=== PATIENT | male | born 1960 | race African-American/Black ===

== ENCOUNTER 2022-06-09 11:16 | Emergency (ER) | payer OTHER, SELFPAY ==
[2022-06-09 11:21] VITALS: BP 144/83; PULSE 95; RESP 17; TEMP 36.6; O2SAT 97; BMI 29.6
--- NOTE | 2022-06-09 11:30 | ED.GENADULT ---
HPI - General Adult General Chief complaint: General Medical Stated complaint: allergic reaction Time Seen by Provider: 06/09/22 11:26 Source: patient Mode of arrival: ambulatory Limitations: no limitations History of Present Illness HPI narrative: 61-year-old male with history of hypertension on lisinopril presents to the ER for evaluation of lip swelling that started last night at 9:30pm. He states the swelling started on his top lip last night. He states this morning he woke up with the bottom lip swollen as well. He denies any swelling of his tongue, throat. No wheezing or SOB. He last took his lisinopril 40 mg this morning before he came to the hospital. No history of allergic reaction or angioedema in the past. MD complaint: lip swelling Onset (ago): hour(s) (15) Location: mouth Radiation: non-radiation Severity: moderate Pain Consistency: constant Relieving factors: none Exacerbating factors: none Associated symptoms: denies other symptoms Treatments prior to arrival: none Related Data Previous Rx's Medication Instructions Recorded amlodipine 10 mg tablet (Norvasc) 10 mg PO DAILY #30 tabs 06/09/22 Allergies Allergy/AdvReac Type Severity Reaction Status Date / Time pseudoephedrine Allergy Rash Verified 06/09/22 13:19 [From Bere] lisinopril Allergy Severe Angioedema Uncoded 06/09/22 13:19 Review of Systems Review of Systems: Constitutional: No Fever, No Chills ENT/Mouth: No sore throat, No Rhinorrhea, No Swallowing Difficulty , +Lip swelling Eyes: No Eye Pain, No Swelling, No Redness Cardiovascular: No Chest Pain, No SOB, No Orthopnea, No Edema Respiratory: No Cough, No Sputum, No Wheezing, No dyspnea Gastrointestinal: No Nausea, No Vomiting Musculoskeletal: No joint pain, No Myalgias Skin: No Skin Lesions, No rash Neuro: No Weakness, No Numbness, No Dizziness, No Headache Psych: + Anxiety/Panic Heme/Lymph: No Bruising, No Lymphadenopathy PMFSH Past Medical History Medical History (Updated 06/09/22 @ 12:45 by Anu Tejeda) Diabetes HTN (hypertension) Social History Social History Smoked in Last 30 Days: Yes Use of substances other than those prescribed or required for medical reasons: No Advance Directives: No Advance Directives Information Provided: Yes Physical Exam ED Vital Signs: Vital Signs - 24 hr 06/09/22 11:21 06/09/22 12:44 Temperature 98 F 99.9 F Pulse Rate 95 79 Respiratory Rate 17 16 Blood Pressure 144/83 H 135/77 Pulse Oximetry 97 97 Oxygen Delivery Method Room Air Room Air BMI result Body Mass Index 29.6 Appearance: Alert. Oriented X3. No acute distress. HEENT: normocephalic, atraumatic. normal inspection of the eyes, PERRLA. normal nose. both top and bottom lip with diffuse symmetrical swelling. oropharynx is normal, no tongue swelling. normal voice, handling secretions normally. Neck: normal inspection, trachea midline. No LAD CVS: Normal heart rate and rhythm. Pulses normal. Respiratory: No respiratory distress. Lung CTAB Skin: Skin warm and dry. Normal skin color. Normal skin turgor. No rashes. Extremities: normal inspection x4. Neuro: Oriented X 3. No motor deficit. No sensory deficit. Course Course Course Narrative: 61-year-old male with history of hypertension on lisinopril presents to the ER for evaluation of acute onset of lip swelling, that started last night at 21:30. Exam and clinical presentation are consistent with angioedema due to MARYSE inhibitor. IV established and ordered for IV Decadron, Benadryl and Pepcid. No airway involvement at this time. Will monitor closely and reassess in the ER. Reevaluation(s) Reevaluation #1: Pt feels swelling of upper lip is starting to improve. Continues to have no oral/tongue/airway involvement. Reevaluation #2: Pt reassess w/ Dr. Ram. Pt feels better. He would like to go home. He was counseled on immediate return if new or worsening symptoms. Will start on Norvasc and he will d/c his lisinopril at home. Comfortable with d/c Medications Administered Discontinued Medications Generic Name Dose Route Start Last Admin Trade Name Freq PRN Reason Stop Dose Admin Dexamethasone Sodium Phosphate 8 mg 06/09/22 11:26 06/09/22 12:38 Dexamethasone Sod Phosphate 4 Mg/Ml Vial IVPUSH 06/09/22 11:27 8 mg ONCE ONE Administration Diphenhydramine HCl 50 mg 06/09/22 11:26 06/09/22 12:39 Diphenhydramine Hcl 50 Mg/Ml Vial IVPUSH 06/09/22 11:27 50 mg ONCE ONE Administration Famotidine 20 mg 06/09/22 11:26 06/09/22 12:38 Famotidine/Pf 20 Mg/2 Ml Vial IVPUSH 06/09/22 11:27 20 mg ONCE ONE Administration Critical Care Time Critical Care Time Critical Care Time: Yes Total Critical Care Time: 35 Attestation: I have personally provided critical care time exclusive of time spent on separately billable procedures. Time includes frequent bedside reassessments, discussion with consultants, and monitoring for potential decompensation. Intervention performed as documented. Discharge Plan Discharge Clinical Impression: Angioedema Patient Disposition: Home, Self-Care Instructions: Angioedema (ED) Additional Instructions: STOP TAKING LISINOPRIL Start taking Norvasc 10 mg per day for your BP instead - sent to [facility] at [address] [place] [address]. You can continue to take Benadryl 50 mg every 8 hour until your lips are back to normal. If you develop new or worsening symptoms call 911 or come back to the ER for further evaluation. Prescriptions: New amlodipine [Norvasc] 10 mg tablet 10 mg PO DAILY Qty: 30 0RF
--- OUTSIDE RECORDS SUMMARY | 2022-06-09 11:57 | XMS_ITS | Encounter Summary ---
:1960 Author Organization [facility] rs Address [address] [place] [address] Support Name Relationship Address Phone ARABELLAMAIDA Mo Unavailable [id number] [place] [phone] ELIMAIDA GRACIA Unavailable [address] [place] [address] Insurance Providers: All historical and current Section Date Range: From patient's date of to the date document was created.This section includes the names of all active insurance providers for the patient. Insurance Type of Plan Start of End of Group Member Insurance Policy P [facility] Provider Coverage Name Policy Policy Number ID Provider's Figueroa's Relationship Coverage Coverage Telephone Name to Policy Number Figueroa [facility] Jul 17, [facility] [id number] [address]AN, REPLACED BY [facility] 2018 DIRECT 15 [id number] S[employer]INO PLAN [facility] Jul 17, [facility] [id number] [facility] 2010 [phone] SANTINO PLAN Selected Encounter This section includes the information on record at [place] for the Encounter. Date/Time Encounter Type Encounter Reason Provider Source Description Sep 14, 2021 POSTOP GENERAL SURGERY ICD-10-CM Z86.39 MICAELA TOMLINSON 03:30 PM FOLLOW-UP VISIT Personal history of endo, nutritional and metabolic disease with Provider Comments: History of diabetes mellitus type 2 ([facility] [id number]) IHE Encounter Template Text not used by [place] Assessments - Encounter Diagnoses This section includes the primary and secondary diagnoses documented for the Encounter. Date/Time Primary/Secondary Diagnosis Name Provider Source Diagnosis Apr 27, 2022 PRIMARY Personal history MONICA SIMPSON ND 03:39 PM of endo, [facility] nutritional and SYS metabolic disease Plan of Treatment: Future Appointments (+ 6 months) and Future Tests (+/- 45 days) The Plan of Treatment section includes future care activities for the patient from all [place] treatmentfacilities. This section includes future appointments and future orders which are active, pending orscheduled.Future Appointments This section includes appointments that were scheduled to occur 6 months from the date of the Encounter, up to a maximum of 20 appointments. The data comes from all [place] treatment facilities. Appointment Date/Time Appointment Type Appointment Facili ty Name Oct 08, 2021 08:30 AM AMBULATORY - MEDICINE [facility] Oct 12, 2021 02:00 PM AMBULATORY - SURGERY [facility] Nov 01, 2021 08:00 AM AMBULATORY MEDICINE [facility] November 19, 2021 08:30 AM AMBULATORY - MEDICINE [facility] Feb 09, 2022 08:00 AM AMBULATORY MEDICINE [facility] Lab Results: +/- 30 days of the encounter This section includes the Chemistry and Hematology Lab Results on record with [place] for the patient. Radiology Reports and Pathology Reports are provided separately, in subsequent sections.Lab Results This section contains the Chemistry/Hematology Results that were resulted 30 days before or 30 daysafter the date of the Encounter. Date/Time Source Result Type Result - Unit Interpretation Reference Range Comment Sep 07, 2021 09:42 [facility] COVID-19 SCREEN PANEL Spe cimen Type: NASAL MUCUS [facility] (VERITOR) No comment enter ed. Ordering Provid er: ESTRELLA MORENO Report Released Date/Time: Sep 07, 2021 09:42 AM Reporting Lab: [facility] [address] [facility] [phone] Performing Lab: [facility] [address] [facility] [phone] COVID-19 ANTIGEN (VERITOR) NEGATIVE INTERNAL CONTROL PASS Sep 07, 2021 08:31 [facility] POC GLUCOSE (finger Speci men Type: PLASMA [facility] stick) No comment enter ed. Ordering Provid er: BRIDGETTE SHIPMAN Report Released Date/Time: Sep 08, 2021 05:59 AM Reporting Lab: [facility] [address] [facility] Performing Lab: [facility] [address] [facility] POC GLUCOSE (finger stick) 74 70- 105 Aug 17, 2021 [facility] GLYCOSOLATED HGB PANEL Speci men Type: BLOOD 08:04 [facility] - BALT/PP No comment enter ed. Ordering Provid er: AMBER ALAS Report Released Date/Time: Apr 28, 2021 08:52 AM Reporting Lab: [facility] [address] [facility] Performing Lab[facility] [address] [facility] HEMOGLOBIN A1C 5.7 4.3-5.7 Aug 17, 2021 08:04 AM [facility] LIPID PANEL S pecimen Type: SERUM SYS No comment enter ed. Ordering Provid er: AMBER ALAS Report Released Date/Time: Apr 28, 2021 08:52 AM Reporting Lab: [facility] [address] [facility] Performing Lab: [facility] [address] [facility] CHOLESTEROL 171 0-240 TRIGLYCERIDES 119 0-150 HDL CHOLESTEROL 50.1 40-60 CALC LDL-CHOLESTEROL 97 0-100 ICTERUS INDEX 1 HEMOLYSIS INDEX 3 LIPEMIA INDEX 8 Vital Signs: All taken on the encounter date This section contains inpatient and outpatient Vital Signs collected on the date of the Encounter. Date/Time Temperature Pulse Blood Respiratory SP02 Pain Height Weight John dy Source Pressure Rate Mass Index Sep 14, 97.3 F 84 137/75 18 /min 95 % 0 [place] 2021 03:01 /min mm[Hg] MARYLAN PM D [facility] Social History: Smoking Status (Most current) and Tobacco Use (All prior to encounter date) This section includes the most current, and the historical, smoking and tobacco-related health factors from the [place] facility where the Encounter took place.Current Smoking Status This section includes the most current smoking, or tobacco-related health factor, from the [place] facility where the Encounter took place. Date/Time Current Smoking Status Comment Facility Nov 03, 2020 09:00 AM VA-TOBACCO FORMER USER [facility] Tobacco Use History This section includes a history of the smoking, or tobacco- related health factors, that were collected on or before the date of the Encounter. The data comes from the [place] facility where the Encounter took place. Date/Time Smoking Status/Tobacco Use Comment Facil ity Nov 03, 2020 09:00 AM VA-TOBACCO QUIT 1 TO < [address] [facility] Jan 07, 2019 12:51 PM VA-TOBACCO FORMER USER [facility] Jan 07, 2019 12:51 PM VA-TOBACCO QUIT < 1 YEAR V [facility] Jul 02, 2018 08:32 AM CURRENT TOBACCO USER [facility] Apr 21, 2017 08:06 AM CURRENT TOBACCO USER [facility] Oct 20, 2016 10:36 AM CURRENT TOBACCO USER [facility] Apr 20, 2016 09:46 AM CURRENT TOBACCO USER [facility] Oct 19, 2015 11:24 AM CURRENT TOBACCO USER [facility] Mar 27, 2015 07:56 AM CURRENT TOBACCO USER [facility] Sep 23, 2014 07:54 AM CURRENT TOBACCO USER [facility] Mar 21, 2014 07:48 AM CURRENT TOBACCO USER [facility] Jun 25, 2013 08:37 AM CURRENT TOBACCO USER [facility] November 19, 2012 11:40 AM CURRENT TOBACCO USER [facility] Apr 02, 2012 08:47 AM CURRENT TOBACCO USER [facility] Sep 20, 2011 02:42 PM CURRENT TOBACCO USER [facility] Oct 08, 2010 10:34 AM CURRENT TOBACCO USER [facility] Dec 24, 2009 11:02 AM CURRENT TOBACCO USER [facility] Dec 24, 2009 11:02 AM TOBACCO OFFERRED STOP [facility] Jul 28, 2009 03:51 PM CURRENT TOBACCO USER [facility] Jul 31, 2008 03:40 PM CURRENT TOBACCO USER [facility] Jul 31, 2008 03:06 PM CURRENT TOBACCO USER [facility] Jul 31, 2008 03:06 PM TOBACCO OFFERRED STOP [facility] Jan 29, 2008 01:30 PM CURRENT TOBACCO USER [facility] Jan 29, 2008 01:30 PM TOBACCO OFFERRED PT MEDS V [facility] (PROVID[facility] CARE [facility] Jan 29, 2008 01:30 PM TOBACCO OFFERRED STOP [facility] Jan 29, 2008 01:13 PM CURRENT TOBACCO USER [facility] Jan 29, 2008 01:13 PM TOBACCO OFFERRED STOP [facility] Jul 31, 2007 09:48 AM CURRENT TOBACCO USER [facility] Jul 31, 2007 09:48 AM TOBACCO OFFERRED PT MEDS [facility] (PROVID[facility]) [facility] Jul 31, 2007 09:48 AM TOBACCO OFFERRED STOP [facility] Jul 31, 2007 09:14 AM CURRENT TOBACCO USER [facility] Jul 31, 2007 09:14 AM TOBACCO OFFERRED STOP [facility] November 28, 2006 04:03 PM CURRENT TOBACCO USER [facility] November 28, 2006 04:03 PM TOBACCO OFFERRED PT MEDS V [facility] ([facility] CARE [facility]YS November 28, 2006 04:03 PM TOBACCO OFFERRED STOP [facility] November 28, 2006 03:37 PM CURRENT TOBACCO USER [facility] smoke 1 pk/day CARE SYS May 31, 2006 03:53 PM TOBACCO [facility] HEALTH USE/COUNSELING-PROVIDER CARE SYS May 31, 2006 03:32 PM TOBACCO [facility] HEALTH USE/COUNSELING-ANCILLARY CARE SY S Feb 13, 2006 01:07 PM TOBACCO [facility] HEALTH USE/COUNSELING-ANCILLARY CARE SY S Apr 15, 2003 09:33 AM TOBACCO COUNSELING 3 [facility] Apr 15, 2003 08:38 AM TOBACCO COUNSELING 2 [facility] Oct 14, 2002 08:46 AM TOBACCO COUNSELING 1 [facility] Oct 14, 2002 08:46 AM TOBACCO COUNSELING 2 [facility] Oct 14, 2002 08:46 AM TOBACCO COUNSELING 3 [facility] Apr 17, 2002 09:52 AM TOBACCO COUNSELING 2 [facility] Apr 17, 2002 09:52 AM TOBACCO COUNSELING 3 [facility] Oct 19, 2001 09:25 AM TOBACCO COUNSELING 1 [facility] Oct 19, 2001 09:25 AM TOBACCO COUNSELING 2 [facility] Oct 19, 2001 09:25 AM TOBACCO COUNSELING 3 [facility] Apr 13, 2001 01:36 PM TOBACCO COUNSELING 2 [facility] Apr 13, 2001 01:36 PM TOBACCO COUNSELING 3 [facility] November 15, 2000 02:10 PM TOBACCO COUNSELING 1 [facility] Pathology Reports: +/- 30 days of the encounter Pathology Reports For cases when an order for pathology services may have been completed prior to the date of the Encounter, the report list includes the Pathology Reports that were completed up to 30 days before date of the Encounter. For cases when an order for pathology services may have been completed after the date of the Encounter, the report list also includes the Pathology Reports that were completed up to 30days after date of the Encounter. The data comes from all [facility] facilities. Date/Time Pathology Report Provider Source Sep 09, 2021 10:30 AM LR SURGICAL PATHOLOGY REPORT: STELLA JARRETT [facility] TITLE: LR SURGICAL PATHOLOGY REPORT [facility] TITLE: PATHOLOGY REPORT DATE OF NOTE: SEP 09, 2021@10:30:07 ENTRY DATE: SEP 09, 2021@10:30:07 AUTHOR: ALBER JARRETT EXP COSIGNER: URGENCY: STATUS: COMPLETED $APHDR - - - - - - - - - - - - - - - - - - - - - - - - - - - - - - - - - - - - - - - - MEDICAL RECORD BA-SURGICAL PATHLOGY - - - - - - - - - - - - - - - - - - - - - - - - - - - - - - - - - - - - - - - - PATHOLOGY REPORT Accession No. [id number] BSP [id number] - - - - - - - - - - - - - - - - - - - - - - - - - - - - - - - - - - - - - - - - $TEXT Submitted by: Date obtained: Sep 07, 2021 17:13 - - - - - - - - - - - - - - - - - - - - - - - - - - - - - - - - - - - - - - - - Specimen (Received Sep 07, 2021 17:13): 1. LEFT CHEST TUMOR - - - - - - - - - - - - - - - - - - - - - - - - - - - - - - - - - - - - - - - - BRIEF CLINICAL HISTORY: LEFT CHEST CYST REMOVAL - - - - - - - - - - - - - - - - - - - - - - - - - - - - - - - - - - - - - - - - PREOPERATIVE DIAGNOSIS: LEFT CHEST CYST REMOVAL - - - - - - - - - - - - - - - - - - - - - - - - - - - - - - - - - - - - - - - - OPERATIVE FINDINGS: - - - - - - - - - - - - - - - - - - - - - - - - - - - - - - - - - - - - - - - - POSTOPERATIVE DIAGNOSIS: LEFT CHEST CYST REMOVAL Surgeon/physician: BRIDGETTE SHIPMAN Current Provider: Luz Maria Obando MD Attending Provider: Bridgette Shipman =-=-=-=-=-=-=-=-=-=-=-=-=-=- =-=-=-=-=-=-=-=-=-=-=-=-=-=-=-=-=-=-=-=-=-=-=-=-=-= - - - - - - - - - - - - - - - - - - - - - - - - - - - - - - - - - - - - - - - - PATHOLOGY REPORT Accession No. [id number] BSP [id number] - - - - - - - - - - - - - - - - - - - - - - - - - - - - - - - - - - - - - - - - Pathology Resident: ANDREW MILLER Gross description: PATIENT IDENTIFICATION MATCHES REQUISITION AND CONTAINER. 1. SPECIMEN #1 IS RECEIVED IN FORMALIN, LABELED WITH THE PATIENT'S NAME, IDENTIFICATION AND LEFT CHEST TUMOR . IT CONSI STS OF ONE PINK BROWN CAUTERIZED SOFT TISSUE FRAGMENT MEASURING 2.2 X 1.4 X 0.8 CM. THE OUTER SURFACE IS INKED BLACK. THE SPECIMEN IS SECTION ED AND SUBMITTED ENTIRELY. SUMMARY OF SECTION: 1-1, LEFT CHEST TUMOR, 5 PIECES Microscopic exam/diagnosis: 1. LEFT CHEST (CYST), REMOVAL: -FIBROADIPOSE TISSUE WITH BENIGN CARTILAGINOUS LESION (SEE COMMENT). COMMENT: The lesion consists entirely of benign appearing chondroid material with surrounding chronic inflammation. The appearance is suggestive of chondroid metaplasia which may aragon ve resulted following the rupture/inflammation of a prior cyst; clinical correlation recommended. Case reviewed in departmental conference. /maira/ ALBER JARRETT PATHOLOGIST Signed Sep 09, 2021@10:30 Performing Laboratory: Surgical Pathology Report Performed By: [facility] [CLIA# [id number]] [address] [place] [phone] $FTR - - - - - - - - - - - - - - - - - - - - - - - - - - - - - - - - - - - - - - - - (End of report) ALBER JARRETT MD hgy Date Sep 08, 2021 - - - - - - - - - - - - - - - - - - - - - - - - - - - - - - - - - - - - - - - - SANTINO MEEHAN STANDARD FORM 515 ID:[id number] SEX:M :1960 AGE: 61 LOC: [facility]EE PCP: Raul Tripp MD /maira/ ALBER JARRETT PATHOLOGIST Signed: 09/09/2021 10:30 Encounter Notes: All associated encounter notes This section contains the clinical notes associated to the Encounter. Date/Time Encounter Note(s) Provider Source Sep 14, 2021 02:59 PM SURGERY NOTE: ARMANDO DAO [facility] LOCAL TITLE: GENERAL SURGERY NOTE [facility] TITLE: SURGERY NOTE DATE OF NOTE: SEP 14, 2021@14:59 ENTRY DATE: SEP 14, 2021@14:59:39 AUTHOR: ARMANDO DAO EXP COSIGNER: URGENCY: STATUS: COMPLETED GENERAL SURGERY CLINIC NOTE HPI: 61M sp excision chest wall mass w Nina Shipman 09/07/21. Presents for post- operative visit. S: Pt states he is doing well. Denies any pain i n the surgical site. Denies redness, drainage, swelling. Notes some itching. EXAM: Gen - Well appearing, sitting comfortably on exa m table CV: Heart regular rate. Chest: L chest wall with steri strips, c/d/i. No erythema, no drainage, no edema. Non-tender. Resp - NLB on RA Neuro - A&O x4 Pathology: Microscopic exam/diagnosis: 1. LEFT CHEST (CYST), REMOVAL: -FIBROADIPOSE TISSUE WITH BENIGN CARTILAGINOUS LESION (SEE COMMENT). COMMENT: The lesion consists entirely of benign appearing chondroid material with surrounding chronic inflammation. The appearance is suggestive of chondroid metaplasia which may aragon ve resulted following the rupture/inflammation of a prior cyst; clinical correlation recommended. Case reviewed in departmental conference. A&P: 61M hx superficial chest wall mass removed 09/07. - Pt healing appropriately, wound well approximated and without ss of infection - Pathology reviewed with patient - RTC up PRN /es/ ARMANDO DAO MD GENERAL SURGERY RESIDENT Signed: 09/14/2021 15:07
--- OUTSIDE RECORDS SUMMARY | 2022-06-09 11:57 | XMS_ITS | Continuity of Care Document ---
:1960 Author Organization [facility] Care Team Providers Name Role Phone DOD-CA Unavailable Unavailable Problems Combined list of problems from Department of Defense and Veterans Affairs facilities. It does not include entries that were removed or entered in error. Problem Status Onset Problem Type Date of Comments Source Date Resolution Colonic polyp Active 01/15/20 Condition [facility] 17 [facility] SY Need For Vaccination Inactive Condition DoD Against Influenza Benign prostatic Active Condition VA hyperplasia [facility] History of diabetes Active Condition VA mellitus type 2 [facility] Hyperlipidemia Active Condition VA (SNOMED CT 50426019) [facility] Hypertension (SNOMED Active Condition [place] 00336498) [facility] Obesity (SCT Active Condition CA 428034025) [facility] Osteoarthritis Active Condition Apr 13 VA 2000 Entered ANDREW Wood By: 5by [facility] YS ICK B Comment: knees bilaterally Vitamin D deficiency Active Condition [facility] Diabetes Mellitus Inactive Condition 02/09/2022 V A Type 2 (SCT [facility] 20037736) HEALTH CARE S Health maintenance Inactive Condition 01/07/[address] [facility] Obesity * (ICD-9-CM Inactive Condition 01/07/2019 VA 278.00) [facility] Diagnosis: ICD-10-CM Active Diagnosis VA Z23 Encounter for KIRAN PICHARDO immunizationwith [facility] Provider Comments: C ARE SYS Immunization Encounter Diagnosis: ICD-10-CM Active Diagnosis VA E66.9 Obesity, MARYL AND unspecifiedwith HEAL TH Provider Comments: C ARE SYS Obesity (SCT 643694723) Diagnosis: ICD-10-CM Active Diagnosis VA E11.9 Type 2 ANDREW Wood diabetes mellitus HE ALTH without CARE SYS complicationswith Provider Comments: Diabetes Mellitus Type 2 (SCT 88819754) Diagnosis: ICD-10-CM Active Diagnosis LOCH MARRY Q84.5 Enlarged and V [facility] hypertrophic nailswith Provider Comments: Enlarged and Hypertrophic Nails Diagnosis: ICD-10-CM Active Diagnosis VA Z86.39 Personal MAC GARCIA history of endo, A [facility] nutritional and CARE SYS metabolic diseasewith Provider Comments: History of diabetes mellitus type 2 ([facility] [id number]) Diagnosis: ICD-10-CM Active Diagnosis VA L72.0 Epidermal MAC GARCIA cystwith Provider HE ALTH Comments: Epidermal CARE SYS cyst Diagnosis: ICD-10-CM Active Diagnosis VA D23.9 Other benign [place] neoplasm of skin, HE ALTH unspecifiedwith CARE SYS Provider Comments: Benign Neop of Skin,Unspec Diagnosis: ICD-10-CM Active Diagnosis VA D22.30 Melanocytic [place] nevi of unspecified HEALTH part of facewith CAR E SYS Provider Comments: Melanocytic Nevi of Face,Unspec Diagnosis: ICD-10-CM Active Diagnosis VA Z23 Encounter for MA KYLEE immunizationwith [facility] Provider Comments: C ARE SYS Encounter for Immunization Diagnosis: ICD-10-CM Active Diagnosis HELDER TUTTLE R53.1 Weaknesswith V [facility] Provider Comments: Weakness Medications Combined list of outpatient medications from Department of Defense and Veterans Affairs facilities. Medications provided include 1) outpatient medications from the last 15 months, and 2) patient-reported medications. Medication Details Route Status Patient Prescription Prescription Last Ordering Order Source Instructions Expires Number Dispense Provider Date Date ACETAMINOPH TAKE TWO 10/07/2021 [id number] BHA TTI, 09/14/ Baltimo EN (U/D) TABLETS 2 ESTRELLA 2021 vickie PRECIADO 325 MG ORAL EVERY [facility] TAB SIX HOURS WHEN NEEDED ACETAMINOPH TAKE TWO ORAL 10/07/2021 [id number] TIFFANIE,AR 09/08/ [place] EN 325MG TABLETS 2 SALAN 2021 MARYLAN [facility] CARE WHEN SYS NEEDED atorvastati TAKE ONE 04/29/2022 [id number] MATTHIAS SEN, 03/19/ Baltimo n (U/D) 80 TABLET 2 2021 re MD MG ORAL TAB EVERY [facility] DAY FOR CHOLESTE ROL. atorvastati TAKE Discont 04/02/2022 [id number] EVETTE , 04/29/ Baltimo n (U/D) 80 ONE-HALF inued 2020 re M D MG ORAL TAB TABLET [facility] EVERY DAY FOR CHOLESTE ROL. ATORVASTATI TAKE ORAL DISCONT 04/02/2022 [id number] QUYEN Mo, CA Sudhakar CA 80MG ONE-HALF INUED 1 ANN2020 MARYL AN TAB TABLET (EDIT) D EVERY HEALTH DAY FOR CARE CHOLESTE SYS ROL. ATORVASTATI TAKE ONE ORAL 04/29/2022 [id number] EVETTE CA N CA 80MG TABLET 2 ANN2020 MARYLAN TAB EVERY D DAY FOR HEALTH CHOLESTE CARE ROL. SYS CHOLECALCIF TAKE ONE 04/29/2022 [id number] MATTHIAS ALONSO, 05/01/ Baltimo (VIT D3) TABLET 1 2020 vickie PRECIADO 1,000 UNIT EVERY [facility] ORAL TAB DAY (VITAMIN D SUPPLEME NT) CHOLECALCIF TAKE TWO Discont 06/23/2021 [id number] MATTHIAS ALONSO, 04/29/ Baltimo (VIT D3) TABLETS inued 1 2020 vickie PRECIADO 1,000 UNIT EVERY [facility] ORAL TAB DAY (VITAMIN D SUPPLEME NT) CHOLECALCIF TAKE TWO ORAL DISCONT 06/23/2021 [id number] EVETTE 09/11/ CA JORDY 25MCG TABLETS INUED 1 ANN2020 MARYL AN (1,000UNIT) EVERY (EDIT) D TAB DAY HEALTH (VITAMIN CARE D SYS SUPPLEME NT) CHOLECALCIF TAKE ONE ORAL 04/29/2022 [id number] ALAS, 04/29/ [place] JORDY 25MCG TABLET 1 ANN2020 DANIELLE N (1,000UNIT) EVERY D TAB DAY HEALTH (VITAMIN CARE D SYS SUPPLEME NT) EMPAGLIFLOZ TAKE ONE Discont 07/29/2022 [id number] MATTHIAS ALONSO, 11/02/ Baltimo IN 25 MG TABLET inued 2 2021 vickie PRECIADO ORAL TAB EVERY [facility] DAY FOR DIABETES TREATMEN T. EMPAGLIFLOZ TAKE ONE 08/06/2021 [id number] MATTHIAS ALONSO, 07/29/ Baltimo IN 25 MG TABLET 2 2021 vickie PRECIADO ORAL TAB EVERY [facility] DAY FOR DIABETES TREATMEN T. EMPAGLIFLOZ TAKE ONE ORAL DISCONT 07/29/2022 [id number] ALAS IN 25MG TAB TABLET INUED 2 ANNON C 2021 MARYL AN EVERY D DAY FOR HEALTH DIABETES CARE TREATMEN SYS T. EMPAGLIFLOZ TAKE ONE ORAL DISCONT 08/06/2021 [id number] [place], [place] IN 25MG TAB TABLET INUE 2 ANNON C 2020 MARYL AN EVERY D DAY FOR HEALTH DIABETES CARE TREATMEN SYS T. FLOMAX TAKE ONE 11/04/2021 [id number] MELVIN, 11/10/ Baltimo (BRAND) 0.4 CAPSULE 1 MYRA 2021 re MD MG ORAL CAP AT [facility] BEDTIME 30 MINUTES AFTER DINNER EACH DAY *FOR PROSTATE / NIGHTTIM E URINATIO N (BPH)* IBUPROFEN TAKE ONE 10/07/2021 [id number] CHELY I, 09/14/ Baltimo (U/D) 600 TABLET 2 ESTRELLA 2021 re MD MG ORAL TAB EVERY [facility] SIX HOURS WHEN NEEDED FOR PAIN OR INFLAMMA TION - TAKE WITH FOOD OR MILK. IBUPROFEN TAKE ONE ORAL 10/07/2021 [id number] CHELY I,AR 600MG TAB TABLET 2 SALAN 2021 MARYLAN EVERY KHALID D SIX HEALTH HOURS CARE WHEN SYS NEEDED FOR PAIN OR INFLAMMA TION - TAKE WITH FOOD OR MILK. LIRAGLUTIDE INJECT SUBCUT DISCONT 04/02/2022 [id number] H ANSBEBE VA (SAXENDA) 3MG ANEOUS INUED 2 ANNON C 2020 MARYLA N 6MG/ML DIRECTED D INJ,SOLN,PE UNDER HEALTH N,3ML THE SKIN CARE EVERY SYS DAY DISCARD PEN 30 DAYS AFTER FIRST USE. REFRIGER ATE-DO NOT FREEZE. PROTECT FROM LIGHT. RECOMMEN DED FOR USE WITH NOVOFINE OR NOVOTWIS T DISPOSAB LE NEEDLES. Lisinopril TAKE Discont 11/24/2021 [id number] EVETTE 08/06/ Baltimo (Prinivil) ONE-HALF inued 1 2021 re Tre D Tablet 40 TABLET [facility] mg Oral EVERY DAY REPLACES FOSINOPR IL - DO NOT TAKE BOTH lisinopril TAKE Active 08/05/2022 [id number] ALAS, 04/27/ Baltimo (U/D) 20 MG ONE-HALF 2 AMBER 2021 vickie PRECIADO ORAL TAB TABLET [facility] EVERY DAY LISINOPRIL TAKE ORAL SUSPEND 08/05/2022 [id number] [place] 20MG TAB ONE-HALF ED 2 2021 MARYLA N TABLET D EVERY HEALTH DAY CARE SYS LISINOPRIL TAKE ORAL DISCONT 11/24/2021 [id number] [place] 40MG TAB ONE-HALF INUED 1 2020 MARYLA N TABLET (EDIT) D EVERY HEALTH DAY CARE REPLACES SYS FOSINOPR IL - DO NOT TAKE BOTH SEMAGLUTIDE INJECT SUBCUT DISCONT 09/05/2021 [id number] LEONARD NSEN,SH 1MG/0.75ML 1MG ANEOUS INUED 2 2021 MARYL AN INJ,SOLN,PE DIRECTED D N,3ML UNDER HEALTH THE SKIN CARE ONCE SYS WEEKLY FOR WEIGHT MANAGEME NT (###) SEMAGLUTIDE INJECT SUBCUT DISCONT 09/29/2021 [id number] H ANSBEBE, (WT LOSS) 1.7MG/0. ANEOUS INUED 2 2021 MAC ALEXI 1.7MG/0.75M 75ML D L DIRECTED HEALTH INJ,SOLN,PE UNDER CARE N,0.75ML THE SKIN SYS ONCE WEEKLY FOR WEIGHT MANAGEME NT (###) START AFTER COMPLETI NG THE FOUR WEEKS OF 1MG DOSE WITH SEMAGLUT IMANI (OZEMPIC ). FOR WEIGHT MANAGEME NT (###) START AFTER COMPLETI NG THE FOUR WEEKS OF 1MG DOSE WITH SEMAGLUT IMANI (OZEMPIC ). SEMAGLUTIDE INJECT SUBCUT DISCONT 09/05/2021 [id number] LEONARD NSEN,SH 01/24/ VA (WT LOSS) 1.7MG/0. ANEOUS INUE 2 ANN2021 MAC ALEXI 1.7MG/0.75M 75ML D L DIRECTED HEALTH INJ,SOLN,PE UNDER CARE N,0.75ML THE SKIN SYS ONCE WEEKLY FOR WEIGHT MANAGEME NT (###) START AFTER COMPLETI NG THE FOUR WEEKS OF 1MG DOSE WITH SEMAGLUT IMANI (OZEMPIC ). FOR WEIGHT MANAGEME NT (###) START AFTER COMPLETI NG THE FOUR WEEKS OF 1MG DOSE WITH SEMAGLUT IMANI (OZEMPIC ). SEMAGLUTIDE INJECT SUBCUT ACTIVE 05/26/2023 [id number] RIZZO SEN, VA (WT LOSS) 2.4MG/0. ANEOUS 2 2021 MAC ALEXI 2.4MG/0.75M 75ML D L DIRECTED HEALTH INJ,SOLN,PE UNDER CARE N,0.75ML THE SKIN SYS ONCE WEEKLY FOR WEIGHT MANAGEME NT SEMAGLUTIDE INJECT SUBCUT DISCONT 11/02/2022 [id number] H ANSEN, 11/18/ VA (WT LOSS) 2.4MG/0. ANEOUS INUED 2 ANN2021 MAC ALEXI 2.4MG/0.75M 75ML (EDIT) D L DIRECTED HEALTH INJ,SOLN,PE UNDER CARE N,0.75ML THE SKIN SYS ONCE WEEKLY FOR WEIGHT MANAGEME NT (###) START AFTER COMPLETI NG THE FOUR WEEKLY 1.7MG DOSES WITH SEMAGLUT IMANI (WEGOVY) . FOR WEIGHT MANAGEME NT (###) START AFTER COMPLETI NG THE FOUR WEEKLY 1.7MG DOSES WITH SEMAGLUT IMANI (WEGOVY) . SEMAGLUTIDE INJECT SUBCUT DISCONT 09/11/2022 [id number] LEONARD NSEN, 09/13/ VA (WT LOSS) 2.4MG/0. ANEOUS INUED 2 ANNON C 2021 MAC ALEXI 2.4MG/0.75M 75ML D L DIRECTED HEALTH INJ,SOLN,PE UNDER CARE N,0.75ML THE SKIN SYS ONCE WEEKLY FOR WEIGHT MANAGEME NT (###) START AFTER COMPLETI NG THE FOUR WEEKLY 1.7MG DOSES WITH SEMAGLUT IMANI (WEGOVY) . FOR WEIGHT MANAGEME NT (###) START AFTER COMPLETI NG THE FOUR WEEKLY 1.7MG DOSES WITH SEMAGLUT IMANI (WEGOVY) . TAMSULOSIN TAKE ONE ORAL 11/04/2021 [id number] K HOSLA,AM 11/03/ VA HCL 0.4MG CAPSULE 1 IT 2020 MARYLAN CAP AT D BEDTIME HEALTH 30 CARE MINUTES SYS AFTER DINNER EACH DAY *FOR PROSTATE / NIGHTTIM E URINATIO N (BPH)* ZOSTER INJECT 1 INTRAM 08/16/2021 [id number] MELVIN, AM VA VACCINE,REC DOSE USCULA 1 IT 2020 MARYALEXI OMBINANT,AD (0.5ML) R D JUVANTED HEALTH INJ,KIT DIRECTED CARE INTRAMUS SYS CULARLY ONCE 2 DOSE SERIES WITH SECOND DOSE ADMINSTE RED 2 TO 6 MONTHS AFTER FIRST DOSE. Allergies, Adverse Reactions, Alerts Combined list of allergies from Department of Defense and Veterans Affairs facilities. It does not include entries that were removed or entered in error. Substance Category Reaction Severity Reaction Status Date Comments S ource type Reported No Known Drug Drug active WRNMM C Allergies allergy allergy 9 SUDAFED Propensity Eruption Propensity active VA to adverse to adverse 2 KIRAN PICHARDO reactions reactions HEAL TH to drug to drug CARE SYS (finding) (finding) Immunizations Combined list of available immunizations from the Department of Defense and Veterans Affairs facilities. Immunization Series Date Administered Site Reaction Lot CVX Drug St atus Comments Source Given By Number Code Manager Database COVID-19 1 complet PFR; VA (PFIZER), 2021 ed [id number]; KIRAN DA SILVA MRNA, LNP-S, 02 D BIVALENT 3 HEALT H BOOSTER, PF, C ARE 30 MCG/0.3 ML SYS DOSE INFLUENZA, complet VA INJECTABLE, 2021 ed KIRAN DA SILVA QUADRIVALENT, D PRESERVATIVE H EALTH FREE CARE SYS COVID-19 3 complet PFR; VA (PFIZER), 2020 ed [id number]; KIRAN STALLINGSLAN MRNA, LNP-S, 02 D PF, 30 2 HEALTH MCG/0.3 ML CAR E DOSE SYS INFLUENZA, complet VA INJECTABLE, 2020 ed KIRAN DA SILVA QUADRIVALENT, D PRESERVATIVE H EALTH FREE CARE SYS ZOSTER 1 complet VA RECOMBINANT 2020 ed KIRAN DA SILVA D HEALTH CARE SYS INFLUENZA, complet VA INJECTABLE, 2020 ed KIRAN DA SILVA QUADRIVALENT, D PRESERVATIVE H EALTH FREE CARE SYS COVID-19 2 complet PFR; VA (PFIZER), 2020 ed [id number]; KIRAN DA SILVA MRNA, LNP-S, 02 D PF, 30 1 HEALTH MCG/0.3 ML CAR E DOSE SYS COVID-19 1 complet PFR; VA (PFIZER), 2020 ed [id number]; KIRAN REKHA MRNA, LNP-S, 02 D PF, 30 1 HEALTH MCG/0.3 ML CAR E DOSE SYS INFLUENZA, complet Partne r:C VA INJECTABLE, 2019 ed [email or web address] sudhakar MORALES QUADRIVALENTtatiana D PRESERVATIVE by:[facility] 125.([phone]).N DC:[phone].Add ress:[id number] [facility] [address]JEIMY DORAN. [id number] Dosage: ML 0.5 INFLUENZA, complet VA INJECTABLE, 2018 ed KIRAN DA SILVA QUADRIVALENT, D PRESERVATIVE H EALTH FREE CARE SYS INFLUENZA complet V A (HISTORICAL) 2018 ed Tre Wood HE[facility] CARE SYS INFLUENZA, complet VA INJECTABLE, 2016 ed KIRAN DA SILVA QUADRIVALENT, D PRESERVATIVE H EALTH FREE CARE SYS TDAP complet VA 2017 ed ANDREW Wood HEALTH CARE SYS INFLUENZA, complet VA UNSPECIFIED 2012 ed KIRAN STALLINGSLAN FORMULATION D HEALTH CARE SYS INFLUENZA, complet VA UNSPECIFIED 2011 ed KIRAN STALLINGSLAN FORMULATION D HEALTH CARE SYS PNEUMOCOCCAL, complet VA UNSPECIFIED 2011 ed KIRAN STALLINGSLAN FORMULATION D HEALTH CARE SYS PNEUMOVAX 09/19/ complet V A REFUSED 2011 ed DANIELLE Mo (HISTORICAL) D HEALTH CARE SYS INFLUENZA complet V A (HISTORICAL) 2010 ed Tre Wood [facility] CARE SYS INFLUENZA, complet VA UNSPECIFIED 2009 ed KIRAN DA SILVA FORMULATION D HEALTH CARE SYS PNEUMOVAX 12/24/ complet refused VA REFUSED 2009 ed DANIELLE N (HISTORICAL) D HEALTH CARE SYS PNEUMOVAX complet Refused VA REFUSED 2009 ed DANIELLE N (HISTORICAL) D HEALTH CARE SYS NOVEL complet VA INFLUENZA-H1N 2009 ed ANDREW 1-09, ALL D FORMULATIONS H EALTH CARE SYS INFLUENZA complet V A (HISTORICAL) 2008 ed Tre Wood [facility]ARE SYS influenza 1 04/08/ Unknown, [id number] [place] complet influenza DoD virus 2009 Provider 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 virus purified (incl. surface purified antigen)-reti surfac e red CODE antigen)- retired CODE INFLUENZA complet V A (HISTORICAL) 2006 ed Tre Wood [facility] CARE SYS TD(ADULT) complet V A UNSPECIFIED 2006 ed KIRAN DA SILVA FORMULATION D HEALTH CARE SYS INFLUENZA complet F ORT (HISTORICAL) 2001 ed Tre [place] INFLUENZA, 06/26/ FILEMON HO 16 comple t VA WHOLE 1999 D ed ANDREW Wood HE[facility] CARE SYS INFLUENZA 05/12/ RADHA MCGUIRE 88 complet VA (HISTORICAL) 1997 ed Tre Wood [facility] CARE SYS TD(ADULT) complet militar y VA UNSPECIFIED 1996 ed KIRAN DA SILVA FORMULATION D HEALTH CARE SYS Results Combined list of recent chemistry, hematology and other laboratory results from Department of Defense and Veterans Affairs, ranging from 15 months to all on record, depending upon the facility. Order Results Value Reference Date Interpretation Specimen Commen ts Source Name Range GLYCOSOL HEMOGLOBIN 5.4 4.3 - 5.7 05/11 Specimen T ype: BLOOD CA ATED HGB A1C/HEMOGL /2021 No comment e ntered. [facility] PANEL - OBIN.TOTAL Ordering Pro vider: AMBER [facility]/PP IN BLOOD Report Release d Date/Time: Feb 09, 2022 08:29 AM CARE SYS BY HPLC Reporting Lab: [facility] [address] [facility] Performing Lab: [facility] [address] [facility] VIT D, 25-HYDROXY 37 30 - 100 05/11 Specimen Typ e: SERUM VA 25-OH, VITAMIN D3 /2021 Comment: Hem olysis Present. Affected Tests are canceled [facility] [MASS/VOLU Ordering Pro vider: AMBER ALAS [email or web address] [place]] IN Report Released Date/Time: Feb 09, 2022 08:29 AM CARE SYS SERUM OR Reporting Lab: [facility] PLASMA [facility] Performing Lab: [facility] [address] [facility] LIPID CHOLESTERO 141 0 - 240 05/11 Specimen Type : SERUM VA PANEL L /2021 Comment: Hemoly sis Present. Affected Tests are canceled [facility] [MASS/VOLU Ordering Pro vider: AMBER ALAS [email or web address] [place]] IN Report Released Date/Time: Feb 09, 2022 08:29 AM CARE SYS SERUM OR Reporting Lab: [facility] PLASMA [facility] Performing Lab: [facility] [address] [facility] LIPID TRIGLYCERI 93 0 - 150 05/11 Specimen Type : SERUM VA PANEL DE Comment: Hemoly sis Present. Affected Tests are canceled [facility] [MASS/VOLU Ordering Pro vider: AMBER ALAS [email or web address] [place]] IN Report Released Date/Time: Feb 09, 2022 08:29 AM CARE SYS SERUM OR Reporting Lab: [facility] PLASMA [address] [facility] Performing Lab: [facility] [address] [facility] LIPID CHOLESTERO 49.0 40 - 60 05/11 Specimen Type : SERUM VA PANEL L IN [facility] Comment: Hemol ysis Present. Affected Tests are canceled [facility] [MASS/VOLU Ordering Pro vider: AMBER ALAS [email or web address] [place]] IN Report Released Date/Time: Feb 09, 2022 08:29 AM CARE SYS SERUM OR Reporting Lab: [facility] PLASMA [facility] Performing Lab: [facility] [address] [facility] LIPID CHOLESTERO 73 0 - 100 05/11 Specimen Type : SERUM VA PANEL L IN LDL /2021 Comment: Hemol ysis Present. Affected Tests are canceled [facility] [MASS/VOLU Ordering Pro vider: AMBER [facility]AS [facility] [place]] IN Report Released Date/Time: Feb 09, 2022 08:29 AM CARE SYS SERUM OR Reporting Lab: [facility] PLASMA BY 10 [facility] CALCULATIO Performing L ab: [facility] N [facility] LIPID SAMPLE 1 05/11 Specimen Type: S CHENTE CA PANEL ICTERIC /2021 Comment: Hemoly sis Present. Affected Tests are canceled [facility] [PRESENCE] Ordering Pro vider: AMBER ALAS [facility] SERUM Report Release d Date/Time: Feb 09, 2022 08:29 AM CARE SYS OR PLASMA Reporting Lab : [facility] QUALITATIV 10 [facility] E Performing Lab: [facility] [address] [facility] LIPID HEMOLYSIS 90 05/11 Specimen Type: SERUM CA PANEL INTERFEREN /2021 Comment: Hem olysis Present. Affected Tests are canceled [facility] CE INDEX Ordering Provi jeremy: AMBER ALAS [facility] SERUM Report Release d Date/Time: Feb 09, 2022 08:29 AM CARE SYS OR PLASMA Reporting Lab : [facility] [address] [facility] Performing Lab: [facility] [address] [facility] LIPID SAMPLE 5 05/11 Specimen Type: S [facility] PANEL LIPEMIC /2021 Comment: Hemoly sis Present. Affected Tests are canceled [facility] [PRESENCE] Ordering Pro vider: [facility] SERUM Report Release d Date/Time: Feb 09, 2022 08:29 AM CARE SYS OR PLASMA Reporting Lab : [facility] QUALITATIV 10 [facility] E Performing Lab: [facility] [address] [facility] MICROALB CREATININE 130.42 20 - 320 05/11 Specimen Ty pe: URINE, SPOT VA UMIN [MASS/VOLU /2021 No comment en tered. FLOWERS PANEL ME] IN Ordering Provid er: AMBER ALAS URINE Report Released Date/Time: Feb 09, 2022 08:29 AM CARE SYS Reporting Lab: [facility] [address] [facility] Performing Lab: [facility] [address] [facility] MICROALB MICROALBUM <9.2 0 - 30 05/11 Specimen Typ e: URINE, SPOT VA UMIN IN/ No comment en tered. FLOWERS PANEL INE [MASS Ordering Prov ider: AMBER ALAS [email or web address] RATIO] IN Report Releas ed Date/Time: Feb 09, 2022 08:29 AM CARE SYS URINE Reporting Lab: [facility] [address] [facility] Performing Lab: [facility] [address] [facility] MICROALB MICROALBUM <1.2 0 - 1.9 05/11 Specimen Typ e: URINE, SPOT VA UMIN No comment enter ed. [place] PANEL [MASS/VOLU Ordering Pro vider: AMBER ALAS [email or web address] [place]] IN Report Released Date/Time: Feb 09, 2022 08:29 AM CARE SYS URINE Reporting Lab: [facility] [address] [facility] Performing Lab: [facility] BASIC CREATININE 1.00 .9 - 1.3 05/11 Specimen Typ e: SERUM VA METABOLI [MASS/VOLU /2021 Comment: He molysis Present. Affected Tests are canceled KRISTIE Dean PANEL ME] IN Ordering Provid er: AMBER ALAS [email or web address] SERUM OR Report Release d Date/Time: Feb 09, 2022 08:29 AM CARE SYS PLASMA Reporting Lab: [facility] [address] [facility] Performing Lab: [facility] BASIC UREA 15 6 - 20 05/11 Specimen Type: S CHENTE VA METABOLI Comment: Hemo lysis Present. Affected Tests are canceled [place] C PANEL [MASS/VOLU Ordering Pro vider: AMBER ALAS [email or web address] [place]] IN Report Released Date/Time: Feb 09, 2022 08:29 AM CARE SYS SERUM OR Reporting Lab: [facility] PLASMA [address] [facility] Performing Lab: [facility] [address] [facility] BASIC GLUCOSE 90 70 - 105 05/11 Specimen Type: SERUM VA METABOLI [MASS/VOLU /2021 Comment: He molysis Present. Affected Tests are canceled [place] C PANEL ME] IN Ordering Provid er: AMBER ALAS [facility] SERUM OR Report Release d Date/Time: Feb 09, 2022 08:29 AM CARE SYS PLASMA Reporting Lab: [facility] [address] [facility] Performing Lab: [facility] BASIC SODIUM 141 133 - 145 05/11 Specimen Type: SERUM VA METABOLI [MOLES/VOL Comment: He molysis Present. Affected Tests are canceled [place] C PANEL UME] IN Ordering Provid er: AMBER ALAS [facility] SERUM OR Report Release d Date/Time: Feb 09, 2022 08:29 AM CARE SYS PLASMA Reporting Lab: [facility] [address] [facility] Performing Lab: [facility] BASIC POTASSIUM Comment 3.3 - 5.1 05/11 Specimen Typ e: SERUM VA METABOLI [MOLES/VOL Comment: He molysis Present. Affected Tests are canceled [place] C PANEL UME] IN Ordering Provid er: AMBER ALAS [facility] SERUM OR Report Release d Date/Time: Feb 09, 2022 08:29 AM CARE SYS PLASMA Reporting Lab: [facility] [address] [facility] Performing Lab: [facility] [address] [facility] BASIC CHLORIDE 106 98 - 107 05/11 Specimen Type: SERUM VA METABOLI [MOLES/VOL /2021 Comment: He molysis Present. Affected Tests are canceled [place] C PANEL UME] IN Ordering Provid er: AMBER ALAS [email or web address] SERUM OR Report Release d Date/Time: Feb 09, 2022 08:29 AM CARE SYS PLASMA Reporting Lab: [facility] [address] [facility] Performing Lab: [facility] 10 [address] BASIC CARBON 23 22 - 32 05/11 Specimen Type: S CHENTE VA METABOLI DIOXIDE, Comment: Hemo lysis Present. Affected Tests are canceled [place] C PANEL TOTAL Ordering Provid er: AMBER ALAS [email or web address] [MOLES/VOL Report Relea sed Date/Time: Feb 09, 2022 08:29 AM CARE SYS UME] IN Reporting Lab: [facility] SERUM OR [address] [facility] PLASMA Performing Lab: [facility] [address] [facility] BASIC CALCIUM 9.5 8.4 - 10.2 05/11 Specimen Type : SERUM VA METABOLI [MASS/VOLU Comment: He molysis Present. Affected Tests are canceled [place] PANEL ME] IN Ordering Provid er: AMBER ALAS [email or web address] SERUM OR Report Release d Date/Time: Feb 09, 2022 08:29 AM CARE SYS PLASMA Reporting Lab: [facility] CARE SYS [address] [facility] Performing Lab: [facility] CARE SYS [address] [facility] BASIC ANION GAP 12 6 - 15 05/11 Specimen Type: SERUM VA METABOLI IN SERUM /2021 Comment: Hemo lysis Present. Affected Tests are canceled [place] PANEL OR PLASMA Ordering Prov ider: AMBER ALAS [email or web address] Report Released Date/Time: Feb 09, 2022 08:29 AM CARE SYS Reporting Lab: [facility] CARE SYS [address] [facility] Performing Lab: [facility] SYS [address] [facility] [id number] BASIC GLOMERULAR 85 60 05/11 Specimen Type : SERUM VA METABOLI FILTRATION /2021 Comment: He molysis Present. Affected Tests are canceled [place] C PANEL RATE/1.73 Ordering Prov ider: [facility] Report Released Date/Time: Feb 09, 2022 08:29 AM CARE SYS M.PREDICTE Reporting La b: [facility] CARE SYS D [VOLUME 10 [facility] [id number] RATE/AREA] Performing L ab: [facility] SYS IN SERUM, 10 [facility] PLASMA OR BLOOD BY CREATININE -BASED FORMULA (CKD-EPI 2020) BASIC SAMPLE 1 05/11 Specimen Type: S CHENTE CA METABOLI ICTERIC /2021 Comment: Hemol ysis Present. Affected Tests are canceled [place] C PANEL [PRESENCE] Ordering Pro vider: AMBER ALAS [facility] Report Release d Date/Time: Feb 09, 2022 08:29 AM CARE SYS OR PLASMA Reporting Lab : [facility] SYS QUALITATIV 10 [facility] E Performing Lab: [facility] BASIC HEMOLYSIS 90 05/11 Specimen Type: SERUM CA METABOLI INTERFEREN /2021 Comment: He molysis Present. Affected Tests are canceled [place] C PANEL CE INDEX Ordering Provi jeremy: [facility] Report Release d Date/Time: Feb 09, 2022 08:29 AM CARE SYS OR PLASMA Reporting Lab : [facility] CARE SYS [facility] Performing Lab: [facility] CARE SYS 10 [facility] BASIC SAMPLE 5 05/11 Specimen Type: S CHENTE CA METABOLI LIPEMIC /2021 Comment: Hemol ysis Present. Affected Tests are canceled [place] C PANEL [PRESENCE] Ordering Pro vider: [facility] Report Release d Date/Time: Feb 09, 2022 08:29 AM CARE SYS OR PLASMA Reporting Lab : [facility] SYS QUALITATIV 10 [facility] E Performing Lab: [facility] 10 [facility] COVID-19 COVID-19 NEGATIVE 09/07 Specimen Type : NASAL MUCUS CA SCREEN ANTIGEN No comment enter ed. [place] PANEL AG (VERITOR) Ordering Pro vider: [email or web address] [employer] (VERITOR Report Release d Date/Time: Sep 07, 2021 09:42 AM CARE SYS ) Reporting Lab: [facility] Performing Lab: [facility] COVID-19 INTERNAL PASS 09/07 Specimen Type: NASAL MUCUS CA SCREEN CONTROL /2021 No comment enter ed. [place] PANEL AG Ordering Provi jeremy: [email or web address] [employer] (VERITOR Report Release d Date/Time: Sep 07, 2021 09:42 AM CARE SYS ) Reporting Lab: [facility] Performing Lab: [facility] 10 [facility] POC GLUCOSE 74 70 - 105 09/07 Specimen Type: PLASMA CA GLUCOSE [MASS/VOLU /2021 [facility] [place] (finger ME] IN Ordering Provid er: [facility] stick) BLOOD BY Report Release d Date/Time: Sep 08, 2021 05:59 AM CARE SYS AUTOMATED Reporting Lab : [facility] TEST STRIP 10 [facility] Performing Lab: [facility] GLYCOSOL HEMOGLOBIN 5.7 4.3 - 5.7 08/17 Specimen T ype: BLOOD CA ATED HGB A1C/HEMOGL /2021 No comment e ntered. [place]INE PANEL - OBIN.TOTAL Ordering Pro vider: [facility] BALT/PP IN BLOOD Report Release d Date/Time: Apr 28, 2021 08:52 AM CARE SYS BY Reporting Lab: [facility]ATIO [facility] Performing Lab: [facility] LIPID CHOLESTERO 171 0 - 240 08/17 Specimen Type : SERUM VA PANEL L /2021 No comment enter ed. MAINE [MASS/VOLU Ordering Pro vider: AMBER ALAS [email or web address]] IN Report Released Date/Time: Apr 28, 2021 08:52 AM CARE SYS SERUM OR Reporting Lab: [facility] PLASMA 10 [facility] Performing Lab: [facility] 10 [facility] LIPID TRIGLYCERI 119 0 - 150 08/17 Specimen Type : SERUM VA PANEL DE No comment enter ed. MAINE [MASS/VOLU Ordering Pro vider: AMBER ALAS [email or web address]] IN Report Released Date/Time: Apr 28, 2021 08:52 AM CARE SYS SERUM OR Reporting Lab: [facility] PLASMA 10 [facility] Performing Lab: [facility] 10 [facility] LIPID CHOLESTERO 50.1 40 - 60 08/17 Specimen Type : SERUM VA PANEL L IN HDL /2021 No comment ente red. MAINE [MASS/VOLU Ordering Pro vider: AMBER ALAS [email or web address]] IN Report Released Date/Time: Apr 28, 2021 08:52 AM CARE SYS SERUM OR Reporting Lab: [facility] PLASMA 10 [facility] Performing Lab: [facility] 10 [facility] LIPID CHOLESTERO 97 0 - 100 08/17 Specimen Type : SERUM VA PANEL L IN LDL No comment ente red. MAINE [MASS/VOLU Ordering Pro vider: AMBER ALAS [email or web address]] IN Report Released Date/Time: Apr 28, 2021 08:52 AM CARE SYS SERUM OR Reporting Lab: [facility] S[facility] PLASMA BY 10 [facility] CALCULATIO Performing L ab: [facility] N 10 [facility] LIPID SAMPLE 1 08/17 Specimen Type: S CHENTE VA PANEL ICTERIC /2021 No comment enter ed. MAINE [PRESENCE] Ordering Pro vider: [facility] Report Release d Date/Time: Apr 28, 2021 08:52 AM CARE SYS OR PLASMA Reporting Lab : [facility]IV [facility] Performing Lab[facility] [address] LIPID HEMOLYSIS 3 08/17 Specimen Type: SERUM CA PANEL INTERFEREN /[address] [place] CE INDEX Ordering Provi jeremy: [facility] Report Release d Date/Time: Apr 28, 2021 08:52 AM CARE SYS OR PLASMA Reporting Lab : [facility] CARE SYS [address] Performing Lab: [facility] 10 [facility] LIPID SAMPLE 8 08/17 Specimen Type: S CHENTE CA PANEL LIPEMIC /2021 No comment enter ed. MAINE [PRESENCE] Ordering Pro vider: AMBER ALAS [facility] [place] Report Release d Date/Time: Apr 28, 2021 08:52 AM CARE SYS OR PLASMA Reporting Lab : [facility] S[facility] QUALITATIV 10 [facility] E Performing Lab: [facility] CARE SYS [facility] MICROALB CREATININE 37.40 04/22 Specimen Typ e: URINE, SPOT VA UMIN [MASS/VOLU No comment en terkristina. KRISTIE PANEL ME] IN Ordering Provid er: AMBER ALAS URINE Report Released Date/Time: Apr 01, 2021 01:21 PM CARE SYS Reporting Lab: [facility] CARE SYS [address] Performing Lab: [facility] MICROALB MICROALBUM <32.4 0 - 30 04/22 Specimen Typ e: URINE, SPOT VA UMIN IN/CREATIN No comment en tered. [place] PANEL INE [MASS Ordering Prov ider: [facility] RATIO] IN Report Releas ed Date/Time: Apr 01, 2021 01:21 PM CARE SYS URINE Reporting Lab: [facility] CARE SYS [address] Performing Lab: [facility] S[facility] 10 [address] [place] [facility] [id number] MICROALB MICROALBUM <1.2 0 - 1.9 04/22 Specimen Typ e: URINE, SPOT CA UMIN No comment enter . [place]INE PANEL [MASS/VOLU Ordering Pro vider: AMBER ALAS [facility]] IN Report Released Date/Time: Apr 01, 2021 01:21 PM CARE SYS URINE Reporting Lab: [facility] S[facility] 10 [address] [place] [facility] Performing Lab: [facility] S[facility] [address] [facility] Vital Signs Combined list of inpatient and outpatient Vital Signs from Department of Defense and Veterans Affairs, ranging from 12 months to all on record, depending upon the facility. Vital Sign Value Date Comments Source WEIGHT 219 03/25/2022 [facility] 14:00:52 CARE SYS BMI 30kg/m2 03/25/2022 [facility] 14:00:52 CARE SYS WEIGHT 221 02/09/2022 [facility] 08:12:43 CARE SYS BMI 30kg/m2 02/09/2022 [facility] 08:12:43 CARE SYS WEIGHT 226.2 11/22/2021 [facility] 14:21:45 CARE SYS BMI 31kg/m2 11/22/2021 [facility] 14:21:45 CARE SYS WEIGHT 222 11/01/2021 [facility] 08:27:49 CARE SYS BMI 30kg/m2 11/01/2021 [facility] 08:27:49 CARE SYS SYSTOLIC BLOOD PRESSURE 137 09/14/2021 [facility] 15:01:19 CARE SYS DIASTOLIC BLOOD PRESSURE 75 09/14/2021 [facility] 15:01:19 CARE SYS PULSE OXIMETRY 95% 09[facility]14[facility] PAIN 0 09/14/2021 [facility] 15:01:19 CARE SYS TEMPERATURE 97.3 09/14/2021 [facility] 15:01:19 CARE SYS PULSE 84 09/14/2021 [facility] 15:01:19 CARE SYS RESPIRATION 18 09/14/2021 [facility] 15:01:19 CARE SYS Encounters Combined list of: 1) Encounters from Department of Veterans Affairs facilities going back up to the last 18 months. 2) Encounters from the Department of Defense facilities going back up to 280 months. Location Location Encounter Encounter Reason Attending ADM DC Stat us Disposition Source Details Type Number For Provider Date Date Visit OUTPATIENT [id number] flu NIKO, 04/08 Released w/o [facility]( vaccine LACIE [place] /[address] [facility]) OFFICE O/P 93181-4.51 Diagnos DEDE CHRISTIAN 12/15 [facility] EST LOW [id number] is: JOSSY F [facility] WU 20-29 MIN ICD-10- D CM HEALTH E11.9 CARE Type 2 SYS diabete s mellitu s without complic ations< br/>wit h Provide r Comment s: Diabete s Mellitu s Type 2 (SCT [id number] 6) Outpatient 94895-5.51 KANCHAN ALAS 12/15 [facility] Encounter [id number] NNON [facility] 15260-2.51 Diagnos DAS,ROSANNE 12/29 [facility] THER[facility]UTI [id number] is: H REJI /2021 MARRY C 87 ICD-10- [facility] PROCEDURES CM R53.1 Weaknes s
w ith Provide r Comment s: Weaknes s GROUP 57402-7.51 Diagnos DAS,ROSANNE 01/05 [facility] THERAPEUTI [id number] is: H REJI /2021 MARRY C 07 ICD-10- [facility] PROCEDURES CM R53.1 Weaknes s
w ith Provide r Comment s: Weaknes s Outpatient 70692-3.51 SESAR CHARLES 01/22 [facility] Encounter [id number] T [facility] 52199-8.51 Diagnos KENNETH STEVEN 01/25 [facility] THERAPEUTI [id number] is: DALL S EVERETTE SPENCE C 76 ICD-10- [facility] PROCEDURES CM R53.1 Weaknes s
w ith Provide r Comment s: Weaknes s Outpatient 38656-4.51 [facility] 01/28 [facility] Encounter [id number] NNON C [facility] 76269-6.51 Diagnos KENNETH STEVEN 02/05 [facility] THERAPEUTI [id number] is: JERI EVERETTE EN C 12 ICD-10- [facility] PROCEDURES CM R53.1 Deena s
w ith Provide r Comment s: Deena s Outpatient 11797-2.51 03/24 [facility] Encounter [id number] /2021 [facility] Outpatient 41322-8.51 [facility] 04/01 [facility] Encounter [id number] NNON [facility] OFFICE O/P 77191-1.51 [facility]os [facility] 04/01 [facility] EST MOD [id number] is: NNON MARYLA N 30-39 MIN ICD-10- D CM HEALTH E66.9 CARE Obesity SYS , unspeci fied
with Provide r Comment s: Obesity (SCT [id number] 01) OFFICE O/P 74531-9.51 Diagnos DEDE CHRISTIAN 04/12 [facility] EST MOD [id number] is: LLYAZMIN AVIS AN 30-39 MIN ICD-10- D CM HEALTH E11.9 CARE Type 2 SYS diabete s mellitu s without complic ations< br/>wit h Provide r Comment s: Diabete s Mellitu s Type 2 (SCT [id number] 6) Outpatient 47770-4.51 DEDE CHRISTIAN 04/12 [facility] Encounter [id number] LLIAN DAVON DAIANA Nina [facility] SYS OFFICE O/P 78550-1.51 [facility]os [facility] 04/28 [facility] EST MOD [id number] is: NNON MARYLA N 30-39 MIN ICD-10- D CM HEALTH E66.9 CARE Obesity SYS , unspeci fied
with Provide r Comment s: Obesity (SCT [id number] 01) Outpatient 23204-0.51 KIARRA MARSHALL 05/03 [facility] Encounter [id number] EN S [facility] WU D [facility] Outpatient 61305-3.51 10/28 [facility] Encounter [id number] MARYAllan AN D [facility] CARE SYS OFFICE O/P 87209-8.51 Diagnos SESAR CHARLES 05/18 [facility] EST LOW [id number] is: T ANDREW 20-29 MIN ICD-10- D CM HEALTH E11.9 CARE Type 2 SYS diabete s mellitu s without complic ations< br/>wit h Provide r Comment s: Diabete s Mellitu s Type 2 (SCT [id number] 6) Outpatient 19468-7.51 MYRON,JODYR 05/26 [facility] Encounter [id number] MARYAllan AN D [facility] CARE SYS ADM 87626-0.51 Diagnos KEKE 05/27 [facility] SARSCOV2 [id number] is: KIRAN SANTOS MAC TRUONG 30MCG/0.3M ICD-10- KRISTOFER T D L BST CM Z23 HEALTH Encount CARE er for SYS immuniz ation<b r/>with Provide r Comment s: Encount er for Immuniz ation OFFICE 63202-3. Diagnos KENME 06/24 V A CONSULTATI [id number] is: MINI KIRAN DA SILVA ON ICD-10- D CM HEALTH D22.30 CARE Melanoc SYS ytic nevi of unspeci fied part of face
with Provide r Comment s: Melanoc ytic Nevi of Face,Un spec OFFICE O/P 99314-4.51 Diagnos DEDE CHRISTIAN 06/25 [facility] EST HI [id number] is: JOSSY F DANIELLE N 40-54 MIN ICD-10- D CM HEALTH E11.9 CARE Type 2 SYS diabete s mellitu s without complic ations< br/>wit h Provide r Comment s: Diabete s Mellitu s Type 2 (SCT [id number] 6) Outpatient 72194-4.51 KIARRA MRASHALL 07/28 [facility] Encounter [id number] EN MARYAllan AN D [facility] SYS Outpatient 62064-2.51 KANCHAN ALAS 08/04 [facility] Encounter [id number] NNON C MAC TRUONG D [facility]ALTH CARE SYS OFFICE O/P 21883-6.51 Diagnos KANCHAN ALAS 08/04 [facility] EST MOD [id number] is: NNON C DANIELLE N 30-39 MIN ICD-10- D CM HEALTH E66.9 CARE Obesity SYS , unspeci fied
with Provide r Comment s: Obesity (SCT [id number] ) [place] [address]-4.51 Diagnos AWAISKRISTOFER 08/06 [facility] PHARM REPLENISHER [id number] is: HRYN A MARYL AN 15 MIN ICD-10- D CM HEALTH E66.9 CARE Obesity SYS , unspeci fied
with Provide r Comment s: Obesity (SCT [id number] ) Outpatient 05463-1.51 KANCHAN ALAS 08/06 [facility] Encounter [id number] NNON C MAC ALEXI D [facility] Outpatient 92123-5.51 08/17 [facility] Encounter [id number] [facility] Outpatient 57594-4.51 [facility] Encounter [id number] NNON C MAC ALEXI D [facility] Outpatient 33510-5.51 09/01 [facility] Encounter [id number] [facility]ARYL AN D [facility] OFFICE 34862-7.51 [place] 09/07 V A CONSULTATI [id number] is: MINI P KIRAN DA SILVA ON ICD-10- D CM HEALTH D23.9 CARE Other SYS benign neoplas m of skin, unspeci fied
with Provide r Comment s: Benign Neop of Skin,Un spec Outpatient 15007-1.51 09/07 [facility] Encounter [id number] [facility] Outpatient 23645-8.51 Diagnos KEN,MI 09/07 [facility] Encounter [id number] is: MINI P DAVON DAIANA ICD-10- D CM HEALTH L72.0 CARE Epiderm SYS al cyst
with Provide r Comment s: Epiderm al cyst LEFT CHEST 50735-4.51 SHOCKCOR,N 09/07 [facility] CYST [id number] ICOLE /2021 ANDREW Wood (Non-OR) [facility] CARE SYS Outpatient 76063-1.51 09/07 [facility] Encounter [id number] [facility] Outpatient 46130-8.51 AISHA JARRETT 09/09 [facility] Encounter [id number] RRIS MAC [facility] Outpatient 74293-0.51 KANCHAN ALAS 09/10 [facility] Encounter [id number] NNON MAC [facility] POSTOP 72319-1.51 Diagnos RYAN TOMLINSON 09/14 V A FOLLOW-UP [id number] is: AVIS AN VISIT ICD-10- D CM HEALTH Z86.39 CARE Persona SYS l history of endo, nutriti onal and metabol ic disease
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.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<b r/>with Provide r Comment s: Enlarge d and Hypertr ophic Nails Outpatient 52758-9.51 10/13 [facility] Encounter [id number] /2022 [facility] Outpatient 47332-3.51 KANCHAN ALAS 10/14 [facility] Encounter [id number] NNON C MAC TRUONG D HEALTH CARE SYS OFFICE O/P 58769-7.51 Diagnos KANCHAN ALAS 11/01 [facility] EST MOD [id number] is: NNON MARYLA N 30-39 MIN ICD-10- D CM HEALTH E11.9 CARE Type 2 SYS diabete s mellitu s without complic ations< br/>wit h Provide r Comment s: Diabete s Mellitu s Type 2 (SCT [id number] 6) Outpatient 47148-6.51 KIARRA MARSHALL 11/15 [facility] Encounter [id number] EN MARYL AN D HEALTH CARE SYS OFFICE O/P 34759-8.51 Diagnos ANAHI 11/19 [place] EST HI [id number] is: LLIAN MACLA N 40-54 MIN ICD-10- D CM HEALTH E11.9 CARE Type 2 SYS diabete s mellitu s without complic ations< br/>wit h Provide r Comment s: Diabete s Mellitu s Type 2 (SCT [id number] 6) Outpatient 42979-7. [facility] 02/09 [facility] Encounter [id number] [facility] MAC ALEXI D HEALTH CARE SYS OFFICE O/P 36748-4.51 Diagnos [facility] 02/09 [facility] EST MOD [id number] is: NNON MARYLA N 30-39 MIN ICD-10- D CM HEALTH E66.9 CARE Obesity SYS , unspeci fied
with Provide r Comment s: Obesity (SCT [id number] 01) OFFICE O/P 54694-7.51 Diagnos DEDE CHRISTIAN 03/25 [facility] EST HI [id number] is: LLIAN MACLA N 40-54 MIN ICD-10- D CM HEALTH E66.9 CARE Obesity SYS , unspeci fied
with Provide r Comment s: Obesity (SCT [id number] 01) Outpatient 54062-7.51 [facility] 05/25 [facility] Encounter [id number] NN MAC ALEXI D [facility]ARE SYS IIV3 VACC 59778-4.51 Diagnos ADRIAN 05/31 [facility] NO PRSV [id number] is: LIAN, MA REKHA 0.5 ML IM ICD-10- NI D CM Z23 HEALTH Encount CARE er for SYS immuniz ation<b r/>with Provide r Comment s: Immuniz ation Encount er IMMUNIZATI 44347-3.51 Diagnos DEDE SHERMAN 06/04 [place] ON ADMIN [id number] is: DANIELLE Mo ICD-10- D CM Z23 HEALTH Encount CARE er for SYS immuniz ation<b r/>with Provide r Comment s: Immuniz ation Encount er Procedures Combined list of: 1) Procedures from Department of Veterans Affairs facilities going back up to the last 18 months, not all [place] non-surgical procedures are included; 2) All procedures from the Department of Defense facilities. Procedure Procedure Type Code Date Perfomer Comments Sour e INFLUENZA VIRUS 04/08/2009 [facility] VACCINE, TRIVALENT (IIV3), SPLIT VIRUS, 0.5 ML DOSAGE, FOR INTRAMUSCULAR USE Social History Combined list of available smoking, tobacco, and other social history [facility]. Social History Response Date Comment Source Type Tobacco smoking [facility]-TOBACCO FOR[facility] 11/03/2020 [facility] History of tobacco CA-TOBACCO QUIT 1 TO 11/03/2020 V A [facility] use < 5 YRS CARE SYS History of tobacco CA-TOBACCO QUIT < 1 01/07/2019 [facility] use YEAR CARE SYS History of tobacco CURRENT TOBACCO USER 07/02/2018 V A [facility] use CARE SYS History of tobacco CURRENT TOBACCO USER 04/21/2017 V A [facility] use CARE SYS History of tobacco CURRENT TOBACCO USER 10/20/2016 V A [facility] use CARE SYS History of tobacco CURRENT TOBACCO USER 04/20/2016 V A [facility] use CARE SYS History of tobacco CURRENT TOBACCO USER 10/19/2015 V A [facility] use CARE SYS History of tobacco CURRENT TOBACCO USER 03/27/2015 V A [facility] use CARE SYS History of tobacco CURRENT TOBACCO USER 09/23/2014 V A [facility] use CARE SYS History of tobacco CURRENT TOBACCO USER 03/21/2014 V A [facility] use CARE SYS History of tobacco CURRENT TOBACCO USER 06/25/2013 V A [facility] use CARE SYS History of tobacco CURRENT TOBACCO USER 11/19/2012 V A [facility] use [facility] SYS History of tobacco CURRENT TOBACCO USER 04/02/2012 V A [facility] use CARE SYS History of tobacco CURRENT TOBACCO USER 09/20/2011 V A [facility] use CARE SYS History of tobacco CURRENT TOBACCO USER 10/08/2010 V A [facility] SYS History of tobacco CURRENT TOBACCO USER 12/24/2009 V A [facility] use [facility] SYS History of tobacco CURRENT TOBACCO USER 07/28/2009 V A [facility] SYS History of tobacco CURRENT TOBACCO USER 07/31/2008 V A [facility] SYS History of tobacco CURRENT TOBACCO USER 07/31/2008 V A [facility] SYS History of tobacco CURRENT TOBACCO USER 01/29/2008 V A [facility] SYS History of tobacco CURRENT TOBACCO USER 01/29/2008 V A [facility] SYS History of tobacco CURRENT TOBACCO USER 07/31/2007 V A [facility] SYS History of tobacco CURRENT TOBACCO USER 07/31/2007 V A [facility] SYS History of tobacco CURRENT TOBACCO USER 11/28/2006 V A [facility] SYS History of tobacco CURRENT TOBACCO USER 11/28/2006 smokes 1 pk/da y [facility] SYS History of tobacco TOBACCO 05/31/2006 [facility] use USE/COUNSELING-PROVI [facility] SY S [place]EM[place] History of tobacco TOBACCO 05/31/2006 [facility] use USE/COUNSELING-ANCIL CARE SY S GREY History of tobacco TOBACCO 02/13/2006 [facility] use USE/COUNSELING-ANCIL [facility] SY S GREY History of tobacco TOBACCO COUNSELING 3 04/15/2003 V A [facility] SYS History of tobacco TOBACCO COUNSELING 2 04/15/2003 V A [facility] SYS History of tobacco TOBACCO COUNSELING 1 10/14/2002 V A [facility] SYS History of tobacco TOBACCO COUNSELING 2 04/17/2002 V A [facility] SYS History of tobacco TOBACCO COUNSELING 1 10/19/2001 V A [facility] SYS History of tobacco TOBACCO COUNSELING 2 04/13/2001 V A [facility] SYS History of tobacco TOBACCO COUNSELING 1 11/15/2000 V A [facility] SYS This section is an DoD empty social history section. Plan of Care List of future care activities from Department of [facility] Affairs facilities. Additional future care activities may be listed in the Assessment and Plan section. Date/Time Care Activity Care Activity Detail Facility 05/09/2022 Laboratory - Chemistry GLYCOSOLATED HGB PANEL - [facility] BALT/PP BLOOD LAV B SP CARE SYS
--- OUTSIDE RECORDS SUMMARY | 2022-06-09 11:57 | XMS_ITS | Encounter Summary ---
:1960 Author Organization [facility] Address [address] [place] [address] Support Name Relationship Address Phone ARABELLAMAIDA Mo Unavailable [address] [place] [address] ELIMAIDA GRACIA Unavailable [address] [place] [phone] Insurance Providers: All historical and current Section Date Range: From patient's date of to the date document was created.This section includes the names of all active insurance providers for the patient. Insurance Type of Plan Start of End of Group Member [facility] Provider Coverage Name Policy Policy Number ID Provider's Figueroa's Relationship Coverage Coverage Telephone Name to Policy Number Figueroa [facility] Jul 17, [facility] [id number], [facility] 2018 DIRECT 15 [phone] SANTINO PLAN [facility] Jul 17, [facility] [id number] MEEHAN [facility] [phone] SANTINO PLAN Selected Encounter This section includes the information on record at [place] for the Encounter. Date/Time Encounter Type Encounter Reason Provider Source Description Sep 07, 2021 Outpatient GENERAL SURGERY ICD-10-CM L72.0 ZACARIAS SHIPMAN 10:30 AM Encounter Epidermal cyst L P with Provider Comments: Epidermal cyst IHE Encounter Template Text not used by DC Assessments - Encounter Diagnoses This section includes the primary and secondary diagnoses documented for the Encounter. Date/Time Primary/Secondary Diagnosis Name Provider Source Diagnosis Sep 14, 2021 PRIMARY Epidermal cyst SCAR BEATTY 06:[address] [facility] Plan of Treatment: Future Appointments (+ 6 months) and Future Tests (+/- 45 days) The Plan of Treatment section includes future care activities for the patient from all [facility]. This section includes future appointments and future orders which are active, pending orscheduled.Future Appointments This section includes appointments that were scheduled to occur 6 months from the date of the Encounter, up to a maximum of 20 appointments. The data comes from all [place] treatment facilities. Appointment Date/Time Appointment Type Appointment Facili ty Name Sep 14, 2021 03:30 PM AMBULATORY - SURGERY [facility] Oct 08, 2021 08:30 AM AMBULATORY - MEDICINE [facility] S[facility] Oct 12, 2021 02:00 PM AMBULATORY - SURGERY [facility] Nov 01, 2021 08:00 AM AMBULATORY - MEDICINE [facility] November 19, 2021 08:30 AM AMBULATORY - MEDICINE [facility] Feb 09, 2022 08:00 AM [facility] Lab Results: +/- 30 days of the encounter This section includes the Chemistry and Hematology Lab Results on record with DC for the patient. Radiology Reports and Pathology Reports are provided separately, in subsequent sections.Lab Results This section contains the Chemistry/Hematology Results that were resulted 30 days before or 30 daysafter the date of the Encounter. Date/Time Source Result Type Result - Unit Interpretation Reference Range Comment Sep 07, 2021 09:42 [facility] COVID-19 SCREEN PANEL Spe cimen Type: NASAL MUCUS AM CARE SYS AG (VERITOR) No comment enter ed. Ordering Provid er: ESTRELLA MORENO Report Released Date/Time: Sep 07, 2021 09:42 AM Reporting Lab: [facility] [address] [facility] [id number] Performing Lab: [facility] [address] [facility] [phone] COVID-19 ANTIGEN (VERITOR) NEGATIVE INTERNAL CONTROL PASS Sep 07, 2021 08:31 [facility] POC GLUCOSE (finger Speci men Type: PLASMA AM CARE SYS stick) No comment enter ed. Ordering Provid er: BRIDGETTE SHIPMAN Report Released Date/Time: Sep 08, 2021 05:59 AM Reporting Lab: [facility] [address] [facility] Performing Lab: [facility] [address] [facility] POC GLUCOSE (finger stick) 74 70- 105 Aug 17, 2021 [facility] GLYCOSOLATED HGB PANEL Speci men Type: BLOOD 08:04 AM CARE SYS - BALT/PP No comment enter ed. Ordering Provid er: AMBER ALAS Report Released Date/Time: Apr 28, 2021 08:52 AM Reporting Lab: [facility] [address] [facility] Performing Lab: [facility] [address] [facility] HEMOGLOBIN A1C 5.7 4.3-5.7 Aug 17, 2021 08:04 AM [facility] LIPID PANEL S pecimen Type: SERUM SYS No comment enter ed. Ordering Provid er: AMBER ALAS Report Released Date/Time: Apr 28, 2021 08:52 AM Reporting Lab: [facility] [address] [facility] Performing Lab: [facility] [address] [place] [...] dy Source Pressure Rate Mass Index Sep 07, 97.9 F 67 122/81 18 /min 97 % 0 DC 2021 12:10 /min mm[Hg] [facility] Sep 07, 97.1 F 85 129/84 18 /min 100 % 0 DC 2021 08:40 /min mm[Hg] [facility] Social History: Smoking Status (Most current) and Tobacco Use (All prior to encounter date) This section includes the most current, and the historical, smoking and tobacco-related health factors from the [place] facility where the Encounter took place.Current Smoking Status This section includes the most current smoking, or tobacco-related health factor, from the [place] facility where the Encounter took place. Date/Time Current Smoking Status Comment Facility Nov 03, 2020 09:00 AM VA-TOBACCO FORMER USER [facility] Tobacco Use History This section includes a history of the smoking, or tobacco- related health factors, that were collected on or before the date of the Encounter. The data comes from the [place] facility where the Encounter took place. Date/Time Smoking Status/Tobacco Use Comment Facil ity Nov 03, 2020 09:00 AM VA-TOBACCO QUIT 1 TO < 5 V [facility] Jan 07, 2019 12:51 PM VA-TOBACCO FORMER USER [facility] Jan 07, 2019 12:51 PM VA-TOBACCO QUIT < 1 YEAR V [facility] Jul 02, 2018 08:32 AM CURRENT [facility] Apr 21, 2017 08:06 AM CURRENT TOBACCO USER [facility] Oct 20, 2016 10:36 AM CURRENT TOBACCO USER [facility] Apr 20, 2016 09:46 AM CURRENT TOBACCO USER [facility] Oct 19, 2015 11:24 AM CURRENT TOBACCO USER [facility] Mar 27, 2015 07:56 AM CURRENT TOBACCO USER [facility] Sep 23, 2014 07:54 AM CURRENT TOBACCO USER [facility] Mar 21, 2014 07:48 AM CURRENT TOBACCO USER [facility] Jun 25, 2013 08:37 AM CURRENT TOBACCO USER [facility] November 19, 2012 11:40 AM CURRENT TOBACCO USER [facility] Apr 02, 2012 08:47 AM CURRENT TOBACCO USER [facility] Sep 20, 2011 02:42 PM CURRENT TOBACCO USER [facility] Oct 08, 2010 10:34 AM CURRENT TOBACCO USER [facility] Dec 24, 2009 11:02 AM CURRENT TOBACCO USER [facility] Dec 24, 2009 11:02 AM TOBACCO OFFERRED STOP [facility] SMOKING CLINIC CARE SYS Jul 28, 2009 03:51 PM CURRENT TOBACCO USER [facility] Jul 31, 2008 03:40 PM CURRENT TOBACCO USER [facility] Jul 31, 2008 03:06 PM CURRENT TOBACCO USER [facility] Jul 31, 2008 03:06 PM TOBACCO OFFERRED STOP [facility]ARE S[facility] Jan 29, 2008 01:30 PM CURRENT TOBACCO USER [facility] Jan 29, 2008 01:30 PM TOBACCO OFFERRED PT MEDS V A [facility] (PROVIDER) CARE SYS Jan 29, 2008 01:30 PM TOBACCO OFFERRED STOP [facility] CARE S[facility] Jan 29, 2008 01:13 PM CURRENT TOBACCO USER [facility] Jan 29, 2008 01:13 PM TOBACCO OFFERRED STOP [facility] Jul 31, 2007 09:48 AM CURRENT TOBACCO USER [facility] Jul 31, 2007 09:48 AM TOBACCO OFFERRED PT MEDS V A [facility] (PROVIDER) CARE SYS Jul 31, 2007 09:48 AM TOBACCO OFFERRED STOP [facility]ARE [facility] Jul 31, 2007 09:14 AM CURRENT TOBACCO USER [facility] Jul 31, 2007 09:14 AM TOBACCO OFFERRED STOP [facility] CARE SYS November 28, 2006 04:03 PM CURRENT TOBACCO USER [facility] November 28, 2006 04:03 PM TOBACCO OFFERRED PT MEDS V A [facility] (PROVIDER) CARE SYS November 28, 2006 04:03 PM TOBACCO OFFERRED STOP [facility] CARE SYS November 28, 2006 03:37 PM CURRENT TOBACCO USER [facility] 1 pk/day CARE SYS May 31, 2006 03:53 PM TOBACCO [facility] HEALTH USE/COUNSELING-PROVIDER CARE SYS May 31, 2006 03:32 PM TOBACCO [facility] HEALTH USE/COUNSELING-ANCILLARY CARE SY S Feb 13, 2006 01:07 PM TOBACCO [facility] HEALTH USE/COUNSELING-ANCILLARY CARE SY S Apr 15, 2003 09:33 AM TOBACCO COUNSELING 3 [facility] Apr 15, 2003 08:38 AM TOBACCO COUNSELING 2 [facility] Oct 14, 2002 08:46 AM TOBACCO COUNSELING 1 [facility] Oct 14, 2002 08:46 AM TOBACCO COUNSELING 2 [facility] Oct 14, 2002 08:46 AM TOBACCO COUNSELING 3 [facility] Apr 17, 2002 09:52 AM TOBACCO COUNSELING 2 [facility] Apr 17, 2002 09:52 AM TOBACCO COUNSELING 3 [facility] Oct 19, 2001 09:25 AM TOBACCO [facility]SEL[facility] Oct 19, 2001 09:25 AM TOBACCO COUNSELING 2 [facility] Oct 19, 2001 09:25 AM TOBACCO COUNSELING 3 [facility] Apr 13, 2001 01:36 PM TOBACCO COUNSELING 2 [facility] Apr 13, 2001 01:36 PM TOBACCO COUNSELING 3 [facility] November 15, 2000 02:10 PM TOBACCO COUNSELING 1 [facility] Pathology Reports: +/- 30 days of the [...] the Encounter. The data comes from all [facility] facilities. Date/Time Pathology Report Provider Source Sep 09, 2021 10:30 AM LR SURGICAL PATHOLOGY REPORT: STELLA JARRETT [facility] TITLE: LR SURGICAL PATHOLOGY REPORT [facility] STANDARD TITLE: PATHOLOGY REPORT DATE OF NOTE: [...] Performing Laboratory: Surgical Pathology Report Performed By: [facility] [CLIA# [id number]] [address] [place] [address] $FTR - - - - - - [...] - - SANTINO MEEHAN STANDARD FORM 515 ID:[id number] SEX:M :1960 AGE: 61 LOC: PROFEE PCP: Raul Tripp MD /maira/ ALBER JARRETT PATHOLOGIST Signed: 09/09/2021 10:30
--- OUTSIDE RECORDS SUMMARY | 2022-06-09 11:58 | XMS_ITS | Encounter Summary ---
:1960 Author Organization [facility] Address [address] [place] [address] Support Name Relationship Address Phone ELIMAIDA GRACIA Unavailable [address] [place] [address] ELIMAIDA GRACIA Unavailable [address] [place] [phone] Insurance Providers: All historical and current Section Date Range: From patient's date of to the date document was created.This section includes the names of all active insurance providers for the patient. Insurance Type of Plan Start of End of Group Member Insurance Policy P [facility] Provider Coverage Name Policy Policy Number ID Provider's Figueroa's Relationship Coverage Coverage Telephone Name to Policy Number Figueroa [facility] Jul 17, [facility] [id number] Balbir MEEHAN, [facility] 2018 DIRECT 15 [phone] SANTINO PLAN [facility] Jul 17, [facility] [id number] MEEHAN [facility] [phone] SANTINO PLAN Selected Encounter This section includes the information on record at [place] for the Encounter. Date/Time Encounter Type Encounter Description Reason Provider Source Sep 01, 2021 05:54 Outpatient Encounter GENERAL SURGERY PM IHE Encounter Template Text not used by [place] Plan of Treatment: Future Appointments (+ 6 months) and Future Tests (+/- 45 days) The Plan of Treatment section includes future care activities for the patient from all [place] treatmentfacilities. This section includes future appointments and future orders which are active, pending orscheduled.Future Appointments This section includes appointments that were scheduled to occur 6 months from the date of the Encounter, up to a maximum of 20 appointments. The data comes from all [place] treatment facilities. Appointment Date/Time Appointment Type Appointment Facili ty Name Sep 07, 2021 08:00 AM AMBULATORY - SURGERY [facility] Sep 14, 2021 03:30 PM AMBULATORY - SURGERY [facility] Oct 08, 2021 08:30 AM AMBULATORY - MEDICINE [facility] Oct 12, 2021 02:00 PM AMBULATORY - SURGERY [facility] Nov 01, 2021 08:00 AM AMBULATORY - MEDICINE [facility] November 19, 2021 08:30 AM AMBULATORY - MEDICINE [facility] Feb 09, 2022 08:00 AM AMBULATORY - MEDICINE [facility] Lab Results: +/- 30 days of the encounter This section includes the Chemistry and Hematology Lab Results on record with [place] for the patient. Radiology Reports and Pathology Reports are provided separately, in subsequent sections.Lab Results This section contains the Chemistry/Hematology Results that were resulted 30 days before or 30 daysafter the date of the Encounter. Date/Time Source Result Type Result - Unit Interpretation Reference Range Comment Sep 07, 2021 09:42 [facility] COVID-19 SCREEN PANEL Spe cimen Type: NASAL MUCUS AM CARE SYS AG (VERITOR) No comment enter ed. Ordering Provid er: ESTRELLA MORENO Report Released Date/Time: Sep 07, 2021 09:42 AM Reporting Lab: [facility] [address] [facility] Performing Lab: [facility] [address] [facility] COVID-19 ANTIGEN (VERITOR) NEGATIVE INTERNAL CONTROL PASS Sep 07, 2021 08:31 [facility] POC GLUCOSE (finger Speci men Type: PLASMA AM CARE SYS stick) No comment enter ed. Ordering Provid er: BRIDGETTE SHIPMAN Report Released Date/Time: Sep 08, 2021 05:59 AM Reporting Lab: [facility] [address] [facility] Performing Lab: [facility] [address] [facility] POC GLUCOSE (finger stick) 74 70- 105 Aug 17, 2021 [facility] GLYCOSOLATED HGB PANEL Speci men Type: BLOOD 08:04 AM CARE SYS - BALT/PP No comment enter ed. Ordering Provid er: AMBER ALAS Report Released Date/Time: Apr 28, 2021 08:52 AM Reporting Lab: [facility] [address] [facility] [address] Performing Lab: [facility] [address] [facility] [address] HEMOGLOBIN A1C 5.7 4.3-5.7 Aug 17, 2021 08:04 AM [facility] LIPID PANEL S pecimen Type: SERUM SYS No comment enter ed. Ordering Provid er: AMBER ALAS Report Released Date/Time: Apr 28, 2021 08:52 AM Reporting Lab: [facility] [address] [facility] [address] Performing Lab: [facility] [address] [facility] [address] CHOLESTEROL 171 0-240 TRIGLYCERIDES 119 0-150 HDL CHOLESTEROL 50.1 40-60 CALC LDL-CHOLESTEROL 97 0-100 ICTERUS INDEX 1 HEMOLYSIS INDEX 3 LIPEMIA INDEX 8 Social History: Smoking Status (Most current) and Tobacco Use (All prior to encounter date) This section includes the most current, and the historical, smoking and tobacco-related health factors from the [place] facility where the Encounter took place.Current Smoking Status This section includes the most current smoking, or tobacco-related health factor, from the [place] facility where the Encounter took place. Date/Time Current Smoking Status Comment Facility Nov 03, 2020 09:00 AM VA-TOBACCO FORMER USER [facility] Tobacco Use History This section includes a history of the smoking, or tobacco- related health factors, that were collected on or before the date of the Encounter. The data comes from the [place] facility where the Encounter took place. Date/Time Smoking Status/Tobacco Use Comment [facility] Nov 03, 2020 09:00 AM AK-TOBACCO QUIT 1 TO < 5 V [facility] Jan 07, 2019 12:51 PM VA-TOBACCO FORMER USER [facility] Jan 07, 2019 12:51 PM AK-TOBACCO QUIT < 1 YEAR V [facility] Jul 02, 2018 08:32 AM CURRENT TOBACCO USER [facility] Apr 21, 2017 08:06 AM CURRENT TOBACCO USER [facility] Oct 20, 2016 10:36 AM CURRENT TOBACCO USER [facility] Apr 20, 2016 09:46 AM CURRENT TOBACCO USER [facility] Oct 19, 2015 11:24 AM CURRENT TOBACCO USER [facility] Mar 27, 2015 07:56 AM CURRENT TOBACCO USER [facility] Sep 23, 2014 07:54 AM CURRENT TOBACCO USER [facility] Mar 21, 2014 07:48 AM CURRENT TOBACCO USER [facility] Jun 25, 2013 08:37 AM CURRENT TOBACCO USER [facility] November 19, 2012 11:40 AM CURRENT TOBACCO USER [facility] Apr 02, 2012 08:47 AM CURRENT TOBACCO USER [facility] Sep 20, 2011 02:42 PM CURRENT TOBACCO USER [facility] Oct 08, 2010 10:34 AM CURRENT TOBACCO USER [facility] Dec 24, 2009 11:02 AM CURRENT TOBACCO USER [facility] Dec 24, 2009 11:02 AM TOBACCO OFFERRED STOP [facility] Jul 28, 2009 03:51 PM CURRENT TOBACCO USER [facility] Jul 31, 2008 03:40 PM CURRENT TOBACCO USER [facility] Jul 31, 2008 03:06 PM CURRENT TOBACCO USER [facility] Jul 31, 2008 03:06 PM TOBACCO OFFERRED STOP [facility] Jan 29, 2008 01:30 PM CURRENT TOBACCO USER [facility] Jan 29, 2008 01:30 PM TOBACCO OFFERRED PT MEDS V A [facility] (PROVIDER) [facility] S[facility] Jan 29, 2008 01:30 PM TOBACCO OFFERRED STOP [facility] Jan 29, 2008 01:13 PM CURRENT TOBACCO USER [facility] Jan 29, 2008 01:13 PM TOBACCO OFFERRED STOP [facility] Jul 31, 2007 09:48 AM CURRENT TOBACCO USER [facility] Jul 31, 2007 09:48 AM TOBACCO OFFERRED PT MEDS V A [facility] (PROVIDER) [facility] Jul 31, 2007 09:48 AM TOBACCO OFFERRED STOP [facility] Jul 31, 2007 09:14 AM CURRENT TOBACCO USER [facility] Jul 31, 2007 09:14 AM TOBACCO OFFERRED STOP [facility] November 28, 2006 04:03 PM CURRENT TOBACCO USER [facility] November 28, 2006 04:03 PM TOBACCO OFFERRED PT MEDS V A [facility] (PROVIDER) CARE SYS November 28, 2006 04:03 PM TOBACCO OFFERRED STOP [facility] November 28, 2006 03:37 PM CURRENT TOBACCO USER [facility] smoke 1 pk/day CARE SYS May 31, 2006 03:53 PM [facility]OUN[facility]PROVIDER CARE S[facility] May 31, 2006 03:32 PM [facility]CO [facility] USE/COUNSELING-ANCILLARY CARE SY S Feb 13, 2006 01:07 PM TOBACCO [facility] HEALTH USE/COUNSELING-ANCILLARY CARE SY S Apr 15, 2003 09:33 AM TOBACCO COUNSELING 3 [facility] Apr 15, 2003 08:38 AM TOBACCO COUNSELING 2 [facility] Oct 14, 2002 08:46 AM TOBACCO COUNSELING 1 [facility] Oct 14, 2002 08:46 AM TOBACCO COUNSELING 2 [facility] Oct 14, 2002 08:46 AM TOBACCO COUNSELING 3 [facility] Apr 17, 2002 09:52 AM TOBACCO COUNSELING 2 [facility] Apr 17, 2002 09:52 AM TOBACCO COUNSELING 3 [facility] Oct 19, 2001 09:25 AM TOBACCO COUNSELING 1 [facility] Oct 19, 2001 09:25 AM TOBACCO COUNSELING 2 [facility] Oct 19, 2001 09:25 AM TOBACCO COUNSELING 3 [facility] Apr 13, 2001 01:36 PM TOBACCO COUNSELING 2 [facility] Apr 13, 2001 01:36 PM TOBACCO COUNSELING 3 [facility] November 15, 2000 02:10 PM TOBACCO COUNSELING 1 [facility] Pathology Reports: +/- 30 days of the [...] the Encounter. The data comes from all [place] treatment facilities. Date/Time Pathology Report Provider Source Sep 09, 2021 10:30 AM LR SURGICAL PATHOLOGY REPORT: STELLA JARRETT [facility] TITLE: LR SURGICAL PATHOLOGY REPORT CARE SY STANDARD TITLE: PATHOLOGY REPORT DATE OF NOTE: [...] Performing Laboratory: Surgical Pathology Report Performed By: [facility] [CLIA# [id number]] [address] [place] [id number] $FTR - - - - - - [...] - - SANTINO MEEHAN STANDARD FORM 515 ID:[id number] SEX:M :1960 AGE: 61 LOC: PROFEE PCP: Raul Tripp MD /maira/ ALBER JARRETT PATHOLOGIST Signed: 09/09/2021 10:30 Encounter Notes: All associated encounter notes This section contains the clinical notes associated to the Encounter. Date/Time Encounter Note(s) Provider Source Sep 01, 2021 05:54 PM SHIP'S MASTER NOTE: SUMMER MCGEE [facility] TITLE: TOW MOTOR MECHANIC NOTE CARE [facility] STANDARD TITLE: SHIP'S MASTER NOTE DATE OF NOTE: SEP 01, 2021@17:54 ENTRY DATE: SEP 01, 2021@17:54:34 AUTHOR: SUMMER MCGEE EXP COSIGNER: URGENCY: STATUS: COMPLETED [place] agreeable with Minor procedure on y 09/07/21. Copied from Mod[employer]: A request has been made for SANTINO MEEHAN on 09/07/21. Sending a Notification of Appointment Modificati on for case #[id number] /maira/ Summer Mcgee RN Outpatient Surgical Collet Gluer Signed: 09/01/2021 18:21
--- OUTSIDE RECORDS SUMMARY | 2022-06-09 11:58 | XMS_ITS | Encounter Summary ---
:1960 Author Organization [facility] Address [address] [place] [address] Support Name Relationship Address Phone ARABELLAMAIDA Mo Unavailable [id number] [place] [id number] ELIMAIDA GRACIA Unavailable [address] [place] [phone] Insurance Providers: All historical and current Section Date Range: From patient's date of to the date document was created.This section includes the names of all active insurance providers for the patient. Insurance Type of Plan Start of End of Group Member [facility] Coverage Name Policy Policy Number ID Provider's Figueroa's Relationship Coverage Coverage Telephone Name to Policy Number Figueroa [facility] Jul 17, [facility] [place] [id number] ZORAN, PATIENT [facility] 2018 DIRECT 15 [phone] [place] [facility] Jul 17, [facility] [id number] ELIJAYLAChelyHenok [facility] [phone] [place] Selected Encounter This section includes the information on record at [place] for the Encounter. Date/Time Encounter Type Encounter Reason Provider Source Description Sep 07, 2021 OFFICE SURGICAL ICD-10-CM D23.9 ZACARIAS SHIPMAN 08:00 AM CONSULTATION PROCEDURE UNIT Other benign EL P neoplasm of skin, unspecified with Provider Comments: Benign Neop of Skin,Unspec IHE Encounter Template Text not used by [place] Assessments - Encounter Diagnoses This section includes the primary and secondary diagnoses documented for the Encounter. Date/Time Primary/Secondary Diagnosis Name Provider Source Diagnosis Sep 07, 2021 PRIMARY Other benign MARILIN SHIPMAN [facility] 09:59 AM neoplasm of skin, [facility] unspecified SYS Plan of Treatment: Future Appointments (+ 6 months) and Future Tests (+/- 45 days) The Plan of Treatment section includes future care activities for the patient from all [place] treatmentfacilities. This section includes future appointments and future orders which are active, pending orscheduled.Future Appointments This section includes appointments that were scheduled to occur 6 months from the date of the Encounter, up to a maximum of 20 appointments. The data comes from all [place] treatment facilities. Appointment Date/Time Appointment Type Appointment Facili ty Name Sep 14, 2021 03:30 PM AMBULATORY - SURGERY [facility] Oct 08, 2021 08:30 AM AMBULATORY - MEDICINE [facility] Oct 12, 2021 02:00 PM AMBULATORY - SURGERY [facility] Nov 01, 2021 08:00 AM AMBULATORY - MEDICINE [facility] November 19, 2021 08:30 AM AMBULATORY - MEDICINE [facility] Feb 09, 2022 08:00 AM AMBULATORY - MEDICINE [facility] Lab Results: +/- 30 days of the encounter This section includes the Chemistry and Hematology Lab Results on record with [place] for the patient. Radiology Reports and Pathology Reports are provided separately, in subsequent sections.Lab Results This section contains the Chemistry/Hematology Results that were resulted 30 days before or 30 daysafter the date of the Encounter. Date/Time Source Result Type Result - Unit Interpretation Reference Range Comment Sep 07, 2021 09:42 [facility] COVID-19 SCREEN PANEL Spe cimen Type: NASAL MUCUS [facility] AG (VERITOR) No comment enter ed. Ordering Provid er: ESTRELLA MORENO Report Released Date/Time: Sep 07, 2021 09:42 AM Reporting Lab: [facility] [address] [facility] [id number] Performing Lab: [facility] [address] [facility] COVID-19 ANTIGEN (VERITOR) NEGATIVE INTERNAL CONTROL PASS Sep 07, 2021 08:31 [facility] POC GLUCOSE (finger Speci men Type: PLASMA [facility] stick) No comment enter ed. Ordering Provid er: BRIDGETTE SHIPMAN Report Released Date/Time: Sep 08, 2021 05:59 AM Reporting Lab: [facility] [address] [place] MD Performing Lab: [facility] [address] [facility] POC GLUCOSE (finger stick) 74 70- 105 Aug 17, 2021 [facility] GLYCOSOLATED HGB PANEL Speci men Type: BLOOD 08:04 AM CARE SYS - BALT/PP No comment enter ed. Ordering Provid er: AMBER ALAS Report Released Date/Time: Apr 28, 2021 08:52 AM Reporting Lab: [facility] [address] [facility] Performing Lab: [facility] [address] [facility] HEMOGLOBIN A1C 5.7 4.3-5.7 Aug 17, 2021 08:04 AM [facility] LIPID PANEL S pecimen Type: SERUM SYS No comment enter ed. Ordering Provid er: AMBER ALAS Report Released Date/Time: Apr 28, 2021 08:52 AM Reporting Lab: [facility] [address] [facility] Performing Lab: [facility] [address] [facility] CHOLESTEROL 171 0-240 TRIGLYCERIDES 119 0-150 HDL [...] 67 122/81 18 /min 97 % 0 [place] 2021 12:10 /min mm[Hg] MARYLAN PM [facility] Sep 07, 97.1 F 85 129/84 18 /min 100 % 0 [place] 2021 08:40 /min mm[Hg] MARYLAN AM [facility] Social History: Smoking Status (Most current) and Tobacco Use (All prior to encounter date) This section includes the most current, and the historical, smoking and tobacco-related health factors from the [place] facility where the Encounter took place.Current Smoking Status This section includes the most current smoking, or tobacco-related health factor, from the [place] facility where the Encounter took place. Date/Time Current Smoking Status Comment Facility Nov 03, 2020 09:00 AM VA-TOBACCO FORMER USER [facility]LY [facility], [facility] Tobacco Use History This section includes a history of the smoking, or tobacco- related health factors, that were collected on or before the date of the Encounter. The data comes from the [place] facility where the Encounter took place. Date/Time Smoking Status/Tobacco Use Comment [facility] Nov 03, 2020 09:00 AM VA-TOBACCO QUIT 1 TO < 5 V A [facility] Jan 07, 2019 12:51 PM VA-TOBACCO FORMER USER [facility], [facility] Jan 07, 2019 12:51 PM VA-TOBACCO QUIT < 1 YEAR [facility] Jul 02, 2018 08:32 AM CURRENT TOBACCO USER [facility] Apr 21, 2017 08:06 AM CURRENT TOBACCO USER [facility] Oct 20, 2016 10:36 AM CURRENT TOBACCO USER [facility] Apr 20, 2016 09:46 AM CURRENT TOBACCO USER [facility] Oct 19, 2015 11:24 AM CURRENT TOBACCO USER [facility] Mar 27, 2015 07:56 AM CURRENT TOBACCO USER [facility] Sep 23, 2014 07:54 AM CURRENT TOBACCO USER [facility] Mar 21, 2014 07:48 AM CURRENT TOBACCO USER [facility] Jun 25, 2013 08:37 AM CURRENT TOBACCO USER [facility] November 19, 2012 11:40 AM CURRENT TOBACCO USER [facility] Apr 02, 2012 08:47 AM CURRENT TOBACCO USER [facility] Sep 20, 2011 02:42 PM CURRENT TOBACCO USER [facility] Oct 08, 2010 10:34 AM CURRENT TOBACCO USER [facility] Dec 24, 2009 11:02 AM CURRENT TOBACCO USER [facility] Dec 24, 2009 11:02 AM TOBACCO OFFERRED STOP [facility] Jul 28, 2009 03:51 PM CURRENT TOBACCO USER [facility] Jul 31, 2008 03:40 PM CURRENT TOBACCO USER [facility] Jul 31, 2008 03:06 PM CURRENT TOBACCO USER [facility] Jul 31, 2008 03:06 PM TOBACCO OFFERRED STOP [facility] Jan 29, 2008 01:30 PM CURRENT TOBACCO USER [facility] Jan 29, 2008 01:30 PM TOBACCO OFFERRED PT MEDS V A [facility] (PROVIDER) CARE [facility] Jan 29, 2008 01:30 PM TOBACCO OFFERRED STOP [facility] Jan 29, 2008 01:13 PM CURRENT TOBACCO USER [facility] Jan 29, 2008 01:13 PM TOBACCO OFFERRED STOP [facility] Jul 31, 2007 09:48 AM CURRENT TOBACCO USER [facility] Jul 31, 2007 09:48 AM TOBACCO OFFERRED PT MEDS V A [facility] (PROVIDER) CARE [facility] Jul 31, 2007 09:48 AM TOBACCO OFFERRED STOP [facility] Jul 31, 2007 09:14 AM CURRENT TOBACCO USER [facility] Jul 31, 2007 09:14 AM TOBACCO OFFERRED STOP [facility] November 28, 2006 04:03 PM CURRENT TOBACCO USER [facility] November 28, 2006 04:03 PM TOBACCO OFFERRED PT MEDS V A [facility] (PROVID[facility]) CARE [facility] November 28, 2006 04:03 PM TOBACCO OFFERRED STOP [facility] November 28, 2006 03:37 PM CURRENT TOBACCO USER [facility] smoke 1 pk/day CARE SYS May 31, 2006 03:53 PM TOBACCO [facility] HEALTH USE/COUNSELING-PROVIDER CARE SYS May 31, 2006 03:32 PM TOBACCO [facility] HEALTH USE/COUNSELING-ANCILLARY CARE SY S Feb 13, 2006 01:07 PM TOBACCO [facility] HEALTH USE/COUNSELING-ANCILLARY CARE SY S Apr 15, 2003 09:33 AM TOBACCO COUNSELING 3 [facility] Apr 15, 2003 08:38 AM TOBACCO COUNSELING 2 [facility] Oct 14, 2002 08:46 AM TOBACCO COUNSELING 1 [facility] Oct 14, 2002 08:46 AM TOBACCO COUNSELING 2 [facility] Oct 14, 2002 08:46 AM TOBACCO COUNSELING 3 [facility] Apr 17, 2002 09:52 AM TOBACCO COUNSELING 2 [facility] Apr 17, 2002 09:52 AM TOBACCO COUNSELING 3 [facility] Oct 19, 2001 09:25 AM TOBACCO COUNSELING 1 [facility] Oct 19, 2001 09:25 AM TOBACCO COUNSELING 2 [facility] Oct 19, 2001 09:25 AM TOBACCO COUNSELING 3 [facility] Apr 13, 2001 01:36 PM TOBACCO COUNSELING 2 [facility] Apr 13, 2001 01:36 PM TOBACCO COUNSELING 3 [facility] November 15, 2000 02:10 PM TOBACCO COUNSELING 1 [facility] Pathology Reports: +/- 30 days of [...] the Encounter. The data comes from all [facility] facilities. Date/Time Pathology Report Provider Source Sep 09, 2021 10:30 AM LR SURGICAL PATHOLOGY REPORT: STELLA JARRETT [facility] TITLE: LR SURGICAL PATHOLOGY REPORT [facility] STANDARD TITLE: PATHOLOGY REPORT DATE OF NOTE: [...] Performing Laboratory: Surgical Pathology Report Performed By: [facility] [CLIA# [id number]] [address] [place] [id number] $FTR - - - - - - [...] - - SANTINO MEEHAN STANDARD FORM 515 ID:[id number] SEX:M :1960 AGE: 61 LOC: PROFEE PCP: Raul Tripp MD /kam JARRETT PATHOLOGIST Signed: 09/09/2021 10:30 Encounter Notes: All associated encounter notes This section contains the clinical notes associated to the Encounter. Date/Time Encounter Note(s) Provider Source Sep 10, 2021 11:35 AM SURGERY OUTPATIENT NOTE: RANDY TAYLOR [facility] TITLE: SAME DAY SURGERY C ARE [facility] STANDARD TITLE: SURGERY OUTPATIENT NOTE DATE OF NOTE: SEP 10, 2021@11:35 ENTRY DATE: SEP 10, 2021@11:35:28 AUTHOR: RANDY TAYLOR EXP COSIGNER: URGENCY: STATUS: COMPLETED 09/07/21 08:00 Patient agrees to post/op phone call:NO Date of Call:09/10/2021 @ 1136 Date of second attempt (if applicable): Person spoken to:N/A PAIN Is patient having pain: Is the pain incisional: Location of pain: Duration of pain: Alleviating/aggravating factors: Is your pain medication effective: Pain Scale: Appearance of Operative Site: Does patient have a fever: If yes, what is it: RESPIRATORY Patient c/o the following respiratory symptoms: Comments: CIRCULATION Patient states fingers and toes are: Comments: URINARY Patient states he/she is urinating: Comments: Patient is tolerating po fluids: Patient is tolerating food: Patient has experienced nausea: Patient has experienced vomiting: Did the Staff/Surgical Team show concern for you r needs: Did the Staff give you clear information and exp lanations: Was the Staff courteous: Did you have anesthesia awareness issues: Comments: Nursing comments:2nd Attempt. I left the a voice message stating,this was a 2nd F/U call to see how he was doing from his 09/07/21 General surgery procedure. I any difficulty or problems please g o to the ER. Any questions or concerns to call [facility] @ ext [phone]. /maira/ RANDY TAYLOR RN STAFF NURSE Signed: 09/10/2021 11:41 Sep 08, 2021 11:58 AM SURGERY OUTPATIENT NOTE: RANDY TAYLOR [facility] TITLE: SAME DAY SURGERY C [facility] STANDARD TITLE: SURGERY OUTPATIENT NOTE DATE OF NOTE: SEP 08, 2021@11:58 ENTRY DATE: SEP 08, 2021@11:58:28 AUTHOR: RANDY TAYLOR EXP COSIGNER: URGENCY: STATUS: COMPLETED 09/07/21 08:00 Patient agrees to post/op phone call:NO Date of Call:09/08/21 @1202 Date of second attempt (if applicable): Person spoken to:N/A Nursing comments:1st Attempt . I left the [place] a voice message stating, I was F/U on how he was doing post his General procedu re. If any difficulty or problems to go to the ER. Any questions or kayleigh rns to call [facility] @ ext [phone]. /es/ RANDY TAYLOR RN STAFF NURSE Signed: 09/08/2021 12:12 Sep 07, 2021 12:36 PM SURGERY OUTPATIENT NOTE: HARRIET HUGO [facility] TITLE: SAME DAY SURGERY [facility] STANDARD TITLE: SURGERY OUTPATIENT NOTE DATE OF NOTE: SEP 07, 2021@12:36 ENTRY DATE: SEP 07, 2021@12:36:27 AUTHOR: HARRIET HUGO EXP COSIGNER: URGENCY: STATUS: COMPLETED NON SURGICAL OUT PT POST PROCEDURE ASSESSMENT TIME:12.30PM MEDICATIONS: PAIN SCALE:0 GIVEN BY: VITAL SIGNS TIME: 12.10pm Temp: 97.9 Pulse:67 Resp: 18 BP: 122/81 SA02: 97 COMMENTS: Discharge Instructions given to & signed by Irais ent/SO:YES Copy given to Patient/SO:YES Discharged to:Home Discharge:Pain Management Pain Scale:0 Prescriptions:NO Discharge Mode:Ambulatory Transferred/Discharge Time:12.30PM Report given to Receiving Facility Report taken by: Comments: Received vet from OR S/P cyst removal of left ch est.Alert oriented.no c/o offered.lunch box and lamar zahraa given,ate 100%. .discharge instructions and follow up appointments given,ve rbalized understanding.discharge home without any distress.ID braislet removed. Date/Time:09/07/21 at 12.30pm PATIENT SAFETY CLINICAL ALARMS Patient safety clinical alarms are on and audibl e:YES Alarm parameters are adequately set per patient: YES /maira/ HARRIET HUGO RN RN Signed: 09/07/2021 12:40 Sep 07, 2021 11:50 AM EDUCATION DISCHARGE NOTE: ESTRELLA MORENO [facility] TITLE: PATIENT DISCHARGE INSTRUCTIONS [facility] STANDARD TITLE: EDUCATION DISCHARGE NOTE DATE OF NOTE: SEP 07, 2021@11:50 ENTRY DATE: SEP 07, 2021@11:51:04 AUTHOR: ESTRELLA MORENO EXP COSIGNER: URGENCY: STATUS: COMPLETED PART 1. IDENTIFIERS / DISPOSITION / DIAGNOSES / FOLLOW-UP Attending Physician During Discharge: Dr Earnestine leon DATE OF DISCHARGE: Aug TYPE OF DISCHARGE: Regular DISCHARGED TO: Home DISCHARGE DIAGNOSIS:left chest wall cyst FUTURE SCHEDULED APPOINTMENTS: 10/08/2021 08:30 [facility] END[facility] EDU NUTR 11/01/2021 08:00 BT [facility] ENDO YELLOW CONSULTS NONE PART 2. MEDICATION RECONCILIATION AT DISCHARGE Discharge WARNING: Active Dual Consumer (ADC) patients (veterans w ho receive care at both [facility] AND DoD facilities within the last 18 months) m ay have missing remote medication and allergy/adverse drug reaction in formation in [facility] (A) software applications. The Joint Longitudinal Viewer (JLV) should be u sed to check for remote medications and allergies/adverse drug reaction s from DoD facilities. Conversations with patients regarding medicatio n history, what medications a patient may be taking, allergies, and adverse d rug reactions should be emphasized. How to use JLV to capture remote medications an d allergies: Reviewing Complete Allergy & Medication Information in JL V Here is the list of your patient's VA's ACTIVE, PENDING, DISCONTINUED and Medications. This list also includes an y VA ACTIVE REMOTE medications, and any NON-VA medications. Curren t Allergies/Remote Active Allergies remain the same as held in CPRS. (This includes Active Outpatient Medica tions, Pending Outpatient Medications, and Active Non-VA Medications) If no medication s are showing, there are no Active or Pending Medications. Active Outpatient Medications (including Suppli es): Active Outpatient Medications Status 1) ALCOHOL PREP PAD USE ALCOHOL PAD DIRECTED (SUPPLY ACTIVE ITEM) FOR TOPICAL USE TO CLEAN SKIN. 2) ATORVASTATIN CALCIUM 80MG TAB TAKE ONE TABLE T ACTIVE EVERY DAY FOR CHOLESTEROL. 3) CHOLECALCIF 25MCG (D3-1,000UNIT) TAB TAKE ON E TABLET ACTIVE EVERY DAY (VITAMIN D SUPPLEMENT) 4) EMPAGLIFLOZIN 25MG TAB TAKE ONE TABLET EVERY DAY ACTIVE (S) FOR DIABETES TREATMENT. 5) FREESTYLE LITE (GLUCOSE) TEST STRIP USE [address] STRIP ACTIVE (S) DIRECTED TWICE A WEEK TO CHECK BLOOD SUGAR 6) LANCET (EACH) USE LANCET DIRECTED TWICE A WEEK TO ACTIVE TEST BLOOD SUGAR. 7) LISINOPRIL 20MG TAB TAKE ONE-HALF TABLET RICHELLE RY DAY ACTIVE 8) SEMAGLUTIDE WL 1.7MG/0.75ML PEN 0.75ML INJEC T ACTIVE 1.7MG/0.75ML DIRECTED UNDER THE SKIN ONCE WE EKLY FOR WEIGHT MANAGEMENT (###) START AFTER COMPLET ING THE FOUR WEEKS OF 1MG DOSE WITH SEMAGLUTIDE (OZEMPIC). 9) TAMSULOSIN HCL 0.4MG CAP TAKE ONE CAPSULE AT ACTIVE BEDTIME 30 MINUTES AFTER DINNER EACH DAY *FOR PROSTATE/ NIGHTTIME URINATION (BPH)* Active/Pending Clinic Medications & Infusions + +--------+--------+--------+--------+ No local medications found. + +--------+--------+--------+--------+ Active Inpatient Medications (including Supplie s): No Medications Found No Active Remote Medications for this patient /DISCONTINUED MEDICATIONS IN THE PAST 90 DAYS Recently Inpatient, Outpatient and Clin ic Medications (including Supplies): Issue Date Status Last Fill Inactive Outpatient Medications Refills Expirat ion 1) ATORVASTATIN CALCIUM 80MG TAB Qty: 45 DISCON TINUED Issu:04-01-21 for 90 days Sig: TAKE ONE-HALF TABLET (EDIT) La st:04-02-21 EVERY DAY FOR CHOLESTEROL. Refills: 3 Expr:03-17 2) BUPROPION 90MG/NALTREXONE HCL 8MG TAB,SA DIS CONTINUED Issu:07-06-20 Qty: 120 for 30 days Sig: TAKE 2 Refills: 2 Las t:09-24-20 TABLETS TWICE A DAY FOR WEIGHT Expr:07-07-21 MANAGEMENT 3) CHOLECALCIF 25MCG (D3-1,000UNIT) TAB DISCONT INUED Issu:06-22-20 Qty: 200 for 90 days Sig: TAKE TWO (EDIT) Last: 04-24-21 TABLETS EVERY DAY (VITAMIN D Refills: 1 Expr: SUPPLEMENT) 4) EMPAGLIFLOZIN 25MG TAB Qty: 90 for 90 DISCON TINUED Issu:08-05-20 days Sig: TAKE ONE TABLET EVERY Refills: 0 Last :07-19-21 DAY FOR DIABETES TREATMENT. Expr:08-06-21 5) LAC-HYDRIN 12% LACTATE LOTION (ml) Qty: EXPI RED Issu:07-11-20 240 for 30 days Sig: APPLY LOTION TO Refills: 1 0 Last:08-03-20 AFFECTED AREA TWICE A DAY FOR DRY Expr:07-12-21 SKIN. USE INSTRUCTED BY YOUR WATERSHED COORDINATOR 6) LANCET (EACH) Qty: 100 for 90 days DISCONTIN UED Issu:05-03-21 Sig: USE LANCET DIRECTED TWICE A Refills: 0 Last:05-04-21 WEEK TO TEST BLOOD SUGAR. Expr:08-01-21 7) LIRAGLUTIDE (SAXENDA) 6MG/ML INJ PEN 3ML DIS CONTINUED Issu:04-01-21 Qty: 5 for 30 days Sig: INJECT 3MG Refills: 2 Last:07-19-21 DIRECTED UNDER THE SKIN EVERY DAY Expr:04-02-22 DISCARD PEN 30 DAYS AFTER FIRST USE. REFRIGERATE-DO NOT FREEZE. PROTECT FROM LIGHT. RECOMMENDED FOR USE WITH NOVOFINE OR NOVOTWIST DISPOSABLE NEEDLES. 8) LIRAGLUTIDE (SAXENDA) 6MG/ML INJ PEN 3ML DIS CONTINUED Issu:10-29-20 Qty: 5 for 37 days Sig: INJECT 0.6MG Refills: 3 Last:10-29-20 DIRECTED UNDER THE SKIN EVERY DAY Expr:10-30 FOR 1 WEEK, THEN INJECT 1.2MG EVERY DAY FOR 1 WEEK, THEN INJECT 1.8MG EVERY DAY FOR 1 WEEK, THEN INJECT 2.4MG EVERY DAY FOR 1 WEEK, THEN INJECT 3MG EVERY DAY DISCARD PEN 30 DAYS AFTER FIRST USE. REFRIGERATE-DO NOT FREEZE. PROTECT FROM LIGHT. RECOMMENDED FOR USE WITH NOVOFINE OR NOVOTWIST DISPOSABLE NEEDLES. 9) LISINOPRIL 40MG TAB Qty: 45 for 90 days DISC ONTINUED Issu:11-23-20 Sig: TAKE ONE-HALF TABLET EVERY DAY (EDIT) Last :05-26-21 REPLACES FOSINOPRIL - DO NOT TAKE Refills: 2 Expr:11-24-21 BOTH 10) NEEDLE,PEN 31G,5MM Qty: 100 for 90 days DIS CONTINUED Issu:05-03-21 Sig: USE NEEDLE DIRECTED EVERY DAY Refills: 1 Last:05-16-21 Expr:05-04-22 11) SEMAGLUTIDE 1MG DOSE PEN *WT MNGMT* DISCONT INUED Issu:08-06-21 Qty: 1 for 28 days Sig: INJECT 1MG Refills: 0 Last:08-09-21 DIRECTED UNDER THE SKIN ONCE WEEKLY Expr: FOR WEIGHT MANAGEMENT (###) 12) SEMAGLUTIDE WL 1.7MG/0.75ML PEN 0.75ML DISC ONTINUED Issu:08-06-21 Qty: 4 for 28 days Sig: INJECT Refills: 0 Last: 08-09-21 1.7MG/0.75ML DIRECTED UNDER THE Expr: 2 SKIN ONCE WEEKLY FOR WEIGHT MANAGEMENT (###) START AFTER COMPLETING THE FOUR WEEKS OF 1MG DOSE WITH SEMAGLUTIDE (OZEMPIC). 13) ZOSTER VACCINE,RECOMBINANT,ADJUVANTED EXPIR ED Issu:05-18-21 Qty: 1 for 90 days Sig: INJECT 1 DOSE Refills: 0 Last:05-18-21 (0.5ML) DIRECTED INTRAMUSCULARLY Expr: ONCE 2 DOSE SERIES WITH SECOND DOSE ADMINSTERED 2 TO 6 MONTHS AFTER FIRST DOSE. Allergies/ADRs (Tool #5) FACILITY ALLERGY/ADR -------- No Remote Allergy/ADR Data available for this p [facility] SUDAFED Remote Allergy/ADR Data No Remote Allergy/ADR Data available for this p [facility] I compared the VA, non-VA, and OTC medications that the patient was taking prior to this hospitalization to those that he/ she will take following hospital discharge. At least some of the discharge outpatient medic ations are DIFFERENT from those taken prior to this admission. Discharge meds that are NEW: ibuprofen, tylenol A medication list that accurately reflects what the patient will be taking following discharge was reviewed and dis cussed with the patient/caregiver; the patient/caregiver acknow ledged understanding. The PATIENT/CAREGIVER was provided a copy of [facility] current medication list. PART 3. LAB ORDERS FOR FOLLOW-UP (IF REQUIRED) NONE PART 4. DIET INSTRUCTIONS Regular Diet You do not have any specific dietary restrictio ns at this time, but you should still try to consume a healthy diet. Try to increase your intake of fruits and vegetables and decrease your inta ke of sugar and salt. Avoid oversized portions and sweetened beverage s. PART 5. ACTIVITIES & RESTRICTIONS No heavy activity. PART 6. WOUND CARE Please leave dressing on for 2 days. Yo u may shower but do not submerge wound in water or do not scrub the region. If the chloe ssing falls off sooner do not be alarmed, you may cover with a bandaide. PART 7. CODE STATUS AND DOCUMENTATION Code Status: Has 'Code Status' been documented using [facility] taining Treatment Progress Note? Yes Has a 'Goals of Care conversation' been document ed using Life S[facility]aining Treatment Progress Note? Yes PART 8. DISEASE SPECIFIC INFORMATION (REQUIRED) Congestive Heart Failure (CHF): CHF STATUS NONE Stroke: NONE Home Oxygen Use: You do not have a prescription for home oxygen. PART 9. TOBACCO / ALCOHOL / SUBSTANCE / OPIOID U SE DISORDERS The following Use Disorders may have been identi fied from the Admission Checklist. Please review the Admission Checklist and choose at least one option below: NONE The patient declined referral for one-on-one cou nseling of the following use disorders. Please choose at least one option bel ow: N/A The following appointments are currently schedul ed: 10/08/2021 08:30 [facility] EDU NUTR 11/01/2021 08:00 [facility] YELLOW No additional referrals were made During your visit you were t ested for COVID-19. The COVID-19 test was negative. Recommendations: - Minimize contact with others until 24 hours after symptoms resolve. 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 - Monitor your symptoms. Please call or return to the Emergency Department if you experience worsenin g shortness of breath, fever, or are feeling worse in any w ay. - Get rest and stay hydrated. - Call ahead before visiting your doctor. - For medical emergencies, call 911 and notify the dispatch personnel that you have or may have COVID-19. - Wear a facemask if you are sick around others . Cover your cough and sneezes. - Clean your hands often. - Practice social distancing. Keep 6 feet apart as much as possible. - Avoid sharing household items. - Disinfect high touch surfaces daily, ideally with a product that kills cold and flu viruses. PART 11. IMMUNIZATIONS; COVID-19; INFLUENZA; PNE UMONIA COVID-19: Immunization Series Date Facility Reaction Info COVID-19 (PFIZER), MRNA, LNP-S, P* 1 08/06/2020 [facility]* <C> COVID-19 (PFIZER), MRNA, LNP-S, P* 2 [facility] <C> COVID-19 (PFIZER), MRNA, LNP-S, P* 3 05/27/2021 [facility]* <C> <C> See the Detailed Immunizations Health Summar y Component[DIM] for Comments INFLUENZA: Immunization Series Date Facility Reaction Info INFLUENZA, INJECTABLE, QUADRIVALE* 05/18/2021 [facility]* PNEUMONIA: No data available for: PNEUMOCOCCAL CONJUGATE PC V 13 PNEUMOCOCCAL POLYSACCHARIDE PPV23 PART 12. PATIENT INFORMATION RESOURCES: * The [facility] Telephone Care Line is available 06/02 at . * For medication refills, please call [phone] or extension [phone]. Alternatively, you may refill your medications online at http://[email or web address] * For appointments, please call or extension [phone]. * If you're thinking of hurting yourself, looki ng for ways to kill yourself, or becoming self-destructive, don't c ontinue to face it alone. Contact the [facility] Crisis Line immediately at [phone]. A responder will listen and help you through yo ur immediate crisis. Your conversation will be completely anonymous and confidential. * If you are experiencing an emergency, please call 911. A copy of Patient Discharge Instructions was giv en to Patient. /maira/ ESTRELLA MORENO MD SURGERY RESIDENT Signed: 09/07/2021 11:54 Sep 07, 2021 09:57 AM SURGERY ATTENDING PRE OPERATIVE E & M NOTE: BRIDGETTE SHIPMAN [facility] TITLE: SURGICAL PRE-OP ATTENDING NOTE-MIN OR CARE SYS STANDARD TITLE: SURGERY ATTENDING PRE OPERATIVE E & M NOTE DATE OF NOTE: SEP 07, 2021@09:57 ENTRY DATE: SEP 07, 2021@09:57:38 AUTHOR: BRIDGETTE SHIPMAN EXP COSIGNER: URGENCY: STATUS: COMPLETED The Patient has been examined. Findings, treatment and postoperative care were discussed with residents. [place] Protocols wi ll be adhered to. Planned Surgery: left chest wall cyst excision Pre-Op Diagnosis: chest cyst Findings: Diagnosis and proposed surgery including alterna tives and no treatment were discussed with patient. Risks and benefits were also discussed. The informed consent was reviewed and th e patient was given the opportunity to ask questions. A pre-op history and focused examination has bee n performed: Date Aug No interval changes Medication Reconciliation (The process of comparing VA, NON-VA and OTC med ications in the computer with what the patient reports taking at home) Active Outpatient Medications (including Supplie s): Active Outpatient Medications Status 1) ALCOHOL PREP PAD USE ALCOHOL PAD DIRECTED (SUPPLY ACTIVE ITEM) FOR TOPICAL USE TO CLEAN SKIN. 2) ATORVASTATIN CALCIUM 80MG TAB TAKE ONE TABLET ACTIVE EVERY DAY FOR CHOLESTEROL. 3) CHOLECALCIF 25MCG (D3-1,000UNIT) TAB TAKE ONE TABLET ACTIVE EVERY DAY (VITAMIN D SUPPLEMENT) 4) EMPAGLIFLOZIN 25MG TAB TAKE ONE TABLET EVERY DAY ACTIVE (S) FOR DIABETES TREATMENT. 5) FREESTYLE LITE (GLUCOSE) TEST STRIP USE 1 ELOISE T STRIP ACTIVE (S) DIRECTED TWICE A WEEK TO CHECK BLOOD SUGAR 6) LANCET (EACH) USE LANCET DIRECTED TWICE A WEEK TO ACTIVE TEST BLOOD SUGAR. 7) LISINOPRIL 20MG TAB TAKE ONE-HALF TABLET EVER Y DAY ACTIVE 8) SEMAGLUTIDE WL 1.7MG/0.75ML PEN 0.75ML INJECT ACTIVE 1.7MG/0.75ML DIRECTED UNDER THE SKIN ONCE WE EKLY FOR WEIGHT MANAGEMENT (###) START AFTER COMPLET ING THE FOUR WEEKS OF 1MG DOSE WITH SEMAGLUTIDE (OZEMPIC). 9) TAMSULOSIN HCL 0.4MG CAP TAKE ONE CAPSULE AT ACTIVE BEDTIME 30 MINUTES AFTER DINNER EACH DAY *FOR PROSTATE/ NIGHTTIME URINATION (BPH)* Will residents be involved in the case? [place] or . Additional Comments: /es/ BRIDGETTE SHIPMAN MD, FACS, FASCRS GENERAL SURGEON Signed: 09/07/2021 09:59 Sep 07, 2021 09:23 AM SURGERY OUTPATIENT NOTE: HARRIET HUGO [facility] TITLE: SAME DAY SURGERY [facility] STANDARD TITLE: SURGERY OUTPATIENT NOTE DATE OF NOTE: SEP 07, 2021@09:23 ENTRY DATE: SEP 07, 2021@09:23:57 AUTHOR: HARRIET HUGO EXP COSIGNER: URGENCY: STATUS: COMPLETED NON SURGICAL OUTPATIENT NURSING DOCUMENTATION Date:Aug Scheduled Procedure:cyst removal left chest Physician: Name of Responsible Adult/SO: MAIDA MEEHAN Patient Age: 61 Denominational: LATTER DAY Patient NPO:NO Advance Directive:NO Patient Requesting Information:NO Referred to Deck Engineer:NO Patient Can Read:YES Write:YES Level of Education:HIGH SCHOOL Ability to learn:YES If NO, please comment: Mood Conducive to Learning:YES Food/Drug Allergies: SUDAFED Comments: Patient takes blood thinners. [place] of mediation/Last dose :N/A Patient takes Aspirin. No Stopped/Last dose :N/A Implantable Devices:NO Site: Informed Consent:YES Gender: Male Current Medications: Active Outpatient Medications (including Supplie s): Active Outpatient Medications Status 1) ALCOHOL PREP PAD USE ALCOHOL PAD DIRECTED (SUPPLY ACTIVE ITEM) FOR TOPICAL USE TO CLEAN SKIN. 2) ATORVASTATIN CALCIUM 80MG TAB TAKE ONE TABLET ACTIVE EVERY DAY FOR CHOLESTEROL. 3) CHOLECALCIF 25MCG (D3-1,000UNIT) TAB TAKE ONE TABLET ACTIVE EVERY DAY (VITAMIN D SUPPLEMENT) 4) EMPAGLIFLOZIN 25MG TAB TAKE ONE TABLET EVERY DAY ACTIVE (S) FOR DIABETES TREATMENT. 5) FREESTYLE LITE (GLUCOSE) TEST STRIP USE 1 ELOISE T STRIP ACTIVE (S) DIRECTED TWICE A WEEK TO CHECK BLOOD SUGAR 6) LANCET (EACH) USE LANCET DIRECTED TWICE A WEEK TO ACTIVE TEST BLOOD SUGAR. 7) LISINOPRIL 20MG TAB TAKE ONE-HALF TABLET EVER Y DAY ACTIVE 8) SEMAGLUTIDE WL 1.7MG/0.75ML PEN 0.75ML INJECT ACTIVE 1.7MG/0.75ML DIRECTED UNDER THE SKIN ONCE WE EKLY FOR WEIGHT MANAGEMENT (###) START AFTER COMPLET ING THE FOUR WEEKS OF 1MG DOSE WITH SEMAGLUTIDE (OZEMPIC). 9) TAMSULOSIN HCL 0.4MG CAP TAKE ONE CAPSULE AT ACTIVE BEDTIME 30 MINUTES AFTER DINNER EACH DAY *FOR PROSTATE/ NIGHTTIME URINATION (BPH)* PRE PROCEDURE VITALS: Temperature: 97.1 F [36.2 C] (09/07/2021 08:40) Pulse 85 (09/07/2021 08:40) Respirations: 18 (09/07/2021 08:40) Blood Pressure:129/84 (09/07/2021 08:40) O2 Saturation: 100% (09/07/2021 08:40) Height: 72 in [182.9 cm] (05/18/2021 09:34) Weight: 228 lb [103.6 kg] (08/04/2021 11:29) Pain Score:0 Time:08.30AM Finger Stick:74 Time:09.00 AccuCheck Machine IV Started:NO Gauge: Site: Time: IV Solution: Started By: ITEM 8 - EDUCATION: Language Spoken: Amharic Highest Education Level Attended: College Learns best by: Reading, Hearing, Doing , Seein g Has patient/family expressed desire/motivation to learn: YES Does patient have any cultural or jainism pra ctices that may alter his/her care or education: NO If yes, check all that apply: Does patient have physical/mental/cognitive villa itations that may affect learning ability: NO If yes, describe: Family/significant other to be included in [facility] irma/learning process: NO Educational needs (check all that apply): Medic ation, [place]urelia-Operative (Pre/Post), Treatment/Procedures/Tests, Safety Issues AT 9AM Received to [facility], ambulatory. V/S taken and recorded, stable. Surgical team came and explained procedu re to , he verbalized understanding, consent signed. Hand off given to DUPLEX TRIMMER, consent verified AT 10.30AM- Vet taken to OR for procedure. ANXIETY The Initial Assessment done by Nursing indicates the following plan of care: Goals: Sleeps 4-5 hours without awakening Reports a decrease in the signs/symptoms of anx iety Interventions: Help patient identify symptoms of anxiety Monitor anxiety levels/occurrence Teach relaxation techniques Identify and encourage anxiety-reducing activit ies If yes, describe: Family/significant other to be included in [facility] irma/learning process: yes Educational needs (check all that apply): Treat ment/Procedures/Tests, PROBLEM # 2: Potential for Fall GOALS: Patient will Identify factors that increase his risk of fall s Describe appropriate safety measures. Remain Free of Falls Additional Goal: No falls during [facility] stay INTERVENTIONS: [place] to surroundings Use of non-skid slippers or gripper socks Place bed in low position when in bed Keep floor free of clutter Clean up spills immediately Modify environment for safe transfers Provide bedside toileting devices (e.g. urinal, bedside commode) Extra interventions: Use of walking aid (cane, walker, wheelchair) if necessary when patient goes to bathroom EVALUATION: [facility]ira/ HARRIET HUGO RN RN Signed: 09/07/2021 10:40 Sep 07, 2021 09:22 AM FALL RISK ASSESSMENT NOTE: MARISSA HUGO [facility] TITLE: OUTPATIENT FALLS RISK SCREENING [facility] STANDARD TITLE: FALL RISK ASSESSMENT NOTE DATE OF NOTE: SEP 07, 2021@09:22 ENTRY DATE: SEP 07, 2021@09:23 AUTHOR: HARRIET HUGO EXP COSIGNER: URGENCY: STATUS: COMPLETED OUTPATIENT FALLS RISK SCREENING Are you 65 years of age or above? No Have you had a recent fall within the last 3 mon ths? NO Do you use an assistive device? No Do you take 4 or more medications a day? Yes Has there been a recent change to your medicati ons? No If yes, what is the name of the medication? Was patient educated on how to prevent falls? Ye s Provider notified of screening result: n/a FUNCTIONAL Within the last 3 months, has patient had more trouble with their activities of daily living (dressing, bathing, eating and walking)? No Falls Risk Screening for 65 yrs old and older: 1.) Have you fallen in the past year? NO 2.) Do you feel unsteady when standing or walkin g? NO 3.) Do you worry about falling? ASHLEY /maira/ HARRIET HUGO RN RN Signed: 09/07/2021 09:23 Sep 03, 2021 01:59 PM TELEPHONE ENCOUNTER NOTE: ZELALEM MCKNIGHT [facility] TITLE: TELEPHONE CONTACT [facility] STANDARD TITLE: TELEPHONE ENCOUNTER NOTE DATE OF NOTE: SEP 03, 2021@13:59 ENTRY DATE: SEP 03, 2021@13:59:15 AUTHOR: ZELALEM MCKNIGHT EXP COSIGNER: URGENCY: STATUS: COMPLETED Preoperative Patient Telephone contact: I spoke with Mr. Meehan, confirmed his surgery for Excision of chest cyst under lo shahram anesthesia . Mr. Meehan was informed to report directly to 5th floor 5A- 200 @ 9am on 09/07/21. Reminded to may eat his breakfast and take his u sual morning meds, since his procedure is a Minor procedure under Local Anes thsia . Mr. Meehan stated understanding. /maira/ ZELALEM MCKNIGHT,CHIEF DRAFTER NURSE Signed: 09/03/2021 14:01
--- OUTSIDE RECORDS SUMMARY | 2022-06-09 11:58 | XMS_ITS | Encounter Summary ---
:1960 Author Organization [facility] rs Address [address] [place] [id number] Support Name Relationship Address Phone ELIMAIDA GRACIA Unavailable [address] [place] [address] ELIMAIDA GRACIA Unavailable [address] [place] [phone] Insurance Providers: All historical and current Section Date Range: From patient's date of to the date document was created.This section includes the names of all active insurance providers for the patient. Insurance Type of Plan Start of End of Group Member Insurance Policy P [facility]'s Provider Coverage Name Policy Policy Number ID Provider's Figueroa's Relationship Coverage Coverage Telephone Name to Policy Number Figueroa [facility] [[email or web address] Jul 17, [facility] [id number] Balbir MEEHAN, [facility] 2018 DIRECT 15 [phone] [facility] Jul 17, [facility] [[email or web address]] [id number] MEEHAN [facility] 2010 21 [phone] S[employer]INO PLAN Selected Encounter This section includes the information on record at NM for the Encounter. Date/Time Encounter Type Encounter Reason Provider Source Description Sep 09, 2021 10:30 Outpatient EVENT (HISTORICAL) Naun JARRETT G AM Encounter [facility] Encounter Template Text not used by NM Plan of Treatment: Future Appointments (+ 6 months) and Future Tests (+/- 45 days) The Plan of Treatment section includes future care activities for the patient from all NM treatmentfacilities. This section includes future appointments and future orders which are active, pending orscheduled.Future Appointments This section includes appointments that were scheduled to occur 6 months from the date of the Encounter, up to a maximum of 20 appointments. The data comes from all NM treatment facilities. Appointment Date/Time Appointment Type Appointment Facili ty Name Sep 14, 2021 03:30 PM AMBULATORY - SURGERY [facility] Oct 08, 2021 08:30 AM AMBULATORY - MEDICINE [facility] Oct 12, 2021 02:00 PM AMBULATORY - SURGERY [facility] Nov 01, 2021 08:00 AM AMBULATORY - MEDICINE [facility] November 19, 2021 08:30 AM AMBULATORY - MEDICINE [facility] Feb 09, 2022 08:00 AM AMBULATORY - MEDICINE [facility] Lab Results: +/- 30 days of the encounter This section includes the Chemistry and Hematology Lab Results on record with NM for the patient. Radiology Reports and Pathology Reports are provided separately, in subsequent sections.Lab Results This section contains the Chemistry/Hematology Results that were resulted 30 days before or 30 daysafter the date of the Encounter. Date/Time Source Result Type Result - Unit Interpretation Reference Range Comment Sep 07, 2021 09:42 [facility] COVID-19 SCREEN PANEL Spe cimen Type: NASAL MUCUS [facility] AG (VERITOR) No comment enter ed. Ordering Provid er: ESTRELLA MORENO Report Released Date/Time: Sep 07, 2021 09:42 AM Reporting Lab: [facility] [address] [facility] Performing Lab: [facility] [address] [facility] COVID-19 ANTIGEN (VERITOR) NEGATIVE INTERNAL CONTROL PASS Sep 07, 2021 08:31 [facility] POC GLUCOSE (finger Speci men Type: PLASMA [facility] stick) No comment enter ed. Ordering Provid er: BRIDGETTE SHIPMAN Report Released Date/Time: Sep 08, 2021 05:59 AM Reporting Lab: [facility] [address] [facility] Performing Lab: [facility] [address] [facility] POC GLUCOSE (finger stick) 74 70- 105 Aug 17, 2021 08:04 AM [facility] LIPID PANEL S pecimen Type: SERUM SYS No comment enter ed. Ordering Provid er: ALAS,AMBER C Report Released Date/Time: Apr 28, 2021 08:52 AM Reporting Lab: [facility] [address] [facility] [id number] Performing Lab: [facility] [address] [facility] CHOLESTEROL 171 0-240 TRIGLYCERIDES 119 0-150 HDL CHOLESTEROL 50.1 40-60 CALC LDL-CHOLESTEROL 97 0-100 ICTERUS INDEX 1 HEMOLYSIS INDEX 3 LIPEMIA INDEX 8 Aug 17, 2021 [facility] GLYCOSOLATED HGB PANEL Speci men Type: BLOOD 08:04 [facility] - BALT/PP No comment enter ed. Ordering Provid er: AMBER ALAS Report Released Date/Time: Apr 28, 2021 08:52 AM Reporting Lab: [facility] [address] [facility] Performing Lab: [facility] [address] [facility] HEMOGLOBIN A1C 5.7 4.3-5.7 Social History: Smoking Status (Most current) and Tobacco Use (All prior to encounter date) This section includes the most current, and the historical, smoking and tobacco-related health factors from the NM facility where the Encounter took place.Current Smoking Status This section includes the most current smoking, or tobacco-related health factor, from the NM facility where the Encounter took place. Date/Time Current Smoking Status Comment Facility Nov 03, 2020 09:00 AM VA-TOBACCO FORMER USER [facility] Tobacco Use History This section includes a history of the smoking, or tobacco- related health factors, that were collected on or before the date of the Encounter. The data comes from the NM facility where the Encounter took place. Date/Time Smoking Status/Tobacco Use Comment [facility] Nov 03, 2020 09:00 AM NM-TOBACCO QUIT 1 TO < 5 V [facility] Jan 07, 2019 12:51 PM VA-TOBACCO FORMER USER [facility] Jan 07, 2019 12:51 PM NM-TOBACCO QUIT < 1 YEAR [facility] Jul 02, 2018 08:32 AM CURRENT TOBACCO USER [facility] Apr 21, 2017 08:06 AM CURRENT TOBACCO USER [facility] Oct 20, 2016 10:36 AM CURRENT TOBACCO USER [facility] Apr 20, 2016 09:46 AM CURRENT TOBACCO USER [facility] Oct 19, 2015 11:24 AM CURRENT TOBACCO USER [facility] Mar 27, 2015 07:56 AM CURRENT TOBACCO USER [facility] Sep 23, 2014 07:54 AM CURRENT TOBACCO USER [facility] Mar 21, 2014 07:48 AM CURRENT TOBACCO USER [facility] Jun 25, 2013 08:37 AM CURRENT TOBACCO USER [facility] November 19, 2012 11:40 AM CURRENT TOBACCO USER [facility] Apr 02, 2012 08:47 AM CURRENT TOBACCO USER [facility] Sep 20, 2011 02:42 PM CURRENT TOBACCO USER [facility] Oct 08, 2010 10:34 AM CURRENT TOBACCO USER [facility] Dec 24, 2009 11:02 AM CURRENT TOBACCO USER [facility] Dec 24, 2009 11:02 AM TOBACCO OFFERRED STOP [facility] Jul 28, 2009 03:51 PM CURRENT TOBACCO USER [facility] Jul 31, 2008 03:40 PM CURRENT TOBACCO USER [facility] Jul 31, 2008 03:06 PM CURRENT TOBACCO USER [facility] Jul 31, 2008 03:06 PM TOBACCO OFFERRED STOP [facility] Jan 29, 2008 01:30 PM CURRENT TOBACCO USER [facility] Jan 29, 2008 01:30 PM TOBACCO OFFERRED PT MEDS V A [facility] (PROVIDER) [facility] Jan 29, 2008 01:30 PM TOBACCO OFFERRED STOP [facility] Jan 29, 2008 01:13 PM CURRENT TOBACCO USER [facility] Jan 29, 2008 01:13 PM TOBACCO OFFERRED STOP [facility] Jul 31, 2007 09:48 AM CURRENT TOBACCO USER [facility] Jul 31, 2007 09:48 AM TOBACCO OFFERRED PT MEDS V A [facility] ([facility]) [facility] Jul 31, 2007 09:48 AM TOBACCO OFFERRED STOP [facility] Jul 31, 2007 09:14 AM CURRENT TOBACCO USER [facility] Jul 31, 2007 09:14 AM TOBACCO OFFERRED STOP [facility] November 28, 2006 04:03 PM CURRENT TOBACCO USER [facility] November 28, 2006 04:03 PM TOBACCO OFFERRED PT MEDS V A [facility] (PROVIDER) CARE SYS November 28, 2006 04:03 PM TOBACCO OFFERRED STOP [facility] November 28, 2006 03:37 PM CURRENT TOBACCO USER [facility] smoke 1 pk/day CARE SYS May 31, 2006 03:53 PM TOBACCO [facility] USE/COUNSELING-PROVIDER CARE SYS May 31, 2006 03:32 PM TOBACCO [facility] USE/COUNSELING-ANCILLARY CARE SY S Feb 13, 2006 01:07 PM TOBACCO [facility] USE/COUNSELING-ANCILLARY CARE SY S Apr 15, 2003 09:33 AM TOBACCO COUNSELING 3 [facility] Apr 15, 2003 08:38 AM TOBACCO COUNSELING 2 [facility] Oct 14, 2002 08:46 AM TOBACCO COUNSELING 1 [facility] Oct 14, 2002 08:46 AM TOBACCO COUNSELING 2 [facility] Oct 14, 2002 08:46 AM TOBACCO COUNSELING 3 [facility] Apr 17, 2002 09:52 AM TOBACCO COUNSELING 2 [facility] Apr 17, 2002 09:52 AM TOBACCO COUNSELING 3 [facility] Oct 19, 2001 09:25 AM TOBACCO COUNSELING 1 [facility] Oct 19, 2001 09:25 AM TOBACCO COUNSELING 2 [facility] Oct 19, 2001 09:25 AM TOBACCO COUNSELING 3 [facility] Apr 13, 2001 01:36 PM TOBACCO COUNSELING 2 [facility] Apr 13, 2001 01:36 PM TOBACCO COUNSELING 3 [facility] November 15, 2000 02:10 PM TOBACCO COUNSELING 1 [facility] Pathology Reports: +/- 30 days [...] the Encounter. The data comes from all [place] treatment facilities. Date/Time Pathology Report Provider Source Sep 09, 2021 10:30 AM LR SURGICAL PATHOLOGY REPORT: STELLA JARRETT [facility] TITLE: LR SURGICAL PATHOLOGY REPORT [facility] STANDARD TITLE: PATHOLOGY REPORT DATE [...] Performing Laboratory: Surgical Pathology Report Performed By: [facility] [CLIA# [id number]] [address] [place] [id number] $FTR - - - - - - [...] - - SANTINO MEEHAN STANDARD FORM 515 ID:[id number] SEX:M :1960 AGE: 61 LOC: PROFEE PCP: Raul Tripp MD /maira/ ALBER JARRETT PATHOLOGIST Signed: 09/09/2021 10:30 Encounter Notes: All associated encounter notes This section contains the clinical notes associated to the Encounter. Date/Time Encounter Note(s) Provider Source Sep 09, 2021 10:30 AM PATHOLOGY REPORT: ALBER JARRETT [facility] TITLE: SURGICAL PATHOLOGY REPORT [facility] STANDARD TITLE: PATHOLOGY REPORT DATE [...] Performing Laboratory: Surgical Pathology Report Performed By: [facility] [CLIA# [id number]] [address] [place] [address] $FTR - - - - - - [...] - - SANTINO MEEHAN STANDARD FORM 515 ID:[id number] SEX:M :1960 AGE: 61 LOC: PROFEE PCP: Raul Tripp MD /maira/ ALBER JARRETT PATHOLOGIST Signed: 09/09/2021 10:30
--- OUTSIDE RECORDS SUMMARY | 2022-06-09 11:58 | XMS_ITS | Encounter Summary ---
:1960 Author Organization [facility] Address [address] [place] [address] Support Name Relationship Address Phone ARABELLAMAIDA Mo Unavailable [address] [place] [phone] ELIMAIDA GRACIA Unavailable [address] [place] [phone] Insurance Providers: All historical and current Section Date Range: From patient's date of to the date document was created.This section includes the names of all active insurance providers for the patient. Insurance Type of Plan Start of End of Group Member Insurance Policy P [facility] Provider Coverage Name Policy Policy Number ID Provider's Figueroa's Relationship Coverage Coverage Telephone Name to Policy Number Figueroa [facility] [employer] Jul 17, [facility] [id number] Balbir MEEHAN, PATIENT HEALTH 2018 DIRECT 15 [phone] [place] [address] [facility] Jul 17, [facility] [id number] [address] [facility] [phone] [place] Selected Encounter This section includes the information on record at OR for the Encounter. 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 Date/Time Primary/Secondary Diagnosis Name Provider Source Diagnosis Aug 06, 2021 PRIMARY Obesity, LUCILLE ERNANDEZ [facility] 02:30 PM unspecified A [facility] Plan of Treatment: Future Appointments (+ 6 months) and Future Tests (+/- 45 days) The Plan of Treatment section includes future care activities for the patient from all [facility]. This section includes future appointments and future orders which are active, pending orscheduled.Future Appointments This section includes appointments that were scheduled to occur 6 months from the date of the Encounter, up to a maximum of 20 appointments. The data comes from all OR treatment facilities. Appointment Date/Time Appointment Type Appointment Facili ty Name Aug 17, 2021 08:00 AM AMBULATORY - NONE [facility] Sep 07, 2021 08:00 AM AMBULATORY - SURGERY [facility] Sep 14, 2021 03:30 PM AMBULATORY - SURGERY [facility] Oct 08, 2021 08:30 AM AMBULATORY - MEDICINE [facility] Oct 12, 2021 02:00 PM [facility] Nov 01, 2021 08:00 AM AMBULATORY - MEDICINE [facility] November 19, 2021 08:30 AM AMBULATORY - MEDICINE [facility] Lab Results: +/- 30 days of the encounter This section includes the Chemistry and Hematology Lab Results on record with OR for the patient. Radiology Reports and Pathology Reports are provided separately, in subsequent sections.Lab Results This section contains the Chemistry/Hematology Results that were resulted 30 days before or 30 daysafter the date of the Encounter. Date/Time Source Result Type Result - Unit Interpretation Reference Range Comment Aug 17, 2021 [facility] GLYCOSOLATED HGB PANEL Speci men Type: BLOOD 08:04 AM CARE SYS - BALT/PP No comment enter ed. Ordering Provid er: AMBER ALAS Report Released Date/Time: Apr 28, 2021 08:52 AM Reporting Lab: [facility] [address] [facility] [id number] Performing Lab: [facility] [address] [facility] [id number] HEMOGLOBIN A1C 5.7 4.3-5.7 Aug 17, 2021 08:[address] [facility] LIPID PANEL S pecimen Type: SERUM SYS No comment enter ed. Ordering Provid er: AMBER ALAS Report Released Date/Time: Apr 28, 2021 08:52 AM Reporting Lab: [facility] [address] [facility] [id number] Performing Lab: [facility] [address] [facility] [id number] CHOLESTEROL 171 0-240 TRIGLYCERIDES 119 0-150 HDL CHOLESTEROL 50.1 40-60 CALC LDL-CHOLESTEROL 97 0-100 ICTERUS INDEX 1 HEMOLYSIS INDEX 3 LIPEMIA INDEX 8 Social History: Smoking Status (Most current) and Tobacco Use (All prior to encounter date) This section includes the most current, and the historical, smoking and tobacco-related health factors from the OR facility where the Encounter took place.Current Smoking Status This section includes the most current smoking, or tobacco-related health factor, from the OR facility where the Encounter took place. Date/Time Current Smoking Status Comment Facility Nov 03, 2020 09:00 AM VA-TOBACCO FORMER USER [facility] Tobacco Use History This section includes a history of the smoking, or tobacco- related health factors, that were collected on or before the date of the Encounter. The data comes from the OR facility where the Encounter took place. Date/Time Smoking Status/Tobacco Use Comment Facil it Nov 03, 2020 09:00 AM VA-TOBACCO QUIT 1 TO < 5 V [facility] Jan 07, 2019 12:51 PM VA-TOBACCO FORMER USER [facility] Jan 07, 2019 12:51 PM VA-TOBACCO QUIT < 1 YEAR V [facility] Jul 02, 2018 08:32 AM CURRENT TOBACCO USER [facility] Apr 21, 2017 08:06 AM CURRENT TOBACCO USER [facility] Oct 20, 2016 10:36 AM CURRENT TOBACCO USER [facility] Apr 20, 2016 09:46 AM CURRENT TOBACCO USER [facility] Oct 19, 2015 11:24 AM CURRENT TOBACCO USER [facility] Mar 27, 2015 07:56 AM CURRENT TOBACCO USER [facility] Sep 23, 2014 07:54 AM CURRENT TOBACCO USER [facility] Mar 21, 2014 07:48 AM CURRENT TOBACCO USER [facility] Jun 25, 2013 08:37 AM CURRENT TOBACCO USER [facility] November 19, 2012 11:40 AM CURRENT TOBACCO USER [facility] Apr 02, 2012 08:47 AM CURRENT TOBACCO USER [facility] Sep 20, 2011 02:42 PM CURRENT TOBACCO USER [facility] Oct 08, 2010 10:34 AM CURRENT TOBACCO USER [facility] Dec 24, 2009 11:02 AM CURRENT TOBACCO USER [facility] Dec 24, 2009 11:02 AM TOBACCO OFFERRED STOP [facility] Jul 28, 2009 03:51 PM CURRENT TOBACCO USER [facility] Jul 31, 2008 03:40 PM CURRENT TOBACCO USER [facility] Jul 31, 2008 03:06 PM CURRENT TOBACCO USER [facility] Jul 31, 2008 03:06 PM TOBACCO OFFERRED STOP [facility] Jan 29, 2008 01:30 PM CURRENT TOBACCO USER [facility] Jan 29, 2008 01:30 PM TOBACCO OFFERRED PT MEDS V A [facility] C[facility] Jan 29, 2008 01:30 PM TOBACCO OFFERRED STOP [facility] Jan 29, 2008 01:13 PM CURRENT TOBACCO USER [facility] Jan 29, 2008 01:13 PM TOBACCO OFFERRED STOP [facility] Jul 31, 2007 09:48 AM CURRENT TOBACCO USER [facility] Jul 31, 2007 09:48 AM TOBACCO OFFERRED PT MEDS V A [facility] Jul 31, 2007 09:48 AM TOBACCO OFFERRED STOP [facility] Jul 31, 2007 09:14 AM CURRENT TOBACCO USER [facility] Jul 31, 2007 09:14 AM TOBACCO OFFERRED STOP [facility] November 28, 2006 04:03 PM CURRENT TOBACCO USER [facility] November 28, 2006 04:03 PM TOBACCO OFFERRED PT MEDS V A [facility] November 28, 2006 04:03 PM TOBACCO OFFERRED STOP [facility] November 28, 2006 03:37 PM CURRENT TOBACCO USER [facility] smoke 1 pk/day CARE SYS May 31, 2006 03:53 PM TOBACCO [facility] USE[facility]COUNSEL[facility]PROVIDER CARE S[facility] May 31, 2006 03:32 PM TOBACCO [facility] USE/COUNSELING-ANCILLARY CARE SY S Feb 13, 2006 01:07 PM TOBACCO [facility] USE/COUNSELING-ANCILLARY CARE SY S Apr 15, 2003 09:33 AM TOBACCO COUNSELING 3 [facility] Apr 15, 2003 08:38 AM TOBACCO COUNSELING 2 [facility] Oct 14, 2002 08:46 AM TOBACCO COUNSELING 1 [facility] Oct 14, 2002 08:46 AM TOBACCO COUNSELING 2 [facility] Oct 14, 2002 08:46 AM TOBACCO COUNSELING 3 [facility] Apr 17, 2002 09:52 AM TOBACCO COUNSELING 2 [facility] Apr 17, 2002 09:52 AM TOBACCO COUNSELING 3 [facility] Oct 19, 2001 09:25 AM TOBACCO COUNSELING 1 [facility] Oct 19, 2001 09:25 AM TOBACCO COUNSELING 2 [facility] Oct 19, 2001 09:25 AM TOBACCO COUNSELING 3 [facility] Apr 13, 2001 01:36 PM TOBACCO COUNSELING 2 [facility] Apr 13, 2001 01:36 PM TOBACCO COUNSELING 3 [facility] November 15, 2000 02:10 PM TOBACCO COUNSELING 1 [facility] Encounter Notes: All associated encounter notes This section contains the clinical notes associated to the Encounter. Date/Time Encounter Note(s) Provider Source Aug 06, 2021 02:22 PM PHARMACY MEDICATION MGT NOTE: HIPOLITO ERNANDEZ [facility] TITLE: NON-FORMULARY MEDICATION CONSULT P [facility] ST[facility] TITLE: PHARMACY MEDICATION MGT NOTE DATE OF NOTE: AUG 06, 2021@14:22 ENTRY DATE: AUG 06, 2021@14:23:07 AUTHOR: LUCILLE ERNANDEZ EXP COSIGNER: URGENCY: STATUS: COMPLETED The medical record has been reviewed with regard to this prior authorization drug request. Medication requested: SEMAGLUTIDE 1MG DOSE PEN *WT MNGMT* Medication indication: weight management Medical history relevant to this request: 60 yo male w/ obesity/Type 2 [facility]. Completed Telem[facility] , continues to work w/nutrition (next appointment 09/2021). V et is currently prescribed liraglutide (Saxenda) with >7% weight loss. Pt/provider requ est to change to semaglutide (Wegovy) for increased weight loss benefit with reduced injection burden. The request is approved - A documented therapeutic failure of the prefer red formulary alternative(s) exists Comment: vet failed bupropion/naltrexone /es/ LUCILLE ERNANDEZ, PHARM.D., [facility] CLINICAL SUPERVISOR BROADLOOM Signed: 08/06/2021 14:30
--- OUTSIDE RECORDS SUMMARY | 2022-06-09 11:58 | XMS_ITS | Encounter Summary ---
:1960 Author Organization [facility] rs Address [address] [place] [address] Support Name Relationship Address Phone MAIDA MEEHAN Unavailable [address] [place] [phone] ELIMAIDA GRACIA Unavailable [address] [place] [phone] Insurance Providers: All historical and current Section Date Range: From patient's date of to the date document was created.This section includes the names of all active insurance providers for the patient. Insurance Type of Plan Start of End of Group Member Insurance Policy P [facility]'s Provider Coverage Name Policy Policy Number ID Provider's Figueroa's Relationship Coverage Coverage Telephone Name to Policy Number Figueroa [facility] Jul 17, [facility] [id number] [address], PATIENT HEALTH 2018 DIRECT 15 [phone] [place] [address] [facility] Jul 17, [facility] [id number] MEEHAN [facility] [phone] [place] [address] Selected Encounter This section includes the information on record at [place] for the Encounter. Date/Time Encounter Type Encounter Description Reason Provider Source Aug 06, 2021 Outpatient ENDOCRINOLOGY DAISY ALAS 04:32 PM Encounter C IHE Encounter Template Text not used by [facility] Plan of Treatment: Future Appointments (+ 6 months) and Future Tests (+/- 45 days) The Plan of Treatment section includes future care activities for the patient from all [place] treatmentfacilities. This section includes future appointments and future orders which are active, pending orscheduled.Future Appointments This section includes appointments that were scheduled to occur 6 months from the date of the Encounter, up to a maximum of 20 appointments. The data comes from all [place] treatment facilities. Appointment Date/Time Appointment Type Appointment Facili ty Name Aug 17, 2021 08:00 AM AMBULATORY - NONE [facility] Sep 07, 2021 08:00 AM AMBULATORY - SURGERY [facility] Sep 14, 2021 03:30 PM AMBULATORY - SURGERY [facility] Oct 08, 2021 08:30 AM AMBULATORY - MEDICINE [facility] Oct 12, 2021 02:00 PM AMBULATORY - SURGERY [facility] Nov 01, 2021 08:00 AM AMBULATORY - MEDICINE [facility] November 19, 2021 08:30 AM AMBULATORY - MEDICINE [facility] Lab Results: +/- 30 days of the encounter This section includes the Chemistry and Hematology Lab Results on record with [facility] for the patient. Radiology Reports and Pathology Reports are provided separately, in subsequent sections.Lab Results This section contains the Chemistry/Hematology Results that were resulted 30 days before or 30 daysafter the date of the Encounter. Date/Time Source Result Type Result - Unit Interpretation Reference Range Comment Aug 17, 2021 [facility] GLYCOSOLATED HGB PANEL Speci men Type: BLOOD 08:04 AM CARE S[facility] - BALT/PP No comment enter ed. Ordering Provid er: DAISY ALAS Report Released Date/Time: Apr 28, 2021 08:52 AM Reporting Lab: [facility] [address] [facility] Performing Lab: [facility] [address] [facility] HEMOGLOBIN A1C 5.7 4.3-5.7 Aug 17, 2021 08:04 AM [facility] LIPID PANEL S pecimen Type: SERUM SYS No comment enter ed. Ordering Provid er: DAISY ALAS Report Released Date/Time: Apr 28, 2021 08:52 AM Reporting Lab: [facility] [address] [facility] Performing Lab: [facility] [address] [facility] CHOLESTEROL 171 0-240 TRIGLYCERIDES 119 0-150 HDL CHOLESTEROL 50.1 40-60 CALC LDL-CHOLESTEROL 97 0-100 ICTERUS INDEX 1 HEMOLYSIS INDEX 3 LIPEMIA INDEX 8 Social History: Smoking Status (Most current) and Tobacco Use (All prior to encounter date) This section includes the most current, and the historical, smoking and tobacco-related health factors from the [facility] facility where the Encounter took place.Current Smoking Status This section includes the most current smoking, or tobacco-related health factor, from the [place] facility where the Encounter took place. Date/Time Current Smoking Status Comment Facility Nov 03, 2020 09:00 AM VA-TOBACCO QUIT 1 TO < 5 V A [facility] Tobacco Use History This section includes a history of the smoking, or tobacco- related health factors, that were collected on or before the date of the Encounter. The data comes from the [place] facility where the Encounter took place. Date/Time Smoking Status/Tobacco Use Comment [facility] Nov 03, 2020 09:00 AM VA-TOBACCO QUIT 1 TO < 5 V [facility] Jan 07, 2019 12:51 PM VA-TOBACCO FORMER USER [facility] Jan 07, 2019 12:51 PM VA-TOBACCO QUIT < 1 YEAR V [facility] Jul 02, 2018 08:32 AM CURRENT TOBACCO USER [facility] Apr 21, 2017 08:06 AM CURRENT TOBACCO USER [facility] Oct 20, 2016 10:36 AM CURRENT TOBACCO USER [facility] Apr 20, 2016 09:46 AM CURRENT TOBACCO USER [facility] Oct 19, 2015 11:24 AM CURRENT TOBACCO USER [facility] Mar 27, 2015 07:56 AM CURRENT TOBACCO USER [facility] Sep 23, 2014 07:54 AM CURRENT TOBACCO USER [facility] Mar 21, 2014 07:48 AM CURRENT TOBACCO USER [facility] Jun 25, 2013 08:37 AM CURRENT TOBACCO USER [facility] November 19, 2012 11:40 AM CURRENT TOBACCO USER [facility] Apr 02, 2012 08:47 AM CURRENT TOBACCO USER [facility] Sep 20, 2011 02:42 PM CURRENT TOBACCO USER [facility] Oct 08, 2010 10:34 AM CURRENT TOBACCO USER [facility] Dec 24, 2009 11:02 AM CURRENT TOBACCO USER [facility] Dec 24, 2009 11:02 AM TOBACCO OFFERRED STOP [facility] Jul 28, 2009 03:51 PM CURRENT TOBACCO USER [facility] Jul 31, 2008 03:40 PM CURRENT TOBACCO USER [facility] Jul 31, 2008 03:06 PM CURRENT TOBACCO USER [facility] Jul 31, 2008 03:06 PM TOBACCO OFFERRED STOP [facility] Jan 29, 2008 01:30 PM CURRENT TOBACCO USER [facility] Jan 29, 2008 01:30 PM TOBACCO OFFERRED PT MEDS V A [facility] Jan 29, 2008 01:30 PM TOBACCO OFFERRED STOP [facility] Jan 29, 2008 01:13 PM CURRENT TOBACCO USER [facility] Jan 29, 2008 01:13 PM TOBACCO OFFERRED STOP [facility] Jul 31, 2007 09:48 AM CURRENT TOBACCO USER [facility] Jul 31, 2007 09:48 AM TOBACCO OFFERRED PT MEDS V A [facility] Jul 31, 2007 09:48 AM TOBACCO OFFERRED STOP [facility] Jul 31, 2007 09:14 AM CURRENT TOBACCO USER [facility] Jul 31, 2007 09:14 AM TOBACCO OFFERRED STOP [facility] November 28, 2006 04:03 PM CURRENT TOBACCO USER [facility] November 28, 2006 04:03 PM TOBACCO OFFERRED PT MEDS V A [facility] November 28, 2006 04:03 PM TOBACCO OFFERRED STOP [facility] November 28, 2006 03:37 PM CURRENT TOBACCO USER [facility] smokes 1 pk/day CARE SYS May 31, 2006 03:53 PM TOBACCO [facility] USE/COUNSELING-PROVIDER CARE SYS May 31, 2006 03:32 PM TOBACCO [facility] USE/COUNSELING-ANCILLARY CARE SY S Feb 13, 2006 01:07 PM TOBACCO [facility] HEALTH USE/COUNSELING-ANCILLARY CARE SY S Apr 15, 2003 09:33 AM TOBACCO COUNSELING 3 [facility] Apr 15, 2003 08:38 AM TOBACCO COUNSELING 2 [facility] Oct 14, 2002 08:46 AM TOBACCO COUNSELING 1 [facility] Oct 14, 2002 08:46 AM TOBACCO COUNSELING 2 [facility] Oct 14, 2002 08:46 AM TOBACCO COUNSELING 3 [facility] Apr 17, 2002 09:52 AM TOBACCO COUNSELING 2 [facility] Apr 17, 2002 09:52 AM TOBACCO COUNSELING 3 [facility] Oct 19, 2001 09:25 AM TOBACCO COUNSELING 1 [facility] Oct 19, 2001 09:25 AM TOBACCO COUNSELING 2 [facility] Oct 19, 2001 09:25 AM TOBACCO COUNSELING 3 [facility] Apr 13, 2001 01:36 PM TOBACCO COUNSELING 2 [facility] Apr 13, 2001 01:36 PM TOBACCO COUNSELING 3 [facility] November 15, 2000 02:10 PM TOBACCO COUNSELING 1 [facility] Encounter Notes: All associated encounter notes This section contains the clinical notes associated to the Encounter. Date/Time Encounter Note(s) Provider Source Aug 30, 2021 10:16 AM ENDOCRINOLOGY SECURE MESSAGING: KIARRA MARSHALL [facility] TITLE: ENDOCRINOLOGY SECURE MESSAGING [facility]ARE [facility] STANDARD TITLE: ENDOCRINOLOGY SECURE MESSAGING DATE OF NOTE: AUG 30, 2021@10:16:31 ENTRY DATE: AUG 30, 2021@10:16:32 AUTHOR: SAMUEL MARSHALL EXP COSIGNER: URGENCY: STATUS: COMPLETED ------Original Message Sent: 08/29/2021 10:17 AM From: SANTINO MEEHAN To: Endocrinology [facility]@ Subject: Wegovy approved Good Morning, I have been us ing the ozempic pen 1 mg for the last three weeks I have one more dose and need to have the 1.7 mg f illed. Thank you /maira/ SAMUEL MARSHALL MS, RN, LUCA NIX RN Coordinator, Endo/DM Service Signed: 08/30/2021 10:16 Receipt Acknowledged By: * AWAITING SIGNATURE * DAISY ALAS Aug 06, 2021 04:32 PM ENDOCRINOLOGY SECURE MESSAGING: KANCHAN ALAS [facility] TITLE: ENDOCRINOLOGY SECURE MESSAGING CARE [facility] STANDARD TITLE: ENDOCRINOLOGY SECURE MESSAGING DATE OF NOTE: AUG 06, 2021@16:32:38 ENTRY DATE: AUG 06, 2021@16:32:39 AUTHOR: DAISY ALAS EXP COSIGNER: URGENCY: STATUS: COMPLETED ------Original Message Sent: 08/06/2021 04:32 PM From: DAISY ALAS To: SANTINO MEEHAN Subject: Wegovy approved Hi there, You were approved to start Wegovy (semaglutide) WEEKLY injections for weight loss. As discussed at our la st visit, this medication is in the same drug class as Saxenda but is more potent and studies have d emonstrated increased weight loss. Since you have been taking Saxenda 3mg daily, yo u will start your Wegovy dose at 1mg (using an Ozempic pen ). The Ozempic pen is a multi-use pen like Saxenda, but the Wegovy pen is single-use. Both pens incl ude needles. Please finish your current s upply of Saxenda then start weekly your semaglutide injection the day after your last Saxenda dose ( i.e. Last Saxenda on Monday, start semaglutide on Monday). Please follow the dosing schedule below: Weeks 1-4 = 1mg weekly (OZEMPIC pen) Weeks 5-8 = 1.7mg weekly (WEGOVY pen) Weeks 8 and after = 2.4 weekly (WEGOVY pen) Instructions to use the Ozempic pen: https://www.[employer]/how-to-take/ozempic-pen. html Instructions to use the Wegovy pen: https://www.[employer]/about-wegovy/gmu-bn-bfl-t ml-wpcpww-zco.html#itemTwo Please notify me when you start your 1.7mg dose and I will order the 2.4mg dose. Next visits: 10/08/2021 08:30 [facility] ENDO EDU NU TR - nutrition 11/01/2021 08:00 BT [facility] ENDO YELLOW - weight ma maximiliano Have a good weekend. Daisy Alas DNP, BANKRUPTCY ATTORNEY Endocrinology and Diabetes Nurse Practitioner /es/ DAISY ALAS DNP, CRNP ENDOCRINE AND DIABETES NURSE PRACTITIONER Signed: 08/06/2021 16:32
--- OUTSIDE RECORDS SUMMARY | 2022-06-09 11:58 | XMS_ITS | Encounter Summary ---
:1960 Author Organization [facility] rs Address [address] [place] [address] Support Name Relationship Address Phone ARABELLAMAIDA Mo Unavailable [address] [place] [phone] ELIMAIDA GRACIA Unavailable [address] [place] [phone] Insurance Providers: All historical and current Section Date Range: From patient's date of to the date document was created.This section includes the names of all active insurance providers for the patient. Insurance Type of Plan Start of End of Group Member Insurance Policy P [facility]'s Provider Coverage Name Policy Policy Number ID Provider's Figueroa's Relationship Coverage Coverage Telephone Name to Policy Number Figueroa [facility] Jul 17, [facility] [id number] Balbir MEEHAN, PATIENT HEALTH 2018 DIRECT 15 [phone] [place] [address] [facility] Jul 17, [facility] [id number] MEEHAN [facility] [phone] S[place] [address]AN Selected Encounter This section includes the information on record at MS for the Encounter. Date/Time Encounter Type Encounter Description Reason Provider Source Aug 17, 2021 08:00 Outpatient Encounter GENERAL SURGERY AM IHE Encounter Template Text not used by MS Plan of Treatment: Future Appointments (+ 6 months) and Future Tests (+/- 45 days) The Plan of Treatment section includes future care activities for the patient from all MS treatmentfacilities. This section includes future appointments and future orders which are active, pending orscheduled.Future Appointments This section includes appointments that were scheduled to occur 6 months from the date of the Encounter, up to a maximum of 20 appointments. The data comes from all MS treatment facilities. Appointment Date/Time Appointment Type Appointment Facili ty Name Sep 07, 2021 08:00 AM AMBULATORY - SURGERY [facility] Sep 14, 2021 03:30 PM AMBULATORY - SURGERY [facility] Oct 08, 2021 08:30 AM AMBULATORY - MEDICINE [facility] S[facility] Oct 12, 2021 02:00 PM AMBULATORY - SURGERY [facility] Nov 01, 2021 08:00 AM AMBULATORY - MEDICINE [facility] SYS November 19, 2021 08:30 AM AMBULATORY - MEDICINE [facility] S[facility] Feb 09, 2022 08:00 AM AMBULATORY - MEDICINE [facility] S[facility] Lab Results: +/- 30 days of the encounter This section includes the Chemistry and Hematology Lab Results on record with MS for the patient. Radiology Reports and Pathology Reports are provided separately, in subsequent sections.Lab Results This section contains the Chemistry/Hematology Results that were resulted 30 days before or 30 daysafter the date of the Encounter. Date/Time Source Result Type Result - Unit Interpretation Reference Range Comment Sep 07, 2021 09:42 [facility] COVID-19 SCREEN PANEL Spe cimen Type: NASAL MUCUS AM CARE SYS AG (VERITOR) No comment enter ed. Ordering Provid er: ESTRELLA MORENO Report Released Date/Time: Sep 07, 2021 09:42 AM Reporting Lab: [facility] [address] [facility] Performing Lab: [facility] [address] [facility] COVID-19 ANTIGEN (VERITOR) NEGATIVE INTERNAL CONTROL PASS Sep 07, 2021 08:31 [facility] POC GLUCOSE (finger Speci men Type: PLASMA AM CARE SYS stick) No comment enter ed. Ordering Provid er: BRIDGETTE SHIPMAN Report Released Date/Time: Sep 08, 2021 05:59 AM Reporting Lab: [facility] [address] [facility] Performing Lab: [facility] [address] [facility] POC GLUCOSE (finger stick) 74 70- 105 Aug 17, 2021 [facility] GLYCOSOLATED HGB PANEL Speci men Type: BLOOD 08:04 AM CARE SYS - BALT/PP No comment enter ed. Ordering Provid er: AMBER ALAS Report Released Date/Time: Apr 28, 2021 08:52 AM Reporting Lab: [facility] [address] [facility] [address] Performing Lab: [facility] [address] [facility] [address] HEMOGLOBIN A1C 5.7 4.3-5.7 Aug 17, 2021 08:04 AM [facility] LIPID PANEL S pecimen Type: SERUM SYS No comment enter ed. Ordering Provid er: AMBER ALAS Report Released Date/Time: Apr 28, 2021 08:52 AM Reporting Lab: [facility] [address] [facility] [address] Performing Lab: [facility] [address] [facility] [address] CHOLESTEROL 171 0-240 TRIGLYCERIDES 119 0-150 HDL CHOLESTEROL 50.1 40-60 CALC LDL-CHOLESTEROL 97 0-100 ICTERUS INDEX 1 HEMOLYSIS INDEX 3 LIPEMIA INDEX 8 Social History: Smoking Status (Most current) and Tobacco Use (All prior to encounter date) This section includes the most current, and the historical, smoking and tobacco-related health factors from the MS facility where the Encounter took place.Current Smoking Status This section includes the most current smoking, or tobacco-related health factor, from the MS facility where the Encounter took place. Date/Time Current Smoking Status Comment Facility Nov 03, 2020 09:00 AM VA-TOBACCO FORMER USER [facility] Tobacco Use History This section includes a history of the smoking, or tobacco- related health factors, that were collected on or before the date of the Encounter. The data comes from the MS facility where the Encounter took place. Date/Time Smoking Status/Tobacco Use Comment [facility] Nov 03, 2020 09:00 AM MS-TOBACCO QUIT 1 TO < 5 V [facility] Jan 07, 2019 12:51 PM VA-TOBACCO FORMER USER [facility] Jan 07, 2019 12:51 PM MS-TOBACCO QUIT < 1 YEAR V [facility] Jul 02, 2018 08:32 AM CURRENT TOBACCO USER [facility] Apr 21, 2017 08:06 AM CURRENT TOBACCO USER [facility] Oct 20, 2016 10:36 AM CURRENT TOBACCO USER [facility] Apr 20, 2016 09:46 AM CURRENT TOBACCO USER [facility] Oct 19, 2015 11:24 AM CURRENT TOBACCO USER [facility] Mar 27, 2015 07:56 AM CURRENT TOBACCO USER [facility] Sep 23, 2014 07:54 AM CURRENT TOBACCO USER [facility] Mar 21, 2014 07:48 AM CURRENT TOBACCO USER [facility] Jun 25, 2013 08:37 AM CURRENT TOBACCO USER [facility] November 19, 2012 11:40 AM CURRENT TOBACCO USER [facility] Apr 02, 2012 08:47 AM CURRENT TOBACCO USER [facility] Sep 20, 2011 02:42 PM CURRENT TOBACCO USER [facility] Oct 08, 2010 10:34 AM CURRENT TOBACCO USER [facility] Dec 24, 2009 11:02 AM CURRENT TOBACCO USER [facility] Dec 24, 2009 11:02 AM TOBACCO OFFERRED [facility] Jul 28, 2009 03:51 PM CURRENT TOBACCO USER [facility] Jul 31, 2008 03:40 PM CURRENT TOBACCO USER [facility] Jul 31, 2008 03:06 PM CURRENT TOBACCO USER [facility] Jul 31, 2008 03:06 PM TOBACCO OFFERRED [facility] Jan 29, 2008 01:30 PM CURRENT TOBACCO USER [facility] Jan 29, 2008 01:30 PM TOBACCO OFFERRED PT MEDS V A [facility] (PROVIDER) [facility] Jan 29, 2008 01:30 PM TOBACCO OFFERRED [facility] Jan 29, 2008 01:13 PM CURRENT TOBACCO USER [facility] Jan 29, 2008 01:13 PM TOBACCO OFFERRED [facility] Jul 31, 2007 09:48 AM CURRENT TOBACCO USER [facility] Jul 31, 2007 09:48 AM TOBACCO OFFERRED PT MEDS V A [facility] (PROVIDER) [facility] Jul 31, 2007 09:48 AM TOBACCO OFFERRED [facility] Jul 31, 2007 09:14 AM CURRENT TOBACCO USER [facility] Jul 31, 2007 09:14 AM TOBACCO OFFERRED [facility] November 28, 2006 04:03 PM CURRENT TOBACCO USER [facility] November 28, 2006 04:03 PM TOBACCO OFFERRED PT MEDS V A [facility] (PROVID[facility]) CARE SYS November 28, 2006 04:03 PM TOBACCO OFFERRED [facility] November 28, 2006 03:37 PM CURRENT TOBACCO USER [facility] smoke 1 pk/day CARE SYS May 31, 2006 03:53 PM [facility]ACCO [facility]OUNSEL[facility]PROVIDER CARE S[facility] May 31, 2006 03:32 PM [facility]ACCO [facility] USE/COUNSELING-ANCILLARY CARE SY S Feb 13, 2006 01:07 PM TOBACCO [facility] HEALTH USE/COUNSELING-ANCILLARY CARE SY S Apr 15, 2003 09:33 AM TOBACCO COUNSELING 3 [facility] Apr 15, 2003 08:38 AM TOBACCO COUNSEL[address] [facility] Oct 14, 2002 08:46 AM TOBACCO COUNSELING 1 [facility] Oct 14, 2002 08:46 AM TOBACCO COUNSELING [facility] Oct 14, 2002 08:46 AM TOBACCO COUNSELING [facility] Apr 17, 2002 09:52 AM TOBACCO COUNSELING [facility] Apr 17, 2002 09:52 AM TOBACCO COUNSELING [facility] Oct 19, 2001 09:25 AM TOBACCO COUNSELING 1 [facility] Oct 19, 2001 09:25 AM TOBACCO COUNSELING [facility] Oct 19, 2001 09:25 AM TOBACCO COUNSELING [facility] Apr 13, 2001 01:36 PM TOBACCO COUNSELING [facility] Apr 13, 2001 01:36 PM TOBACCO COUNSELING [facility] November 15, 2000 02:10 PM TOBACCO COUNSELING 1 [facility] Pathology Reports: +/- 30 days of [...] the Encounter. The data comes from all MS treatment facilities. Date/Time Pathology Report Provider Source Sep 09, 2021 10:30 AM LR SURGICAL PATHOLOGY REPORT: STELLA JARRETT [facility] TITLE: LR SURGICAL PATHOLOGY REPORT CARE SY [...] Performing Laboratory: Surgical Pathology Report Performed By: [facility] [CLIA# [id number]] [address] [place] [id number] $FTR - - - - - - [...] - - SANTINO MEEHAN STANDARD FORM 515 ID:[id number] SEX:M :1960 AGE: 61 LOC: PROFEE PCP: Raul Tripp MD /maira/ ALBER JARRETT PATHOLOGIST Signed: 09/09/2021 10:30 Encounter Notes: All associated encounter notes This section contains the clinical notes associated to the Encounter. Date/Time Encounter Note(s) Provider Source Aug 24, 2021 12:58 AM OUTREACH ASSOCIATE NOTE: SUMMER DEL CID [facility] TITLE: PERINATAL TECH NOTE CARE [facility] STANDARD TITLE: OUTREACH ASSOCIATE NOTE DATE OF NOTE: AUG 24, 2021@00:58 ENTRY DATE: AUG 24, 2021@00:59:02 AUTHOR: SUMMER DEL CID EXP COSIGNER: URGENCY: STATUS: COMPLETED [place] contacted to offer s urgery date for Monday08/25/21, however no answer. A call back requested and writers contact number left ([phone]). /maira/ Summer Del Cid RN Outpatient Surgical Director [employer] Signed: 08/24/2021 11:35
--- OUTSIDE RECORDS SUMMARY | 2022-06-09 11:58 | XMS_ITS | Encounter Summary ---
:1960 Author Organization [facility] Address [address] [place] [address] Support Name Relationship Address Phone ELIMAIDA GRACIA Unavailable [address] [place] [phone] ELIMAIDA GRACIA Unavailable [address] [place] [phone] Insurance Providers: All historical and current Section Date Range: From patient's date of to the date document was created.This section includes the names of all active insurance providers for the patient. Insurance Type of Plan Start of End of Group Member Insurance Policy P [facility]'s Provider Coverage Name Policy Policy Number ID Provider's Figueroa's Relationship Coverage Coverage Telephone Name to Policy Number Figueroa [facility] Jul 17, [facility] [id number] [address] [place], PATIENT HEALTH 2018 DIRECT 15 [phone] [place] [address] [facility] Jul 17, [facility] [id number] [place] [facility] [phone] [place] Selected Encounter This section includes the information on record at MS for the Encounter. Date/Time Encounter Type Encounter Description Reason Provider Source Aug 30, 2021 Outpatient ENDOCRINOLOGY EVETTEDAISY 01:32 PM Encounter C IHE Encounter Template Text [...] 07, 2021 08:00 AM AMBULATORY - SURGERY [facility]ARE [facility] Sep 14, 2021 03:30 PM AMBULATORY - SURGERY [facility] S[facility] Oct 08, 2021 08:30 AM AMBULATORY - MEDICINE [facility] Oct 12, 2021 02:00 PM AMBULATORY - SURGERY [facility]DER [facility] Nov 01, 2021 08:00 AM AMBULATORY - MEDICINE [facility] November 19, 2021 08:30 AM AMBULATORY - MEDICINE [facility] Feb 09, 2022 08:00 AM AMBULATORY - MEDICINE [facility] Lab Results: +/- 30 days [...] Reference Range Comment Sep 07, 2021 09:42 [facility] COVID-19 SCREEN PANEL Spe cimen Type: NASAL MUCUS AM CARE SYS AG (VERITOR) No comment enter ed. Ordering Provid er: ESTRELLA MORENO Report Released Date/Time: Sep 07, 2021 09:42 AM Reporting Lab: [facility] [address] [facility] Performing Lab: [facility] [address] [facility] COVID-19 ANTIGEN (VERITOR) NEGATIVE INTERNAL CONTROL PASS Sep 07, 2021 08:31 [facility] POC GLUCOSE (finger Speci men Type: PLASMA AM CARE SYS stick) No comment enter ed. Ordering Provid er: BRIDGETTE SHIPMAN Report Released Date/Time: Sep 08, 2021 05:59 AM Reporting Lab: [facility] [address] [facility] Performing Lab: [facility] [address] [facility] POC GLUCOSE (finger stick) 74 70- 105 Aug 17, 2021 [facility] GLYCOSOLATED HGB PANEL Speci men Type: BLOOD 08:04 AM CARE SYS - BALT/PP No comment enter ed. Ordering Provid er: DAISY ALAS Report Released Date/Time: Apr 28, 2021 08:52 AM Reporting Lab: [facility] [address] [facility] [address] Performing Lab: [facility] [address] [facility] [address] HEMOGLOBIN A1C 5.7 4.3-5.7 Aug 17, 2021 08:04 AM [facility] LIPID PANEL S pecimen Type: SERUM SYS No comment enter ed. Ordering Provid er: DAISY ALAS Report Released Date/Time: Apr 28, 2021 08:52 AM Reporting Lab: [facility] [address] [facility] [address] Performing Lab: [facility] [address] [facility] [address] CHOLESTEROL 171 0-240 TRIGLYCERIDES 119 0-150 HDL [...] 03, 2020 09:00 AM VA-TOBACCO FORMER USER [facility] Tobacco Use History This section includes a history of the smoking, or tobacco- related health factors, that were collected on or before the date of the Encounter. The data comes from the MS facility where the Encounter took place. Date/Time Smoking Status/Tobacco Use Comment [facility] Nov 03, 2020 09:00 AM MS-TOBACCO QUIT 1 TO < 5 V [facility] Jan 07, 2019 12:51 PM VA-TOBACCO FORMER USER [facility] Jan 07, 2019 12:51 PM MS-TOBACCO QUIT < 1 YEAR V [facility] Jul 02, 2018 08:32 AM CURRENT TOBACCO USER [facility] SY Apr 21, 2017 08:06 AM CURRENT TOBACCO USER [facility] Oct 20, 2016 10:36 AM CURRENT TOBACCO USER [facility] S[facility] Apr 20, 2016 09:46 AM CURRENT TOBACCO USER [facility] Oct 19, 2015 11:24 AM CURRENT TOBACCO USER [facility] Mar 27, 2015 07:56 AM CURRENT TOBACCO USER [facility] Sep 23, 2014 07:54 AM CURRENT TOBACCO USER [facility] Mar 21, 2014 07:48 AM CURRENT TOBACCO USER [facility] Jun 25, 2013 08:37 AM CURRENT TOBACCO USER [facility] November 19, 2012 11:40 AM CURRENT TOBACCO USER [facility] Apr 02, 2012 08:47 AM CURRENT TOBACCO USER [facility] Sep 20, 2011 02:42 PM CURRENT TOBACCO USER [facility] Oct 08, 2010 10:34 AM CURRENT TOBACCO USER [facility] Dec 24, 2009 11:02 AM CURRENT TOBACCO USER [facility] Dec 24, 2009 11:02 AM TOBACCO OFFERRED STOP [facility] SMOKING CLINIC CARE SYS Jul 28, 2009 03:51 PM CURRENT TOBACCO USER [facility] Jul 31, 2008 03:40 PM CURRENT TOBACCO USER [facility] Jul 31, 2008 03:06 PM CURRENT TOBACCO USER [facility] Jul 31, 2008 03:06 PM TOBACCO OFFERRED STOP [facility] SMOKING CLINIC CARE SYS Jan 29, 2008 01:30 PM CURRENT TOBACCO USER [facility] Jan 29, 2008 01:30 PM TOBACCO OFFERRED PT MEDS V A [facility] CARE SYS Jan 29, 2008 01:30 PM TOBACCO OFFERRED STOP [facility] SMOKING CLINIC CARE SYS Jan 29, 2008 01:13 PM CURRENT TOBACCO USER [facility] Jan 29, 2008 01:13 PM TOBACCO OFFERRED STOP [facility] SMOKING CLINIC CARE SYS Jul 31, 2007 09:48 AM CURRENT TOBACCO USER [facility] Jul 31, 2007 09:48 AM TOBACCO OFFERRED PT MEDS V A [facility] Jul 31, 2007 09:48 AM TOBACCO OFFERRED STOP [facility] SMOKING CLINIC CARE SYS Jul 31, 2007 09:14 AM CURRENT TOBACCO USER [facility] Jul 31, 2007 09:14 AM TOBACCO OFFERRED STOP [facility] SMOKING CLINIC CARE SYS November 28, 2006 04:03 PM CURRENT TOBACCO USER [facility] November 28, 2006 04:03 PM TOBACCO OFFERRED PT MEDS V A [facility] CARE SYS November 28, 2006 04:03 PM TOBACCO OFFERRED STOP [facility] SMOKING CLINIC CARE SYS November 28, 2006 03:37 PM CURRENT TOBACCO USER [facility] smoke 1 pk/day CARE SYS May 31, 2006 03:53 PM TOBACCO [facility] HEALTH USE/COUNSELING-PROVIDER CARE SYS May 31, 2006 03:32 PM TOBACCO [facility] HEALTH USE/COUNSELING-ANCILLARY CARE SY S Feb 13, 2006 01:07 PM TOBACCO [facility] HEALTH USE/COUNSELING-ANCILLARY CARE SY S Apr 15, 2003 09:33 AM TOBACCO COUNSELING [facility] Apr 15, 2003 08:38 AM TOBACCO COUNSELING [facility] Oct 14, 2002 08:46 AM TOBACCO COUNSELING [facility] Oct 14, 2002 08:46 AM TOBACCO COUNSELING 2 [facility] Oct 14, 2002 08:46 AM TOBACCO COUNSELING 3 [facility] Apr 17, 2002 09:52 AM TOBACCO COUNSELING [facility] Apr 17, 2002 09:52 AM TOBACCO COUNSELING 3 [facility] Oct 19, 2001 09:25 AM TOBACCO COUNSELING 1 [facility] Oct 19, 2001 09:25 AM TOBACCO COUNSELING 2 [facility] Oct 19, 2001 09:25 AM TOBACCO COUNSELING 3 [facility] Apr 13, 2001 01:36 PM TOBACCO COUNSELING 2 [facility] Apr 13, 2001 01:36 PM TOBACCO COUNSELING 3 [facility] November 15, 2000 02:10 PM TOBACCO COUNSELING 1 [facility] Pathology Reports: +/- 30 days of [...] AM LR SURGICAL PATHOLOGY REPORT: STELLA JARRETT [facility] TITLE: LR SURGICAL PATHOLOGY REPORT [facility] STANDARD TITLE: PATHOLOGY REPORT DATE OF [...] Performing Laboratory: Surgical Pathology Report Performed By: [facility] [CLIA# [id number]] [address] [place] [phone] $FTR - - - - - - [...] - - SANTINO MEEHAN STANDARD FORM 515 ID:[id number] SEX:M :1960 AGE: 61 LOC: PROFEE PCP: Raul Tripp MD /maira/ ALBER JARRETT PATHOLOGIST Signed: 09/09/2021 10:30 Encounter Notes: All associated encounter notes This section contains the clinical notes associated to the Encounter. Date/Time Encounter Note(s) Provider Source Aug 30, 2021 01:32 PM ENDOCRINOLOGY SECURE MESSAGING: KANCHAN ALAS [facility] TITLE: ENDOCRINOLOGY SECURE MESSAGING CARE S STANDARD TITLE: ENDOCRINOLOGY SECURE MESSAGING DATE OF NOTE: AUG 30, 2021@13:32:35 ENTRY DATE: AUG 30, 2021@13:32:36 AUTHOR: DAISY ALAS EXP COSIGNER: URGENCY: STATUS: COMPLETED ------Original Message Sent: 08/30/2021 01:32 PM From: DAISY ALAS To: SANTINO MEEHAN Subject: wegovy 1.7mg Nadira, I placed a renewal request f or Wegovy 1.7mg weekly for 4 weeks. I had requested it at the same time as the 1mg dose but it may h ave been overlooked with both prescriptions. If you do not receive the 1.7mg dose thi s week, please call the pharmacy for a status update. Thanks, Daisy Alas DNP, CRNP Endocrinology and Diabetes Nurse Practitioner /maira/ DAISY ALAS DNP, CRNP ENDOCRINE AND DIABETES NURSE PRACTITIONER Signed: 08/30/2021 13:32 Receipt Acknowledged By: * AWAITING SIGNATURE * LUDIVINA ALVARES
--- OUTSIDE RECORDS SUMMARY | 2022-06-09 11:58 | XMS_ITS | Encounter Summary ---
:1960 Author Organization [facility] Address [address] [place] [address] Support Name Relationship Address Phone ELIMAIDA GRACIA Unavailable [address] [place] [address] ELIMAIDA GRACIA Unavailable [address] [place] [address] Insurance Providers: All historical and current Section [...] Telephone Name to Policy Number Figueroa [facility] Jul 17, [facility] [id number] [address], PATIENT HEALTH 2018 DIRECT 15 [phone] [facility] PL[facility] Jul 17[facility] [id number] 800 [address] GRACIA [facility] [phone] SANTINO PLAN Selected Encounter This section includes the information on record at [place] for the Encounter. Date/Time Encounter Type Encounter Description Reason Provider Source Sep 10, 2021 Outpatient ENDOCRINOLOGY DAISY MCLAUGHLIN 12:59 PM Encounter C I[facility] Encounter Template Text not used by [place] Plan of Treatment: Future Appointments (+ 6 months) and Future Tests (+/- 45 days) The Plan of Treatment section includes future care activities for the patient from all [place] treatmentfacilities. This section includes future appointments and future orders which are active, pending orscheduled.Future Appointments This section includes appointments that were scheduled to occur 6 months from the date of the Encounter, up to a maximum of 20 appointments. The data comes from all [place] treatment facilities. Appointment Date/Time Appointment Type Appointment Facili ty Name Sep 14, 2021 03:30 PM AMBULATORY - SURGERY [facility] Oct 08, 2021 08:30 AM AMBULATORY - MEDICINE [facility] Oct 12, 2021 02:00 PM AMBULATORY - SURGERY [facility] Nov 01, 2021 08:00 AM AMBULATORY - MEDICINE [facility] November 19, 2021 08:30 AM AMBULATORY - MEDICINE [facility] Feb 09, 2022 08:00 AM AMBULATORY - MEDICINE [facility] Lab Results: +/- 30 days of the encounter This section includes the Chemistry and Hematology Lab Results on record with [place] for the patient. Radiology Reports and Pathology Reports are provided separately, in subsequent sections.Lab Results This section contains the Chemistry/Hematology Results that were resulted 30 days before or 30 daysafter the date of the Encounter. Date/Time Source Result Type Result - Unit Interpretation Reference Range Comment Sep 07, 2021 09:42 [facility] COVID-19 SCREEN PANEL Spe cimen Type: NASAL MUCUS AM CARE [facility] AG (VERITOR) No comment enter ed. Ordering Provid er: ESTRELLA MORENO Report Released Date/Time: Sep 07, 2021 09:42 AM Reporting Lab: [facility] [address] [facility] Performing Lab: [facility] [address] [facility] COVID-19 ANTIGEN (VERITOR) NEGATIVE INTERNAL CONTROL PASS Sep 07, 2021 08:31 [facility] POC GLUCOSE (finger Speci men Type: PLASMA AM CARE [facility] stick) No comment enter ed. Ordering Provid er: BRIDGETTE SHIPMAN Report Released Date/Time: Sep 08, 2021 05:59 AM Reporting Lab: [facility] [address] [facility] Performing Lab: [facility] [address] [facility] POC GLUCOSE (finger stick) 74 70- 105 Aug 17, 2021 [facility] GLYCOSOLATED HGB PANEL Speci men Type: BLOOD 08:04 AM CARE [facility]YS - BALT/PP No comment enter ed. Ordering Provid er: DAISY MCLAUGHLIN Report Released Date/Time: Apr 28, 2021 08:52 AM Reporting Lab: [facility] [address] [facility] [id number] Performing Lab: [facility] [address] [facility] [id number] HEMOGLOBIN A1C 5.7 4.3-5.7 Aug 17, 2021 08:04 AM [facility] LIPID PANEL S pecimen Type: SERUM SYS No comment enter ed. Ordering Provid er: DAISY MCLAUGHLIN Report Released Date/Time: Apr 28, 2021 08:52 AM Reporting Lab: [facility] [address] [facility] [phone] Performing Lab: [facility] [address] [facility] [phone] CHOLESTEROL 171 0-240 TRIGLYCERIDES 119 0-150 HDL CHOLESTEROL 50.1 40-60 CALC LDL-CHOLESTEROL 97 0-100 ICTERUS INDEX 1 HEMOLYSIS INDEX 3 LIPEMIA INDEX 8 Social History: Smoking Status (Most current) and Tobacco Use (All prior to encounter date) This section includes the most current, and the historical, smoking and tobacco-related health factors from the [place] facility where the Encounter took place.Current Smoking Status This section includes the most current smoking, or tobacco-related health factor, from the [place] facility where the Encounter took place. Date/Time Current Smoking Status Comment Facility Nov 03, 2020 09:00 AM VA-TOBACCO FORMER USER [facility] Tobacco Use History This section includes a history of the smoking, or tobacco- related health factors, that were collected on or before the date of the Encounter. The data comes from the [place] facility where the Encounter took place. Date/Time Smoking Status/Tobacco Use Comment [facility] it Nov 03, 2020 09:00 AM VA-TOBACCO QUIT 1 TO < 5 V [facility] Jan 07, 2019 12:51 PM VA-TOBACCO FORMER USER [facility] Jan 07, 2019 12:51 PM [place]-TO[place] QUIT < 1 YEAR V [facility] Jul 02, 2018 08:32 AM CURRENT TOBACCO USER [facility] Apr 21, 2017 08:06 AM CURRENT TOBACCO USER [facility] Oct 20, 2016 10:36 AM CURRENT TOBACCO USER [facility] Apr 20, 2016 09:46 AM CURRENT TOBACCO USER [facility] Oct 19, 2015 11:24 AM CURRENT TOBACCO USER [facility] Mar 27, 2015 07:56 AM CURRENT TOBACCO USER [facility] Sep 23, 2014 07:54 AM CURRENT TOBACCO USER [facility] Mar 21, 2014 07:48 AM CURRENT TOBACCO USER [facility] Jun 25, 2013 08:37 AM CURRENT TOBACCO USER [facility] November 19, 2012 11:40 AM CURRENT TOBACCO USER [facility] Apr 02, 2012 08:47 AM CURRENT TOBACCO USER [facility] Sep 20, 2011 02:42 PM CURRENT TOBACCO USER [facility] Oct 08, 2010 10:34 AM CURRENT TOBACCO USER [facility] Dec 24, 2009 11:02 AM CURRENT TOBACCO USER [facility] Dec 24, 2009 11:02 AM TOBACCO OFFERRED STOP [facility] Jul 28, 2009 03:51 PM CURRENT TOBACCO USER [facility] Jul 31, 2008 03:40 PM CURRENT TOBACCO USER [facility] Jul 31, 2008 03:06 PM CURRENT TOBACCO USER [facility] Jul 31, 2008 03:06 PM TOBACCO OFFERRED [facility] Jan 29, 2008 01:30 PM CURRENT TOBACCO USER [facility] Jan 29, 2008 01:30 PM TOBACCO OFFERRED PT MEDS V A [facility] (PROVIDER) [facility] Jan 29, 2008 01:30 PM TOBACCO OFFERRED STOP [facility] Jan 29, 2008 01:13 PM CURRENT TOBACCO USER [facility] Jan 29, 2008 01:13 PM TOBACCO OFFERRED [facility] Jul 31, 2007 09:48 AM CURRENT TOBACCO USER [facility] Jul 31, 2007 09:48 AM TOBACCO OFFERRED PT MEDS V A [facility] (PROVIDER) CARE [facility] Jul 31, 2007 09:48 AM TOBACCO OFFERRED STOP [facility] Jul 31, 2007 09:14 AM CURRENT TOBACCO USER [facility] Jul 31, 2007 09:14 AM TOBACCO OFFERRED [facility] November 28, 2006 04:03 PM CURRENT TOBACCO USER [facility] November 28, 2006 04:03 PM TOBACCO OFFERRED PT MEDS V A [facility] (PROVIDER) [facility] November 28, 2006 04:03 PM TOBACCO OFFERRED [facility] November 28, 2006 03:37 PM CURRENT TOBACCO USER [facility] smoke 1 pk/day CARE SYS May 31, 2006 03:53 PM TOBACCO [facility] USE/COUNSELING-PROVIDER CARE S[facility] May 31, 2006 03:32 PM TOBACCO [facility] USE/COUNSELING-ANCILLARY CARE SY S Feb 13, 2006 01:07 PM TOBACCO [facility] USE/COUNSELING-ANCILLARY CARE SY S Apr 15, 2003 09:33 AM TOBACCO COUNSELING 3 [facility] Apr 15, 2003 08:38 AM TOBACCO COUNSELING 2 [facility] Oct 14, 2002 08:46 AM TOBACCO COUNSELING 1 [facility] Oct 14, 2002 08:46 AM TOBACCO COUNSELING 2 [facility] Oct 14, 2002 08:46 AM TOBACCO COUNSELING 3 [facility] Apr 17, 2002 09:52 AM TOBACCO COUNSELING 2 [facility] Apr 17, 2002 09:52 AM TOBACCO COUNSELING 3 [facility] Oct 19, 2001 09:25 AM TOBACCO COUNSELING 1 [facility] Oct 19, 2001 09:25 AM TOBACCO COUNSELING 2 [facility] Oct 19, 2001 09:25 AM TOBACCO COUNSELING 3 [facility] Apr 13, 2001 01:36 PM TOBACCO COUNSELING 2 [facility] Apr 13, 2001 01:36 PM TOBACCO COUNSELING 3 [facility] November 15, 2000 02:10 PM TOBACCO COUNSELING 1 [facility] Pathology Reports: +/- 30 days of the [...] the Encounter. The data comes from all [place] treatment facilities. Date/Time Pathology Report Provider Source Sep 09, 2021 10:30 AM LR SURGICAL PATHOLOGY REPORT: STELLA JARRETT [facility] TITLE: LR SURGICAL PATHOLOGY REPORT [facility] STANDARD TITLE: PATHOLOGY REPORT DATE [...] Performing Laboratory: Surgical Pathology Report Performed By: [facility] SYJudith [CLIA# [id number]] [address] [place] [address] $FTR - - - - - - [...] - - SANTINO MEEHAN STANDARD FORM 515 ID:[id number] SEX:M :1960 AGE: 61 LOC: PROFEE PCP: Raul Tripp MD /maira/ ALBER JARRETT PATHOLOGIST Signed: 09/09/2021 10:30 Encounter Notes: All associated encounter notes This section contains the clinical notes associated to the Encounter. Date/Time Encounter Note(s) Provider Source Sep 10, 2021 12:59 PM ENDOCRINOLOGY SECURE MESSAGING: KANCHAN MCLAUGHLIN [facility] TITLE: ENDOCRINOLOGY SECURE MESSAGING CARE S STANDARD TITLE: ENDOCRINOLOGY SECURE MESSAGING DATE OF NOTE: SEP 10, 2021@12:59:57 ENTRY DATE: SEP 10, 2021@12:59:57 AUTHOR: DAISY MCLAUGHLIN EXP COSIGNER: URGENCY: STATUS: COMPLETED ------Original Message Sent: 09/10/2021 05:57 AM From: SANTINO MEEHAN To: Endocrinology [facility]@ Subject: Dr. Daisy Mclaughlin. Mercedes Hernandez Attachments: BLOOD SUGAR UPDATED.xlsx (57.70 KB) Updated spreadsheet ------Original Message Sent: 09/10/2021 12:59 PM From: DAISY MCLAUGHLIN To: SANTINO MEEHAN Subject: Dr. Daisy Mclaughlin. Mercedes Hernandez Happy Monday Mr. Meehan, I will share your chart with Mercedes for your up coming visit with her 10/08/2021 08:30 BT [facility] ENDO EDU NUTR. I see the Wegovy 1.7mg box was delivered 09/07. Y ou will use one pen per week for 4 weeks. You can review how to use the pen h ere: https://www.[employer].m-spatial/about-wegovy/wky-vo-wts-t rs-zktiyw-nja.html#itemTwo I ordered the 2.4mg pens for you today. Store al l extra pens in the refrigerator. If you have questions, please let us know. Our next visit is 11/01/2021 08:00 BT [facility] RILEY BOWSER. Take care and have great weekend, Daisy Mclaughlin DNP, CRNP Endocrinology and Diabetes Nurse Practitioner // DAISY MCLAUGHLIN DNP, CRNP ENDOCRINE AND DIABETES NURSE PRACTITIONER Signed: 09/10/2021 12:59
--- OUTSIDE RECORDS SUMMARY | 2022-06-09 11:58 | XMS_ITS | Encounter Summary ---
:1960 Author Organization [facility] rs Address [address] [place] [address] Support Name Relationship Address Phone MAIDA MEEHAN Unavailable [address] [place] [phone] LEIMAIDA GRACIA Unavailable [address] [place] [address] Insurance Providers: All historical and current Section Date Range: From patient's date of to the date document was created.This section includes the names of all active insurance providers for the patient. Insurance Type of Plan Start of End of Group Member [facility] Coverage Name Policy Policy Number ID Provider's Figueroa's Relationship Coverage Coverage Telephone Name to Policy Number Figueroa [facility] Jul 17, [facility] [id number] Balbir MEEHAN, PATIENT HEALTH 2018 DIRECT 15 [phone] [employer] PL[employer] [facility] Jul 17, [facility] [id number] MEEHAN [facility] [phone] SANTINO PLAN Selected Encounter This section includes the information on record at [place] for the Encounter. Date/Time Encounter Type Encounter Reason Provider Source Description Sep 07, 2021 10:30 LEFT CHEST [facility] KASH ADAMS Encounter Template Text not used by [place] Plan of Treatment: Future Appointments (+ 6 months) and Future Tests (+/- 45 days) The Plan of Treatment section includes future care activities for the patient from all [facility] treatment[facility]ilities. This section includes future appointments and future orders which are active, pending orscheduled.Future Appointments This section includes appointments that were scheduled to occur 6 months from the date of the Encounter, up to a maximum of 20 appointments. The data comes from all [place] treatment facilities. Appointment Date/Time Appointment Type Appointment Facili ty Name Sep 14, 2021 03:30 PM AMBULATORY - SURGERY [facility] Oct 08, 2021 08:30 AM [facility] Oct 12, 2021 02:00 PM AMBULATORY - SURGERY [facility] Nov 01, 2021 08:00 AM AMBULATORY MEDICINE [facility] November 19, 2021 08:30 AM AMBULATORY MEDICINE [facility] Feb 09, 2022 08:00 AM [facility] Surgical Procedures: All associated to the encounter This section includes all Surgical Procedures and Surgical Procedure Notes associated to the Encounter.Surgical Procedures This section includes all Surgical Procedures associated to the Encounter.Surgical Procedure Date/Time Procedure Procedure Type Procedure Provider Source Qualifiers Sep 07, 2021 LEFT CHEST CYST YEIMI DENNIS [facility] 12:00 AM [facility] (Non-OR) SY Surgical Notes This section includes all S urgical Notes associated to the Procedure. Date/Time Surgical Procedure Note Provider Sep 07, 2021 10:30 AM PROCEDURE NOTE: CASTRO DENNIS MA [facility] TITLE: PROCEDURE REPORT STANDARD TITLE: PROCEDURE NOTE DICT DATE: SEP 07, 2021@12:12 ENTRY MARICRUZ E: SEP 07, 2021@11:58:56 DICTATED BY: CASTRO DENNIS ATTEND ING: BRIDGETTE SHIPMAN URGENCY: routine STATUS: COMPLETED SUBJECT: Case #: [id number] Name of Patient: MARGY MEEHAN DATE OF : 1960 PREOPERATIVE DIAGNOSIS: Left chest wall cyst. POSTOPERATIVE DIAGNOSIS: Left chest wall cyst. OPERATIVE PROCEDURE PERFORMED: Excision of left chest wall cyst under local anesthetic. INDICATION FOR OPERATION: Patient is a [age]-year-old gentleman, who is otherwise healthy, who presents to the w as seen in the general surgery clinic complaining of a worrisome left c hest wall cyst. He is concerned that it may be a cancer even though he w as reassured that it was not. He was consented for excision of the cyst u nder local anesthetic. OPERATING PROCEDURE IN DETAIL: After obt aining informed consent, the patient was transferred to the main oper ating room. He was placed on the main operating room table in the supine position, and his chest was prepped and draped in a normal sterile fashion. A time-out was performed. At the area around the cyst, the left an terior chest wall was infiltrated with 5 mL of 0.25% Marcaine mixed with 1 % lidocaine mixed with epinephrine. An elliptical skin incision was made ove r the cyst, excising the cyst in toto. It was forwarded to the lab for fu rther examination as a specimen. The cavity left behind was ensured for h emostasis and closed in layers. A sterile dressing was applied. The patient was transferred back to the recovery room in stable condition. ESTIMATED BLOOD LOSS: 1 mL. URINE OUTPUT: Not measured. INTRAVENOUS FLUIDS: None. SPECIMEN: Left chest wall cyst. DICTATED BY: BRIDGETTE SHIPMAN MD @ 1212 @ 1234 MT: [facility]/JOB# [id number] 09/07/2021 12:49 PM $END /maira/ BRIDGETTE SHIPMAN MD, FACS, FASCR S GENERAL SURGEON Signed: 09/08/2021 07:45 for CASTRO DENNIS GENERAL SURGERY RESIDENT /maira/ BRIDGETTE SHIPMAN MD, FACS, FASCR S GENERAL SURGEON Cosigned: 09/08/2021 07:45 Lab Results: +/- 30 days of the encounter This section includes the Chemistry and Hematology Lab Results on record with [place] for the patient. Radiology Reports and Pathology Reports are provided separately, in subsequent sections.Lab Results This section contains the Chemistry/Hematology Results that were resulted 30 days before or 30 daysafter the date of the Encounter. Date/Time Source Result Type Result - Unit Interpretation Reference Range Comment Sep 07, 2021 09:42 [facility] COVID-19 SCREEN PANEL Spe cimen Type: NASAL MUCUS [facility] AG (VERITOR) No comment enter ed. Ordering Provid er: ESTRELLA MORENO Report Released Date/Time: Sep 07, 2021 09:42 AM Reporting Lab: [facility] [address] [facility] [id number] Performing Lab: [facility] [address] [facility] [id number] COVID-19 ANTIGEN (VERITOR) NEGATIVE INTERNAL CONTROL PASS Sep 07, 2021 08:31 [facility] POC GLUCOSE (finger Speci men Type: PLASMA AM CARE [facility] stick) No comment enter ed. Ordering Provid er: BRIDGETTE SHIPMAN Report Released Date/Time: Sep 08, 2021 05:59 AM Reporting Lab: [facility] [address] [facility] Performing Lab: [facility] [address] [facility] POC GLUCOSE (finger stick) 74 70- 105 Aug 17, 2021 [facility] GLYCOSOLATED HGB PANEL Speci men Type: BLOOD 08:04 AM CARE SYS - BALT/PP No comment enter ed. Ordering Provid er: AMBER ALAS Report Released Date/Time: Apr 28, 2021 08:52 AM Reporting Lab: [facility] [address] [facility] Performing Lab: [facility] [address] [facility] HEMOGLOBIN A1C 5.7 4.3-5.7 Aug 17, 2021 08:04 AM [facility] LIPID PANEL S pecimen Type: SERUM SYS No comment enter ed. Ordering Provid er: AMBER ALAS Report Released Date/Time: Apr 28, 2021 08:52 AM Reporting Lab: [facility] [address] [facility] Performing Lab: [facility] [address] [facility] CHOLESTEROL 171 0-240 TRIGLYCERIDES 119 0-150 [...] 67 122/81 18 /min 97 % 0 2021 12:10 /min mm[Hg] [facility] Sep 07, 97.1 F 85 129/84 18 /min 100 % 0 2021 08:40 /min mm[Hg] [facility] Social History: Smoking Status (Most current) and Tobacco Use (All prior to encounter date) This section includes the most current, and the historical, smoking and tobacco-related health factors from the [place] facility where the Encounter took place.Current Smoking Status This section includes the most current smoking, or tobacco-related health factor, from the [place] facility where the Encounter took place. Date/Time Current Smoking Status Comment Facility Nov 03, 2020 09:00 AM VA-TOBACCO FORMER USER [facility] Tobacco Use History This section includes a history of the smoking, or tobacco- related health factors, that were collected on or before the date of the Encounter. The data comes from the [place] facility where the Encounter took place. Date/Time Smoking Status/Tobacco Use Comment [facility] it Nov 03, 2020 09:00 AM VA-TOBACCO QUIT 1 TO < 5 V A [facility] Jan 07, 2019 12:51 PM VA-TOBACCO FORMER USER [facility] Jan 07, 2019 12:51 PM VA-TOBACCO QUIT < 1 YEAR V A [facility] Jul 02, 2018 08:32 AM CURRENT TOBACCO USER [facility] Apr 21, 2017 08:06 AM CURRENT TOBACCO USER [facility] Oct 20, 2016 10:36 AM CURRENT TOBACCO USER [facility] Apr 20, 2016 09:46 AM CURRENT TOBACCO USER [facility] Oct 19, 2015 11:24 AM CURRENT TOBACCO USER [facility] Mar 27, 2015 07:56 AM CURRENT TOBACCO USER [facility] Sep 23, 2014 07:54 AM CURRENT TOBACCO USER [facility] Mar 21, 2014 07:48 AM CURRENT TOBACCO USER [facility] Jun 25, 2013 08:37 AM CURRENT TOBACCO USER [facility] November 19, 2012 11:40 AM CURRENT TOBACCO USER [facility] Apr 02, 2012 08:47 AM CURRENT TOBACCO USER [facility] Sep 20, 2011 02:42 PM CURRENT TOBACCO USER [facility] Oct 08, 2010 10:34 AM CURRENT TOBACCO USER [facility] Dec 24, 2009 11:02 AM CURRENT TOBACCO USER [facility] Dec 24, 2009 11:02 AM TOBACCO OFFERRED STOP [facility] S[facility] Jul 28, 2009 03:51 PM CURRENT TOBACCO USER [facility] Jul 31, 2008 03:40 PM CURRENT TOBACCO USER [facility] Jul 31, 2008 03:06 PM CURRENT TOBACCO USER [facility] Jul 31, 2008 03:06 PM TOBACCO OFFERRED STOP [facility] Jan 29, 2008 01:30 PM CURRENT TOBACCO USER [facility] Jan 29, 2008 01:30 PM TOBACCO OFFERRED PT MEDS V A [facility] Jan 29, 2008 01:30 PM TOBACCO OFFERRED STOP [facility] Jan 29, 2008 01:13 PM CURRENT TOBACCO USER [facility] Jan 29, 2008 01:13 PM TOBACCO OFFERRED STOP [facility] Jul 31, 2007 09:48 AM CURRENT TOBACCO USER [facility] Jul 31, 2007 09:48 AM TOBACCO OFFERRED PT MEDS V A [facility] Jul 31, 2007 09:48 AM TOBACCO OFFERRED STOP [facility] Jul 31, 2007 09:14 AM CURRENT TOBACCO USER [facility] Jul 31, 2007 09:14 AM TOBACCO OFFERRED STOP [facility] S[facility] November 28, 2006 04:03 PM CURRENT TOBACCO USER [facility] November 28, 2006 04:03 PM TOBACCO OFFERRED PT MEDS V A [facility] November 28, 2006 04:03 PM TOBACCO OFFERRED STOP [facility] November 28, 2006 03:37 PM CURRENT TOBACCO USER [facility] smokes 1 pk/day CARE SYS May 31, 2006 03:53 PM TOBACCO [facility] USE/COUNSELING-[facility] CARE [facility] May 31, 2006 03:32 PM TOBACCO [facility] HE[facility] USE/COUNSELING-ANCILLARY CARE SY S Feb 13, 2006 01:07 PM TOBACCO [facility] HE[facility] USE/COUNSELING-ANCILLARY CARE SY S Apr 15, 2003 09:33 AM TOBACCO COUNSELING 3 [facility] Apr 15, 2003 08:38 AM TOBACCO COUNSELING 2 [facility] Oct 14, 2002 08:46 AM TOBACCO COUNSELING 1 [facility] Oct 14, 2002 08:46 AM TOBACCO COUNSELING 2 [facility] Oct 14, 2002 08:46 AM TOBACCO COUNSELING 3 [facility] Apr 17, 2002 09:52 AM TOBACCO COUNSELING 2 [facility] Apr 17, 2002 09:52 AM TOBACCO COUNSELING 3 [facility] Oct 19, 2001 09:25 AM TOBACCO COUNSELING 1 [facility] Oct 19, 2001 09:25 AM TOBACCO COUNSELING 2 [facility] Oct 19, 2001 09:25 AM TOBACCO COUNSELING 3 [facility] Apr 13, 2001 01:36 PM TOBACCO COUNSELING 2 [facility] Apr 13, 2001 01:36 PM TOBACCO COUNSELING 3 [facility] November 15, 2000 02:10 PM TOBACCO COUNSELING 1 [facility] Pathology Reports: +/- 30 days [...] the Encounter. The data comes from all [facility] facilities. Date/Time Pathology Report Provider Source Sep 09, 2021 10:30 AM LR SURGICAL PATHOLOGY REPORT: STELLA JARRETT [facility] TITLE: LR SURGICAL PATHOLOGY REPORT [facility] STANDARD TITLE: PATHOLOGY REPORT DATE OF [...] - PATHOLOGY REPORT Accession No. [id number] - - - - - - [...] CYST REMOVAL Surgeon/physician: BRIDGETTE SHIPMAN Current Provider: Castro Dennis MD Attending Provider: Bridgette Shipman =-=-=-=-=-=-=-=-=-=-=-=-=-=- =-=-=-=-=-=-=-=-=-=-=-=-=-=-=-=-=-=-=-=-=-=-=-=-=-= [...] Performing Laboratory: Surgical Pathology Report Performed By: [facility] [CLIA# [id number]] [address] [place] [address] $FTR - - - - - - [...] - - SANTINO MEEHAN STANDARD FORM 515 ID:[id number] SEX:M :1960 AGE: 61 LOC: PROFEE PCP: Raul Tripp MD /amira/ ALBER JARRETT PATHOLOGIST Signed: 09/09/2021 10:30 Encounter Notes: All associated encounter notes This section contains the clinical notes associated to the Encounter. Date/Time Encounter Note(s) Provider Source Sep 07, 2021 10:30 AM PROCEDURE NOTE: BRIDGETTE SHIPMAN [facility] TITLE: PROCEDURE REPORT C ARE S STANDARD TITLE: PROCEDURE NOTE DICT DATE: SEP 07, 2021@12:12 ENTRY DATE: AUG 1811:58:56 DICTATED BY: CASTRO DENNIS ATTENDING: BRIDGETTE STARK URGENCY: routine STATUS: COMPLETED SUBJECT: Case #: [id number] Name of Patient: MARGY MEEHAN DATE OF : 1960 PREOPERATIVE DIAGNOSIS: Left chest wall cyst. POSTOPERATIVE DIAGNOSIS: Left chest wall cyst. OPERATIVE PROCEDURE PERFORMED: Excision of left chest wall cyst under local anesthetic. INDICATION FOR OPERATION: Patient is a 61-year-o ld gentleman, who is otherwise healthy, who presents to the was seen in the general surgery clinic complaining of a worrisome left chest wal l cyst. He is concerned that it may be a cancer even though he was reass ured that it was not. He was consented for excision of the cyst under loc al anesthetic. OPERATING PROCEDURE IN DETAIL: After obtaining i nformed consent, the patient was transferred to the main operating ro om. He was placed on the main operating room table in the supine position , and his chest was prepped and draped in a normal sterile fashion. A time-o ut was performed. At the area around the cyst, the left anterior c hest wall was infiltrated with 5 mL of 0.25% Marcaine mixed with 1% lidoca ine mixed with epinephrine. An elliptical skin incision was made over the cy st, excising the cyst in toto. It was forwarded to the lab for further ex amination as a specimen. The cavity left behind was ensured for hemostasi s and closed in layers. A sterile dressing was applied. The patient was transferred back to the recovery room in stable condition. ESTIMATED BLOOD LOSS: 1 mL. URINE OUTPUT: Not measured. INTRAVENOUS FLUIDS: None. SPECIMEN: Left chest wall cyst. DICTATED BY: BRIDGETTE SHIPMAN MD @ 1212 @ 1234 MT: [facility]/JOB# [id number] 09/07/2021 12:49 PM $END /maira/ BRIDGETTE SHIPMAN MD, STEPHANI ANGELES GENERAL SURGEON Signed: 09/08/2021 07:45 for CASTRO DENNIS GENERAL SURGERY RESIDENT /maira/ BRIDGETTE SHIPMAN MD, FACS, FASCRS GENERAL SURGEON Cosigned: 09/08/2021 07:45
--- OUTSIDE RECORDS SUMMARY | 2022-06-09 11:58 | XMS_ITS | Encounter Summary ---
:1960 Author Organization [facility] rs Address [address] [place] [address] Support Name Relationship Address Phone ELIMAIDA GRACIA Unavailable [address] [place] [phone] ELIMAIDA GRACIA Unavailable [address] [place] [phone] Insurance Providers: All historical and current Section Date Range: From patient's date of to the date document was created.This section includes the names of all active insurance providers for the patient. Insurance Type of Plan Start of End of Group [facility] Coverage Name Policy Policy Number ID Provider's Figueroa's Relationship Coverage Coverage Telephone Name to Policy Number Figueroa [facility] Jul 17, [facility] [id number] Balbir MEEHAN, [facility] 2018 DIRECT 15 [phone] SANTINO PLAN [facility] Jul 17, [facility] [id number] MEEHAN [facility] [phone] SANTINO PLAN Selected Encounter This section includes the information on record at CT for the Encounter. Date/Time Encounter Type Encounter Description Reason Provider Source Sep 07, 2021 09:40 Outpatient Encounter EVENT (HISTORICAL) AM IHE Encounter Template Text not used by CT Plan of Treatment: Future Appointments (+ 6 months) and Future Tests (+/- 45 days) The Plan of Treatment section includes future care activities for the patient from all CT treatmentfacilities. This section includes future appointments and future orders which are active, pending orscheduled.Future Appointments This section includes appointments that were scheduled to occur 6 months from the date of the Encounter, up to a maximum of 20 appointments. The data comes from all CT treatment facilities. Appointment Date/Time Appointment Type Appointment Facili ty Name Sep 14, 2021 03:30 PM AMBULATORY - SURGERY [facility] Oct 08, 2021 08:30 AM AMBULATORY - MEDICINE [facility] Oct 12, 2021 02:00 PM AMBULATORY - SURGERY [facility] Nov 01, 2021 08:00 AM AMBULATORY - MEDICINE [facility] November 19, 2021 08:30 AM AMBULATORY - MEDICINE [facility] Feb 09, 2022 08:00 AM AMBULATORY - MEDICINE [facility] Lab Results: +/- 30 days of the encounter This section includes the Chemistry and Hematology Lab Results on record with CT for the patient. Radiology Reports and Pathology Reports are provided separately, in subsequent sections.Lab Results This section contains the Chemistry/Hematology Results that were resulted 30 days before or 30 daysafter the date of the Encounter. Date/Time Source Result Type Result - Unit Interpretation Reference Range Comment Sep 07, 2021 09:42 [facility] COVID-19 SCREEN PANEL Spe cimen Type: NASAL MUCUS AM CARE SYS AG (VERITOR) No comment enter ed. Ordering Provid er: ESTRELLA MORENO Report Released Date/Time: Sep 07, 2021 09:42 AM Reporting Lab: [facility] [address] [facility] Performing Lab: [facility] [address] [facility] COVID-19 ANTIGEN (VERITOR) NEGATIVE INTERNAL CONTROL PASS Sep 07, 2021 08:31 [facility] POC GLUCOSE (finger Speci men Type: PLASMA AM CARE SYS stick) No comment enter ed. Ordering Provid er: BRIDGETTE SHIPMAN Report Released Date/Time: Sep 08, 2021 05:59 AM Reporting Lab: [facility] [address] [facility] Performing Lab: [facility] [address] [facility] POC GLUCOSE (finger stick) 74 70- 105 Aug 17, 2021 [facility] GLYCOSOLATED HGB PANEL Speci men Type: BLOOD 08:04 AM CARE SYS - BALT/PP No comment enter ed. Ordering Provid er: ALAS,AMBER C Report Released Date/Time: Apr 28, 2021 08:52 AM Reporting Lab: [facility] [address] [facility] [id number] Performing Lab: [facility] [address] [facility] [id number] HEMOGLOBIN A1C 5.7 4.3-5.7 Aug 17, 2021 08:04 AM [facility] LIPID PANEL S pecimen Type: SERUM SYS No comment enter ed. Ordering Provid er: AMBER ALAS Report Released Date/Time: Apr 28, 2021 08:52 AM Reporting Lab: [facility] [address] [facility] [id number] Performing Lab: [facility] [address] [facility] [id number] CHOLESTEROL 171 0-240 TRIGLYCERIDES 119 0-150 HDL [...] 67 122/81 18 /min 97 % 0 CT 2021 12:10 /min mm[Hg] [facility] Sep 07, 97.1 F 85 129/84 18 /min 100 % 0 CT 2021 08:40 /min mm[Hg] [facility] Social History: Smoking Status (Most current) and Tobacco Use (All prior to encounter date) This section includes the most current, and the historical, smoking and tobacco-related health factors from the CT facility where the Encounter took place.Current Smoking Status This section includes the most current smoking, or tobacco-related health factor, from the CT facility where the Encounter took place. Date/Time Current Smoking Status Comment Facility Nov 03, 2020 09:[address]-TOBACCO FORMER USER [facility] Tobacco Use History This section includes a history of the smoking, or tobacco- related health factors, that were collected on or before the date of the Encounter. The data comes from the CT facility where the Encounter took place. Date/Time Smoking Status/Tobacco Use Comment Una rudd Nov 03, 2020 09:00 AM VA-TOBACCO QUIT 1 TO < 5 V A [facility] Jan 07, 2019 12:51 PM VA-TOBACCO FORMER USER [facility] Jan 07, 2019 12:51 PM VA-TOBACCO QUIT < 1 YEAR V [facility] Jul 02, 2018 08:32 AM CURRENT TOBACCO USER [facility] Apr 21, 2017 08:06 AM CURRENT TOBACCO USER [facility] Oct 20, 2016 10:36 AM CURRENT TOBACCO USER [facility] Apr 20, 2016 09:46 AM CURRENT TOBACCO USER [facility] Oct 19, 2015 11:24 AM CURRENT TOBACCO USER [facility] Mar 27, 2015 07:56 AM CURRENT TOBACCO USER [facility] Sep 23, 2014 07:54 AM CURRENT TOBACCO USER [facility] Mar 21, 2014 07:48 AM CURRENT TOBACCO USER [facility] Jun 25, 2013 08:37 AM CURRENT TOBACCO USER [facility] November 19, 2012 11:40 AM CURRENT TOBACCO USER [facility] Apr 02, 2012 08:47 AM CURRENT TOBACCO USER [facility] Sep 20, 2011 02:42 PM CURRENT TOBACCO USER [facility] Oct 08, 2010 10:34 AM CURRENT TOBACCO USER [facility] Dec 24, 2009 11:02 AM CURRENT TOBACCO USER [facility] Dec 24, 2009 11:02 AM TOBACCO OFFERRED STOP [facility] SMOKING CLINIC CARE SYS Jul 28, 2009 03:51 PM CURRENT TOBACCO USER [facility] Jul 31, 2008 03:40 PM CURRENT TOBACCO USER [facility] Jul 31, 2008 03:06 PM CURRENT TOBACCO USER [facility] Jul 31, 2008 03:06 PM TOBACCO OFFERRED STOP [facility] S[facility] CARE SYS Jan 29, 2008 01:30 PM CURRENT TOBACCO USER [facility] Jan 29, 2008 01:30 PM TOBACCO OFFERRED PT MEDS V A [facility] Jan 29, 2008 01:30 PM TOBACCO OFFERRED STOP [facility] SMOKING [facility]IC CARE SYS Jan 29, 2008 01:13 PM CURRENT TOBACCO USER [facility] Jan 29, 2008 01:13 PM TOBACCO OFFERRED STOP [facility] S[facility] CARE SYS Jul 31, 2007 09:48 AM CURRENT TOBACCO USER [facility] Jul 31, 2007 09:48 AM TOBACCO OFFERRED PT MEDS V A [facility] (PROVIDER) CARE SYS Jul 31, 2007 09:48 AM TOBACCO OFFERRED STOP [facility] SMOKING CLINIC CARE SYS Jul 31, 2007 09:14 AM CURRENT TOBACCO USER [facility] Jul 31, 2007 09:14 AM TOBACCO OFFERRED STOP [facility] SMOKING [facility]INIC CARE SYS November 28, 2006 04:03 PM CURRENT TOBACCO USER [facility] S[facility] November 28, 2006 04:03 PM TOBACCO OFFERRED PT MEDS V [facility] (PROVIDER[facility] CARE SYS November 28, 2006 04:03 PM TOBACCO OFFERRED STOP [facility] SMOKING CLINIC CARE SYS November 28, 2006 03:37 PM CURRENT TOBACCO USER [facility] 1 pk/day CARE SYS May 31, 2006 03:53 PM TOBACCO [facility] USE/COUNSELING-PROVIDER CARE SYS May 31, 2006 03:32 PM TOBACCO [facility] USE/COUNSELING-ANCILLARY CARE SY S Feb 13, 2006 01:07 PM TOBACCO [facility] USE/COUNSELING-ANCILLARY CARE SY S Apr 15, 2003 09:33 AM TOBACCO COUNSELING [address] [facility] S[facility] Apr 15, 2003 08:38 AM TOBACCO COUNSELING [address] [facility] S[facility] Oct 14, 2002 08:46 AM TOBACCO COUNSELING [address] [facility] Oct 14, 2002 08:46 AM TOBACCO COUNSELING [address] [facility] S[facility] Oct 14, 2002 08:46 AM TOBACCO COUNSELING [address] [facility] Apr 17, 2002 09:52 AM TOBACCO COUNSELING [address] [facility] Apr 17, 2002 09:52 AM TOBACCO COUNSELING [address] [facility] Oct 19, 2001 09:25 AM TOBACCO COUNSELING [address] [facility] Oct 19, 2001 09:25 AM TOBACCO COUNSELING [address] [facility] Oct 19, 2001 09:25 AM TOBACCO COUNSELING [address] [facility] Apr 13, 2001 01:36 PM TOBACCO COUNSELING [address] [facility] Apr 13, 2001 01:36 PM TOBACCO COUNSELING 3 [facility] November 15, 2000 02:10 PM TOBACCO COUNSELING 1 [facility] Pathology Reports: +/- 30 days of the [...] the Encounter. The data comes from all [facility] facilities. Date/Time Pathology Report Provider Source Sep 09, 2021 10:30 AM LR SURGICAL PATHOLOGY REPORT: STELLA JARRETT [facility] TITLE: LR SURGICAL PATHOLOGY REPORT [facility] STANDARD TITLE: PATHOLOGY REPORT DATE [...] Performing Laboratory: Surgical Pathology Report Performed By: [facility] [CLIA# [id number]] [address] [place] [address] $FTR - - - - - - [...] - - SANTINO MEEHAN STANDARD FORM 515 ID:[id number] SEX:M :1960 AGE: 61 LOC: PROFEE PCP: Raul Tripp MD /maira/ ALBER JARRETT PATHOLOGIST Signed: 09/09/2021 10:30
--- OUTSIDE RECORDS SUMMARY | 2022-06-09 11:59 | XMS_ITS | Encounter Summary ---
:1960 Author Organization [facility] Address [address] [place] [address] Support Name Relationship Address Phone MAIDA POWELL Unavailable [address] [place] [phone] MAIDA POWELL Unavailable [address] [place] [phone] Insurance Providers: All historical and current Section Date Range: From patient's date of to the date document was created.This section includes the names of all active insurance providers for the patient. Insurance Type of Plan Start of End of Group Member Insurance Policy P [facility] Provider Coverage Name Policy Policy Number ID Provider's Figueroa's Relationship Coverage Coverage Telephone Name to Policy Number Figueroa [facility] Jul 17, [facility] [id number], PATIENT HEALTH 2018 DIRECT 15 [phone] S[facility] PL[facility] Jul 17, [facility] [id number] POWELL [facility] [phone] SANTINO PLAN Selected Encounter This section includes the information on record at [place] for the Encounter. Date/Time Encounter Type Encounter Description Reason Provider Source Jul 28, 2021 Outpatient ENDOCRINOLOGY SAMUEL MARSHALL 08:42 AM Encounter IHE Encounter Template Text not used by PR Plan of Treatment: Future Appointments (+ 6 months) and Future Tests (+/- 45 days) The Plan of Treatment section includes future care activities for the patient from all [place] treatmentfacilities. This section includes future appointments and future orders which are active, pending orscheduled.Future Appointments This section includes appointments that were scheduled to occur 6 months from the date of the Encounter, up to a maximum of 20 appointments. The data comes from all [place] treatment facilities. Appointment Date/Time Appointment Type Appointment Facili ty Name Aug 04, 2021 11:00 AM AMBULATORY - MEDICINE [facility] Aug 17, 2021 08:00 AM AMBULATORY - NONE [facility] Sep 07, 2021 08:00 AM AMBULATORY - SURGERY [facility] Sep 14, 2021 03:30 PM AMBULATORY - SURGERY [facility] Oct 08, 2021 08:30 AM AMBULATORY - MEDICINE [facility] S[facility] Oct 12, 2021 02:00 PM AMBULATORY - SURGERY [facility] Nov 01, 2021 08:00 AM AMBULATORY - MEDICINE [facility] S[facility] November 19, 2021 08:30 AM AMBULATORY - MEDICINE [facility] S[facility] Lab Results: +/- 30 days of the encounter This section includes the Chemistry and Hematology Lab Results on record with [place] for the patient. Radiology Reports and Pathology Reports are provided separately, in subsequent sections.Lab Results This section contains the Chemistry/Hematology Results that were resulted 30 days before or 30 daysafter the date of the Encounter. Date/Time Source Result Type Result - Unit Interpretation Reference Range Comment Aug 17, 2021 [facility] GLYCOSOLATED HGB PANEL Speci men Type: BLOOD 08:04 AM CARE SYS - BALT/PP No comment enter ed. Ordering Provid er: DAISY ALAS Report Released Date/Time: Apr 28, 2021 08:52 AM Reporting Lab: [facility] [address] [facility] Performing Lab: [facility] [address] [facility] HEMOGLOBIN A1C 5.7 4.3-5.7 Aug 17, 2021 08:04 AM [facility] LIPID PANEL S pecimen Type: SERUM SYS No comment enter ed. Ordering Provid er: DAISY ALAS Report Released Date/Time: Apr 28, 2021 08:52 AM Reporting Lab: [facility] [address] [facility] Performing Lab: [facility] [address] [facility] CHOLESTEROL 171 0-240 TRIGLYCERIDES 119 0-150 HDL CHOLESTEROL 50.1 40-60 CALC LDL-CHOLESTEROL 97 0-100 ICTERUS INDEX 1 HEMOLYSIS INDEX 3 LIPEMIA INDEX 8 Social History: Smoking Status (Most current) and Tobacco Use (All prior to encounter date) This section includes the most current, and the historical, smoking and tobacco-related health factors from the [place] facility where the Encounter took place.Current Smoking Status This section includes the most current smoking, or tobacco-related health factor, from the [place] facility where the Encounter took place. Date/Time Current Smoking Status Comment Facility Nov 03, 2020 09:00 AM VA-TOBACCO FORMER USER [facility]PLACED BY [facility] Tobacco Use History This section includes a history of the smoking, or tobacco- related health factors, that were collected on or before the date of the Encounter. The data comes from the [place] facility where the Encounter took place. Date/Time Smoking Status/Tobacco Use Comment [facility] it Nov 03, 2020 09:00 AM VA-TOBACCO QUIT 1 TO < 5 V A [facility] Jan 07, 2019 12:51 PM VA-TOBACCO FORMER USER REPLACED BY [facility] Jan 07, 2019 12:51 PM VA-TOBACCO QUIT < 1 YEAR V [facility] Jul 02, 2018 08:32 AM CURRENT TOBACCO USER [facility] Apr 21, 2017 08:06 AM CURRENT TOBACCO USER [facility] Oct 20, 2016 10:36 AM CURRENT TOBACCO USER [facility] Apr 20, 2016 09:46 AM CURRENT TOBACCO USER [facility] Oct 19, 2015 11:24 AM CURRENT TOBACCO USER [facility] Mar 27, 2015 07:56 AM CURRENT TOBACCO USER [facility] Sep 23, 2014 07:54 AM CURRENT TOBACCO USER [facility] Mar 21, 2014 07:48 AM CURRENT TOBACCO USER [facility] Jun 25, 2013 08:37 AM CURRENT TOBACCO USER [facility] November 19, 2012 11:40 AM CURRENT TOBACCO USER [facility] Apr 02, 2012 08:47 AM CURRENT TOBACCO USER [facility] Sep 20, 2011 02:42 PM CURRENT TOBACCO USER [facility] Oct 08, 2010 10:34 AM CURRENT TOBACCO USER [facility] Dec 24, 2009 11:02 AM CURRENT TOBACCO USER [facility] Dec 24, 2009 11:02 AM TOBACCO OFFERRED STOP [facility] SMOKING CLINIC CARE SYS Jul 28, 2009 03:51 PM CURRENT TOBACCO USER [facility] Jul 31, 2008 03:40 PM CURRENT TOBACCO USER [facility] Jul 31, 2008 03:06 PM CURRENT TOBACCO USER [facility] Jul 31, 2008 03:06 PM TOBACCO OFFERRED STOP [facility] SMOKING [facility]INIC CARE SYS Jan 29, 2008 01:30 PM CURRENT TOBACCO USER [facility] Jan 29, 2008 01:30 PM TOBACCO OFFERRED PT MEDS V A [facility] ([facility]OVID[facility] CARE S[facility] Jan 29, 2008 01:30 PM TOBACCO OFFERRED STOP [facility] SMOKING [facility]INIC CARE SYS Jan 29, 2008 01:13 PM CURRENT TOBACCO USER [facility] Jan 29, 2008 01:13 PM TOBACCO OFFERRED STOP [facility] S[facility] CARE SYS Jul 31, 2007 09:48 AM CURRENT TOBACCO USER [facility] Jul 31, 2007 09:48 AM TOBACCO OFFERRED PT MEDS V A [facility] Jul 31, 2007 09:48 AM TOBACCO OFFERRED STOP [facility] S[facility]IN[facility] CARE SYS Jul 31, 2007 09:14 AM CURRENT TOBACCO USER [facility] Jul 31, 2007 09:14 AM TOBACCO OFFERRED STOP [facility] SMOKING [facility]INIC CARE SYS November 28, 2006 04:03 PM CURRENT TOBACCO USER [facility] November 28, 2006 04:03 PM TOBACCO OFFERRED PT MEDS V A [facility] ([facility]ARE S[facility] November 28, 2006 04:03 PM TOBACCO OFFERRED STOP [facility] SMOKING CLINIC CARE SYS November 28, 2006 03:37 PM CURRENT TOBACCO USER [facility] smokes 1 pk/day CARE SYS May 31, 2006 03:53 PM TOBACCO [facility] USE/COUNSELING-PROVIDER CARE SYS May 31, 2006 03:32 PM TOBACCO [facility] USE/COUNSELING-ANCILLARY CARE SY S Feb 13, 2006 01:07 PM TOBACCO [facility] USE/COUNSELING-ANCILLARY CARE SY S Apr 15, 2003 09:33 AM TOBACCO COUNSELING 3 [facility] Apr 15, 2003 08:38 AM TOBACCO COUNSELING 2 [facility] Oct 14, 2002 08:46 AM TOBACCO COUNSELING 1 [facility] Oct 14, 2002 08:46 AM TOBACCO COUNSELING 2 [facility] Oct 14, 2002 08:46 AM TOBACCO COUNSELING 3 [facility] Apr 17, 2002 09:52 AM TOBACCO COUNSELING 2 [facility] Apr 17, 2002 09:52 AM TOBACCO COUNSELING 3 [facility] Oct 19, 2001 09:25 AM TOBACCO COUNSELING 1 [facility] Oct 19, 2001 09:25 AM TOBACCO COUNSELING 2 [facility] Oct 19, 2001 09:25 AM TOBACCO COUNSELING 3 [facility] Apr 13, 2001 01:36 PM TOBACCO COUNSELING 2 [facility] Apr 13, 2001 01:36 PM TOBACCO COUNSELING 3 [facility] November 15, 2000 02:10 PM TOBACCO COUNSELING 1 [facility] Encounter Notes: All associated encounter notes This section contains the clinical notes associated to the Encounter. Date/Time Encounter Note(s) Provider Source Jul 28, 2021 08:42 AM ENDOCRINOLOGY SECURE MESSAGING: KIARRA MARSHALL [facility] TITLE: ENDOCRINOLOGY SECURE MESSAGING [facility] STANDARD TITLE: ENDOCRINOLOGY SECURE MESSAGING DATE OF NOTE: JUL 28, 2021@08:42 ENTRY DATE: JUL 28, 2021@08:42:26 AUTHOR: SAMUEL MARSHALL EXP COSIGNER: URGENCY: STATUS: COMPLETED ------Original Message Sent: 07/28/2021 07:38 AM From: SANTINO POWELL To: Endocrinology [facility]@ Subject: Dr. Daisy Alas I need to have my test strips renewed I thought I had some but ran out yesterday. ------Original Message Sent: 07/28/2021 08:42 AM From: SAMUEL MARSHALL To: SANTINO POWELL Subject: Dr. Daisy Alas Good morning Mr. Powell, I renewed your test strips and Empagliflozin Rxs for mail delivery and will have your Endo provider sign the Rx orders. Your next video appointment is on 08/04/2021 11: 00 BT [facility] ENDO YELLOW. Thanks!! /maira/ SAMUEL MARSHALL MS, RN, CDCES, CNL RN Coordinator, Endo/DM Service Signed: 07/28/2021 08:42 Receipt Acknowledged By: * AWAITING SIGNATURE * DAISY ALAS
--- OUTSIDE RECORDS SUMMARY | 2022-06-09 11:59 | XMS_ITS | Encounter Summary ---
:1960 Author Organization [facility] rs Address [address] [place] [address] Support Name Relationship Address Phone MAIDA MEEHAN Unavailable [id number] [place] [id number] ELIMAIDA GRACIA Unavailable [address] [place] [phone] Insurance Providers: All historical and current Section Date Range: From patient's date of to the date document was created.This section includes the names of all active insurance providers for the patient. Insurance Type of Plan Start of End of Group Member Insurance Policy P [facility] Provider Coverage Name Policy Policy Number ID Provider's Figueroa's Relationship Coverage Coverage Telephone Name to Policy Number Figueroa [facility] Jul 17, [facility] [id number] [address], PATIENT HEALTH 2018 DIRECT 15 [phone] S[facility]INO PLAN [facility] Jul 17, [facility] [id number] [address] MEEHAN [facility] [phone] SANTINO PLAN Selected Encounter This section includes the information on [place] at [place] for the Encounter. Date/Time Encounter Type Encounter Description Reason Provider Source Aug 04, 2021 Outpatient ENDOCRINOLOGY DAISY ALAS 08:57 AM Encounter C [facility] Encounter Template Text not used by [facility] Plan of Treatment: Future Appointments (+ 6 months) and Future Tests (+/- 45 days) The Plan of Treatment section includes future care activities for the [place] from all [place] treatmentfacilities. This section includes future appointments and future orders which are active, pending orscheduled.Future Appointments This section includes appointments that were scheduled to occur 6 months from the date of the Encounter, up to a maximum of 20 appointments. The data comes from all [place] treatment facilities. Appointment Date/Time Appointment Type Appointment Facili ty Name Aug 17, 2021 08:00 AM AMBULATORY - NONE [facility] Sep 07, 2021 08:00 AM AMBULATORY - SURGERY [facility] Sep 14, 2021 03:30 PM AMBULATORY - SURGERY [facility] Oct 08, 2021 08:30 AM [facility]BULATORY - [facility] Oct 12, 2021 02:00 PM AMBULATORY - SURGERY [facility] Nov 01, 2021 08:00 AM AMBULATORY - [facility] November 19, 2021 08:30 AM AMBULATORY - [facility]ICINE [facility] Lab Results: +/- 30 days of the encounter This section includes the Chemistry and Hematology Lab Results on record with [place] for the patient. Radiology Reports and Pathology Reports are provided separately, in subsequent sections.Lab Results This section contains the Chemistry/Hematology Results that were resulted 30 days before or 30 daysafter the date of the Encounter. Date/Time Source Result Type Result - Unit Interpretation Reference Range Comment Aug 17, 2021 [facility] GLYCOSOLATED HGB PANEL Speci men Type: BLOOD 08:04 AM CARE S[facility] - BALT/PP No comment enter ed. Ordering Provid er: DAISY ALAS Report Released Date/Time: Apr 28, 2021 08:52 AM Reporting Lab: [facility] [address] [facility] [id number] Performing Lab: [facility] [address] [facility] HEMOGLOBIN A1C 5.7 4.3-5.7 Aug 17, 2021 08:04 AM [facility] LIPID PANEL S pecimen Type: SERUM SYS No comment enter ed. Ordering Provid er: DAISY ALAS Report Released Date/Time: Apr 28, 2021 08:52 AM Reporting Lab: [facility] [address] [facility] Performing Lab: [facility] [address] [facility] CHOLESTEROL [phone] TRIGLYCERIDES 119 [...] John dy Source Pressure Rate Mass Index Aug 04, 228 lb 31 [place] 2021 11:29 ANDREW [facility] Social History: Smoking Status (Most current) and Tobacco Use (All prior to encounter date) This section includes the most current, and the historical, smoking and tobacco-related health factors from the [place] facility where the Encounter took place.Current Smoking Status This section includes the most current smoking, or tobacco-related health factor, from the [place] facility where the Encounter took place. Date/Time Current Smoking Status Comment Facility Nov 03, 2020 09:00 AM VA-TOBACCO FORMER USER [facility] Tobacco Use History This section includes a history of the smoking, or tobacco- related health factors, that were collected on or before the date of the Encounter. The data comes from the [place] facility where the Encounter took place. Date/Time Smoking Status/Tobacco Use Comment [facility] Nov 03, 2020 09:00 AM [place] 1 TO < 5 V [facility] Jan 07, 2019 12:51 PM VA-TOBACCO FORMER USER [facility] Jan 07, 2019 12:51 PM VA-TOBACCO QUIT < 1 YEAR V [facility] Jul 02, 2018 08:32 AM CURRENT TOBACCO USER [facility] Apr 21, 2017 08:06 AM CURRENT TOBACCO USER [facility] Oct 20, 2016 10:36 AM CURRENT TOBACCO USER [facility] Apr 20, 2016 09:46 AM CURRENT TOBACCO USER [facility] Oct 19, 2015 11:24 AM CURRENT TOBACCO USER [facility] Mar 27, 2015 07:56 AM CURRENT TOBACCO USER [facility] Sep 23, 2014 07:54 AM CURRENT TOBACCO USER [facility] Mar 21, 2014 07:48 AM CURRENT TOBACCO USER [facility] Jun 25, 2013 08:37 AM CURRENT TOBACCO USER [facility] November 19, 2012 11:40 AM CURRENT TOBACCO USER [facility] Apr 02, 2012 08:47 AM CURRENT TOBACCO USER [facility] Sep 20, 2011 02:42 PM CURRENT TOBACCO USER [facility] Oct 08, 2010 10:34 AM CURRENT TOBACCO USER [facility] Dec 24, 2009 11:02 AM CURRENT TOBACCO USER [facility] Dec 24, 2009 11:02 AM TOBACCO OFFERRED STOP [facility] Jul 28, 2009 03:51 PM CURRENT TOBACCO USER [facility] Jul 31, 2008 03:40 PM CURRENT TOBACCO USER [facility] Jul 31, 2008 03:06 PM CURRENT TOBACCO USER [facility] Jul 31, 2008 03:06 PM TOBACCO OFFERRED STOP [facility] Jan 29, 2008 01:30 PM CURRENT TOBACCO USER [facility] Jan 29, 2008 01:30 PM TOBACCO OFFERRED PT MEDS V A [facility] Jan 29, 2008 01:30 PM TOBACCO OFFERRED STOP [facility] Jan 29, 2008 01:13 PM CURRENT TOBACCO USER [facility] Jan 29, 2008 01:13 PM TOBACCO OFFERRED STOP [facility] Jul 31, 2007 09:48 AM CURRENT TOBACCO USER [facility] Jul 31, 2007 09:48 AM TOBACCO OFFERRED PT MEDS V A [facility] Jul 31, 2007 09:48 AM TOBACCO OFFERRED STOP [facility] Jul 31, 2007 09:14 AM CURRENT TOBACCO USER [facility] Jul 31, 2007 09:14 AM TOBACCO OFFERRED STOP [facility] November 28, 2006 04:03 PM CURRENT TOBACCO USER [facility] November 28, 2006 04:03 PM TOBACCO OFFERRED PT MEDS V A [facility] November 28, 2006 04:03 PM TOBACCO OFFERRED STOP [facility] November 28, 2006 03:37 PM CURRENT TOBACCO USER [facility] smoke 1 pk/day CARE [facility] May 31, 2006 03:53 PM TOBACCO [place] [facility]PROVIDER [facility] May 31, 2006 03:32 PM [facility] Feb 13, 2006 01:07 PM [place]BACCO [place] [facility]/COUNSELING-ANCILLARY CARE SY S Apr 15, 2003 09:33 AM TOBACCO COUNSELING 3 [facility] Apr 15, 2003 08:38 AM TOBACCO COUNSELING 2 [facility] Oct 14, 2002 08:46 AM TOBACCO COUNSELING 1 [facility] Oct 14, 2002 08:46 AM TOBACCO COUNSELING 2 [facility] Oct 14, 2002 08:46 AM TOBACCO COUNSELING 3 [facility] Apr 17, 2002 09:52 AM TOBACCO COUNSELING 2 [facility] Apr 17, 2002 09:52 AM TOBACCO COUNSELING 3 [facility] Oct 19, 2001 09:25 AM TOBACCO COUNSELING 1 [facility] Oct 19, 2001 09:25 AM TOBACCO COUNSELING 2 [facility] Oct 19, 2001 09:25 AM TOBACCO COUNSELING 3 [facility] Apr 13, 2001 01:36 PM TOBACCO COUNSELING 2 [facility] Apr 13, 2001 01:36 PM TOBACCO COUNSELING 3 [facility] November 15, 2000 02:10 PM TOBACCO COUNSELING 1 [facility] Encounter Notes: All associated encounter notes This section contains the clinical notes associated to the Encounter. Date/Time Encounter Note(s) Provider Source Aug 04, 2021 08:57 AM ENDOCRINOLOGY SECURE MESSAGING: KANCHAN ALAS [facility] TITLE: ENDOCRINOLOGY SECURE MESSAGING [facility] STANDARD TITLE: ENDOCRINOLOGY SECURE MESSAGING DATE OF NOTE: AUG 04, 2021@08:57:21 ENTRY DATE: AUG 04, 2021@08:57:22 AUTHOR: DAISY ALAS EXP COSIGNER: URGENCY: STATUS: COMPLETED ------Original Message Sent: 08/04/2021 06:00 AM From: SANTINO MEEHAN To: Endocrinology [facility]@ Subject: Dr. Daisy Alas Attachments: BLOOD SUGAR UPDATED.xlsx (55.84 KB) Here is my latest ------Original Message Sent: 08/04/2021 08:57 AM From: DAISY ALAS To: SANTINO MEEHAN Subject: Dr. Daisy Alas Thanks, We'll review at our appt today. Take care, Daisy Alas DNP, CRNP Endocrinology and Diabetes Nurse Practitioner /es/ DAISY ALAS DNP, CRNP ENDOCRINE AND DIABETES NURSE PRACTITIONER Signed: 08/04/2021 08:57
--- OUTSIDE RECORDS SUMMARY | 2022-06-09 11:59 | XMS_ITS | Encounter Summary ---
:[address] [facility] rs Address [address] [place] [address] Support Name Relationship Address Phone ELIJAYLAMAIDA Mo Unavailable 2024 [place]AI [place]GO [place] [phone] ELIMAIDA GRACIA Unavailable 8588 THAI GALLEGO [place] [phone] Insurance Providers: All historical and current Section Date Range: From patient's date of to the date document was created.This section includes the names of all active insurance providers for the patient. Insurance Type of Plan Start of End of Group Member Insurance [facility] Coverage Name Policy Policy Number ID Provider's Figueroa's Relationship Coverage Coverage Telephone Name to Policy Number Figueroa [facility] Jul 17, [facility] [id number] Balbir MEEHAN, [facility] 2018 DIRECT 15 [phone] [place] [facility] Jul 17, [facility] [id number] MEEHAN [facility] 2010 [phone] [place] Selected Encounter This section includes the information on record at [place] for the Encounter. Date/Time Encounter Type Encounter Reason Provider Source Description Jun 25, 2021 OFFICE O/P EST ENDOCRINOLOGY ICD-10-CM E11.9 ANANDA CHRISTIAN 08:30 AM HI 40-54 MIN Type 2 diabetes AN F mellitus without complications with Provider Comments: Diabetes Mellitus Type 2 ([facility] [id number]) [facility] Encounter Template Text not used by [place] Assessments - Encounter Diagnoses This section includes the primary and secondary diagnoses documented for the Encounter. Date/Time Primary/Secondary Diagnosis Name Provider Source Diagnosis Jun 25, 2021 PRIMARY Type 2 diabetes FLORIN CHRISTIAN [place] ANDREW Wood 09:36 AM mellitus without N [facility] complications [facility] Jun 25, 2021 SECONDARY Obesity, FLORIN CHRISTIAN [facility] 09:36 AM unspecified N [facility] Plan of Treatment: Future Appointments (+ 6 months) and Future Tests (+/- 45 days) The Plan of Treatment section includes future care activities for the patient from all [place] treatmentfacilities. This section includes future appointments and future orders which are active, pending orscheduled.Future Appointments This section includes appointments that were scheduled to occur 6 months from the date of the Encounter, up to a maximum of 20 appointments. The data comes from all [place] treatment facilities. Appointment Date/Time Appointment Type Appointment Facili ty Name Aug 04, 2021 11:00 AM AMBULATORY - MEDICINE [facility] Aug 17, 2021 08:00 AM AMBULATORY - NONE [facility] Sep 07, 2021 08:00 AM AMBULATORY - SURGERY [facility] Sep 14, 2021 03:30 PM AMBULATORY - SURGERY [facility] Oct 08, 2021 08:30 AM AMBULATORY - MEDICINE [facility] Oct 12, 2021 02:00 PM [facility] Nov 01, 2021 08:00 AM AMBULATORY - MEDICINE [facility] November 19, 2021 08:30 AM AMBULATORY - MEDICINE [facility] Vital Signs: All taken on the encounter date This section contains inpatient and outpatient Vital Signs collected on the date of the Encounter. Date/Time Temperature Pulse Blood Respiratory SP02 Pain Height Weight John dy Source Pressure Rate Mass Index Jun 25 228.8 31 [place] 2020 09:14 lb ANDREW [facility] Social History: Smoking Status (Most current) and Tobacco Use (All prior to encounter date) This section includes the most current, and the historical, smoking and tobacco-related health factors from the [place] facility where the Encounter took place.Current Smoking Status This section includes the most current smoking, or tobacco-related health factor, from the [place] facility where the Encounter took place. Date/Time Current Smoking Status [facility] Facility Nov 03, 2020 09:00 AM [place]-TOBACCO FORMER USER [facility] Tobacco Use History This section includes a history of the smoking, or tobacco- related health factors, that were collected on or before the date of the Encounter. The data comes from the [place] facility where the Encounter took place. Date/Time Smoking Status/Tobacco Use Comment Facil ity Nov 03, 2020 09:00 AM VA-TOBACCO QUIT 1 TO < 5 V [facility] Jan 07, 2019 12:51 PM VA-TOBACCO FORMER USER [facility] Jan 07, 2019 12:51 PM VA-TOBACCO QUIT < 1 YEAR V [facility] Jul 02, 2018 08:32 AM CURRENT TOBACCO USER [facility] Apr 21, 2017 08:06 AM CURRENT TOBACCO USER [facility] Oct 20, 2016 10:36 AM CURRENT TOBACCO USER [facility] Apr 20, 2016 09:46 AM CURRENT TOBACCO USER [facility] Oct 19, 2015 11:24 AM CURRENT TOBACCO USER [facility] Mar 27, 2015 07:56 AM CURRENT TOBACCO USER [facility] Sep 23, 2014 07:54 AM CURRENT TOBACCO USER [facility] Mar 21, 2014 07:48 AM CURRENT TOBACCO USER [facility] Jun 25, 2013 08:37 AM CURRENT TOBACCO USER [facility] November 19, 2012 11:40 AM CURRENT TOBACCO USER [facility] Apr 02, 2012 08:47 AM CURRENT TOBACCO USER [facility] Sep 20, 2011 02:42 PM CURRENT TOBACCO USER [facility] Oct 08, 2010 10:34 AM CURRENT TOBACCO USER [facility] Dec 24, 2009 11:02 AM CURRENT TOBACCO USER [facility] Dec 24, 2009 11:02 AM TOBACCO OFFERRED STOP [facility] Jul 28, 2009 03:51 PM CURRENT TOBACCO USER [facility] Jul 31, 2008 03:40 PM CURRENT TOBACCO USER [facility] Jul 31, 2008 03:06 PM CURRENT TOBACCO USER [facility] Jul 31, 2008 03:06 PM TOBACCO OFFERRED STOP [facility] Jan 29, 2008 01:30 PM CURRENT TOBACCO USER [facility] Jan 29, 2008 01:30 PM TOBACCO OFFERRED PT MEDS V A [facility] Jan 29, 2008 01:30 PM TOBACCO OFFERRED STOP [facility] Jan 29, 2008 01:13 PM CURRENT TOBACCO USER [facility] Jan 29, 2008 01:13 PM TOBACCO OFFERRED STOP [facility] Jul 31, 2007 09:48 AM CURRENT TOBACCO USER [facility] Jul 31, 2007 09:48 AM TOBACCO OFFERRED PT MEDS V A [facility] (PROVIDER) CARE SYS Jul 31, 2007 09:48 AM TOBACCO OFFERRED STOP [facility] Jul 31, 2007 09:14 AM CURRENT TOBACCO USER [facility] Jul 31, 2007 09:14 AM TOBACCO OFFERRED STOP [facility] November 28, 2006 04:03 PM CURRENT TOBACCO USER [facility] November 28, 2006 04:03 PM TOBACCO OFFERRED PT MEDS V A [facility] (PROVID[facility]) CARE SYS November 28, 2006 04:03 PM TOBACCO OFFERRED STOP [facility] C[facility] S[facility] November 28, 2006 03:37 PM CURRENT TOBACCO USER [facility] 1 pk/day CARE SYS May 31, 2006 03:53 PM TOBACCO [facility] HEALTH USE/COUNSELING-PROVIDER CARE SYS May 31, 2006 03:32 PM TOBACCO [facility] HEALTH USE/COUNSELING-ANCILLARY CARE SY S Feb 13, 2006 01:07 PM TOBACCO [facility] HEALTH USE/COUNSELING-ANCILLARY CARE SY S Apr 15, 2003 09:33 AM TOBACCO COUNSELING 3 [facility] Apr 15, 2003 08:38 AM TOBACCO COUNSELING 2 [facility] Oct 14, 2002 08:46 AM TOBACCO COUNSELING 1 [facility] Oct 14, 2002 08:46 AM TOBACCO COUNSELING 2 [facility] Oct 14, 2002 08:46 AM TOBACCO COUNSELING 3 [facility] Apr 17, 2002 09:52 AM TOBACCO COUNSELING 2 [facility] Apr 17, 2002 09:52 AM TOBACCO COUNSELING 3 [facility] Oct 19, 2001 09:25 AM TOBACCO COUNSELING 1 [facility] Oct 19, 2001 09:25 AM TOBACCO COUNSELING 2 [facility] Oct 19, 2001 09:25 AM TOBACCO COUNSELING 3 [facility] Apr 13, 2001 01:36 PM TOBACCO COUNSELING 2 [facility] Apr 13, 2001 01:36 PM TOBACCO COUNSELING 3 [facility] SY November 15, 2000 02:10 PM TOBACCO COUNSELING 1 [facility] Radiology Reports: +/- 30 days of the encounter Radiology Reports For cases when an order for radiology services may have been completed prior to the date of the Encounter, the report list includes the Radiology Reports that were completed up to 30 days before date of the Encounter. For cases when an order for radiology services may have been completed after the date of the Encounter, the report list also includes the Radiology Reports that were completed up to 30days after date of the Encounter. The data comes from all [place] treatment facilities. Date/Time Radiology Report Provider Source May 26, 2021 07:57 AM RIBS UNILAT+CHEST 3 OR MORE [facility]IEWS: [facility] [id number] -1960 [facility] Exm Date: MAY 26, 2021@07:57 Req Phys: MYRA CHARLES Pat Loc: BT PACT TEAM 20 ( Req'g Loc) Img Loc: RADIOLOGY Service: Unknown (Case [id number] COMPLET E) RIBS UNILAT+CHEST 3 OR MORE VIEWS(RAD Series ) CPT:69676 Reason for Study: Small lump left anterior ches t in upper costochondral region Clinical History: Report Status: Verified Date Reported: MAY 26, 2021 Date Verified: MAY 26, 2021 [employer] E-Sig:/ES/TOREY HERMAN Report: Chest and left rib series for left anterior upp er costochondral region and comparison to October 16, 2018 FINDINGS: Heart is normal vasculatures unremarkable with slightly increased lung markings due to hypoventilation and elevat ion of diaphragm. No acute rib fracture pneumothorax or pleural e ffusion. Minimal irregularity of the second anterior rib is note d without definite underlying fracture. This may be due to trauma, age undetermined. Impression: See above Primary Diagnostic Code: Primary Interpreting Staff: TOREY HERMAN, RADIOLOGIST ([employer]) /PAM Encounter Notes: All associated encounter notes This section contains the clinical notes associated to the Encounter. Date/Time Encounter Note(s) Provider Source Jun 25, 2021 08:18 AM DIABETOLOGY EDUCATION NOTE: FLORIN CHRISTIAN [facility] TITLE: DIABETES EDUCATION NOTE CARE [facility] STANDARD TITLE: DIABETOLOGY EDUCATION NOTE DATE OF NOTE: JUN 25, 2021@08:18 ENTRY DATE: JUN 25, 2021@08:18:19 AUTHOR: MERCEDES CHRISTIAN EXP COSIGNER: URGENCY: STATUS: [facility]PLETED [facility] 1. The patient has given verbal consent to use Metril[employer] for this encounter: Yes 2. Verify Emergency contacts: a. Home : b. Primary phone: c. Secondary phone: d. Contacts to help if needed: e. 911 or other: 3. Identify any privacy concerns- Ensure Patient is in a private place for the visit: Yes If NO, request that the patient move to private location. 4. Confirm that audiovisual equipment is functio niharika: Yes a. Primary phone: b. Secondary phone : c. Options to resend link to alternative device (e.g. tablet, laptop): 5. If patient appears to be suicidal or homicida l, use best clinical judgement to refer patient to appropriate resou rce (e.g. [place] crisis line) 6. Initial Visit REASON FOR VISIT: 7. Urgency of the appointment: ROUTINE VISIT SUMMARY: Contact time: 45 min Mr. Piña is a 60 y/o BLACK OR JACQUE N MALE with PMH T2DM (dx'd October 2018), HTN, HLD, seen for education/nutrit ion f/u visit. Nutrition: Forgot to bring nile with him chana sainz for Thanksgiving, felt increased appetite and generally got off track w ith goals and gained a few #. States he is back on track now, eating salads re gularly, drinking more water, and has been cutting back on starches (rice). Meal pattern: B - eggs, turkey stapleton +/- toast, or oat meal (old-fashioned oats) with splenda and butter L - leftovers from dinner or sandwich (breakfast sandwich or turkey sub) D - fish or chicken or turkey (often use s air fryer) with salad/ranch dressing Snacks - twizzlers, occasionally cookies. Had ravinder main been eating carrots as sancks but has not bought them recently Beverages - mostly water Exercise: Walking ~30 min on treadmill 3x/week ( sometimes in 15 min bouts throughout the work day). Has resistance bands, only has a few exercises he does, wants to increase reps /sets but has not set specific goals. Using fitbit, notices steps are much higher when on si te, as he has to do more walking as he is physically not near his other 'team' members. DM Regimen: empagliflozin 25mg daily *also on saxenda for wt loss Pertinent labs: 04/22/21 a1c 5.6% total chol 158, LDL-c 101, HDL-c 40.9, TG 81 SMBG per log - fasting 2-3x/week, recent range 9 0-110 Anthropometrics: Ht: 72 in [182.9 cm] (05/18/2021 09:34) Wt: 228.8 lb [104.0 kg] (06/25/2021 09:14) BMI: 31.1 's (stated) weight do wn ~7# since last visit (x2 months). Initial goal is to reach 225# and then he plans to set new goal. Education/goal-setting: Commended for ongoing succes s with diet/lifestyle changes, weight lost thus far. Reviewed healthy rate of weight loss. Pt is working to decrease starch intake; discussed healthy/less healthy CHO sources and w hich options to prioritize avoiding vs those to include in reasonable porti ons for other health benefits (e.g. soluble fiber). Discussed lipid panel valu es/targets, lifestyle/dietary factors affecting LDL-c. Reviewed strategies for maintaining healthy habits through holiday season; he s truggled with [facility] but anticipates less of a challenge with Roberto as he will not be darius davis this year. Goals: - Add a 4th day of walking/week and/or gradually increase duration of 1 day's walk to 60 min - 6-8k steps per fitbit even on non-office days - Increase reps for resistan ce band exercises, include resistance band exercises in routine 3x/week (he has not set specific goal for reps yet, typically doing sets of 10 currently) - Maintain increased intake of non-starchy veget davis, continue limiting low fiber starches Education Assessment: AREA OF CONTENT: NUTRITION AND MODIFIED DIETS Diabetic Diet, Other Info: TEACHING METHOD: Dialogue/Interactive EVALUATION OF LEARNING Communicates Understanding INDIVIDUAL WHO WAS TRAINED: Patient DISCIPLINE WHO PROVIDED THE EDUCATION: DISCIPLINE: LASHONDA/DINAH Plan: - Education provided as above - [facility] f/u appt 10/08/21 @ 8:30AM /es/ Mercedes Christian MS, RDN, CDCES Diabetes Care & Avionics Systems Engineer Signed: 06/25/2021 09:36
--- OUTSIDE RECORDS SUMMARY | 2022-06-09 11:59 | XMS_ITS | Encounter Summary ---
:1960 Author Organization [facility] rs Address [address] [place] [address] Support Name Relationship Address Phone ARABELLALASHAWN Mo Unavailable [phone] [place] [phone] ELILASHAWN GRACIA Unavailable [address] [place] [phone] Insurance Providers: All historical and current Section Date Range: From patient's date of to the date document was created.This section includes the names of all active insurance providers for the patient. Insurance Type of Plan Start of End of Group Member Insurance [facility] Coverage Name Policy Policy Number ID Provider's Figueroa's Relationship Coverage Coverage Telephone Name to Policy Number Figueroa [facility] Jul 17, [facility] [id number] Balbir POWELL, PATIENT [facility] 2018 DIRECT 15 [phone] SANTINO PLAN [facility] Jul 17, [facility] [id number] POWELL [facility] 2010 21 [phone] SANTINO PLAN Selected Encounter This section includes the information on record at [place] for the Encounter. Date/Time Encounter Type Encounter Reason Provider Source Description Aug 04, 2021 OFFICE O/P EST ENDOCRINOLOGY ICD-10-CM E66.9 SETH ALAS 11:00 AM MOD 30-39 MIN Obesity, N C unspecified with Provider Comments: Obesity ([facility] [id number]) IHE Encounter Template Text not used by [place] Assessments - Encounter Diagnoses This section includes the primary and secondary diagnoses documented for the Encounter. Date/Time Primary/Secondary Diagnosis Name Provider Source Diagnosis Aug 04, 2021 PRIMARY Obesity, AMBER ALAS [facility] 11:36 AM unspecified [facility] Aug 04, 2021 SECONDARY Body mass index AMBER ALAS 11:36 AM [BMI] 30.0-30.9, [facility] adult [facility] Aug 04, 2021 SECONDARY Essential (primary) AMBER ALAS 11:36 AM hypertension [facility] Aug 04, 2021 SECONDARY Hyperlipidemia, AMBER ALAS 11:36 AM unspecified [facility] Aug 04, 2021 SECONDARY longterm (current) AMBER ALAS 11:36 AM use of oral [facility] hypoglycemic drugs SYS Aug 04, 2021 SECONDARY Type 2 diabetes AMBER ALAS 11:36 AM mellitus without [facility] complications SYS Plan of Treatment: Future Appointments (+ 6 months) and Future Tests (+/- 45 days) The Plan of Treatment section includes future care activities for the patient from all [place] treatmentfacilities. This section includes future appointments and future orders which are active, pending orscheduled.Future Appointments This section includes appointments that were scheduled to occur 6 months from the date of the Encounter, up to a maximum of 20 appointments. The data comes from all [place] treatment facilities. Appointment Date/Time Appointment Type Appointment Facili ty Name Aug 17, 2021 08:00 AM AMBULATORY - NONE [facility] Sep 07, 2021 08:00 AM AMBULATORY - SURGERY [facility] Sep 14, 2021 03:30 PM AMBULATORY - SURGERY [facility] Oct 08, 2021 08:30 AM AMBULATORY - MEDICINE [facility] Oct 12, 2021 02:00 PM AMBULATORY - SURGERY [facility] Nov 01, 2021 08:00 AM AMBULATORY - MEDICINE [facility] November 19, 2021 08:30 AM AMBULATORY - MEDICINE [facility] Lab Results: +/- 30 days of the encounter This section includes the Chemistry and Hematology Lab Results on record with [place] for the patient. Radiology Reports and Pathology Reports are provided separately, in subsequent sections.Lab Results This section contains the Chemistry/Hematology Results that were resulted 30 days before or 30 daysafter the date of the Encounter. Date/Time Source Result Type Result - Unit Interpretation Reference Range Comment Aug 17, 2021 [facility] GLYCOSOLATED HGB PANEL Speci men Type: BLOOD 08:04 AM CARE SYS - BALT/PP No comment enter ed. Ordering Provid er: AMBER ALAS Report Released Date/Time: Apr 28, 2021 08:52 AM Reporting Lab: [facility] [address] [facility] [id number] Performing Lab: [facility] [address] [facility] [id number] HEMOGLOBIN A1C 5.7 4.3-5.7 Aug 17, 2021 08:04 AM [facility] LIPID PANEL S pecimen Type: SERUM SYS No comment enter ed. Ordering Provid er: AMBER ALAS Report Released Date/Time: Apr 28, 2021 08:52 AM Reporting Lab: [facility] [address] [facility] [id number] Performing Lab: [facility] [address] [facility] [id number] CHOLESTEROL 171 0-240 TRIGLYCERIDES 119 0-150 HDL [...] Mass Index Aug 04, 228 lb 31 [place] 2021 11:29 ANDREW Wood [facility] Social History: Smoking Status (Most current) and Tobacco Use (All prior to encounter date) This section includes the most current, and the historical, smoking and tobacco-related health factors from the [place] facility where the Encounter took place.Current Smoking Status This section includes the most current smoking, or tobacco-related health factor, from the [place] facility where the Encounter took place. Date/Time Current Smoking Status Comment Facility Nov 03, 2020 09:00 AM VA-TOBACCO FORMER USER [facility] Tobacco Use History This section includes a history of the smoking, or tobacco- related health factors, that were collected on or before the date of the Encounter. The data comes from the [place] facility where the Encounter took place. Date/Time Smoking Status/Tobacco Use Comment [facility] Nov 03, 2020 09:00 AM [place]-TOBACCO QUIT 1 TO < 5 V A [facility] S[facility] Jan 07, 2019 12:51 PM VA-TOBACCO FORMER USER [facility] Jan 07, 2019 12:51 PM VA-TOBACCO QUIT < 1 YEAR V A [facility] S[facility] Jul 02, 2018 08:32 AM CURRENT TOBACCO USER [facility] SYS Apr 21, 2017 08:06 AM CURRENT TOBACCO USER [facility] SYS Oct 20, 2016 10:36 AM CURRENT TOBACCO USER [facility] S[facility] Apr 20, 2016 09:46 AM CURRENT TOBACCO USER [facility] SYS Oct 19, 2015 11:24 AM CURRENT TOBACCO USER [facility] S[facility] Mar 27, 2015 07:56 AM CURRENT TOBACCO USER [facility] S[facility] Sep 23, 2014 07:54 AM CURRENT TOBACCO USER [facility] S[facility] Mar 21, 2014 07:48 AM CURRENT TOBACCO USER [facility] Jun 25, 2013 08:37 AM CURRENT TOBACCO USER [facility] S[facility] November 19, 2012 11:40 AM CURRENT TOBACCO USER [facility] Apr 02, 2012 08:47 AM CURRENT TOBACCO USER [facility] S[facility] Sep 20, 2011 02:42 PM CURRENT TOBACCO USER [facility] S[facility] Oct 08, 2010 10:34 AM CURRENT TOBACCO USER [facility] S[facility] Dec 24, 2009 11:02 AM CURRENT TOBACCO USER [facility] S[facility] Dec 24, 2009 11:02 AM TOBACCO OFFERRED STOP [facility] Jul 28, 2009 03:51 PM CURRENT TOBACCO USER [facility] S[facility] Jul 31, 2008 03:40 PM CURRENT TOBACCO USER [facility] S[facility] Jul 31, 2008 03:06 PM CURRENT TOBACCO USER [facility] SYS Jul 31, 2008 03:06 PM TOBACCO OFFERRED STOP [facility] Jan 29, 2008 01:30 PM CURRENT TOBACCO USER [facility] S[facility] Jan 29, 2008 01:30 PM TOBACCO OFFERRED PT MEDS V A [facility] Jan 29, 2008 01:30 PM TOBACCO OFFERRED STOP [facility] Jan 29, 2008 01:13 PM CURRENT TOBACCO USER [facility] S[facility] Jan 29, 2008 01:13 PM TOBACCO OFFERRED STOP [facility] Jul 31, 2007 09:48 AM CURRENT TOBACCO USER [facility] SYS Jul 31, 2007 09:48 AM TOBACCO OFFERRED PT MEDS V A [facility] ([facility] CARE SYS Jul 31, 2007 09:48 AM TOBACCO OFFERRED STOP [facility] Jul 31, 2007 09:14 AM CURRENT TOBACCO USER [facility] SYS Jul 31, 2007 09:14 AM TOBACCO OFFERRED STOP [facility] November 28, 2006 04:03 PM CURRENT TOBACCO USER [facility] SYS November 28, 2006 04:03 PM TOBACCO OFFERRED PT MEDS V A [facility] ([facility] C[facility] S[facility] November 28, 2006 04:03 PM TOBACCO OFFERRED STOP [facility] November 28, 2006 03:37 PM CURRENT TOBACCO USER [place] [id number] pk/day CARE SYS May 31, 2006 03:53 PM TOBACCO [facility] HEALTH USE/COUNSELING-[facility] CARE SYS May 31, 2006 03:32 PM TOBACCO [facility] HEALTH USE/COUNSELING-ANCILLARY CARE SY S Feb 13, 2006 01:07 PM TOBACCO [facility] HEALTH USE/COUNSELING-ANCILLARY CARE SY S Apr 15, 2003 09:33 AM TOBACCO COUNSELING 3 [facility] SYS Apr 15, 2003 08:38 AM TOBACCO COUNSELING 2 [facility] SYS Oct 14, 2002 08:46 AM TOBACCO COUNSELING 1 [facility] SYS Oct 14, 2002 08:46 AM TOBACCO COUNSELING 2 [facility] SYS Oct 14, 2002 08:46 AM TOBACCO COUNSELING 3 [facility] SYS Apr 17, 2002 09:52 AM TOBACCO COUNSELING 2 [facility] SYS Apr 17, 2002 09:52 AM TOBACCO COUNSELING 3 [facility] SYS Oct 19, 2001 09:25 AM TOBACCO COUNSELING 1 [facility] SYS Oct 19, 2001 09:25 AM TOBACCO COUNSELING 2 [facility] SYS Oct 19, 2001 09:25 AM TOBACCO COUNSELING 3 [facility] SYS Apr 13, 2001 01:36 PM TOBACCO COUNSELING 2 [facility] SYS Apr 13, 2001 01:36 PM TOBACCO COUNSELING 3 [facility] SYS November 15, 2000 02:10 PM TOBACCO COUNSELING 1 [facility] SYS Encounter Notes: All associated encounter notes This section contains the clinical notes associated to the Encounter. Date/Time Encounter Note(s) Provider Source Aug 04, 2021 11:02 AM ENDOCRINOLOGY NOTE: AMBER ALAS [facility] TITLE: ENDOCRINOLOGY NOTE CARE SYS STANDARD TITLE: ENDOCRINOLOGY NOTE DATE OF NOTE: AUG 04, 2021@11:02 ENTRY DATE: AUG 04, 2021@11:08:44 AUTHOR: AMBER ALAS EXP COSIGNER: URGENCY: STATUS: COMPLETED SANTINO POWELL - ENDOCRINE WT MANAGEMENT / TREV BETES Unless otherwise noted, the following informatio n will remain unchanged for subsequent visits. 1. Patient has given verbal consent to use teleh ealth for this encounter: Yes 2. Verify Emergency contact: Lashawn Powell - a. Home: 3. Identify any privacy concerns - Ensure patien t is in a private place for the visit: Yes If NO , request that the patient move to [facility] location. 4. Confirm that audiovisual equipment is functio niharika: Yes a. Resend link to alternative device (e.g. tabl et, laptop): n/a 5. If patient appears to be suicidal or homicida l, use best clinical judgement to refer patient to appropriate resou rce (e.g. [place] crisis line) 6. Reason for visit: endocrine 7. Urgency of the appointment: Routine SUBJECTIVE: cc: weight management follow up HPI: Sherry is a 60yo male with class I obesity (BMI 31), T2DM (dx 10/2018), HTN, and HLD presenting for an [facility] visit to medical weight management for obesity. Interim history: Since last visit patient reports adherence and t olerating Saxenda 3mg daily w/o AEs. Interested in trialing Wegovy for added wt loss benefits and injection burden. Log daily bp: 119-123/60-80s and twice weekly sm b-121 Goals from last visit: - nutrition: maintain increased vegetable and de creased starches - not met - exercise: treadmill and resistance training 25 min 5d/week - not met - weight: wt goal 230 - met Wt med hx: - frankiemervin 03/2020-10/2020 -> stopped for lack of continued wt loss - nile 10/2020-present Max wt: 269 Wt loss goal: 225 Wt loss importance: get more health, keep a1c do wn, improve heart Baseline weight (pre-rx): 247 lbs Today Last visit Overall Loss since rx: 228 235 19 / 7.7% SMBG review: fbg 121 93 93 94 93 87 94 87 88 105 65 98 108 89 97 1 episode of <70 (didn't eat until later in day) w/o hypo sxs Social history: - tobacco: quit 2018 - alcohol: rare beer - illicits: denies Exercise: not as much over holidays, plans to ge t back to regimen OBJECTIVE: Physical Exam: GENERAL: alert, cooperative, no distress Vital signs: Blood pressure: 135/80 (06/24/2021 08:41) Pulse: 82 (06/24/2021 08:41) Temperature: 97.9 F [36.6 C] (06/24/2021 08:41) Pulse oximetry: 97% (06/24/2021 08:41) Respirations: 20 (06/24/2021 08:41) Height: 72 in [182.9 cm] (05/18/2021 09:34) Weight: 228.8 lb [104.0 kg] (06/25/2021 09:14) BMI: 31.1 Weight history: Measurement DT WEIGHT LB(KG)[BMI] 06/25/2021 09:14 228.8(103.78)[31*] 05/18/2021 09:34 238(107.95)[32*] 04/28/2021 08:37 235(106.59)[32*] 04/01/2021 13:03 241(109.32)[33*] 11/23/2020 08:42 245.5(111.36)[33*] 11/03/2020 09:00 252.4(114.49)[34*] 10/26/2020 08:59 248(112.49)[34*] 09/07/2020 08:56 245(111.13)[33*] 08/05/2020 09:05 240(108.86)[33*] 07/06/2020 09:06 243(110.22)[33*] Lab Results: CHEM 7; SERUM Jakub. Date: 04/22/21 09:30 11/03/20 10:51 Test Name Result Result Units Range GLUCOSE 94 91 MG/DL 70 - 105 UREA NITROGEN 11 16 MG/DL 6 - 20 CREATININE 1.00 1.09 MG/DL .9 - 1.3 SODIUM 140 142 MEQ/L 133 - 145 POTASSIUM 4.8 4.6 MEQ/L 3.3 - 5.1 CHLORIDE 103 104 MEQ/L 98 - 107 HCO3- 25 25 MEQ/L 22 - 32 CALCIUM 9.8 10.1 MG/DL 8.4 - 10.2 CALC ANION GAP 12 13 mEq/L 6 - 15 ICTERUS INDEX 1 1 unit - HEMOLYSIS INDEX 0 3 unit - LIPEMIA INDEX 7 6 unit - ESTIMATED GFR 92 83 mL/min/SA 60 - Interpretation for ESTIMATED GFR: Chronic Kidney Disease = <60 mL/min/1.73m2 Kidney Failure = <15 mL/min/1.73m2 CHO: 159 (11/03/20 10:51) 158 (04/22/21 09:30) C_LDL: 96 (11/03/20 10:51) 101 (04/22/21 09:30) HDL: 43.0 (11/03/20 10:51) 40.9 (04/22/21 09:30 ) HEMOL: 3 (11/03/20 10:51) 0 (04/22/21 09:30) ICT: 1 (11/03/20 10:51) 1 (04/22/21 09:30) LIPEMIA: 6 (11/03/20 10:51) 7 (04/22/21 09:30) TR (11/03/20 10:51) 81 (04/22/21 09:30) LIVER PANEL-BT Jakub. daTOT PRO ALBUMIN BILI BILI RUBISGOT ALK PHOSSGPT - P 07/02/18 09:18 6.9 3.9 0.6 26 82 26 TSH: 1.750 (10/20/16 12:00) 1.504 (07/02/18 09:1 8) Collection DT Spec MA 04/22/2021 09:35 URINE <1.2 Collection DT Spec VITD-25 04/22/2021 09:30 SERUM 54 B12 FOLATE SERUM PANEL; SERUM Jakub. Date: 04/22/21 09:30 09/18/19 09:50 Test Name Result Result Units Range VIT B12 679 519.2 PG/ML 157 - 1059 FOLATE 10.3 ng/mL 5.9 - ASSESSMENT/PLAN: Verona Powell is a 60yo male with class I obe sity (BMI 32), T2DM (dx 10/2018), HTN, and HLD who presents for an [facility] video visit to medical weight management for obesity/diabetes. Obesity: - BMI 30.9 with 19# loss since starting saxenda 10/2020 (247->228 / 7.7%) - contrave 03/2020-10/2020 stopped d/t lack of co ntinued loss - trial Wegovy for added wt loss benefits/inject ion burden; advised to finish current Saxenda supply - positive reinforcement for wt loss progress ov er holidays - completed TeleMOVE 10/2020 - continue current lifestyle changes - discussed overall health benefits with 5-10% l oss of baseline weight (DM, HTN, HLD, RICHI, mood, sleep, and joint pain) - followed by DM RD for diabetes/wt nutrition gu idance (next appt 09/2021) T2DM: - optimal dm per smbg/a1c 5.6% (04/2021) - continue empagliflozin 25mg daily - chuck normal (04/2021) on sglt2-i/jamie-i - vit d optimal (04/2021)on cholecalciferol 25mc g daily - b12 optimal (04/2021) - stopped metformin 07/2020 due to well-controlle d dm - on glp1-ra for wt loss Blood Pressure (GOAL < 140/90): - at goal per pt report - decrease lisinopril to 10mg daily HDL: - suboptimal (04/2021) - continue atorvastatin 80mg daily (inc last vis it) - repeat FLP - encouraged to limit fried, fatty, processed fo ods Goals by next visit: per nutrition visit 06/2021 - Add a 4th day of walking/week and/or gradually increase duration of 1 day's walk to 60 min - 6-8k steps per fitbit even on non-office days - Increase reps for resistance band exercises, i nclude resistance band exercises in routine 3x/week (he has not set sp ecific goal for reps yet, typically doing sets of 10 currently) - Maintain increased intake of non-starchy veget davis, continue limiting low fiber starches Return to clinic - 11/01/21 @ 0800 BT [facility] Patient Education: - Labs reviewed with patient - Medication use/side effects reviewed and discu ssed - Reviewed the patient's VA and non-VA medicatio ns - VA and non-VA medications differences reconcil ed/reviewed with patient - Provided my contact information/instructions o n how I can be reached All questions/concerns addressed to the best of my ability. Time spent: 30 minutes Future Visits: 10/08/2021 08:30 [facility] N[facility] /es/ AMBER ALAS DNP, [facility] NURSE PRACTITIONER Signed: 08/04/2021 11:36
--- OUTSIDE RECORDS SUMMARY | 2022-06-09 12:00 | XMS_ITS | Encounter Summary ---
:1960 Author Organization [facility] Address [address] [place] [address] Support Name Relationship Address Phone ARABELLAMAIDA Mo Unavailable [address] [place] [phone] ELIMAIDA GRACIA Unavailable [address] [place] [phone] Insurance Providers: All historical and current Section Date Range: From patient's date of to the date document was created.This section includes the names of all active insurance providers for the patient. Insurance Type of Plan Start of End of Group Member [facility] Coverage Name Policy Policy Number ID Provider's Figueroa's Relationship Coverage Coverage Telephone Name to Policy Number Figueroa [facility] Jul 17, [facility] [id number] 800 [address]ORAN, PATIENT HEALTH 2018 DIRECT 15 [phone] SANTINO PLAN [facility] Jul 17, [facility] [id number] ELIHenok GRACIA [facility] 2010 21 [phone] SANTINO PLAN Selected Encounter This section includes the information on record at [place] for the Encounter. Date/Time Encounter Type Encounter Reason Provider Source Description Jun 24, 2021 OFFICE GENERAL SURGERY ICD-10-CM D22.30 EDDIE ROGERS 08:00 AM CONSULTATION Melanocytic nevi EL P of unspecified part of face with Provider Comments: Melanocytic Nevi of Face,Unspec IHE Encounter Template Text not used by [place] Assessments - Encounter Diagnoses This section includes the primary and secondary diagnoses documented for the Encounter. Date/Time Primary/Secondary Diagnosis Name Provider Source Diagnosis Jun 24, 2021 PRIMARY Melanocytic nevi MARILIN ROGERS [place] DANIELLE PIERRE 09:07 AM of unspecified [facility] part of face SYS Plan of Treatment: Future Appointments (+ 6 months) and Future Tests (+/- 45 days) The Plan of Treatment section includes future care activities for the patient [facility] This section includes future appointments and future orders which are active, pending orscheduled.Future Appointments This section includes appointments that were scheduled to occur 6 months from the date of the Encounter, up to a maximum of 20 appointments. The data comes from all [place] treatment facilities. Appointment Date/Time Appointment Type Appointment Facili ty Name Jun 25, 2021 08:30 AM AMBULATORY - MEDICINE [facility] Aug 04, 2021 11:00 AM AMBULATORY - MEDICINE [facility] Aug 17, 2021 08:00 AM AMBULATORY - NONE [facility] Sep 07, 2021 08:00 AM AMBULATORY - SURGERY [facility] Sep 14, 2021 03:30 PM AMBULATORY SURGERY [facility] Oct 08, 2021 08:30 AM AMBULATORY MEDICINE [facility] Oct 12, 2021 02:00 PM [facility] Nov 01, 2021 08:00 AM AMBULATORY - MEDICINE [facility] November 19, 2021 08:30 AM AMBULATORY MEDICINE [facility] Vital Signs: All taken on the encounter date This section contains inpatient and outpatient Vital Signs collected on the date of the Encounter. Date/Time Temperature Pulse Blood Respiratory SP02 Pain Height Weight John dy Source Pressure Rate Mass Index Jun 24, 97.9 F 82 135/80 20 /min 97 % 0 [place] 2020 08:41 /min mm[Hg] [facility] Social History: Smoking Status (Most current) [...] Encounter took place. Date/Time Current Smoking Status [facility] Nov 03, 2020 09:00 AM NM-TOBACCO FORMER USER [facility] Tobacco Use History This section includes a history of the smoking, or tobacco- related health factors, that were collected on or before the date of the Encounter. The data comes from the [place] facility where the Encounter took place. Date/Time Smoking Status/Tobacco Use Comment Facil ity Nov 03, 2020 09:00 AM VA-TOBACCO QUIT 1 TO < 5 V A [facility] Jan 07, 2019 12:51 PM VA-TOBACCO FORMER USER [facility] Jan 07, 2019 12:51 PM VA-TOBACCO QUIT < 1 YEAR V [facility] Jul 02, 2018 08:32 AM CURRENT TOBACCO USER [facility] Apr 21, 2017 08:06 AM CURRENT TOBACCO USER [facility] Oct 20, 2016 10:36 AM CURRENT TOBACCO USER [facility] Apr 20, 2016 09:46 AM CURRENT TOBACCO USER [facility] Oct 19, 2015 11:24 AM CURRENT TOBACCO USER [facility] Mar 27, 2015 07:56 AM CURRENT TOBACCO USER [facility] Sep 23, 2014 07:54 AM CURRENT TOBACCO USER [facility] Mar 21, 2014 07:48 AM CURRENT TOBACCO USER [facility] Jun 25, 2013 08:37 AM CURRENT TOBACCO USER [facility] November 19, 2012 11:40 AM CURRENT TOBACCO USER [facility] Apr 02, 2012 08:47 AM CURRENT TOBACCO USER [facility] Sep 20, 2011 02:42 PM CURRENT TOBACCO USER [facility] Oct 08, 2010 10:34 AM CURRENT TOBACCO USER [facility] Dec 24, 2009 11:02 AM CURRENT TOBACCO USER [facility] Dec 24, 2009 11:02 AM TOBACCO OFFERRED STOP RETREAT [facility] Jul 28, 2009 03:51 PM CURRENT TOBACCO USER [facility] Jul 31, 2008 03:40 PM CURRENT TOBACCO USER [facility] Jul 31, 2008 03:06 PM CURRENT TOBACCO USER [facility] Jul 31, 2008 03:06 PM TOBACCO OFFERRED STOP RETREAT [facility] Jan 29, 2008 01:30 PM CURRENT TOBACCO USER [facility] Jan 29, 2008 01:30 PM TOBACCO OFFERRED PT MEDS V A [facility] Jan 29, 2008 01:30 PM TOBACCO OFFERRED STOP RETREAT [facility] Jan 29, 2008 01:13 PM CURRENT TOBACCO USER [facility] Jan 29, 2008 01:13 PM TOBACCO OFFERRED STOP RETREAT [facility] Jul 31, 2007 09:48 AM CURRENT TOBACCO USER [facility] Jul 31, 2007 09:48 AM TOBACCO OFFERRED PT MEDS V A [facility] Jul 31, 2007 09:48 AM TOBACCO OFFERRED STOP RETREAT [facility] Jul 31, 2007 09:14 AM CURRENT TOBACCO USER [facility] Jul 31, 2007 09:14 AM TOBACCO OFFERRED STOP RETREAT [facility] November 28, 2006 04:03 PM CURRENT TOBACCO USER [facility] November 28, 2006 04:03 PM TOBACCO OFFERRED PT MEDS V A [facility] November 28, 2006 04:03 PM TOBACCO OFFERRED STOP RETREAT [facility] November 28, 2006 03:37 PM CURRENT TOBACCO USER [facility] 1 pk/day CARE SYS May 31, 2006 03:53 PM TOBACCO [facility] May 31, 2006 03:32 PM TOBACCO [facility] USE/COUNSELING-[facility]ARE SY S Feb 13, 2006 01:07 PM TOBACCO [facility] USE/COUNSELING-ANCILLARY CARE SY S Apr 15, 2003 09:33 AM TOBACCO COUNSELING 3 [facility] Apr 15, 2003 08:38 AM TOBACCO COUNSELING 2 [facility] Oct 14, 2002 08:46 AM TOBACCO COUNSELING 1 [facility] Oct 14, 2002 08:46 AM TOBACCO COUNSELING 2 [facility] Oct 14, 2002 08:46 AM TOBACCO COUNSELING 3 [facility] Apr 17, 2002 09:52 AM TOBACCO COUNSELING 2 [facility] Apr 17, 2002 09:52 AM TOBACCO COUNSELING 3 [facility] Oct 19, 2001 09:25 AM TOBACCO COUNSELING 1 [facility] Oct 19, 2001 09:25 AM TOBACCO COUNSELING 2 [facility] Oct 19, 2001 09:25 AM TOBACCO COUNSELING 3 [facility] Apr 13, 2001 01:36 PM TOBACCO COUNSELING 2 [facility] Apr 13, 2001 01:36 PM TOBACCO COUNSELING 3 [facility] SY November 15, 2000 02:10 PM TOBACCO COUNSELING 1 [facility] Radiology Reports: +/- 30 days of the [...] comes from all [place] treatment facilities. Date/Time Radiology Report Provider Source May 26, 2021 07:57 AM RIBS UNILAT+CHEST 3 OR MORE VIEWS: [facility] [id number] [id number] [facility] Exm Date: MAY 26, 2021@07:57 Req Phys: MYRA CHARLES Pat Loc: BT PACT TEAM 20 ( Req'g Loc) Img Loc: RADIOLOGY Service: Unknown (Case [id number] COMPLET E) RIBS UNILAT+CHEST 3 OR MORE VIEWS(RAD Series ) CPT:15682 Reason for Study: Small lump left anterior ches t in upper costochondral region Clinical History: Report Status: Verified Date Reported: MAY 26, 2021 Date Verified: MAY 26, 2021 Lan Analyst E-Sig:/ES/TOREY HERMAN Report: Chest and left rib [...] Code: Primary Interpreting Staff: TOREY HERMAN, RADIOLOGIST (Lan Analyst) /PAM Encounter Notes: All associated encounter notes This section contains the clinical notes associated to the Encounter. Date/Time Encounter Note(s) Provider Source Jun 24, 2021 09:08 AM SURGERY NOTE: BRIDGETTE ROGERS [facility] TITLE: SURGICAL POSTING SHEET CARE SYS STANDARD TITLE: SURGERY NOTE DATE OF NOTE: JUN 24, 2021@09:08 ENTRY DATE: JUN 24, 2021@09:08:44 AUTHOR: BRIDGETTE ROGERS EXP COSIGNER: URGENCY: STATUS: COMPLETED SURGICAL SERVICE- Surgery Scheduling Sheet Procedure cyst removal left chest Case length (hours) 1 PATIENT DATA: Name: SANTINO MEEHAN Age: 60 Gender: MALE Height: 72 in [182.9 cm] (05/18/2021 09:34) Weight: 238 lb [108.2 kg] (05/18/2021 09:34) BMI: 32.3 No data available for: COVID-19 ([facility]) COVID-19 ([facility]) COVID-19 (ZEPEDA M2000) SARS-CoV-2 NUCLEOCAPSID IgG (QUEST) Best contact telephone number: Attending KEN Admitting Service: General Desired Date of Surgery: per patient Clinicially Indicated Date (YELITZA): today PREOPERATIVE DATA: Urgency: Elective Preoperative Workup (other than Surgical/Anesthe robbie Pre-op) If PRE-OP workup is needed, Is consult placed? Plan after Clearance: Procedure has been discussed with the patient including risks of the procedure, alternatives to the procedure. Patient had oppor tunity to ask questions. Yes LST Note completed? No MINOR SURGERY/Non-OR Procedure Diagnosis cyst Procedure EXCISION OF SEBACEOUS CYST- 14087; LOC ATION CPT Code: Electronic consent obtained No Minor procedure: no pre-op, no anesthesia covera ge, no scrub nurse Non-OR: /es/ BRIDGETTE ROGERS MD, FACS, FASCRS GENERAL SURGEON Signed: 06/24/2021 09:09 Receipt Acknowledged By: * AWAITING SIGNATURE * SUMMER DEL CID Jun 24, 2021 09:04 AM SURGERY CONSULT: [facility]IDGET[facility] ROGERS [facility] TITLE: GENERAL SURGERY CONSULT CARE SYS STANDARD TITLE: SURGERY CONSULT DATE OF NOTE: JUN 24, 2021@09:04 ENTRY DATE: JUN 24, 2021@09:04:13 AUTHOR: BRIDGETTE ROGERS EXP COSIGNER: URGENCY: STATUS: COMPLETED HPI: left chest wall cyst PMH: Benign prostatic hyperplasia (SCT 463764112) Vitamin D deficiency (SCT 04365287) Diabetes Mellitus Type 2 (SCT 40046146) Obesity (SCT 040575921) Colonic polyp (SCT 53205498) Osteoarthritis (ICD-9-CM 715.90) Hypertension (SCT 17940581) Hyperlipidemia (SCT 26571290) Social History: Family History: Medications: Active Outpatient Medications (including Supplie s): Active Outpatient Medications Status 1) ATORVASTATIN CALCIUM 80MG TAB TAKE ONE TABLET ACTIVE EVERY DAY FOR CHOLESTEROL. 2) CHOLECALCIF 25MCG (D3-1,000UNIT) TAB TAKE ONE TABLET ACTIVE EVERY DAY (VITAMIN D SUPPLEMENT) 3) EMPAGLIFLOZIN 25MG TAB TAKE ONE TABLET EVERY DAY ACTIVE FOR DIABETES TREATMENT. 4) LAC-HYDRIN 12% LACTATE LOTION (ml) APPLY LOTI ON TO ACTIVE AFFECTED AREA TWICE A DAY FOR DRY SKIN. USE INSTRUCTED BY YOUR SPRAY MIXER 5) LANCET (EACH) USE LANCET DIRECTED TWICE A WEEK TO ACTIVE TEST BLOOD SUGAR. 6) LIRAGLUTIDE (SAXENDA) 6MG/ML INJ PEN 3ML INJE CT 3MG ACTIVE DIRECTED UNDER THE SKIN EVERY DAY DISCARD PE N 30 DAYS AFTER FIRST USE. REFRIGERATE-DO NOT FREEZE . PROTECT FROM LIGHT. RECOMMENDED FOR USE WITH NOVOFINE OR NOVOTWIST DISPOSABLE NEEDLES. 7) LISINOPRIL 40MG TAB TAKE ONE-HALF TABLET EVER Y DAY ACTIVE REPLACES FOSINOPRIL - DO NOT TAKE BOTH 8) NEEDLE,PEN 31G,5MM USE NEEDLE DIRECTED RICHELLE RY DAY ACTIVE 9) TAMSULOSIN HCL 0.4MG CAP TAKE ONE CAPSULE AT ACTIVE BEDTIME 30 MINUTES AFTER DINNER EACH DAY *FOR PROSTATE/ NIGHTTIME URINATION (BPH)* 10) ZOSTER VACCINE,RECOMBINANT,ADJUVANTED INJECT 1 DOSE ACTIVE (0.5ML) DIRECTED INTRAMUSCULARLY ONCE 2 DOSE SERIES WITH SECOND DOSE ADMINSTERED 2 TO 6 JEFFREY HS AFTER FIRST DOSE. Allergies: SUDAFED Review of Systems: General: (-) weight loss , weight gain, fevers, chills HEENT: (-) blurry vision, headache, sore throat Respiratory: (-) shortness of breath, cough, whe ezing Cardiovascular: (-) chest pain, palpitations, sy ncope, lightheadedness Gastrointestinal: (-) nausea, vomiting, diarrhea , abdominal pain Genitourinary: (-) polyuria, dysuria Skin: (-) rashes Musculoskeletal: (-) myaglias, arthralgias Neurological: (-) anesthesias, parasthesias, wea kness Psychiatric: (-) suicidal ideations, homicidal i deations Physical Exam: BP: 135/80 (06/24/2021 08:41) HR: 82 (06/24/2021 08:41) T: 97.9 F [36.6 C] (06/24/2021 08:41) RR: 20 (06/24/2021 08:41) O2: 97 (06/24/21 08:41) General: NAD HEENT: PERRLA, EOMI, MMM Respiratory: clear to auscultation Cardiovascular: regular rate and rhythm Gastrointestinal: soft, nontender, no Skin: 1cm mobile cyst left chest wall Neurological: No focal deficits Psychiatric: AAO x 3 Laboratory Data: CHEM 7; SERUM Jakub. Date: 04/22/21 09:30 [...] mL/min/SA 60 - Interpretation for ESTIMATED GFR: Chroni c Kidney Disease = <60 mL/min/1.73m2 Kidney Failure = <15 mL/min/1.73m2 Assessment & Plan: cyst left chest wall. will remove under local. /es/ BRIDGETTE ROGERS MD, FACS, FASCRS GENERAL SURGEON Signed: 06/24/2021 09:07
--- OUTSIDE RECORDS SUMMARY | 2022-06-09 12:02 | XMS_ITS | Encounter Summary ---
:1960 Author Organization [facility] rs Address [address] [place] [address] Support Name Relationship Address Phone ELIMAIDA GRACIA Unavailable [address] [place] [address] MAIDA MEEHAN Unavailable [address] [place] [phone] Insurance Providers: All historical and current Section Date Range: From patient's date of to the date document was created.This section includes the names of all active insurance providers for the patient. Insurance Type of Plan Start of End of Group Member Insurance Policy P [facility] Provider Coverage Name Policy Policy Number ID Provider's Figueroa's Relationship Coverage Coverage Telephone Name to Policy Number Figueroa [facility] Jul 17, [facility] [id number] 800 ZORAN, PATIENT HEALTH 2018 DIRECT 15 [phone] S[place] [address]AN [facility] Jul 17, [facility] [id number] ELIH[address] GR[facility] [phone] SANTINO PLAN Selected Encounter This section includes the information on record at MD for the Encounter. Date/Time Encounter Type Encounter Description Reason Provider Source Sep 16, 2021 Outpatient ENDOCRINOLOGY SAMUEL MARSHALL 12:06 PM Encounter IHE Encounter Template Text not used by MD Plan of Treatment: Future Appointments (+ 6 months) and Future Tests (+/- 45 days) The Plan of Treatment section includes future care activities for the patient from all MD treatmentfacilities. This section includes future appointments and future orders which are active, pending orscheduled.Future Appointments This section includes appointments that were scheduled to occur 6 months from the date of the Encounter, up to a maximum of 20 appointments. The data comes from all MD treatment facilities. Appointment Date/Time Appointment Type Appointment Facili ty Name Oct 08, 2021 08:30 AM AMBULATORY - MEDICINE [facility] Oct 12, 2021 02:00 PM AMBULATORY - SURGERY [facility] Nov 01, 2021 08:00 AM AMBULATORY - MEDICINE [facility] November 19, 2021 08:30 AM AMBULATORY - MEDICINE [facility] Feb 09, 2022 08:00 AM AMBULATORY - MEDICINE [facility] Lab Results: +/- 30 days of the encounter This section includes the Chemistry and Hematology Lab Results on record with MD for the patient. Radiology Reports and Pathology Reports are provided separately, in subsequent sections.Lab Results This section contains the Chemistry/Hematology Results that were resulted 30 days before or 30 daysafter the date of the Encounter. Date/Time Source Result Type Result - Unit Interpretation Reference Range Comment Sep 07, 2021 09:42 [facility] COVID-19 SCREEN PANEL Spe cimen Type: NASAL MUCUS AM CARE [facility] AG (VERITOR) No comment enter ed. Ordering Provid er: ESTRELLA MORENO Report Released Date/Time: Sep 07, 2021 09:42 AM Reporting Lab: [facility] [address] [facility] [id number] Performing Lab: [facility] [address] [facility] COVID-19 ANTIGEN (VERITOR) NEGATIVE INTERNAL CONTROL PASS Sep 07, 2021 08:31 [facility] POC GLUCOSE (finger Speci men Type: PLASMA AM CARE SYS stick) No comment enter ed. Ordering Provid er: BRIDGETTE SHIPMAN Report Released Date/Time: Sep 08, 2021 05:59 AM Reporting Lab: [facility] [address] [facility] [id number] Performing Lab: [facility] [address] [facility] POC GLUCOSE (finger stick) 74 70- 105 Social History: Smoking Status (Most current) and Tobacco Use (All prior to encounter date) This section includes the most current, and the historical, smoking and tobacco-related health factors from the MD facility where the Encounter took place.Current Smoking Status This section includes the most current smoking, or tobacco-related health factor, from the MD facility where the Encounter took place. Date/Time Current Smoking Status Comment Facility Nov 03, 2020 09:00 AM VA-TOBACCO FORMER USER [facility] Tobacco Use History This section includes a history of the smoking, or tobacco- related health factors, that were collected on or before the date of the Encounter. The data comes from the MD facility where the Encounter took place. Date/Time Smoking Status/Tobacco Use Comment [facility] it Nov 03, 2020 09:00 AM VA-TOBACCO QUIT 1 TO < 5 V [facility] Jan 07, 2019 12:51 PM VA-TOBACCO FORMER USER [facility] Jan 07, 2019 12:51 PM VA-TOBACCO QUIT < 1 YEAR V [facility] Jul 02, 2018 08:32 AM CURRENT TOBACCO USER [facility] Apr 21, 2017 08:06 AM CURRENT TOBACCO USER [facility] Oct 20, 2016 10:36 AM CURRENT TOBACCO USER [facility] Apr 20, 2016 09:46 AM CURRENT TOBACCO USER [facility] Oct 19, 2015 11:24 AM CURRENT TOBACCO USER [facility] Mar 27, 2015 07:56 AM CURRENT TOBACCO USER [facility] Sep 23, 2014 07:54 AM CURRENT TOBACCO USER [facility] Mar 21, 2014 07:48 AM CURRENT TOBACCO USER [facility] Jun 25, 2013 08:37 AM CURRENT TOBACCO USER [facility] November 19, 2012 11:40 AM CURRENT TOBACCO USER [facility] Apr 02, 2012 08:47 AM CURRENT TOBACCO USER [facility] Sep 20, 2011 02:42 PM CURRENT TOBACCO USER [facility] Oct 08, 2010 10:34 AM CURRENT TOBACCO USER [facility] Dec 24, 2009 11:02 AM CURRENT TOBACCO USER [facility] Dec 24, 2009 11:02 AM TOBACCO OFFERRED STOP [facility] S[facility]IC CARE S[facility] Jul 28, 2009 03:51 PM CURRENT TOBACCO USER [facility] Jul 31, 2008 03:40 PM CURRENT TOBACCO USER [facility] Jul 31, 2008 03:06 PM CURRENT TOBACCO USER [facility] Jul 31, 2008 03:06 PM TOBACCO OFFERRED STOP [facility] Jan 29, 2008 01:30 PM CURRENT TOBACCO USER [facility] Jan 29, 2008 01:30 PM TOBACCO OFFERRED PT MEDS V A [facility] (PROVID[facility] CARE [facility] Jan 29, 2008 01:30 PM TOBACCO OFFERRED STOP [facility] Jan 29, 2008 01:13 PM CURRENT TOBACCO USER [facility] Jan 29, 2008 01:13 PM TOBACCO OFFERRED STOP [facility] Jul 31, 2007 09:48 AM CURRENT TOBACCO USER [facility] Jul 31, 2007 09:48 AM TOBACCO OFFERRED PT MEDS V A [facility] ([facility] Jul 31, 2007 09:48 AM TOBACCO OFFERRED STOP [facility] Jul 31, 2007 09:14 AM CURRENT TOBACCO USER [facility] Jul 31, 2007 09:14 AM TOBACCO OFFERRED STOP [facility] November 28, 2006 04:03 PM CURRENT TOBACCO USER [facility] November 28, 2006 04:03 PM TOBACCO OFFERRED PT MEDS V A [facility] November 28, 2006 04:03 PM TOBACCO OFFERRED STOP [facility] November 28, 2006 03:37 PM CURRENT TOBACCO USER [facility] smoke 1 pk/day CARE SYS May 31, 2006 03:[address] [facility] HEALTH USE/COUNSELING-PROVIDER CARE SYS May 31, 2006 03:[address] [facility] HEALTH USE/COUNSELING-ANCILLARY CARE SY S Feb 13, 2006 01:[address] [facility] HEALTH USE/COUNSELING-ANCILLARY CARE SY S Apr 15, 2003 09:33 AM TOBACCO COUNSELING 3 [facility] Apr 15, 2003 08:38 AM TOBACCO COUNSELING 2 [facility] Oct 14, 2002 08:46 AM TOBACCO COUNSELING 1 [facility] Oct 14, 2002 08:46 AM TOBACCO COUNSELING 2 [facility] Oct 14, 2002 08:46 AM TOBACCO COUNSELING 3 [facility] Apr 17, 2002 09:52 AM TOBACCO COUNSELING 2 [facility] Apr 17, 2002 09:52 AM TOBACCO COUNSELING 3 [facility] Oct 19, 2001 09:25 AM TOBACCO COUNSELING 1 [facility] Oct 19, 2001 09:25 AM TOBACCO COUNSELING 2 [facility] Oct 19, 2001 09:25 AM TOBACCO COUNSELING 3 [facility] Apr 13, 2001 01:36 PM TOBACCO COUNSELING 2 [facility] Apr 13, 2001 01:36 PM TOBACCO COUNSELING 3 [facility] November 15, 2000 02:10 PM TOBACCO COUNSELING 1 [facility] Pathology Reports: +/- 30 days of [...] the Encounter. The data comes from all [facility] facilities. Date/Time Pathology Report Provider Source Sep 09, 2021 10:30 AM LR SURGICAL PATHOLOGY REPORT: STELLA JARRETT [facility] TITLE: LR SURGICAL PATHOLOGY REPORT [facility] STANDARD TITLE: PATHOLOGY REPORT DATE OF [...] Performing Laboratory: Surgical Pathology Report Performed By: [facility] [CLIA# [id number]] [address] [place] [id number] $FTR - - - - - - - - - - - - - - - - - - - - - - - - - - - - - - - - - - - - - - - - (End of report) ALBER JARRETT MD [facility] Date Sep 08, 2021 - - - - - - - - - - - - - - - - - - - - - - - - - - - - - - - - - - - - - - - - SANTINO MEEHAN STANDARD FORM 515 ID:[id number] SEX:M :1960 AGE: 61 LOC: PROFEE PCP: Raul Tripp MD /maira/ ALBER JARRETT PATHOLOGIST Signed: 09/09/2021 10:30 Encounter Notes: All associated encounter notes This section contains the clinical notes associated to the Encounter. Date/Time Encounter Note(s) Provider Source Sep 16, 2021 12:06 PM ENDOCRINOLOGY SECURE MESSAGING: KIARRA MARSHALL [facility] TITLE: ENDOCRINOLOGY SECURE MESSAGING CARE [facility] STANDARD TITLE: ENDOCRINOLOGY SECURE MESSAGING DATE OF NOTE: SEP 16, 2021@12:06 ENTRY DATE: SEP 16, 2021@12:06:29 AUTHOR: SAMUEL MARSHALL EXP COSIGNER: URGENCY: STATUS: COMPLETED ------Original Message Sent: 09/16/2021 09:23 AM From: SANTINO MEEHAN To: Endocrinology [facility]@ Subject: Dr. Daisy Mclaughlin Good Morning Dr. Mclaughlin, I just received a call from the foot doc tor informing me that my referral runs out the and my appt is f or the can I get an extension on my referral to to Dr Alvarez's office. /maira/ SAMUEL MARSHALL MS, RN, CDCES, CNL RN Coordinator, Endo/DM Service Signed: 09/16/2021 12:06 Receipt Acknowledged By: * AWAITING SIGNATURE * DAISY MCLAUGHLIN
--- OUTSIDE RECORDS SUMMARY | 2022-06-09 12:03 | XMS_ITS | Encounter Summary ---
:1960 Author Organization [facility] Address [address] [place] [address] Support Name Relationship Address Phone MAIDA MEEHAN Unavailable [address] [place] [phone] MAIDA MEEHAN Unavailable [address] [place] [phone] Insurance Providers: All historical and current Section Date Range: From patient's date of to the date document was created.This section includes the names of all active insurance providers for the patient. Insurance Type of Plan Start of End of Group Member Insurance Policy P [facility] Provider Coverage Name Policy Policy Number ID Provider's Figueroa's Relationship Coverage Coverage Telephone Name to Policy Number Figueroa [facility] Jul 17, [facility] [id number] Balbir MEEHAN, PATIENT HEALTH 2018 DIRECT 15 [phone] SANTINO PLAN [facility] Jul 17, [facility] [id number] Henok MEEHAN [facility] [phone] SANTINO PLAN Selected Encounter This section includes the information on record at [place] for the Encounter. Date/Time Encounter Type Encounter Description Reason Provider Source Sep 07, 2021 12:00 Outpatient Encounter ADMIN PAT ACTIVTIES PM (MASNONCT) IHE Encounter Template Text not used by [place] Plan of Treatment: Future Appointments (+ 6 months) and Future Tests (+/- 45 days) The Plan of Treatment section includes future care activities for the patient from all [place] treatmentfacilities. This section includes future appointments and future orders which are active, pending orscheduled.Future Appointments This section includes appointments that were scheduled to occur 6 months from the date of the Encounter, up to a maximum of 20 appointments. The data comes from all [place] treatment facilities. Appointment Date/Time Appointment Type Appointment Facili ty Name Sep 14, 2021 03:30 PM AMBULATORY - SURGERY [facility] Oct 08, 2021 08:30 AM AMBULATORY - MEDICINE [facility] Oct 12, 2021 02:00 PM AMBULATORY - SURGERY [facility] Nov 01, 2021 08:00 AM AMBULATORY - MEDICINE [facility] November 19, 2021 08:30 AM AMBULATORY - MEDICINE [facility] Feb 09, 2022 08:00 AM AMBULATORY - MEDICINE [facility] Lab Results: +/- 30 days of the encounter This section includes the Chemistry and Hematology Lab Results on record with [place] for the patient. Radiology Reports and Pathology [...] Sep 07, 2021 09:42 AM Reporting Lab: [facility] [address] [facility] Performing Lab: [facility] [address] [facility] COVID-19 ANTIGEN (VERITOR) NEGATIVE INTERNAL CONTROL PASS Sep 07, 2021 08:31 [facility] POC GLUCOSE (finger Speci men Type: PLASMA AM CARE SYS stick) No comment enter ed. Ordering Provid er: BRIDGETTE SHIPMAN Report Released Date/Time: Sep 08, 2021 05:59 AM Reporting Lab: [facility] [address] [facility] Performing Lab: [facility] [address] [facility] POC GLUCOSE (finger stick) 74 70- 105 Aug 17, 2021 [facility] GLYCOSOLATED HGB PANEL Speci men Type: BLOOD 08:04 AM CARE SYS - BALT/PP No comment enter ed. Ordering Provid er: AMBER ALAS Report Released Date/Time: Apr 28, 2021 08:52 AM Reporting Lab: [facility] [address] [facility] [address] Performing Lab: [facility] [address] [facility] [id number] HEMOGLOBIN A1C 5.7 4.3-5.7 Aug 17, 2021 08:04 AM [facility] LIPID PANEL S pecimen Type: SERUM SYS No comment enter ed. Ordering Provid er: AMBER ALAS Report Released Date/Time: Apr 28, 2021 08:52 AM Reporting Lab: [facility] [address] [facility] [id number] Performing Lab: [facility] [address] [facility] [address] CHOLESTEROL 171 0-240 TRIGLYCERIDES 119 0-150 HDL [...] 67 122/81 18 /min 97 % 0 [place] 2021 12:10 /min mm[Hg] [facility] Sep 07, 97.1 F 85 129/84 18 /min 100 % 0 [place] 2021 08:40 /min mm[Hg] [facility]AN AM D [facility] Social History: Smoking Status (Most current) and Tobacco Use (All prior to encounter date) This section includes the most current, and the historical, smoking and tobacco-related health factors from the [place] facility where the Encounter took place.Current Smoking Status This section includes the most current smoking, or tobacco-related health factor, from the [place] facility where the Encounter took place. Date/Time Current Smoking Status Comment Facility Nov 03, 2020 09:00 AM VA-TOBACCO FORMER USER [facility] Tobacco Use History This section includes a history of the smoking, or tobacco- related health factors, that were collected on or before the date of the Encounter. The data comes from the [place] facility where the Encounter took place. Date/Time Smoking Status/Tobacco Use Comment [facility] Nov 03, 2020 09:00 AM VA-TOBACCO QUIT 1 TO < 5 V [facility] Jan 07, 2019 12:51 PM VA-TOBACCO FORMER USER [facility] Jan 07, 2019 12:51 PM VA-TOBACCO QUIT < 1 YEAR V [facility] Jul 02, 2018 08:32 AM CURRENT TOBACCO USER [facility] Apr 21, 2017 08:06 AM CURRENT TOBACCO USER [facility] Oct 20, 2016 10:36 AM CURRENT TOBACCO USER [facility] Apr 20, 2016 09:46 AM CURRENT TOBACCO USER [facility] Oct 19, 2015 11:24 AM CURRENT TOBACCO USER [facility] Mar 27, 2015 07:56 AM CURRENT TOBACCO USER [facility] Sep 23, 2014 07:54 AM CURRENT TOBACCO USER [facility] Mar 21, 2014 07:48 AM CURRENT TOBACCO USER [facility] Jun 25, 2013 08:37 AM CURRENT TOBACCO USER [facility] November 19, 2012 11:40 AM CURRENT TOBACCO USER [facility] Apr 02, 2012 08:47 AM CURRENT TOBACCO USER [facility] Sep 20, 2011 02:42 PM CURRENT TOBACCO USER [facility] Oct 08, 2010 10:34 AM CURRENT TOBACCO USER [facility] Dec 24, 2009 11:02 AM CURRENT TOBACCO USER [facility] Dec 24, 2009 11:02 AM TOBACCO OFFERRED STOP [facility] Jul 28, 2009 03:51 PM CURRENT TOBACCO USER [facility] Jul 31, 2008 03:40 PM CURRENT TOBACCO USER [facility] Jul 31, 2008 03:06 PM CURRENT TOBACCO USER [facility] Jul 31, 2008 03:06 PM TOBACCO OFFERRED STOP [facility] Jan 29, 2008 01:30 PM CURRENT TOBACCO USER [facility] Jan 29, 2008 01:30 PM TOBACCO OFFERRED PT MEDS V A [facility] Jan 29, 2008 01:30 PM TOBACCO OFFERRED STOP [facility] Jan 29, 2008 01:13 PM CURRENT TOBACCO USER [facility] Jan 29, 2008 01:13 PM TOBACCO OFFERRED STOP [facility] Jul 31, 2007 09:48 AM CURRENT TOBACCO USER [facility] Jul 31, 2007 09:48 AM TOBACCO OFFERRED PT MEDS V A [facility] Jul 31, 2007 09:48 AM TOBACCO OFFERRED STOP [facility] Jul 31, 2007 09:14 AM CURRENT TOBACCO USER [facility] Jul 31, 2007 09:14 AM TOBACCO OFFERRED STOP [facility] November 28, 2006 04:03 PM CURRENT TOBACCO USER [facility] November 28, 2006 04:03 PM TOBACCO OFFERRED PT MEDS V A [facility] November 28, 2006 04:03 PM TOBACCO OFFERRED STOP [facility] November 28, 2006 03:37 PM CURRENT TOBACCO USER [facility] 1 pk/day CARE SYS May 31, 2006 03:53 PM TOBACCO [facility] HEALTH USE/COUNSELING-PROVIDER CARE SYS May 31, 2006 03:32 PM TOBACCO [facility] HEALTH USE/COUNSELING-ANCILLARY CARE SY S Feb 13, 2006 01:07 PM TOBACCO [facility] HEALTH USE/COUNSELING-ANCILLARY CARE SY S Apr 15, 2003 09:33 AM TOBACCO COUNSELING 3 [facility] Apr 15, 2003 08:38 AM TOBACCO COUNSELING 2 [facility] Oct 14, 2002 08:46 AM TOBACCO COUNSELING 1 [facility] Oct 14, 2002 08:46 AM TOBACCO COUNSELING 2 [facility] Oct 14, 2002 08:46 AM TOBACCO COUNSELING 3 [facility] Apr 17, 2002 09:52 AM TOBACCO COUNSELING 2 [facility] Apr 17, 2002 09:52 AM TOBACCO COUNSELING 3 [facility] Oct 19, 2001 09:25 AM TOBACCO COUNSELING 1 [facility] Oct 19, 2001 09:25 AM TOBACCO COUNSELING 2 [facility] Oct 19, 2001 09:25 AM TOBACCO COUNSELING 3 [facility] Apr 13, 2001 01:36 PM TOBACCO COUNSELING 2 [facility] Apr 13, 2001 01:36 PM TOBACCO COUNSELING 3 [facility] November 15, 2000 02:10 PM TOBACCO COUNSELING 1 [facility] Pathology Reports: +/- 30 days of the [...] the Encounter. The data comes from all [facility] facilities. Date/Time Pathology Report Provider Source Sep 09, 2021 10:30 AM LR SURGICAL PATHOLOGY REPORT: STELLA JARRETT [facility] TITLE: LR SURGICAL PATHOLOGY REPORT [facility] STANDARD TITLE: PATHOLOGY REPORT [...] Performing Laboratory: Surgical Pathology Report Performed By: [facility] [CLIA# [id number]] [address] [place] [address] $FTR - - - - - - [...] - - SANTINO MEEHAN STANDARD FORM 515 ID:[id number] SEX:M :1960 AGE: 61 LOC: PROFEE PCP: Raul Tripp MD /maira/ ALBER JARRETT PATHOLOGIST Signed: 09/09/2021 10:30 Encounter Notes: All associated encounter notes This section contains the clinical notes associated to the Encounter. Date/Time Encounter Note(s) Provider Source Sep 07, 2021 12:00 PM SCANNED NOTE: NAYAN ELISE [facility] TITLE: SCANNED: [facility] STANDARD TITLE: SCANNED NOTE DATE OF NOTE: SEP 07, 2021@12:00 ENTRY DATE: SEP 20, 2021@09:13:06 AUTHOR: NAYAN ELISE EXP COSIGNER: URGENCY: STATUS: COMPLETED ATTENTION The Health Information Management Service has sc anned and placed an image of a [facility] Document Same Day Surgery Packet i SANTINO Hubbard [id number] medical record. To review this document(s), go to the Tools drop down menu and select [employer]. /maira/ NAYAN ELISE CONSULTANT IN ERGONOMICS AND SAFETY Signed: 09/20/2021 09:13
--- OUTSIDE RECORDS SUMMARY | 2022-06-09 12:03 | XMS_ITS | Encounter Summary ---
:1960 Author Organization [facility] rs Address [address] [place] [address] Support Name Relationship Address Phone ELIMAIDA GRACIA Unavailable [address] [place] [address] ELIMAIDA GRACIA Unavailable [address] [place] [address] Insurance Providers: All historical and current Section Date Range: From patient's date of to the date document was created.This section includes the names of all active insurance providers for the patient. Insurance Type of Plan Start of End of Group Member Insurance [facility] Provider Coverage Name Policy Policy Number ID Provider's Figueroa's Relationship Coverage Coverage Telephone Name to Policy Number Figueroa [facility] Jul 17, [facility] [id number] Balbir MEEHAN, PATIENT HEALTH 2018 DIRECT 15 [phone] [facility] Jul 17, [facility] [id number] Henok MEEHAN [facility] 2010 21 [phone] S[address] [address] Selected Encounter This section includes the information on record at [place] for the Encounter. Date/Time Encounter Type Encounter Description Reason Provider Source Sep 17, 2021 04:18 Outpatient Encounter COMMUNITY CARE PM CONSULT IHE Encounter Template Text not used by [...] 20 appointments. The data comes from all [place] treatment facilities. Appointment Date/Time Appointment Type Appointment Facili ty Name Oct 08, 2021 08:30 AM AMBULATORY - MEDICINE [facility] Oct 12, 2021 02:00 PM AMBULATORY - SURGERY [facility] Nov 01, 2021 08:00 AM AMBULATORY - MEDICINE [facility] November 19, 2021 08:30 AM AMBULATORY - MEDICINE [facility] Feb 09, 2022 08:00 AM AMBULATORY - MEDICINE [facility] Lab Results: +/- 30 days of the encounter This section includes the Chemistry and Hematology Lab Results on record with [place] for the patient. Radiology Reports and Pathology Reports are provided separately, in subsequent sections.Lab Results This section contains the Chemistry/Hematology Results that were resulted 30 days before or 30 daysafter the date of the Encounter. Date/Time Source Result Type Result - Unit Interpretation Reference Range Comment Sep 07, 2021 09:42 [facility] COVID-19 SCREEN PANEL Spe cimen Type: NASAL MUCUS AM CARE [facility] AG (VERITOR) No comment enter ed. Ordering Provid er: ESTRELLA MORENO Report Released Date/Time: Sep 07, 2021 09:42 AM Reporting Lab: [facility] [address] [facility] [id number] Performing Lab: [facility] [address] [facility] COVID-19 ANTIGEN (VERITOR) NEGATIVE INTERNAL CONTROL PASS Sep 07, 2021 08:31 [facility] POC GLUCOSE (finger Speci men Type: PLASMA AM CARE SYS stick) No comment enter ed. Ordering Provid er: BRIDGETTE SHIPMAN Report Released Date/Time: Sep 08, 2021 05:59 AM Reporting Lab: [facility] [address] [facility] [id number] Performing Lab: [facility] [address] [facility] POC GLUCOSE (finger stick) [phone] Social History: Smoking Status (Most current) and Tobacco Use (All prior to encounter date) This section includes the most current, and the historical, smoking and tobacco-related health factors from the [place] facility where the Encounter took place.Current Smoking Status This section includes the most current smoking, or tobacco-related health factor, from the [place] facility where the Encounter took place. Date/Time Current Smoking Status Comment Facility Nov 03, 2020 09:00 AM VA-TOBACCO FORMER USER [facility] Tobacco Use History This section includes a history of the smoking, or tobacco- related health factors, that were collected on or before the date of the Encounter. The data comes from the [place] facility where the Encounter took place. Date/Time Smoking Status/Tobacco Use Comment [facility] Nov 03, 2020 09:00 AM VA-TOBACCO QUIT 1 TO < 5 V A [facility] Jan 07, 2019 12:51 PM VA-TOBACCO FORMER USER [facility] Jan 07, 2019 12:51 PM VA-TOBACCO QUIT < 1 YEAR V [facility] Jul 02, 2018 08:32 AM CURRENT TOBACCO USER [facility] Apr 21, 2017 08:06 AM CURRENT TOBACCO USER [facility] Oct 20, 2016 10:36 AM CURRENT TOBACCO USER [facility] Apr 20, 2016 09:46 AM CURRENT TOBACCO USER [facility] Oct 19, 2015 11:24 AM CURRENT TOBACCO USER [facility] Mar 27, 2015 07:56 AM CURRENT TOBACCO USER [facility] Sep 23, 2014 07:54 AM CURRENT TOBACCO USER [facility] Mar 21, 2014 07:48 AM CURRENT TOBACCO USER [facility] Jun 25, 2013 08:37 AM CURRENT TOBACCO USER [facility] November 19, 2012 11:40 AM CURRENT TOBACCO USER [facility] Apr 02, 2012 08:47 AM CURRENT TOBACCO USER [facility] Sep 20, 2011 02:42 PM CURRENT TOBACCO USER [facility] Oct 08, 2010 10:34 AM CURRENT TOBACCO USER [facility] Dec 24, 2009 11:02 AM CURRENT TOBACCO USER [facility] Dec 24, 2009 11:02 AM TOBACCO OFFERRED STOP [facility] Jul 28, 2009 03:51 PM CURRENT TOBACCO USER [facility] Jul 31, 2008 03:40 PM CURRENT TOBACCO USER [facility] Jul 31, 2008 03:06 PM CURRENT TOBACCO USER [facility] Jul 31, 2008 03:06 PM TOBACCO OFFERRED STOP [facility] Jan 29, 2008 01:30 PM CURRENT TOBACCO USER [facility] Jan 29, 2008 01:30 PM TOBACCO OFFERRED PT MEDS V A [facility] CARE [facility] Jan 29, 2008 01:30 PM TOBACCO OFFERRED STOP [facility] Jan 29, 2008 01:13 PM CURRENT TOBACCO USER [facility] Jan 29, 2008 01:13 PM TOBACCO OFFERRED STOP [facility] Jul 31, 2007 09:48 AM CURRENT TOBACCO USER [facility] Jul 31, 2007 09:48 AM TOBACCO OFFERRED PT MEDS V A [facility] Jul 31, 2007 09:48 AM TOBACCO OFFERRED STOP [facility] Jul 31, 2007 09:14 AM CURRENT TOBACCO USER [facility] Jul 31, 2007 09:14 AM TOBACCO OFFERRED STOP [facility] November 28, 2006 04:03 PM CURRENT TOBACCO USER [facility] November 28, 2006 04:03 PM TOBACCO OFFERRED PT MEDS V A [facility] ([facility] CARE [facility] November 28, 2006 04:03 PM TOBACCO OFFERRED STOP [facility] November 28, 2006 03:37 PM CURRENT TOBACCO USER [facility] smoke 1 pk/day CARE SYS May 31, 2006 03:53 PM TOBACCO [facility] HEALTH USE/COUNSELING-PROVIDER CARE SYS May 31, 2006 03:32 PM TOBACCO [facility] HEALTH USE/COUNSELING-ANCILLARY CARE SY S Feb 13, 2006 01:07 PM TOBACCO [facility] HEALTH USE/COUNSELING-ANCILLARY CARE SY S Apr 15, 2003 09:33 AM TOBACCO COUNSELING 3 [facility] Apr 15, 2003 08:38 AM TOBACCO COUNSELING 2 [facility] Oct 14, 2002 08:46 AM TOBACCO COUNSELING 1 [facility] Oct 14, 2002 08:46 AM TOBACCO COUNSELING 2 [facility] Oct 14, 2002 08:46 AM TOBACCO COUNSELING 3 [facility] Apr 17, 2002 09:52 AM TOBACCO COUNSELING 2 [facility] Apr 17, 2002 09:52 AM TOBACCO COUNSELING 3 [facility] Oct 19, 2001 09:25 AM TOBACCO COUNSELING 1 [facility] Oct 19, 2001 09:25 AM TOBACCO COUNSELING 2 [facility] Oct 19, 2001 09:25 AM TOBACCO COUNSELING 3 [facility] Apr 13, 2001 01:36 PM TOBACCO COUNSELING 2 [facility] Apr 13, 2001 01:36 PM TOBACCO COUNSELING 3 [facility] November 15, 2000 02:10 PM TOBACCO COUNSELING 1 [facility] Pathology Reports: +/- 30 days of the [...] the Encounter. The data comes from all [facility] facilities. Date/Time Pathology Report Provider Source Sep 09, 2021 10:30 AM LR SURGICAL PATHOLOGY REPORT: STELLA JARRETT [facility] TITLE: LR SURGICAL PATHOLOGY REPORT [facility] STANDARD TITLE: PATHOLOGY REPORT DATE [...] Performing Laboratory: Surgical Pathology Report Performed By: [facility] [CLIA# [id number]] [address] [place] [phone] $FTR - - - - - - - - - - - - - - - - - - - - - - - - - - - - - - - - - - - - - - - - (End of report) ALBER JARRETT MD [facility] Date Sep 08, 2021 - - - - - - - - - - - - - - - - - - - - - - - - - - - - - - - - - - - - - - - - SANTINO MEEHAN STANDARD FORM 515 ID:[id number] SEX:M :1960 AGE: 61 LOC: PROFEE PCP: Raul Tripp MD /maira/ ALBER JARRETT PATHOLOGIST Signed: 09/09/2021 10:30 Encounter Notes: All associated encounter notes This section contains the clinical notes associated to the Encounter. Date/Time Encounter Note(s) Provider Source Sep 17, 2021 04:23 PM LETTERS: LENA DENT [facility] LOCAL TITLE: [facility] CARE-REQUEST FOR SERVICE S (RFS) [facility] STANDARD TITLE: LETTERS DATE OF NOTE: SEP 17, 2021@16:23 ENTRY DATE: SEP 17, 2021@16:23:48 AUTHOR: LENA DENT EXP COSIGNER: URGENCY: STATUS: COMPLETED Faxed to [facility] Provider [facility] [address] Timoteo Alvarez [address] [facility] [address] PH:[phone] FX:[phone] Dear Provider, Information: Patient Name: SANTINO MEEHAN Date of :Aug The signed Request for Services (RFS) Form with medical documentation was received. Upon review, the following determinati on has been made: The [place] provider will be alerted to your request for a new consult to continue care. Please note, a RFS is not an autom atic approval. Appointments should not be done, until you receive a consult to avoid no n-payment. To [place] Provider Consult will need to be subm itted to [place] Specialty Service who will determine if forwarded to Community Care. Please place suffic ient detail to guide Best Medical Interest eligibility determination if ap plicable Once that consult has been authorized. An Author ization will be sent to you. Should you have questions, please contac t us at the Care in The Community Team [phone]. Sincerely, Lena Dent, MSN, RN, ACRN, [facility] Sep 17, 2021 04:21 PM NONVA NOTE: LENA DENT [facility] TITLE: COMMUNITY CARE-COORDINATION PLAN CARE SYS STANDARD TITLE: NONVA NOTE DATE OF NOTE: SEP 17, 2021@16:21 ENTRY DATE: SEP 17, 2021@16:21:56 AUTHOR: LENA DETN EXP COSIGNER: URGENCY: STATUS: COMPLETED Community Care Coordination Plan Community Care Consult:Podiatry Chief Complaint: Received rfs and medical notes, requesting additional visits for L84, B35.1, and E11.9. Pt has an appt schedu led for 09/22/21 and the existing consult is expiring. Per the note, the pt was seen for diabetic foot care and mycotic nails, and keratosis. P t received callus debridement and nail debridement and was advised to return in 9[place]10wee [place] for continued care. Diagnosis/Description. L84, B35.1, and E11.9 diabetic foot care, tinea unguium. Patient Admitted: No Level of Care Coordination Basic This information was obtained from:Chart Review Facility Community Care Office Contact: ext. [phone] Facility Community Care Combiner or [employer] lent: Vesta Dodd Name:Vesta Dodd Title: School Principal Community Care Contact Number (Normal Business Hours): ext. [phone] AOD/Emergency Contact After Hours Number: [phone] ext. [phone] From Station Number: [id number] Facility Name: [facility] [address] Address: [facility], [address] City: [place] State: [place] Zip: [address] [place] does not have a caregiver. Services: Navigation Scheduling Post-Appointment Follow-Up E-Communications to referring provider Plan: To Al Provider A new consult will need to be submitted to [facility] pecialty Service who will determine if forwarded to [facility] Care. Please place sufficient detail to guide Best Medical Interest eligibility determin ation if applicable /maira/ LENA DENT, MSN, RN, ACRN, [facility] NURSE [facility]LLER/OFFICE OF COMMUNITY CARE Signed: 09/17/2021 16:23 Receipt Acknowledged By: * AWAITING SIGNATURE * RAUL TRIPP Sep 17, 2021 04:19 PM NONVA NOTE: LENA DENT [facility] TITLE: COMMUNITY CARE-REQUEST FOR SERVICE (RFS) NOTE CARE [facility] STANDARD TITLE: NONVA NOTE DATE OF NOTE: SEP 17, 2021@16:19 ENTRY DATE: SEP 17, 2021@16:19:23 AUTHOR: LENA DENT EXP COSIGNER: URGENCY: STATUS: COMPLETED Request for Services (RFS) documentation has bee n sent for scanning to [facility] [place] Community Care Consult: COMMUNITY CARE-Podiatry Consult No: [id number] Date sent to scannin09/17/21 A Request for Service (RFS) form [id number] has been received which includes the following: Care Requested: Received rfs and medical notes, requesting additional visits for L84, B35.1, and E11.9. Pt has an appt schedu led for 09/22/21 and the existing consult is expiring. Per the note, the pt was seen for diabetic foot care and mycotic nails, and keratosis. P t received callus debridement and nail debridement and was advised to return in 9-10wee [place] for continued care. ICD-10 Dx code:L84, B35.1, and E11.9 Date [place] received request: 09/16/21 Date service required: 09/22/21 Requesting Community Provider Information: Name of Ordering Provider: PODI[facility]RY ASSOCACH[facility] Alvarez [address] [facility] [address] PH:[phone] FX:[phone] /es/ ELNA DENT, MSN, RN, ACRN, CCM NURSE [facility] DRILLER/OFFICE OF COMMUNITY CARE Signed: 09/17/2021 16:21
--- OUTSIDE RECORDS SUMMARY | 2022-06-09 12:04 | XMS_ITS | Encounter Summary ---
:1960 Author Organization [facility] Address [address] [place] [address] Support Name Relationship Address Phone ELIMAIDA GRACIA Unavailable [address] [place] [phone] ELIMAIDA GRACIA Unavailable [address] [place] [phone] Insurance Providers: All historical and current Section Date Range: From patient's date of to the date document was created.This section includes the names of all active insurance providers for the patient. Insurance Type of Plan Start of End of Group Member Insurance Policy P [facility]'s Provider Coverage Name Policy Policy Number ID Provider's Figueroa's Relationship Coverage Coverage Telephone Name to Policy Number Figueroa [facility] Jul 17, [facility] [id number] [address], [facility] 2018 DIRECT 15 [phone] SANTINO PLAN [facility] Jul 17, [facility] [id number] [address] [facility] [phone] SANTINO PLAN Selected Encounter This section includes the information on record at [place] for the Encounter. Date/Time Encounter Type Encounter Description Reason Provider Source Oct 08, 2021 Outpatient ENDOCRINOLOGY MERCEDES CHRISTIAN 07:46 AM Encounter F IHE Encounter Template Text not used by [place] Plan of Treatment: Future Appointments (+ 6 months) and Future Tests (+/- 45 days) The Plan of Treatment section includes future care activities for the patient from all [place] treatmentfacilities. This section includes future appointments and future orders which are active, pending orscheduled.Future Appointments This section includes appointments that were scheduled to occur 6 months from the date of the Encounter, up to a maximum of 20 appointments. The data comes from all [place] treatment facilities. Appointment Date/Time Appointment Type Appointment Facili ty Name Oct 12, 2021 02:00 PM AMBULATORY - SURGERY [facility]DER [facility] Nov 01, 2021 08:00 AM AMBULATORY - MEDICINE [facility] November 19, 2021 08:30 AM AMBULATORY - MEDICINE [facility] Feb 09, 2022 08:00 AM AMBULATORY - MEDICINE [facility] Mar 25, 2022 08:30 AM AMBULATORY - MEDICINE [facility] Social History: Smoking Status (Most current) and Tobacco Use (All prior to encounter date) This section includes the most current, and the historical, smoking and tobacco-related health factors from the [place] facility where the Encounter took place.Current Smoking Status This section includes the most current smoking, or tobacco-related health factor, from the [place] facility where the Encounter took place. Date/Time Current Smoking Status Comment Facility Nov 03, 2020 09:00 AM [place]-TOBACCO QUIT 1 TO < 5 V [facility] Tobacco Use History This section includes a history of the smoking, or tobacco- related health factors, that were collected on or before the date of the Encounter. The data comes from the [place] facility where the Encounter took place. Date/Time Smoking Status/Tobacco Use Comment [facility] Nov 03, 2020 09:00 AM VA-TOBACCO QUIT 1 TO < 5 V [facility] Jan 07, 2019 12:51 PM VA-TOBACCO FORMER USER [facility] Jan 07, 2019 12:51 PM VA-TOBACCO QUIT < 1 YEAR V [facility] Jul 02, 2018 08:32 AM CURRENT TOBACCO USER [facility] Apr 21, 2017 08:06 AM CURRENT TOBACCO USER [facility] Oct 20, 2016 10:36 AM CURRENT TOBACCO USER [facility] Apr 20, 2016 09:46 AM CURRENT TOBACCO USER [facility] Oct 19, 2015 11:24 AM CURRENT TOBACCO USER [facility] Mar 27, 2015 07:56 AM CURRENT TOBACCO USER [facility] Sep 23, 2014 07:54 AM CURRENT TOBACCO USER [facility] Mar 21, 2014 07:48 AM CURRENT TOBACCO USER [facility] Jun 25, 2013 08:37 AM CURRENT TOBACCO USER [facility] November 19, 2012 11:40 AM CURRENT TOBACCO USER [facility] Apr 02, 2012 08:47 AM CURRENT TOBACCO USER [facility] Sep 20, 2011 02:42 PM CURRENT TOBACCO USER [facility] Oct 08, 2010 10:34 AM CURRENT TOBACCO USER [facility] Dec 24, 2009 11:02 AM CURRENT TOBACCO USER [facility] Dec 24, 2009 11:02 AM TOBACCO OFFERRED STOP [facility] SMOKING CLINIC CARE SYS Jul 28, 2009 03:51 PM CURRENT TOBACCO USER [facility] Jul 31, 2008 03:40 PM CURRENT TOBACCO USER [facility] Jul 31, 2008 03:06 PM CURRENT TOBACCO USER [facility] Jul 31, 2008 03:06 PM TOBACCO OFFERRED STOP [facility] Jan 29, 2008 01:30 PM CURRENT TOBACCO USER [facility] Jan 29, 2008 01:30 PM TOBACCO OFFERRED PT MEDS V A [facility] CARE S[facility] Jan 29, 2008 01:30 PM TOBACCO OFFERRED STOP [facility] S[facility] Jan 29, 2008 01:13 PM CURRENT TOBACCO USER [facility] Jan 29, 2008 01:13 PM TOBACCO OFFERRED STOP [facility] Jul 31, 2007 09:48 AM CURRENT TOBACCO USER [facility] Jul 31, 2007 09:48 AM TOBACCO OFFERRED PT MEDS V A [facility] CARE [facility] Jul 31, 2007 09:48 AM TOBACCO OFFERRED STOP [facility] S[facility] CARE SYS Jul 31, 2007 09:14 AM CURRENT TOBACCO USER [facility] Jul 31, 2007 09:14 AM TOBACCO OFFERRED STOP [facility]ARE [facility] November 28, 2006 04:03 PM CURRENT TOBACCO USER [facility] November 28, 2006 04:03 PM TOBACCO OFFERRED PT MEDS V A [facility] C[facility] November 28, 2006 04:03 PM TOBACCO OFFERRED STOP [facility]ARE [facility] November 28, 2006 03:37 PM CURRENT TOBACCO USER [facility] smokes 1 pk/day CARE SYS May 31, 2006 03:53 PM TOBACCO [place] ANDREW Wood HEALTH USE/COUNSELING-PROVIDER CARE SYS May 31, 2006 03:32 PM [facility]/COUNSELING-ANCILLARY CARE SY S Feb 13, 2006 01:07 PM [facility] HE[facility] USE/COUNSELING-ANCILLARY CARE S Apr 15, 2003 09:33 AM TOBACCO COUNSELING 3 [facility] Apr 15, 2003 08:38 AM TOBACCO COUNSELING 2 [facility] Oct 14, 2002 08:46 AM TOBACCO COUNSELING 1 [facility] Oct 14, 2002 08:46 AM TOBACCO COUNSELING 2 [facility] Oct 14, 2002 08:46 AM TOBACCO COUNSELING 3 [facility] Apr 17, 2002 09:52 AM TOBACCO COUNSELING 2 [facility] Apr 17, 2002 09:52 AM TOBACCO COUNSELING 3 [facility] Oct 19, 2001 09:25 AM TOBACCO COUNSELING 1 [facility] Oct 19, 2001 09:25 AM TOBACCO COUNSELING 2 [facility] Oct 19, 2001 09:25 AM TOBACCO COUNSELING 3 [facility] Apr 13, 2001 01:36 PM TOBACCO COUNSELING 2 [facility] Apr 13, 2001 01:36 PM TOBACCO COUNSELING 3 [facility] November 15, 2000 02:10 PM TOBACCO COUNSELING 1 [facility] Pathology Reports: +/- 30 days of [...] the Encounter. The data comes from all [place] treatment facilities. Date/Time Pathology Report Provider Source Sep 09, 2021 10:30 AM LR SURGICAL PATHOLOGY REPORT: STELLA JARRETT [facility] TITLE: LR SURGICAL PATHOLOGY REPORT [facility] STANDARD TITLE: PATHOLOGY REPORT DATE OF [...] Laboratory: Surgical Pathology Report Performed By: [facility] [CLIA# [id number]] [address] [place] [phone] $FTR - - - - - - [...] - - SANTINO MEEHAN STANDARD FORM 515 ID:[id number] SEX:M :1960 AGE: 61 LOC: PROFEE PCP: Raul Tripp MD /maira/ ALBER Vinson YFANTIS PATHOLOGIST Signed: 09/09/2021 10:30 Encounter Notes: All associated encounter notes This section contains the clinical notes associated to the Encounter. Date/Time Encounter Note(s) Provider Source Oct 14, 2021 02:03 PM ENDOCRINOLOGY SECURE MESSAGING: DEDE CHRISTIAN [facility] TITLE: ENDOCRINOLOGY SECURE MESSAGING CARE SYS STANDARD TITLE: ENDOCRINOLOGY SECURE MESSAGING DATE OF NOTE: OCT 14, 2021@14:03 ENTRY DATE: OCT 14, 2021@15:03:34 AUTHOR: MERCEDES CHRISTIAN EXP COSIGNER: URGENCY: STATUS: COMPLETED ------Original Message Sent: 10/13/2021 11:56 AM ET From: SANTINO MEEHAN To: Endocrinology [facility]@ Subject: General:Mercedes Tavarez , First I want to apologize for missing our appointment. I was called into the office 30 mins before our appointment. I will reschedule an appointment with you. The lo w sugars I did not have any symptoms I usually take my sugar first thing in the morning. If it is lo w I take a glucose tablet. I take my sugar [facility] ------Original Message Sent: 10/14/2021 03:03 PM ET From: MERCEDES CHRISTIAN To: SANTINO MEEHAN Subject: General:Mercedes Bess Mr. Meehan, [place], please call when able to reschedule. This is particularly concerning if you did not h ave any symptoms with BG's in the 30's/40's. Most brands of glucose tabs are o nly 4 or 5g of carbohydrate each, so most people will need 3 for a BG <70, and we recommend doubling that if BG is all the way under 50. I shared your log/#'s with her as well, as it se ems you may not need the empagliflozin at this point. Friendly re minder that you have an appt coming up with her on 11/01/21. Mercedes Dao MS, RDN, JONN, CDCES Registered Dietitian/Ship Laborer /es/ Mercedes Christian MS, TITA, DINAH Diabetes Care & Marketing Reporting Analyst Signed: 10/14/2021 15:03 Oct 08, 2021 07:46 AM ENDOCRINOLOGY SECURE MESSAGING: DEDE CHRISTIAN [facility] TITLE: ENDOCRINOLOGY SECURE MESSAGING CARE SYS STANDARD TITLE: ENDOCRINOLOGY SECURE MESSAGING DATE OF NOTE: OCT 08, 2021@07:46 ENTRY DATE: OCT 08, 2021@08:46:31 AUTHOR: MERCEDES CHRISTIAN EXP COSIGNER: URGENCY: STATUS: COMPLETED ------Original Message Sent: 10/07/2021 10:19 PM ET From: SANTION MEEHAN To: Endocrinology [facility]@ Subject: General:Mercedes Attachments: BLOOD SUGAR UPDATED.xlsx (57.95 KB) I had my dates mixed up. Here is my latest sprea dsheet. ------Original Message Sent: 10/08/2021 08:45 AM ET From: MERCEDES CHRISTIAN To: SANTINO MEEHAN Subject: General:Mercedes Bess Mr. Meehan - Thank you for sending. I am still in the video r oom if you are running a few minutes behind. I noticed several very low blood sugars on this report (36 on 08/25 and 44 on 09/01 if those are not typos?) Do y ou know what caused these, and did you have any symptoms when your sugar wa s low? If you are unable to discuss in our appointment today, please respond here and confirm what you are currently taking for medications (25mg empaglifl ozin, and I believe you have also started Wegovy since we last spoke?). We ma y need to make some adjustments. Mercedes Dao, , RDN, JONN, DINAH Registered Dietitian/Ship Laborer /es/ Mercedes Christian MS, TITA, DINAH Diabetes Care & Marketing Reporting Analyst Signed: 10/08/2021 08:46
--- OUTSIDE RECORDS SUMMARY | 2022-06-09 12:04 | XMS_ITS | Encounter Summary ---
:1960 Author Organization [facility] Address [address] [place] [address] Support Name Relationship Address Phone MAIDA MEEHAN Unavailable [address] [place] [phone] ELIMADIA GRACIA Unavailable [address] [place] [phone] Insurance Providers: All historical and current Section Date Range: From patient's date of to the date document was created.This section includes the names of all active insurance providers for the patient. Insurance Type of Plan Start of End of Group Member Insurance Policy P [facility]'s Provider Coverage Name Policy Policy Number ID Provider's Figueroa's Relationship Coverage Coverage Telephone Name to Policy Number Figueroa [facility] Jul 17, [facility] [id number] [address], [facility] 2018 DIRECT 15 [phone] SANTINO PLAN [facility] Jul 17, [facility] [id number] MEEHAN [facility] [phone] SANTINO PLAN Selected Encounter This section includes the information on record at [place] for the Encounter. Date/Time Encounter Type Encounter Description Reason Provider Source Oct 08, 2021 08:30 Outpatient Encounter ENDOCRINOLOGY AM IHE Encounter Template Text not used by [place] Plan of Treatment: Future Appointments (+ 6 months) and Future Tests (+/- 45 days) The Plan of Treatment section includes future care activities for the patient from all [place] treatmentfacilities. This section includes future appointments and future orders which are active, pending orscheduled.Future Appointments This section includes appointments that were scheduled to occur 6 months from the date of the Encounter, up to a maximum of 20 appointments. The data comes from all [place] treatment facilities. Appointment Date/Time Appointment Type Appointment Facili ty Name Oct 12, 2021 02:00 PM AMBULATORY - SURGERY HELDER [facility] Nov 01, 2021 08:00 AM AMBULATORY - MEDICINE [facility] C[facility] November 19, 2021 08:30 AM AMBULATORY - MEDICINE [facility] Feb 09, 2022 08:00 AM AMBULATORY - MEDICINE [facility] CARE [facility]YS Mar 25, 2022 08:30 AM AMBULATORY - MEDICINE [facility] Social History: Smoking Status (Most current) and Tobacco Use (All prior to encounter date) This section includes the most current, and the historical, smoking and tobacco-related health factors from the [place] facility where the Encounter took place.Current Smoking Status This section includes the most current smoking, or tobacco-related health factor, from the [place] facility where the Encounter took place. Date/Time Current Smoking Status Comment Facility Nov 03, 2020 09:00 AM VA-TOBACCO FORMER USER [facility] Tobacco Use History This section includes a history of the smoking, or tobacco- related health factors, that were collected on or before the date of the Encounter. The data comes from the [place] facility where the Encounter took place. Date/Time Smoking Status/Tobacco Use Comment [facility] Nov 03, 2020 09:00 AM VA-TOBACCO QUIT 1 TO < 5 V [facility] Jan 07, 2019 12:51 PM VA-TOBACCO FORMER USER [facility] Jan 07, 2019 12:51 PM VA-TOBACCO QUIT < 1 YEAR V [facility] Jul 02, 2018 08:32 AM CURRENT TOBACCO USER [facility] Apr 21, 2017 08:06 AM CURRENT TOBACCO USER [facility] Oct 20, 2016 10:36 AM CURRENT TOBACCO USER [facility] Apr 20, 2016 09:46 AM CURRENT TOBACCO USER [facility] Oct 19, 2015 11:24 AM CURRENT TOBACCO USER [facility] Mar 27, 2015 07:56 AM CURRENT TOBACCO USER [facility] Sep 23, 2014 07:54 AM CURRENT TOBACCO USER [facility] Mar 21, 2014 07:48 AM CURRENT TOBACCO USER [facility] Jun 25, 2013 08:37 AM CURRENT TOBACCO USER [facility] November 19, 2012 11:40 AM CURRENT TOBACCO USER [facility] Apr 02, 2012 08:47 AM CURRENT TOBACCO USER [facility] Sep 20, 2011 02:42 PM CURRENT TOBACCO USER [facility] Oct 08, 2010 10:34 AM CURRENT TOBACCO USER [facility] Dec 24, 2009 11:02 AM CURRENT TOBACCO USER [facility] Dec 24, 2009 11:02 AM TOBACCO OFFERRED STOP [facility] SMO[facility] CLINIC CARE SYS Jul 28, 2009 03:51 PM CURRENT TOBACCO USER [facility] Jul 31, 2008 03:40 PM CURRENT TOBACCO USER [facility] Jul 31, 2008 03:06 PM CURRENT TOBACCO USER [facility] Jul 31, 2008 03:06 PM TOBACCO OFFERRED STOP [facility] S[facility] CARE SYS Jan 29, 2008 01:30 PM CURRENT TOBACCO USER [facility] Jan 29, 2008 01:30 PM TOBACCO OFFERRED PT MEDS V A [facility] (PROVIDER[facility] CARE [facility] Jan 29, 2008 01:30 PM TOBACCO OFFERRED STOP [facility] S[facility] CARE SYS Jan 29, 2008 01:13 PM CURRENT TOBACCO USER [facility] Jan 29, 2008 01:13 PM TOBACCO OFFERRED STOP [facility]ARE SYS Jul 31, 2007 09:48 AM CURRENT TOBACCO USER [facility] Jul 31, 2007 09:48 AM TOBACCO OFFERRED PT MEDS V A [facility] (PROVID[facility]) CARE SYS Jul 31, 2007 09:48 AM TOBACCO OFFERRED STOP [facility] S[facility] CARE SYS Jul 31, 2007 09:14 AM CURRENT TOBACCO USER [facility] Jul 31, 2007 09:14 AM TOBACCO OFFERRED STOP [facility] S[facility] CLINIC CARE SYS November 28, 2006 04:03 PM CURRENT TOBACCO USER [facility] November 28, 2006 04:03 PM TOBACCO OFFERRED PT MEDS V A [facility] (PROVID[facility] CARE SYS November 28, 2006 04:03 PM TOBACCO OFFERRED STOP [facility] SMO[facility] CLINIC CARE SYS November 28, 2006 03:37 PM CURRENT TOBACCO USER [facility] smokes 1 pk/day CARE SYS May 31, 2006 03:53 PM TOBACCO [facility] USE/COUNSELING-PROVIDER [facility]ARE SYS May 31, 2006 03:32 PM TOBACCO [facility] HE[facility] USE/COUNSELING-ANCILLARY CARE SY S Feb 13, 2006 01:07 PM TOBACCO [facility] USE/COUNSELING-ANCILLARY CARE SY S Apr 15, 2003 09:33 AM TOBACCO COUNSELING [facility] Apr 15, 2003 08:38 AM TOBACCO COUNSELING [facility] Oct 14, 2002 08:46 AM TOBACCO COUNSELING [address] [facility] Oct 14, 2002 08:46 AM TOBACCO COUNSELING 2 [facility] Oct 14, 2002 08:46 AM TOBACCO COUNSELING 3 [facility] Apr 17, 2002 09:52 AM TOBACCO COUNSELING 2 [facility] Apr 17, 2002 09:52 AM TOBACCO COUNSELING 3 [facility] Oct 19, 2001 09:25 AM TOBACCO COUNSELING 1 [facility] Oct 19, 2001 09:25 AM TOBACCO COUNSELING 2 [facility] Oct 19, 2001 09:25 AM TOBACCO COUNSELING 3 [facility] Apr 13, 2001 01:36 PM TOBACCO COUNSELING 2 [facility] Apr 13, 2001 01:36 PM TOBACCO COUNSELING 3 [facility] November 15, 2000 02:10 PM TOBACCO [...] the Encounter. The data comes from all [facility] facilities. Date/Time Pathology Report Provider Source Sep 09, 2021 10:30 AM LR SURGICAL PATHOLOGY REPORT: STELLA JARRETT [facility] TITLE: LR SURGICAL PATHOLOGY REPORT [facility] STANDARD TITLE: PATHOLOGY REPORT DATE OF [...] Performing Laboratory: Surgical Pathology Report Performed By: [facility] [CLIA# [id number]] [address] [place] [address] $FTR - - - - - - [...] - - SANTINO MEEHAN STANDARD FORM 515 ID:[id number] SEX:M :1960 AGE: 61 LOC: PROFEE PCP: Raul Tripp MD /maira/ CAMPO G YFANTIS PATHOLOGIST Signed: 09/09/2021 10:30 Encounter Notes: All associated encounter notes This section contains the clinical notes associated to the Encounter. Date/Time Encounter Note(s) Provider Source Oct 08, 2021 08:57 AM NO SHOW NOTE: MERCEDES CHRISTIAN [facility] Break30 [facility] TITLE: NO SHOW PROGRESS NOTE CARE SYS STANDARD TITLE: NO SHOW NOTE DATE OF NOTE: OCT 08, 2021@08:57 ENTRY DATE: OCT 08, 2021@08:57:49 AUTHOR: MERCEDES CHRISTIAN EXP COSIGNER: URGENCY: STATUS: COMPLETED [place] did not attend sched uled appt this morning. Unable to reach him by phone (left vm). He had previously sent BG lo g via secure message - per log he had a BG of 36 on 08/25/21 and BG of 44 on . I additionally sent him a secure message asking for additional context re: hypoglycemia and to c onfirm current DM meds/doses. Will also alert SAVANNA Alas - marielos f/u with her is 11/01/21. /maira/ Mercedes Christian, MS, RDN, CDCES Diabetes Care & Factory Clerk Signed: 10/08/2021 10:37 Receipt Acknowledged By: * AWAITING SIGNATURE * AMBER ALAS
--- OUTSIDE RECORDS SUMMARY | 2022-06-09 12:04 | XMS_ITS | Encounter Summary ---
:1960 Author Organization [facility] Address [address] [place] [address] Support Name Relationship Address Phone ARABELLAMAIDA Mo Unavailable [address] [place] [address] ARABELLAMAIDA Mo Unavailable [address] [place] [address] Insurance Providers: All historical and current Section Date Range: From patient's date of to the date document was created.This section includes the names of all active insurance providers for the patient. Insurance Type of Plan Start of End of Group Member Insurance Policy P [facility]'s Provider Coverage Name Policy Policy Number ID Provider's Figueroa's Relationship Coverage Coverage Telephone Name to Policy Number Figueroa [facility] Jul 17, [facility] [id number] Balbir MEEHAN, PATIENT HEALTH 2018 DIRECT 15 [phone] SANTINO PLAN [facility] Jul 17, [facility] [id number] MEEHAN [facility] 2010 21 [phone] SANTINO PLAN Selected Encounter This section includes the information on record at [place] for the Encounter. Date/Time Encounter Type Encounter Reason Provider Source Description Oct 12, 2021 OFFICE PODIATRY ICD-10-CM Q84.5 JOHNYSANTINO 02:00 PM CONSULTATION Enlarged and J hypertrophic nails with Provider Comments: Enlarged and Hypertrophic Nails IHE Encounter Template Text not used by [place] Assessments - Encounter Diagnoses This section includes the primary and secondary diagnoses documented for the Encounter. Date/Time Primary/Secondary Diagnosis Name Provider Source Diagnosis Oct 12, 2021 PRIMARY Yayo and SANTINO MCCLAIN 02:29 PM hypertrophic nails J [facility] Oct 12, 2021 SECONDARY Type 2 diabetes SANTINO MCCLAIN 02:29 PM mellitus without J [facility] complications Oct 12, 2021 SECONDARY Xerosis cutis SANTINO MCCLAIN 02:29 PM J [facility] Plan of Treatment: Future Appointments (+ 6 months) and Future Tests (+/- 45 days) The Plan of Treatment section includes future care activities for the patient from all [place] treatmentfacilities. This section includes future appointments and future orders which are active, pending orscheduled.Future Appointments This section includes appointments that were scheduled to occur 6 months from the date of the Encounter, up to a maximum of 20 appointments. The data comes from all [place] treatment facilities. Appointment Date/Time Appointment Type Appointment Facili ty Name Nov 01, 2021 08:00 AM AMBULATORY MEDICINE [facility] November 19, 2021 08:[address] [facility] MEDICINE [facility] Feb 09, 2022 08:[address] [facility] Mar 25, 2022 08:[address] [facility] MEDICINE [facility] Encounter Notes: All associated encounter notes This section contains the clinical notes associated to the Encounter. Date/Time Encounter Note(s) Provider Source Oct 12, 2021 02:23 PM PODIATRY CONSULT: SANTINO MCCLAIN [facility] LOCAL TITLE: PODIATRY CONSULT STANDARD TITLE: PODIATRY CONSULT DATE OF NOTE: OCT 12, 2021@14:23 ENTRY DATE: OCT 12, 2021@14:23:13 AUTHOR: SANTINO MCCLAIN EXP COSIGNER: URGENCY: STATUS: COMPLETED S:[id number][LATE-parking] SANTINO MEEHAN 61yo MALE s een at [facility]/PODIATRY for Routine Podiatry Consult from Requesting Provider:Sharla CHARLES Provisional Diagnosis: Type 2 Diabetes Mellitus without Complications(ICD-10-CM E11.9)Reason For Request: Please see this message from [facility]. Please schedule with [place] Podiatry service or forward to [facility] as per your judgment . 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 Skin Temp. is noted to be warm proximal to warm distally. Hair growth decr. di stally. Edema is not appreciated on evaluation of the bilateral foot . Neuro: DTR intact, Epicritic sensation is intact to protective threshold via #10 monofilament wire. Derm: Nails 1-10 are slightly elongated 1-5 b/l; no webspace macerations, open lesions, or ulcerations, xero sis le/feet. Pigmentary changes (discoloration) are not appr eciated Skin exhibits normal, texture and turgor on the bilateral foot. The skin color is unremarkable. M/SK: Muscle strength appears to be normal for p lantarflexion, dorsiflexion, inversion and eversion of the right and left fo ot and ankle. No crepitus is felt with joint motion on the right foot and left foot. There are no gross static deformities of the ri ght foot or left foot. X-RAYS:na A: slightly elongated nails 1-10 xerosis le/feet DM[PAVE 0] P/TX: Debride nails 1-10 DM foot exam/eval/educ. Apply lotion daily to feet Thank you for this consult /es/ SANTINO MCCLAIN DPM PODIATRY ATTENDING Signed: 10/12/2021 14:29
--- OUTSIDE RECORDS SUMMARY | 2022-06-09 12:04 | XMS_ITS | Encounter Summary ---
:1960 Author Organization [facility] rs Address [address] [place] [address] Support Name Relationship Address Phone ELIMAIDA GRACIA Unavailable [address] [place] [phone] ELIMAIDA GRACIA Unavailable [address] [place] [phone] Insurance Providers: All historical and current Section Date Range: From patient's date of to the date document was created.This section includes the names of all active insurance providers for the patient. Insurance Type of Plan Start of End of Group [facility] Provider Coverage Name Policy Policy Number ID Provider's Figueroa's Relationship Coverage Coverage Telephone Name to Policy Number Figueroa [facility] Jul 17, [facility] [id number] Balbir MEEHAN, PATIENT HEALTH 2018 DIRECT 15 [phone] SANTINO PLAN [facility] Jul 17, [facility] [id number] MEEHAN [facility] [phone] SANTINO PLAN Selected Encounter This section includes the information on record at [place] for the Encounter. Date/Time Encounter Type Encounter Description Reason Provider Source Oct 13, 2021 06:28 Outpatient Encounter [facility] AM CONSULT IHE Encounter Template Text not used [...] 20 appointments. The data comes from all [place] treatment facilities. Appointment Date/Time Appointment Type Appointment Facili ty Name Nov 01, 2021 08:00 AM AMBULATORY - MEDICINE [facility] November 19, 2021 08:30 AM AMBULATORY - MEDICINE [facility] Feb 09, 2022 08:[address] [facility] Mar 25, 2022 08:30 AM [facility]ORY MEDICINE [facility] Social History: Smoking Status (Most current) and Tobacco Use (All prior to encounter date) This section includes the most current, and the historical, smoking and tobacco-related health factors from the [place] facility where the Encounter took place.Current Smoking Status This section includes the most current smoking, or tobacco-related health factor, from the [place] facility where the Encounter took place. Date/Time Current Smoking Status Comment Facility Nov 03, 2020 09:00 AM VA-TOBACCO FORMER USER [facility] Tobacco Use History This section includes a history of the smoking, or tobacco- related health factors, that were collected on or before the date of the Encounter. The data comes from the [place] facility where the Encounter took place. Date/Time Smoking Status/Tobacco Use Comment Facil it Nov 03, 2020 09:00 AM [place]-TOBACCO QUIT 1 TO < 5 V [facility] Jan 07, 2019 12:51 PM VA-TOBACCO FORMER USER [facility] Jan 07, 2019 12:51 PM VA-TOBACCO QUIT < 1 YEAR V [facility] Jul 02, 2018 08:32 AM CURRENT TOBACCO USER [facility] Apr 21, 2017 08:06 AM CURRENT TOBACCO USER [facility] Oct 20, 2016 10:36 AM CURRENT TOBACCO USER [facility] Apr 20, 2016 09:46 AM CURRENT TOBACCO USER [facility] Oct 19, 2015 11:24 AM CURRENT TOBACCO USER [facility] Mar 27, 2015 07:56 AM CURRENT TOBACCO USER [facility] Sep 23, 2014 07:54 AM CURRENT TOBACCO USER [facility] Mar 21, 2014 07:48 AM CURRENT TOBACCO USER [facility] Jun 25, 2013 08:37 AM CURRENT TOBACCO USER [facility] November 19, 2012 11:40 AM CURRENT TOBACCO USER [facility] Apr 02, 2012 08:47 AM CURRENT TOBACCO USER [facility] Sep 20, 2011 02:42 PM CURRENT TOBACCO USER [facility] Oct 08, 2010 10:34 AM CURRENT TOBACCO USER [facility] Dec 24, 2009 11:02 AM CURRENT TOBACCO USER [facility] Dec 24, 2009 11:02 AM TOBACCO OFFERRED STOP [facility] Jul 28, 2009 03:51 PM CURRENT TOBACCO USER [facility] Jul 31, 2008 03:40 PM CURRENT TOBACCO USER [facility] Jul 31, 2008 03:06 PM CURRENT TOBACCO USER [facility] Jul 31, 2008 03:06 PM TOBACCO OFFERRED STOP [facility] Jan 29, 2008 01:30 PM CURRENT TOBACCO USER [facility] Jan 29, 2008 01:30 PM TOBACCO OFFERRED PT MEDS V A [facility] (PROVID[facility] CARE [facility] Jan 29, 2008 01:30 PM TOBACCO OFFERRED STOP [facility] Jan 29, 2008 01:13 PM CURRENT TOBACCO USER [facility] Jan 29, 2008 01:13 PM TOBACCO OFFERRED STOP [facility] Jul 31, 2007 09:48 AM CURRENT TOBACCO USER [facility] Jul 31, 2007 09:48 AM TOBACCO OFFERRED PT MEDS V A [facility] Jul 31, 2007 09:48 AM TOBACCO OFFERRED STOP [facility] Jul 31, 2007 09:14 AM CURRENT TOBACCO USER [facility] Jul 31, 2007 09:14 AM TOBACCO OFFERRED STOP [facility] November 28, 2006 04:03 PM CURRENT TOBACCO USER [facility] November 28, 2006 04:03 PM TOBACCO OFFERRED PT MEDS V A [facility] ([facility] November 28, 2006 04:03 PM TOBACCO OFFERRED STOP [facility] November 28, 2006 03:37 PM CURRENT TOBACCO USER [facility] smokes 1 pk/day CARE SYS May 31, 2006 03:53 PM TOBACCO [facility] HE[facility] USE/COUNSELING-PROVIDER CARE SYS May 31, 2006 03:32 PM TOBACCO [facility] HEALTH USE/COUNSELING-ANCILLARY CARE SY S Feb 13, 2006 01:07 PM TOBACCO [facility] HEALTH USE/COUNSELING-ANCILLARY CARE SY S Apr 15, 2003 09:33 AM TOBACCO COUNSELING 3 [facility] Apr 15, 2003 08:38 AM TOBACCO COUNSELING 2 [facility] Oct 14, 2002 08:46 AM TOBACCO COUNSELING 1 [facility] Oct 14, 2002 08:46 AM TOBACCO COUNSELING 2 [facility] Oct 14, 2002 08:46 AM TOBACCO COUNSELING 3 [facility] Apr 17, 2002 09:52 AM TOBACCO COUNSELING 2 [facility] Apr 17, 2002 09:52 AM TOBACCO COUNSELING 3 [facility] Oct 19, 2001 09:25 AM TOBACCO COUNSELING 1 [facility] Oct 19, 2001 09:25 AM TOBACCO COUNSELING 2 [facility] Oct 19, 2001 09:25 AM TOBACCO COUNSELING 3 [facility] Apr 13, 2001 01:36 PM TOBACCO COUNSELING 2 [facility] Apr 13, 2001 01:36 PM TOBACCO COUNSELING 3 [facility] November 15, 2000 02:10 PM TOBACCO COUNSELING 1 [facility] Encounter Notes: All associated encounter notes This section contains the clinical notes associated to the Encounter. Date/Time Encounter Note(s) Provider Source Oct 13, 2021 06:29 AM NONVA CONSULT: RYLAN KAY [facility] LOCAL TITLE: COMMUNITY CARE CONSULT RESULT CARE SYS STANDARD TITLE: NONVA CONSULT DATE OF NOTE: OCT 13, 2021@06:29 ENTRY DATE: OCT 13, 2021@06:29:06 AUTHOR: RYLAN KAY EXP COSIGNER: URGENCY: STATUS: COMPLETED The following Non VA Care consult has be en completed. See scanned document for report. NON VA Care Consult Results Other: PODIATRY RFAS:09/16/21 MR DOS:03/24/21 , 06/23/21 /maira/ RYLAN KAY Production Controller Signed: 10/13/2021 06:31
--- OUTSIDE RECORDS SUMMARY | 2022-06-09 12:05 | XMS_ITS | Encounter Summary ---
:1960 Author Organization [facility] rs Address [address] [place] [address] Support Name Relationship Address Phone ARABELLALASHAWN Mo Unavailable [address] [place] [phone] ELILASHAWN GRACIA Unavailable [address] [place] [phone] Insurance Providers: All historical and current Section Date Range: From patient's date of to the date document was created.This section includes the names of all active insurance providers for the patient. Insurance Type of Plan Start of End of Group Member Insurance Policy [facility] Provider Coverage Name Policy Policy Number ID Provider's Figueroa's Relationship Coverage Coverage Telephone Name to Policy Number Figueroa [facility] Jul 17, [facility] EM[facility] [id number], [facility] 2018 DIRECT 15 [phone] S[address]AN [facility] Jul 17, [facility] [id number] POWELL [facility] 2010 21 [phone] SANTINO PLAN Selected Encounter This section includes the information on record at PA for the Encounter. Date/Time Encounter Type Encounter Reason Provider Source Description November 19, 2021 OFFICE O/P EST ENDOCRINOLOGY ICD-10-CM E11.9 ANANDA CHRISTIAN 08:30 AM HI 40-54 MIN Type 2 diabetes AN F mellitus without complications with Provider Comments: Diabetes Mellitus Type 2 ([facility] [id number]) [facility] Encounter Template Text not used by PA Assessments - Encounter Diagnoses This section includes the primary and secondary diagnoses documented for the Encounter. Date/Time Primary/Secondary Diagnosis Name Provider Source Diagnosis November 22, 2021 PRIMARY Type 2 diabetes FLORIN CHRISTIAN PA ANDREW Wood 02:46 PM mellitus without N [facility]ALTH CARE complications SYS Plan of Treatment: Future Appointments (+ 6 months) and Future Tests (+/- 45 days) The Plan of Treatment section includes future care activities for the patient from all PA treatmentfacilities. This section includes future appointments and future orders which are active, pending orscheduled.Future Appointments This section includes appointments that were scheduled to occur 6 months from the date of the Encounter, up to a maximum of 20 appointments. The data comes from all PA treatment facilities. Appointment Date/Time Appointment Type Appointment Facili ty Name Feb 09, 2022 08:00 AM AMBULATORY - MEDICINE [facility] Mar 25, 2022 08:30 AM AMBULATORY MEDICINE [facility] Social History: Smoking Status (Most current) and Tobacco Use (All prior to encounter date) This section includes the most current, and the historical, smoking and tobacco-related health factors from the PA facility where the Encounter took place.Current Smoking Status This section includes the most current smoking, or tobacco-related health factor, from the PA facility where the Encounter took place. Date/Time Current Smoking Status Comment Facility Nov 03, 2020 09:00 AM VA-TOBACCO FORMER USER [facility] Tobacco Use History This section includes a history of the smoking, or tobacco- related health factors, that were collected on or before the date of the Encounter. The data comes from the PA facility where the Encounter took place. Date/Time Smoking Status/Tobacco Use Comment Facil [facility] Nov 03, 2020 09:00 AM PA-TOBACCO QUIT 1 TO < 5 [facility] Jan 07, 2019 12:51 PM VA-TOBACCO FORMER USER [facility] Jan 07, 2019 12:51 PM VA-TOBACCO QUIT < 1 YEAR V [facility] Jul 02, 2018 08:32 AM CURRENT TOBACCO USER [facility] Apr 21, 2017 08:06 AM CURRENT TOBACCO USER [facility] Oct 20, 2016 10:36 AM CURRENT TOBACCO USER [facility] Apr 20, 2016 09:46 AM CURRENT TOBACCO USER [facility] Oct 19, 2015 11:24 AM CURRENT TOBACCO USER [facility] Mar 27, 2015 07:56 AM CURRENT TOBACCO USER [facility] Sep 23, 2014 07:54 AM CURRENT TOBACCO USER [facility] Mar 21, 2014 07:48 AM CURRENT TOBACCO USER [facility] Jun 25, 2013 08:37 AM CURRENT TOBACCO USER [facility] November 19, 2012 11:40 AM CURRENT TOBACCO USER [facility] Apr 02, 2012 08:47 AM CURRENT TOBACCO USER [facility] Sep 20, 2011 02:42 PM CURRENT TOBACCO USER [facility] Oct 08, 2010 10:34 AM CURRENT TOBACCO USER [facility] Dec 24, 2009 11:02 AM CURRENT TOBACCO USER [facility] Dec 24, 2009 11:02 AM TOBACCO OFFERRED STOP [facility] CARE SYS Jul 28, 2009 03:51 PM CURRENT TOBACCO USER [facility] Jul 31, 2008 03:40 PM CURRENT TOBACCO USER [facility] Jul 31, 2008 03:06 PM CURRENT TOBACCO USER [facility] Jul 31, 2008 03:06 PM TOBACCO OFFERRED STOP [facility] Jan 29, 2008 01:30 PM CURRENT TOBACCO USER [facility] Jan 29, 2008 01:30 PM TOBACCO OFFERRED PT MEDS V A [facility] ([facility]OVID[facility] CARE SYS Jan 29, 2008 01:30 PM TOBACCO OFFERRED STOP [facility] Jan 29, 2008 01:13 PM CURRENT TOBACCO USER [facility] Jan 29, 2008 01:13 PM TOBACCO OFFERRED STOP [facility] Jul 31, 2007 09:48 AM CURRENT TOBACCO USER [facility] Jul 31, 2007 09:48 AM TOBACCO OFFERRED PT MEDS V A [facility] C[facility] SYS Jul 31, 2007 09:48 AM TOBACCO OFFERRED STOP [facility] S[facility] Jul 31, 2007 09:14 AM CURRENT TOBACCO USER [facility] Jul 31, 2007 09:14 AM TOBACCO OFFERRED STOP [facility] SYS November 28, 2006 04:03 PM CURRENT TOBACCO USER [facility] November 28, 2006 04:03 PM TOBACCO OFFERRED PT MEDS V A [facility] CARE SYS November 28, 2006 04:03 PM TOBACCO OFFERRED STOP [facility] CARE SYS November 28, 2006 03:37 PM CURRENT TOBACCO USER [facility] smoke 1 pk/day CARE SYS May 31, 2006 03:53 PM TOBACCO [facility] HEALTH USE/COUNSELING-PROVIDER CARE SYS May 31, 2006 03:32 PM TOBACCO [facility] HEALTH USE/COUNSELING-ANCILLARY CARE SY S Feb 13, 2006 01:07 PM TOBACCO [facility] HEALTH USE/COUNSELING-ANCILLARY CARE SY S Apr 15, 2003 09:33 AM TOBACCO COUNSELING [address] [facility] Apr 15, 2003 08:38 AM TOBACCO COUNSELING [address] [facility] Oct 14, 2002 08:46 AM TOBACCO COUNSELING [address] [facility] Oct 14, 2002 08:46 AM TOBACCO COUNSELING 2 [facility] Oct 14, 2002 08:46 AM TOBACCO COUNSELING 3 [facility] Apr 17, 2002 09:52 AM TOBACCO COUNSELING 2 [facility] Apr 17, 2002 09:52 AM TOBACCO COUNSELING 3 [facility] Oct 19, 2001 09:25 AM TOBACCO COUNSELING 1 [facility] Oct 19, 2001 09:25 AM TOBACCO COUNSELING 2 [facility] Oct 19, 2001 09:25 AM TOBACCO COUNSELING 3 [facility] Apr 13, 2001 01:36 PM TOBACCO COUNSELING 2 [facility] Apr 13, 2001 01:36 PM TOBACCO COUNSELING 3 [facility] November 15, 2000 02:10 PM TOBACCO COUNSELING 1 [facility] Encounter Notes: All associated encounter notes This section contains the clinical notes associated to the Encounter. Date/Time Encounter Note(s) Provider Source November 19, 2021 07:30 AM DIABETOLOGY EDUCATION NOTE: FLORIN CHRISTIAN [facility] TITLE: DIABETES EDUCATION NOTE CARE SYS STANDARD TITLE: DIABETOLOGY EDUCATION NOTE DATE OF NOTE: NOVEMBER 19, 2021@07:30 ENTRY DATE: NOVEMBER 19, 2021@07:30:14 AUTHOR: MERCEDES CHRISTIAN EXP COSIGNER: URGENCY: STATUS: COMPLETED [facility] Unless otherwise noted, the following informatio n will remain unchanged for subsequent visits. 1. Patient has given verbal consent to use teleh ealth for this encounter: Yes 2. Verify Emergency contact: Lashawn Powell - a. Home: 3. Identify any privacy concerns - Ensure martha cobian is in a private place for the visit: Yes If NO , request that the patient move to [facility] location. 4. Confirm that audiovisual equipment is functio niharika: Yes a. Resend link to alternative device (e.g. tabl et, laptop): n/a 5. If patient appears to be suicidal or homicida l, use best clinical judgement to refer patient to appropriate resou rce (e.g. [place] crisis line) 6. Reason for visit: endocrine 7. Urgency of the appointment: Routine Contact time: 45 min Mr. Piña is a 61 y/o BLACK OR JACQUE N MALE with PMH T2DM (dx'd October 2018), HTN, HLD, seen for education/nutrit ion f/u visit. Work has been very busy/stre ssful - now officially back in the office 2-3x/week but lately has needed to be on site more often t [place] usual. Nutrition: Appetite had consistently been quite poor for some time, and there was concern he may not be co nsuming enough kcal/variety in diet. States appetite has improved significantly; skipping fewer meals. 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 Eating dinner much later than usual due to work. Eating salad/vegetables less frequently than in the past. B - stapleton/egg croissant L - 1/2 portion of beef and white rice ( if at home, may have sandwich or salad or leftovers) D - recent dinner meals incl ude [employer] (broccoli/cheese soup with crackers) or 2 hot dogs with fries, or 9 turkey sub sandwich. Snacks - grapes, fig newtons, occasionally mini apple pie/turnover Beverages - water, crystal light, regular lamar zahraa Exercise: Reports step count is much higher on-site days (6-7k steps per day vs 3-4k steps when working from home). He also recently started doing Mover reality exercise programs (v ariety of lengths, some as short as 15-20 min). Has resistance bands but has not been using recently . Dm regimen: empa dc'd 11/01/21, now only on saxen da for dm/wt control Pertinent labs: 08/17/21 a1c 5.7% SMBG - fasting range 75-101 past few weeks (had not received message to d/c sukhjinder right away, so had continued taking until 2) Anthropometrics: Ht: 72 in [182.9 cm] (05/18/2021 09:34) Wt: 226.2 lb [102.60 kg] (11/22/2021 14:21) BMI: 30.7 Weight has trended up in rec ent weeks due to increased stress with work, changes to eating habits. Pt reports weight goal of 215# by next f/u. Education/goal-setting: Commended for efforts thus f ar with diet/lifestyle changes, glycemic control, wt lost. Reviewed progress towards goals previously set. Discussed dealing with challenges of current work schedule, increase st ressed/more on-site time, and how this has lead to increased restaurant food i ntake, decreased vegetable intake, later dinner time. Mutually established goals: - Maintain 6-7k steps/day on-site days - Increase to 6k steps/day telework days - Resume strength routine with resistance bands - Increase salad/non-starchy vegetable intake - Eat dinner earlier Education Assessment: CONTENT: Nutrition, DSME TEACHING METHOD: Dialogue/Interactive EVALUATION OF LEARNING: Communicates Understandi ng INDIVIDUAL WHO WAS TRAINED: Patient DISCIPLINE PROVIDING EDUCATION: RD/CDCES Plan: - Education provided as above - C f/u appt 03/25/22 @ 8:30AM /maira/ Mercedes Christian MS, RDN, CDCES Diabetes Care & Swimming Pool Servicer Signed: 11/22/2021 14:46
--- OUTSIDE RECORDS SUMMARY | 2022-06-09 12:05 | XMS_ITS | Encounter Summary ---
:1960 Author Organization [facility] Address [address] [place] [address] Support Name Relationship Address Phone ELIMAIDA GRACIA Unavailable [address] [place] [phone] MAIDA POWELL Unavailable [address] [place] [phone] Insurance Providers: All historical and current Section [...] Telephone Name to Policy Number Figueroa [facility] Jul 17, [facility] [id number], PATIENT HEALTH 2018 DIRECT 15 [phone] SANTINO PLAN [facility] Jul 17, [facility] [id number] GRACIA [facility] [phone] S[address]AN Selected Encounter This section includes the information on record at [place] for the Encounter. Date/Time Encounter Type Encounter Description Reason Provider Source November 15, 2021 Outpatient ENDOCRINOLOGY SAMUEL MARSHALL 08:46 AM Encounter [facility] Encounter Template Text not used by HI Plan of Treatment: Future Appointments (+ 6 [...] 20 appointments. The data comes from all [place] treatment facilities. Appointment Date/Time Appointment Type Appointment Facili ty Name November 19, 2021 08:30 AM AM[facility]ULATORY - [facility]ICINE [facility] Feb 09, 2022 08:00 AM AMBULATORY MEDICINE [facility] Mar 25, 2022 08:30 AM AMBULATORY MEDICINE [facility] Social History: Smoking Status (Most current) and Tobacco Use (All prior to encounter date) This section includes the most current, and the historical, smoking and tobacco-related health factors from the [place] facility where the Encounter took place.Current Smoking Status This section includes the most current smoking, or tobacco-related health factor, from the HI facility where the Encounter took place. Date/Time Current Smoking Status Comment Facility Nov 03, 2020 09:00 AM VA-TOBACCO FORMER USER [facility] Tobacco Use History This section includes a history of the smoking, or tobacco- related health factors, that were collected on or before the date of the Encounter. The data comes from the [place] facility where the Encounter took place. Date/Time Smoking Status/Tobacco Use Comment [facility] Nov 03, 2020 09:00 AM VA-TOBACCO QUIT 1 TO < 5 V [facility] Jan 07, 2019 12:51 PM VA-TOBACCO FORMER USER [facility] Jan 07, 2019 12:51 PM VA-TOBACCO QUIT < 1 YEAR V [facility] Jul 02, 2018 08:32 AM CURRENT TOBACCO USER [facility] Apr 21, 2017 08:06 AM CURRENT TOBACCO USER [facility] Oct 20, 2016 10:36 AM CURRENT TOBACCO USER [facility] Apr 20, 2016 09:46 AM CURRENT TOBACCO USER [facility] Oct 19, 2015 11:24 AM CURRENT TOBACCO USER [facility] Mar 27, 2015 07:56 AM CURRENT TOBACCO USER [facility] Sep 23, 2014 07:54 AM CURRENT TOBACCO USER [facility] Mar 21, 2014 07:48 AM CURRENT TOBACCO USER [facility] Jun 25, 2013 08:37 AM CURRENT TOBACCO USER [facility] November 19, 2012 11:40 AM CURRENT TOBACCO USER [facility] Apr 02, 2012 08:47 AM CURRENT TOBACCO USER [facility] Sep 20, 2011 02:42 PM CURRENT TOBACCO USER [facility] S[facility] Oct 08, 2010 10:34 AM CURRENT TOBACCO USER [facility] Dec 24, 2009 11:02 AM CURRENT TOBACCO USER [facility] Dec 24, 2009 11:02 AM TOBACCO OFFERRED STOP [facility] CARE [facility] Jul 28, 2009 03:51 PM CURRENT TOBACCO USER [facility] Jul 31, 2008 03:40 PM CURRENT TOBACCO USER [facility] Jul 31, 2008 03:06 PM CURRENT TOBACCO USER [facility] Jul 31, 2008 03:06 PM TOBACCO OFFERRED STOP [facility] CARE SYS Jan 29, 2008 01:30 PM CURRENT TOBACCO USER [facility] Jan 29, 2008 01:30 PM TOBACCO OFFERRED PT MEDS V A [facility] (PROVID[facility]) CARE SYS Jan 29, 2008 01:30 PM TOBACCO OFFERRED STOP [facility] C[facility] Jan 29, 2008 01:13 PM CURRENT TOBACCO USER [facility] Jan 29, 2008 01:13 PM TOBACCO OFFERRED STOP [facility] C[facility] S[facility] Jul 31, 2007 09:48 AM CURRENT TOBACCO USER [facility] Jul 31, 2007 09:48 AM TOBACCO OFFERRED PT MEDS V A [facility] CARE SYS Jul 31, 2007 09:48 AM TOBACCO OFFERRED STOP [facility] CARE SYS Jul 31, 2007 09:14 AM CURRENT TOBACCO USER [facility] Jul 31, 2007 09:14 AM TOBACCO OFFERRED STOP [facility] CARE SYS November 28, 2006 04:03 PM CURRENT TOBACCO USER [facility] S[facility] November 28, 2006 04:03 PM TOBACCO OFFERRED PT MEDS V A [facility] CARE SYS November 28, 2006 04:03 PM TOBACCO OFFERRED STOP [facility] S[facility] CARE SYS November 28, 2006 03:37 PM CURRENT TOBACCO USER [facility] smokes 1 pk/day CARE SYS May 31, 2006 03:53 PM TOBACCO [facility] HEALTH USE/COUNSELING-PROVIDER CARE SYS May 31, 2006 03:32 PM TOBACCO [facility] HEALTH USE/COUNSELING-ANCILLARY CARE SY S Feb 13, 2006 01:07 PM TOBACCO [facility] USE/COUNSELING-ANCILLARY CARE SY S Apr 15, 2003 09:33 AM TOBACCO COUNSELING 3 [facility] Apr 15, 2003 08:38 AM TOBACCO COUNSELING 2 [facility] Oct 14, 2002 08:46 AM TOBACCO COUNSELING 1 [facility] Oct 14, 2002 08:46 AM TOBACCO COUNSELING 2 [facility] Oct 14, 2002 08:46 AM TOBACCO COUNSELING 3 [facility] Apr 17, 2002 09:52 AM TOBACCO COUNSELING 2 [facility] Apr 17, 2002 09:52 AM TOBACCO COUNSELING 3 [facility] Oct 19, 2001 09:25 AM TOBACCO COUNSELING 1 [facility] Oct 19, 2001 09:25 AM TOBACCO COUNSELING 2 [facility] Oct 19, 2001 09:25 AM TOBACCO COUNSELING 3 [facility] Apr 13, 2001 01:36 PM TOBACCO COUNSELING 2 [facility] Apr 13, 2001 01:36 PM TOBACCO COUNSELING 3 [facility] November 15, 2000 02:10 PM TOBACCO COUNSELING 1 [facility] Encounter Notes: All associated encounter notes This section contains the clinical notes associated to the Encounter. Date/Time Encounter Note(s) Provider Source November 15, 2021 08:46 AM ENDOCRINOLOGY SECURE MESSAGING: KIARRA MARSHALL [facility] TITLE: ENDOCRINOLOGY SECURE MESSAGING [facility] STANDARD TITLE: ENDOCRINOLOGY SECURE MESSAGING DATE OF NOTE: NOVEMBER 15, 2021@08:46 ENTRY DATE: NOVEMBER 15, 2021@09:46:43 AUTHOR: SAMUEL MARSHALL EXP COSIGNER: URGENCY: STATUS: COMPLETED ------Original Message Sent: 11/10/2021 02:48 PM ET From: SANTINO POWELL To: Endocrinology [facility]@ Subject: General:Dr. Amber Alas Good Afternoon, My needle injector broke yesterday is it possibl e to get a replacement. ------Original Message Sent: 11/10/2021 02:55 PM ET From: SAMUEL MARSHALL To: SANTINO POWELL Subject: General:Dr. Amber Alas Hi Mr. Powell, Are you referring to the black lancet figueroa in your glucometer kit? ------Original Message Sent: 11/15/2021 06:32 AM ET From: SANTINO POWELL To: Endocrinology [facility]@ Subject: General:Dr. Amber Alas Yes for the FreeStyle kit ------Original Message Sent: 11/15/2021 09:46 AM ET From: SAMUEL MARSHALL To: SANTINO POWELL Subject: General:Dr. Amber Alas Ok! Unfortunately I can't order the lancet holde r separately. I ordered another glucometer kit for you and sen t the Rx order to your Endo provider for signature. Have a blessed day! /maira/ SAMUEL MARSHALL MS, RN, CDCES, CNL RN Coordinator, Endo/DM Service Signed: 11/15/2021 09:46 Receipt Acknowledged By: * AWAITING SIGNATURE * AMBER ALAS
--- OUTSIDE RECORDS SUMMARY | 2022-06-09 12:05 | XMS_ITS | Encounter Summary ---
:1960 Author Organization [facility] rs Address [address] [place] [address] Support Name Relationship Address Phone ARABELLALASHAWN Mo Unavailable [address] [place] [phone] ELILASHAWN GRACIA Unavailable [address] [place] [phone] Insurance Providers: All historical and current Section Date Range: From patient's date of to the date document was created.This section includes the names of all active insurance providers for the patient. Insurance Type of Plan Start of End of Group Member [facility] Coverage Name Policy Policy Number ID Provider's Figueroa's Relationship Coverage Coverage Telephone Name to Policy Number Figueroa [facility] [place] 17, [facility] [id number] [address], PATIENT HEALTH 2018 DIRECT 15 [phone] [employer] [facility] [place] Jul 17, [facility] [id number] [address] POWELL [facility] 2010 21 [phone] S[employer]INO PLAN Selected Encounter This section includes the information on record at [place] for the Encounter. Date/Time Encounter Type Encounter Reason Provider Source Description Nov 01, 2021 OFFICE O/P EST ENDOCRINOLOGY ICD-10-CM E11.9 SETH LAAS NO 08:00 AM MOD 30-39 MIN Type 2 diabetes N C mellitus without complications with Provider Comments: Diabetes Mellitus Type 2 ([facility] [id number]) IHE Encounter Template Text not used by [place] Assessments - Encounter Diagnoses This section includes the primary and secondary diagnoses documented for the Encounter. Date/Time Primary/Secondary Diagnosis Name Provider Source Diagnosis Nov 01, 2021 PRIMARY Type 2 diabetes AMBER ALAS 08:35 AM mellitus without [facility] complications S[facility] Nov 01, 2021 SECONDARY Body mass index AMBER ALAS [place] ANDREW Wood 08:35 AM [BMI] 30.0-30.9, [facility] adult [facility] Nov 01, 2021 SECONDARY Essential (primary) AMBER ALAS [place] DAVON MARTINEZ 08:35 AM hypertension [facility] Nov 01, 2021 SECONDARY Hyperlipidemia, AMBER ALAS [place]W Wood 08:35 AM unspecified [facility] Nov 01, 2021 SECONDARY Obesity, AMBER ALAS [facility] 08:35 AM unspecified [facility] SY Plan of Treatment: Future Appointments (+ 6 months) and Future Tests (+/- 45 days) The Plan of Treatment section includes future care activities for the patient [facility] [place] [facility] This section includes future appointments and future orders which are active, pending orscheduled.Future Appointments This section includes appointments that were scheduled to occur 6 months from the date of the Encounter, up to a maximum of 20 appointments. The data comes from all [place] treatment facilities. Appointment Date/Time Appointment Type Appointment Facili ty Name November 19, 2021 08:30 AM AMBULATORY - MED[facility] Feb 09, 2022 08:00 AM AMBULATORY MEDICINE [facility] SYS Mar 25, 2022 08:30 AM AMBULATORY MEDICINE [facility] Vital Signs: All taken on the encounter date This section contains inpatient and outpatient Vital Signs collected on the date of the Encounter. Date/Time Temperature Pulse Blood Respiratory SP02 Pain Height Weight John dy Source Pressure Rate Mass Index Oct 18, 222 lb 30 [place] 2021 08:27 MARYLAN AM [facility] Social History: Smoking Status (Most current) and [...] 03, 2020 09:00 AM VA-TOBACCO FORMER USER [facility] Tobacco Use History This section includes a history of the smoking, or tobacco- related health factors, that were collected on or before the date of the Encounter. The data comes from the [place] facility where the Encounter took place. Date/Time Smoking Status/Tobacco Use Comment [facility] it Nov 03, 2020 09:00 AM VA-TOBACCO QUIT 1 TO < 5 V [facility] S[facility] Jan 07, 2019 12:51 PM VA-TOBACCO FORMER USER [facility] SYS Jan 07, 2019 12:51 PM VA-TOBACCO QUIT < 1 YEAR V [facility] SYS Jul 02, 2018 08:32 AM CURRENT TOBACCO USER [facility] SYS Apr 21, 2017 08:06 AM CURRENT TOBACCO USER [facility] SYS Oct 20, 2016 10:36 AM CURRENT TOBACCO USER [facility] SYS Apr 20, 2016 09:46 AM CURRENT TOBACCO USER [facility] SYS Oct 19, 2015 11:24 AM CURRENT TOBACCO USER [facility] SYS Mar 27, 2015 07:56 AM CURRENT TOBACCO USER [facility] S[facility] Sep 23, 2014 07:54 AM CURRENT TOBACCO USER [facility] S[facility] Mar 21, 2014 07:48 AM CURRENT TOBACCO USER [facility] S[facility] Jun 25, 2013 08:37 AM CURRENT TOBACCO USER [facility] S[facility] November 19, 2012 11:40 AM CURRENT TOBACCO USER [facility] SYS Apr 02, 2012 08:47 AM CURRENT TOBACCO USER [facility] SYS Sep 20, 2011 02:42 PM CURRENT TOBACCO USER [facility] SYS Oct 08, 2010 10:34 AM CURRENT TOBACCO USER [facility] S[facility] Dec 24, 2009 11:02 AM CURRENT TOBACCO USER [facility] S[facility] Dec 24, 2009 11:02 AM TOBACCO OFFERRED STOP [facility] SYS Jul 28, 2009 03:51 PM CURRENT TOBACCO USER [facility] SYS Jul 31, 2008 03:40 PM CURRENT TOBACCO USER [facility] SYS Jul 31, 2008 03:06 PM CURRENT TOBACCO USER [facility] SYS Jul 31, 2008 03:06 PM TOBACCO OFFERRED STOP [facility] SYS Jan 29, 2008 01:30 PM CURRENT TOBACCO USER [facility] S[facility] Jan 29, 2008 01:30 PM TOBACCO OFFERRED PT MEDS V A [facility] ([facility] SYS Jan 29, 2008 01:30 PM TOBACCO OFFERRED STOP [facility] S[facility] CARE SYS Jan 29, 2008 01:13 PM CURRENT TOBACCO USER [facility] SYS Jan 29, 2008 01:13 PM TOBACCO OFFERRED STOP [facility] S[facility] CARE SYS Jul 31, 2007 09:48 AM CURRENT TOBACCO USER [facility] SYS Jul 31, 2007 09:48 AM TOBACCO OFFERRED PT MEDS V A [facility] (PROVIDER) CARE SYS Jul 31, 2007 09:48 AM TOBACCO OFFERRED STOP [facility] S[facility] CARE SYS Jul 31, 2007 09:14 AM CURRENT TOBACCO USER [facility] SYS Jul 31, 2007 09:14 AM TOBACCO OFFERRED STOP [facility] S[facility] CARE SYS November 28, 2006 04:03 PM CURRENT TOBACCO USER [facility] SYS November 28, 2006 04:03 PM TOBACCO OFFERRED PT MEDS V A [facility] (PROVIDER) CARE SYS November 28, 2006 04:03 PM TOBACCO OFFERRED STOP [facility] S[facility] CARE SYS November 28, 2006 03:37 PM CURRENT TOBACCO USER [facility] 1 pk/day CARE SYS May 31, 2006 03:53 PM TOBACCO [facility] USE/COUNSELING-PROVIDER CARE SYS May 31, 2006 03:32 PM TOBACCO [facility] USE/COUNSELING-ANCILLARY CARE SY S Feb 13, 2006 01:07 PM TOBACCO [facility] USE/COUNSELING-ANCILLARY CARE SY S Apr 15, 2003 09:33 AM TOBACCO COUNSELING 3 [facility] S[facility] Apr 15, 2003 08:38 AM TOBACCO COUNSELING 2 [facility] S[facility] Oct 14, 2002 08:46 AM TOBACCO COUNSELING 1 [facility] SYS Oct 14, 2002 08:46 AM TOBACCO COUNSELING 2 [facility] SYS Oct 14, 2002 08:46 AM TOBACCO COUNSELING 3 [facility] SYS Apr 17, 2002 09:52 AM TOBACCO COUNSELING 2 [facility] SYS Apr 17, 2002 09:52 AM TOBACCO COUNSELING 3 [facility] SYS Oct 19, 2001 09:25 AM TOBACCO COUNSELING 1 [facility] S[facility] Oct 19, 2001 09:25 AM TOBACCO COUNSELING 2 [facility] SYS Oct 19, 2001 09:25 AM TOBACCO COUNSELING 3 [facility] S[facility] Apr 13, 2001 01:36 PM TOBACCO COUNSELING 2 [facility] S[facility] Apr 13, 2001 01:36 PM TOBACCO COUNSELING 3 [facility] SYS November 15, 2000 02:10 PM TOBACCO COUNSELING 1 [facility] SYS Encounter Notes: All associated encounter notes This section contains the clinical notes associated to the Encounter. Date/Time Encounter Note(s) Provider Source Nov 01, 2021 07:59 AM ENDOCRINOLOGY NOTE: AMBER ALAS [facility] TITLE: ENDOCRINOLOGY NOTE CARE SYS STANDARD TITLE: ENDOCRINOLOGY NOTE DATE OF NOTE: NOV 01, 2021@07:59 ENTRY DATE: NOV 01, 2021@07:59:29 AUTHOR: AMBER ALAS EXP COSIGNER: URGENCY: STATUS: COMPLETED SANTINO POWELL - ENDOCRINE WT MANAGEMENT / TREV BETALY Unless otherwise noted, the following informatio n will remain unchanged for subsequent visits. 1. Patient has given verbal consent to use teleh ealth for this encounter: Yes 2. Verify Emergency contact: Lashawn Powell - a. Home: 3. Identify any privacy concerns - Ensure patien t is in a private place for the visit: Yes If NO , request that the patient move to [facility] [place] location. 4. Confirm that audiovisual equipment is functio niharika: Yes a. Resend link to alternative device (e.g. tabl et, laptop): n/a 5. If patient appears to be suicidal or homicida l, use best clinical judgement to refer patient to appropriate resou rce (e.g. [place] crisis line) 6. Reason for visit: endocrine 7. Urgency of the appointment: Routine SUBJECTIVE: cc: weight management follow up HPI: Verona Powell is a 61yo male with class I obesity, T2DM (dx 10/2018), HTN, and HLD presenting for an established video visit to medical weight management for obesity/diabetes. Interim history: Since last visit patient rep orts adherence and tolerating Wegovy2.4mg weekly w/o AEs. Noting a couple asymptomatic hypoglycemic e vents corrected w/ glucose tablets. Pt unsure why hypo occurred. Followed by DM RD/CDE for dm/obesity nut rition guidance - missed last appt for work conflict, plans to call today to r/s appt. DM eye screening 10/2020: No Diabetic Retinopathy Apparent DM regimen: empagliflozin 25mg daily wegovy 2.4mg weekly Wt med hx: - contrave 03/2020-10/2020 -> stopped for lack of continued wt loss - saxenda 10/2020-08/2021 -> changed to wegovy for added wt benefit - wegovy 08/2021 -> present Max wt: 269 Wt loss goal: 225 Wt loss importance: get more health, keep a1c do wn, improve heart Baseline weight (pre-rx): 247 lbs Today Last visit Overall Loss: 222 228 25 / 10.1% SMBG review: 95 78 97 98 97 96 83 92 99 100 84 36->101 (after 1 glucose tablet) 44 (after 1 glucose tablet) 87 asymptomtic w/ hypos BP checks: 117-123/68-77 Social history: - tobacco: quit 2018 - alcohol: rare w/ dining out - illicits: denies Diet - 24 hr recall: - breakfast: coffee w/ splenda/cream - lunch 2p: pb sandwich on white bread - dinner 8p: chicken tenders w/ ketchup - snacks: twizzlers, grapes - drinks: water, crystal light, coffee Exercise: Quest 2 (Oculus VR headset), resistanc e bands, 6-7k steps at least 2d/week OBJECTIVE: Physical Exam: based on obeservation of patient during [facility] visit: General: NAD on video Eyes: normal conjunctiva, no icterus Respiratory: normal resp effort Cardiovascular: unable to examine Neurological: no focal deficits, AO x 3 Psychiatric: appropriate judgment and mentation Vital signs: Blood pressure: 137/75 (09/14/2021 15:01) Pulse: 84 (09/14/2021 15:01) Temperature: 97.3 F [36.3 C] (09/14/2021 15:01) Pulse oximetry: 95% (09/14/2021 15:01) Respirations: 18 (09/14/2021 15:01) Height: 72 in [182.9 cm] (05/18/2021 09:34) Weight: 228 lb [103.42 kg] (08/04/2021 11:29) BMI: 31.0 Weight history: Measurement DT WEIGHT LB(KG)[BMI] 08/04/2021 11:29 228(103.42)[31*] 06/25/2021 09:14 228.8(103.78)[31*] 05/18/2021 09:34 238(107.95)[32*] 04/28/2021 08:37 235(106.59)[32*] 04/01/2021 13:03 241(109.32)[33*] 11/23/2020 08:42 245.5(111.36)[33*] 11/03/2020 09:00 252.4(114.49)[34*] 10/26/2020 08:59 248(112.49)[34*] 09/07/2020 08:56 245(111.13)[33*] 08/05/2020 09:05 240(108.86)[33*] Lab Results: CHEM 7; SERUM Jakub. Date: [...] - LIPEMIA INDEX 7 6 unit - Interpretation for eGFR CKD-EPI: Estimated Glome rular Filtration Rate (eGFR) calculated using the 2020 Chronic Kidney Disease-Epidemiology (C KD-EPI) Collaboration creatinine equation; units of michael sure are mL/min/1.73 m2. Results are only valid for adul ts (=18 years) whose serum creatinine is in a steady state. eG FR calculations are not valid for patients with acute kidney in jury and for patients on dialysis. Creatinine-based estimate s of kidney function may also be inaccurate in patients wit h reduced creatinine generation due to decreased muscle m ass (e.g., malnutrition, severe hypoalbuminemia, sa rcopenia, chronic neuromuscular disease, amputations, sev ere heart failure or liver disease) and in patients with increased creatinine generation due to increased muscle m ass (e.g., muscle builders, anabolic steroids) or increase d dietary intake. As drug clearance is proportional to to gilda GFR and not GFR indexed to body surface area (BSA), in individuals with a BSA substantially different than 1.73 m2 , drug dosing should be based the reported eGFR value de-inde xed from BSA by multiplying by the individual's BSA and divi ding by 1.73. CKD is diagnosed based on abnormalities of kidn ey structure or function, present for >3 months, with implicati ons for health and disease. CKD is classified and staged based on cause, eGFR and albuminuria (quantified as urine albumin to creatinine ratio). An eGFR >60 mL/min/1.73 m2 in the absence of in creased urine albumin excretion or structural abnormalities d oes not represent CKD. eGFR CKD stage Interpretation >=90 G1 -Normal 60-89 G2 -Mild decrease 45-59 G3A -Mild to moderate decrease 30-44 G3B -Moderate to severe decrease 15-29 G4 -Severe decrease <15 G5 -Kidney failure CHO: 158 (04/22/21 09:30) 171 (08/17/21 08:04) C_LDL: 101 (04/22/21 09:30) 97 (08/17/21 08:04) HDL: 40.9 (04/22/21 09:30) 50.1 (08/17/21 08:04 ) HEMOL: 0 (04/22/21:30) 3 (08/17/21 08:04) ICT: 1 (04/22/21:30) 1 (08/17/21 08:04) LIPEMIA: 7 (04/22/21 09:30) 8 (08/17/21 08:04) TR (04/22/21:30) 119 (08/17/21 08:04) LIVER PANEL-BT Jakub. daTOT PRO ALBUMIN BILI BILI RUBISGOT ALK PHOSSGPT - P 07/02/18 09:18 6.9 3.9 0.6 26 82 26 LIVER PANEL-BT Jakub. daICTERUS HEMOLYSILIPEMIA 07/02/18 09:18 1 0 0 No data available TSH: 1.750 (10/20/16 12:00) 1.504 (07/02/18 09: 18) Collection DT Spec MA 04/22/2021 09:35 URINE <1.2 Collection DT Spec VitD 04/22/2021 09:30 SERUM 54 B12 FOLATE SERUM PANEL; SERUM Jakub. Date: 04/22/21 09:30 99/99/99 00:00 Test Name Result Result Units Range VIT B12 679 PG/ML 157 - 1059 ASSESSMENT/PLAN: Verona Powell is a 61yo m zahraa with class I obesity, T2DM (dx 10/2018), HTN, and HLD presenting for an established video visit to medical weight management for obesity/diabetes. Obesity: - BMI 30.17 with 25# loss since starting pharmac otherapy - contrave 03/2020-10/2020 (lack of continued los s) - saxenda 10/2020->2021 (plateau'd wt) - webrennonvy 08/2021 -> present; continue 2.4mg week ly - 247->222 / 10.1% - positive reinforcement for wt loss progress - completed TeleMOVE 10/2020 - continue current lifestyle changes - discussed overall health benefits with 5-10% l oss of baseline weight (DM, HTN, HLD, RICHI, mood, sleep, and joint pain) - followed by DM RD for diabetes/wt nutr ition guidance (pt to r/s missed appt) Goals for next visit: - increase vegetable intake with salads at least 3x/week - increase exercise regimen to at least 150min/w [place] - wt goal 215 T2DM: - optimal smbg/a1c 5.7% (08/2021) - trial stopping empagliflozin (few asx hypos) - chuck normal (04/2021) on jamie-i - vit d optimal (04/2021) on cholecalciferol 25m cg daily - b12 optimal (04/2021) - stopped metformin 07/2020 due to well-controlle d dm - on glp1-ra for wt loss Blood Pressure (GOAL < 140/90): - at goal per pt report - continue lisinopril 10mg daily - consi jeremy stopping if contintued targets and normal chuck HDL: - suboptimal but improving LDL (08/2021) - continue atorvastatin 80mg daily - encouraged to limit fried, fatty, processed fo ods Return to clinic - 02/09/22 0800 BT [facility] ENDO YELL OW - Labs 1-2 weeks before next dm appt Patient Education: - Labs reviewed with patient - Medication use/side effects reviewed and discu ssed - Reviewed the patient's VA and non-VA medicatio ns - VA and non-VA medications differences reconcil ed/reviewed with patient - Provided my contact information/instructions o n how I can be reached All questions/concerns addressed to the best of my ability. Time spent: 30 minutes Future Visits: No future appointments /es/ AMBER ALAS DNP, [facility] NURSE PRACTITIONER Signed: 11/01/2021 08:35
--- OUTSIDE RECORDS SUMMARY | 2022-06-09 12:05 | XMS_ITS | Encounter Summary ---
:1960 Author Organization [facility] rs Address [address] [place] [address] Support Name Relationship Address Phone MAIDA POWELL Unavailable [address] [place] [phone] ELIMAIDA GRACIA Unavailable [address] [place] [phone] Insurance Providers: All historical and current Section Date Range: From patient's date of to the date document was created.This section includes the names of all active insurance providers for the patient. Insurance Type of Plan Start of End of Group Member Insurance Policy P [facility]'s Provider Coverage Name Policy Policy Number ID Provider's Figueroa's Relationship Coverage Coverage Telephone Name to Policy Number Figueroa [facility] Jul 17, [facility] [id number] 800 [address], PATIENT HEALTH 2018 DIRECT 15 [phone] S[place] [address] [facility] Jul 17, [facility] [id number] ELIHenok GRACIA [facility] [phone] SANTINO PLAN Selected Encounter This section includes the information on record at [place] for the Encounter. Date/Time Encounter Type Encounter Description Reason Provider Source Oct 14, 2021 Outpatient ENDOCRINOLOGY DAISY ALAS 02:06 PM Encounter C IHE Encounter Template Text not used by [facility] Plan of Treatment: Future Appointments (+ 6 months) and Future Tests (+/- 45 days) The Plan of Treatment section includes future care activities for the patient from all [place] treatmentfacilities. This section includes future appointments and future orders which are active, pending orscheduled.Future Appointments This section includes appointments that were scheduled to occur 6 months from the date of the Encounter, up to a maximum of 20 appointments. The data comes from all [place] treatment facilities. Appointment Date/Time Appointment Type Appointment Facili ty Name Nov 01, 2021 08:00 AM AMBULATORY - MEDICINE [facility] SY November 19, 2021 08:30 AM AMBULATORY - MEDICINE [facility] SYS Feb 09, 2022 08:00 AM AMBULATORY MEDICINE [facility] SYS Mar 25, 2022 08:30 AM AMBULATORY MEDICINE [facility] Social History: Smoking Status (Most current) and Tobacco Use (All prior to encounter date) This section includes the most current, and the historical, smoking and tobacco-related health factors from the [place] facility where the Encounter took place.Current Smoking Status This section includes the most current smoking, or tobacco-related health factor, from the [place] facility where the Encounter took place. Date/Time Current Smoking Status Comment Facility Nov 03, 2020 09:00 AM [place]-TOBACCO FORMER USER [facility] Tobacco Use History This section includes a history of the smoking, or tobacco- related health factors, that were collected on or before the date of the Encounter. The data comes from the [place] facility where the Encounter took place. Date/Time Smoking Status/Tobacco Use Comment Facil it Nov 03, 2020 09:00 AM [place]-TOBACCO QUIT 1 TO < 5 V [facility] Jan 07, 2019 12:51 PM VA-TOBACCO FORMER USER [facility] Jan 07, 2019 12:51 PM VA-TOBACCO QUIT < 1 YEAR V [facility] Jul 02, 2018 08:32 AM CURRENT TOBACCO USER [facility] Apr 21, 2017 08:06 AM CURRENT TOBACCO USER [facility] Oct 20, 2016 10:36 AM CURRENT TOBACCO USER [facility] Apr 20, 2016 09:46 AM CURRENT TOBACCO USER [facility] Oct 19, 2015 11:24 AM CURRENT TOBACCO USER [facility] Mar 27, 2015 07:56 AM CURRENT TOBACCO USER [facility] Sep 23, 2014 07:54 AM CURRENT TOBACCO USER [facility] Mar 21, 2014 07:48 AM CURRENT TOBACCO USER [facility] Jun 25, 2013 08:37 AM CURRENT TOBACCO USER [facility] November 19, 2012 11:40 AM CURRENT TOBACCO USER [facility] Apr 02, 2012 08:47 AM CURRENT TOBACCO USER [facility] Sep 20, 2011 02:42 PM CURRENT TOBACCO USER [facility] Oct 08, 2010 10:34 AM CURRENT TOBACCO USER [facility] Dec 24, 2009 11:02 AM CURRENT TOBACCO USER [facility] Dec 24, 2009 11:02 AM TOBACCO OFFERRED STOP [facility] S[facility] Jul 28, 2009 03:51 PM CURRENT TOBACCO USER [facility] Jul 31, 2008 03:40 PM CURRENT TOBACCO USER [facility] Jul 31, 2008 03:06 PM CURRENT TOBACCO USER [facility] Jul 31, 2008 03:06 PM TOBACCO OFFERRED STOP [facility] Jan 29, 2008 01:30 PM CURRENT TOBACCO USER [facility] Jan 29, 2008 01:30 PM TOBACCO OFFERRED PT MEDS V A [facility] Jan 29, 2008 01:30 PM TOBACCO OFFERRED STOP [facility] Jan 29, 2008 01:13 PM CURRENT TOBACCO USER [facility] Jan 29, 2008 01:13 PM TOBACCO OFFERRED STOP [facility] SYS Jul 31, 2007 09:48 AM CURRENT TOBACCO USER [facility] Jul 31, 2007 09:48 AM TOBACCO OFFERRED PT MEDS V A [facility] Jul 31, 2007 09:48 AM TOBACCO OFFERRED STOP [facility]ARE SYS Jul 31, 2007 09:14 AM CURRENT TOBACCO USER [facility] Jul 31, 2007 09:14 AM TOBACCO OFFERRED STOP [facility]ARE SYS November 28, 2006 04:03 PM CURRENT TOBACCO USER [facility] November 28, 2006 04:03 PM TOBACCO OFFERRED PT MEDS V A [facility] November 28, 2006 04:03 PM TOBACCO OFFERRED STOP [facility]ARE SYS November 28, 2006 03:37 PM CURRENT TOBACCO USER [facility] smokes 1 pk/day CARE SYS May 31, 2006 03:53 PM TOBACCO [facility] USE/COUNSELING-PROVIDER CARE SYS May 31, 2006 03:32 PM TOBACCO [facility] HE[facility] USE/COUNSELING-ANCILLARY CARE SY S Feb 13, 2006 01:07 PM TOBACCO [facility] HEALTH USE/COUNSELING-ANCILLARY CARE SY S Apr 15, 2003 09:33 AM TOBACCO COUNSELING 3 [facility] Apr 15, 2003 08:38 AM TOBACCO COUNSELING 2 [facility] Oct 14, 2002 08:46 AM TOBACCO COUNSELING 1 [facility] Oct 14, 2002 08:46 AM TOBACCO COUNSELING 2 [facility] Oct 14, 2002 08:46 AM TOBACCO COUNSELING 3 [facility] Apr 17, 2002 09:52 AM TOBACCO COUNSELING 2 [facility] Apr 17, 2002 09:52 AM TOBACCO COUNSELING 3 [facility] Oct 19, 2001 09:25 AM TOBACCO COUNSELING 1 [facility] Oct 19, 2001 09:25 AM TOBACCO COUNSELING 2 [facility] Oct 19, 2001 09:25 AM TOBACCO COUNSELING 3 [facility] Apr 13, 2001 01:36 PM TOBACCO COUNSELING 2 [facility] Apr 13, 2001 01:36 PM TOBACCO COUNSELING 3 [facility] November 15, 2000 02:10 PM TOBACCO COUNSELING 1 [facility] Encounter Notes: All associated encounter notes This section contains the clinical notes associated to the Encounter. Date/Time Encounter Note(s) Provider Source Nov 01, 2021 06:56 AM ENDOCRINOLOGY SECURE MESSAGING: KANCHAN ALAS [facility] TITLE: ENDOCRINOLOGY SECURE MESSAGING [facility] STANDARD TITLE: ENDOCRINOLOGY SECURE MESSAGING DATE OF NOTE: NOV 01, 2021@06:56 ENTRY DATE: NOV 01, 2021@07:56:48 AUTHOR: DAISY ALAS EXP COSIGNER: URGENCY: STATUS: COMPLETED ------Original Message Sent: 11/01/2021 06:06 AM ET From: SANTINO POWELL To: Endocrinology [facility]@ Subject: Medication:empagliflozin Attachments: BLOOD SUGAR UPDATED.xlsx (58.24 KB) Good Morning, I didn't see your email until yesterday. I will stop using the empagliflozin starting today. Here is my latest spreadsheet. S ee you at 8am. ------Original Message Sent: 11/01/2021 07:56 AM ET From: DAISY ALAS To: SANTINO POWELL Subject: Medication:empagliflozin Morning, Sounds good. See you on video in a few minutes. Daisy Alas DNP, CRNP Endocrinology and Diabetes Nurse Practitioner /maira/ DAISY ALAS DNP, CRNP ENDOCRINE AND DIABETES NURSE PRACTITIONER Signed: 11/01/2021 07:56 Oct 14, 2021 02:06 PM ENDOCRINOLOGY SECURE MESSAGING: KANCHAN ALAS [facility] TITLE: ENDOCRINOLOGY SECURE MESSAGING [facility] STANDARD TITLE: ENDOCRINOLOGY SECURE MESSAGING DATE OF NOTE: OCT 14, 2021@14:06 ENTRY DATE: OCT 14, 2021@15:07 AUTHOR: DAISY ALAS EXP COSIGNER: URGENCY: STATUS: COMPLETED ------Original Message Sent: 10/14/2021 03:06 PM ET From: DAISY ALAS To: SANTINO POWELL Subject: Medication:empagliflozin Hi Amaury Powell notified me of a couple of your low blood sugars recently. It could be related to the increased dose of Wegovy. Since y our readings are looking so great and your last a1c also confirmed o ptimal diabetes, we can trial stopping the empagliflozin and just taking Wegovy for bot h diabetes and weight loss management. We have a visit on 11/01/2021 08:00 [facility] ENDO YELLOW and can review your blood sugars off empaglifloz in. It is concerning that you did not have symptoms with your low readings. How does that sound? See you soon. Daisy Alas DNP, CRNP Endocrinology and Diabetes Nurse Practitioner /maira/ DAISY ALAS DNP, CRNP ENDOCRINE AND DIABETES NURSE PRACTITIONER Signed: 10/14/2021 15:07 Receipt Acknowledged By: * AWAITING SIGNATURE * AMAURY CHRISTIAN
--- OUTSIDE RECORDS SUMMARY | 2022-06-09 12:06 | XMS_ITS | Encounter Summary ---
:1960 Author Organization [facility] rs Address [address] [place] [address] Support Name Relationship Address Phone ARABELLALASHAWN Mo Unavailable [address] [place] [phone] ELILASHAWN GRACIA Unavailable [address] [place] [address] Insurance Providers: All historical and current Section Date Range: From patient's date of to the date document was created.This section includes the names of all active insurance providers for the patient. Insurance Type of Plan Start of End of Group Member [facility] Provider Coverage Name Policy Policy Number ID Provider's Figueroa's Relationship Coverage Coverage Telephone Name to Policy Number Figueroa [facility] Jul 17, [facility] [id number] Balbir POWELL, [facility] 2018 DIRECT 15 [phone] SANTINO PLAN [facility] Jul 17, [facility] [id number] [address] POWELL [facility] 2010 [phone] SANTINO PLAN Selected Encounter This section includes the information on record at [place] for the Encounter. Date/Time Encounter Type Encounter Reason Provider Source Description Feb 09, 2022 OFFICE O/P EST ENDOCRINOLOGY ICD-10-CM E66.9 SETH ALAS 08:00 AM MOD 30-39 MIN Obesity, N C unspecified with Provider Comments: Obesity ([facility] [id number]) IHE Encounter Template Text not used by [place] Assessments - Encounter Diagnoses This section includes the primary and secondary diagnoses documented for the Encounter. Date/Time Primary/Secondary Diagnosis Name Provider Source Diagnosis Feb 09, 2022 PRIMARY Obesity, AMBER ALAS [facility] 08:33 AM unspecified [facility] Feb 09, 2022 SECONDARY Body mass index AMBER ALAS 08:33 AM [BMI] 30.0-30.9, [facility] adult [facility] Feb 09, 2022 SECONDARY Essential (primary) AMBER ALAS 08:33 AM hypertension [facility] Feb 09, 2022 SECONDARY Hyperlipidemia, AMBER ALAS 08:33 AM unspecified [facility] Feb 09, 2022 SECONDARY Type 2 diabetes AMBER ALAS 08:33 AM mellitus without [facility] complications SYS Plan of Treatment: Future Appointments (+ 6 months) and Future Tests (+/- 45 days) The Plan of Treatment section includes future care activities for the patient [facility] [place] [facility]. This section includes future appointments and future orders which are active, pending orscheduled.Future Appointments This section includes appointments that were scheduled to occur 6 months from the date of the Encounter, up to a maximum of 20 appointments. The data comes from all [place] treatment facilities. Appointment Date/Time Appointment Type Appointment Facili ty Name Mar 25, 2022 08:30 AM AMBULATORY - MEDICINE [facility] Vital Signs: All taken on the encounter date This section contains inpatient and outpatient Vital Signs collected on the date of the Encounter. Date/Time Temperature Pulse Blood Respiratory SP02 Pain Height Weight John dy Source Pressure Rate Mass Index Feb 09, 221 lb 30 [place] 2021 08:12 MARYLAN AM [facility] CARE S Social History: Smoking Status (Most current) and [...] Comment Facility Nov 03, 2020 09:00 AM [place]-TOBACCO FORMER USER [facility] Tobacco Use History This section includes a history of the smoking, or tobacco- related health factors, that were collected on or before the date of the Encounter. The data comes from the [place] facility where the Encounter took place. Date/Time Smoking Status/Tobacco Use Comment [facility] Nov 03, 2020 09:00 AM [place]-TOBACCO QUIT 1 TO < 5 V A [facility] Jan 07, 2019 12:51 PM VA-TOBACCO FORMER USER [facility] Jan 07, 2019 12:51 PM VA-TOBACCO QUIT < 1 YEAR V A [facility] SYS Jul 02, 2018 08:32 AM CURRENT TOBACCO USER [facility] SYS Apr 21, 2017 08:06 AM CURRENT TOBACCO USER [facility] SYS Oct 20, 2016 10:36 AM CURRENT TOBACCO USER [facility] SYS Apr 20, 2016 09:46 AM CURRENT TOBACCO USER [facility] SYS Oct 19, 2015 11:24 AM CURRENT TOBACCO USER [facility] SYS Mar 27, 2015 07:56 AM CURRENT TOBACCO USER [facility] SYS Sep 23, 2014 07:54 AM CURRENT TOBACCO USER [facility] SYS Mar 21, 2014 07:48 AM CURRENT TOBACCO USER [facility] SYS Jun 25, 2013 08:37 AM [...] PM TOBACCO OFFERRED PT MEDS V A [facility] SYS Jan 29, 2008 01:30 PM [...] AM TOBACCO OFFERRED PT MEDS V A [facility] CARE SYS Jul 31, 2007 [...] PM TOBACCO OFFERRED PT MEDS V A [facility] November 28, 2006 04:03 PM TOBACCO OFFERRED STOP [facility] SMOKING CLINIC CARE SYS November 28, 2006 03:37 PM CURRENT TOBACCO USER [facility] smoke 1 pk/day CARE SYS May 31, 2006 03:[address] [facility] HEALTH USE/COUNSELING-PROVIDER CARE SYS May 31, 2006 03:[address] [facility] HEALTH USE/COUNSELING-ANCILLARY CARE SY S Feb 13, 2006 01:[address] [facility] HEALTH USE/COUNSELING-ANCILLARY CARE SY S Apr [...] 17, 2002 09:52 AM TOBACCO COUNSELING 3 [facility] SYS Oct 19, 2001 09:25 AM TOBACCO COUNSELING 1 [facility] SYS Oct 19, 2001 09:25 AM TOBACCO COUNSELING 2 [facility] SYS Oct 19, 2001 09:25 AM TOBACCO COUNSELING 3 [facility] SYS Apr 13, 2001 01:36 PM TOBACCO COUNSELING 2 [facility] SYS Apr 13, 2001 01:36 PM TOBACCO COUNSELING 3 [facility] SYS November 15, 2000 02:10 PM TOBACCO COUNSELING 1 [facility] SYS Encounter Notes: All associated encounter notes This section contains the clinical notes associated to the Encounter. Date/Time Encounter Note(s) Provider Source Feb 09, 2022 08:08 AM ENDOCRINOLOGY NOTE: AMBER ALAS [facility] TITLE: ENDOCRINOLOGY NOTE CARE SYS STANDARD TITLE: ENDOCRINOLOGY NOTE DATE OF NOTE: FEB 09, 2022@08:08 ENTRY DATE: FEB 09, 2022@08:08:25 AUTHOR: AMBER ALAS EXP COSIGNER: URGENCY: STATUS: [...] request that the patient move to [facility] location. 4. Confirm that audiovisual equipment is functio niharika: Yes a. Resend link to alternative device (e.g. tabl et, laptop): n/a 5. If patient appears to be suicidal or homicida l, use best clinical judgement to refer patient to appropriate resou rce (e.g. [place] crisis line) 6. Reason for visit: endocrine 7. Urgency of the appointment: Routine SUBJECTIVE: cc: weight management follow up HPI: Daltontimbo Powell is a 61yo male wit h class I obesity, type 2 diabetes (dx 10/2018 in remission), hypertension, and hyperlip idemia presenting for an established video visit to medical weight manage ment for obesity. Wt med hx: - contrave 03/2020-10/2020 -> stopped for lack of continued wt loss - saxenda 10/2020-08/2021 -> changed to wegovy for added wt benefit - wegovy 08/2021 -> present Max wt: 269 Wt loss goal: 225 Wt loss importance: get more health, keep a1c do wn, improve heart Baseline weight (pre-rx): 247 lbs Today Last visit Overall Loss: 221 228 26 / 10.5% Interim history: Since last visit patient reports adherence and t olerating dm regimen. Weight fluctuating between 216-221. Has been eat ing more breads lately. Inquired if frozen fruits/veggies are ok to have ; noticing cost of food is increasing. States work is stressful - restarted smoking to help with stress but plans to quit. has been going back into office 3-4 days/w [place]. Home BP 115-120/60-70s Denies vision issues/CV/GI/ and neuropathy sxs . DM eye screening: non-VA 06/2021 @ [facility] - no retinopathy per pt Foot screenin10/12/21 SMBG levels: 2x/week fbg 92 94 97 94 96 93 85 95 97 100 Social history: - tobacco: 9-10 cig/day - alcohol: rare - illicits: denies Diet: - breakfast: oatmeal vs stapleton/egg/cheese crossai nt - lunch: 1/2 portion beef bulgogi - dinner: chicken, steak, salmon, cod with veggi es - snacks: peanuts, occ oatmeal cookies - drinks: crystal light and water Exercise: Has reduced frequency w/ VR headset, w alking, resistance bands OBJECTIVE: Physical Exam: based on obeservation of patient during VVC visit: General: NAD on video Eyes: normal conjunctiva, no icterus Respiratory: normal resp effort Cardiovascular: unable to examine Neurological: No focal deficits, AO x 3 Psychiatric: Appropriate judgment and mentation Vital signs: Pulse: 84 (09/14/2021 15:01) Blood pressure: 137/75 (09/14/2021 15:01) Pulse oximetry: 95% (09/14/2021 15:01) Height: 72 in [182.9 cm] (05/18/2021 09:34) Weight: 226.2 lb [102.60 kg] (11/22/2021 14:21) BMI: 30.7 Lab Results: CHEM 7; SERUM Jakub. Date: 04/22/21 09:30 04/20/21 10:51 Test Name Result Result Units Range [...] 09:30) 50.1 (08/17/21 08:04 ) HEMOL: 0 (04/22/21 09:30) 3 (08/17/21 08:04) ICT: 1 (04/22/21 09:30) 1 (08/17/21 08:04) LIPEMIA: 7 (04/22/21 09:30) 8 (08/17/21 08:04) TR (04/22/21 09:30) 119 (08/17/21 08:04) LIVER PANEL-BT Jakub. daTOT PRO ALBUMIN BILI BILI RUBISGOT ALK PHOSSGPT - P 07/02/18 09:18 6.9 3.9 0.6 26 82 26 LIVER PANEL-BT Jakub. daICTERUS HEMOLYSILIPEMIA 07/02/18 09:18 1 0 0 No data available HbA1C_A: 6.4 (01/22/19 10:14) 6.7 (04/23/19 09: 17) TSH: 1.750 (10/20/16 12:00) 1.504 (07/02/18 09: 18) Collection DT Spec MA 04/22/2021 09:35 URINE <1.2 Collection DT Spec VitD 04/22/2021 09:30 SERUM 54 B12 FOLATE SERUM PANEL; SERUM Jakub. Date: 04/22/21 09:30 99/99/99 00:00 Test Name Result Result Units Range VIT B12 679 PG/ML 157 - 1059 ASSESSMENT/PLAN: Verona Powell is a 61yo m zahraa with class I obesity, type 2 diabetes (dx 10/2018 in remission), hypertension, and hyperlipidemia presenting for an established video visit to medical weight management for obe sity. Obesity: - BMI 30.04 with 26# loss since starting pharmac otherapy 03/2022 - contrave 03/2020-10/2020 (lack of continued los s) - saxenda 10/2020->2021 (plateau'd wt) - wegovy 08/2021 -> present - 247->222->221 / 10.5% - continue Wegovy 2.4mg weekly - discussed non-scale outcomes for weight loss ( reduced blood pressure, blood sugar, and cholesterol; improved mood and activ ity tolerance) - completed TeleMOVE 10/2020 - continue current lifestyle changes - continue DM RD for diabetes/wt nutrition korin rendon - recommend to make plate look like the 'MyPlate ' (1/2 veggies, 1/4 lean protein, 1/4 whole grain carbs) - discussed importance of eating 3 small balanc ed meals vs skipping meals to consume enough calories for metabolic needs - discussed option to reduce weight monitoring t o every 2-3 days to avoid discouragement if not seeing day-to-day changes Type 2 diabetes: - optimal via a1c/smbg review 5.7% (08/2021) - on semaglutide weekly - hx empagliflozin and metformin - stopped for o ptimal dm - chuck normal (04/2021) on jamie-i - vit d optimal (04/2021) on cholecalciferol - b12 optimal (04/2021) Return to clinic - 05/25/22 0800 BT [facility] Patient Education: - Labs reviewed with patient - Medication use/side effects reviewed and discu ssed - Reviewed the patient's VA and non-VA medicatio ns - VA and non-VA medications differences reconcil ed/reviewed with patient - Provided my contact information/instructions o n how I can be reached All questions/concerns addressed to the best of my ability. Time spent: 30 minutes Future Visits: 03/25/2022 08:30 BT [facility] ENDO EDU NUTR /es/ AMBER ALAS DNP, [place] ENDOCRINE AND DIABETES NURSE PRACTITIONER Signed: 02/09/2022 11:59
--- OUTSIDE RECORDS SUMMARY | 2022-06-09 12:06 | XMS_ITS | Encounter Summary ---
:1960 Author Organization [facility] rs Address [address] [place] [address] Support Name Relationship Address Phone ELIMAIDA GRACIA Unavailable [address] [place] [phone] ELIMAIDA GRACIA Unavailable [address] [place] [address] Insurance Providers: All historical and current Section Date Range: From patient's date of to the date document was created.This section includes the names of all active insurance providers for the patient. Insurance Type of Plan Start of End of Group Member Insurance Policy P [facility]'s Provider Coverage Name Policy Policy Number ID Provider's Figueroa's Relationship Coverage Coverage Telephone Name to Policy Number Figueroa [facility] Jul 17, [facility] [id number], PATIENT HEALTH 2018 DIRECT 15 [phone] SANTINO PLAN [facility] Jul 17, [facility] [id number] [facility] [phone] SANTINO PLAN Selected Encounter This section includes the information on record at [place] for the Encounter. Date/Time Encounter Type Encounter Description Reason Provider Source Feb 09, 2022 Outpatient ENDOCRINOLOGY DAISY ALAS 07:08 AM Encounter C [facility] Encounter Template Text not used by [facility] Plan of Treatment: Future Appointments (+ 6 months) and Future Tests (+/- 45 days) The Plan of Treatment section includes future care activities for the patient from all [place] treatmentfacilities. This section includes future appointments and future orders which are active, pending orscheduled.Future Appointments This section includes appointments that were scheduled to occur 6 months from the date of the Encounter, up to a maximum of 20 appointments. The data comes from all [place] treatment facilities. Appointment Date/Time Appointment Type Appointment Facili ty Name Mar 25, 2022 08:30 AM AMBULATORY - MEDICINE ON LICENSE OF [facility] Vital Signs: All taken on the encounter date This section contains inpatient and outpatient Vital Signs collected on the date of the Encounter. Date/Time Temperature Pulse Blood Respiratory SP02 Pain Height Weight John dy Source Pressure Rate Mass Index Jan 27, 221 lb 30 [place] 2021 08:12 [facility] Social History: Smoking Status (Most current) and Tobacco Use (All prior to encounter date) This section includes the most current, and the historical, smoking and tobacco-related health factors from the [place] facility where the Encounter took place.Current Smoking Status This section includes the most current smoking, or tobacco-related health factor, from the [place] facility where the Encounter took place. Date/Time Current Smoking Status Comment Facility Nov 03, 2020 09:00 AM VA-TOBACCO FORMER USER [facility] Tobacco Use History This section includes a history of the smoking, or tobacco- related health factors, that were collected on or before the date of the Encounter. The data comes from the [facility] where the Encounter took place. Date/Time Smoking Status/Tobacco Use Comment [facility] it Nov 03, 2020 09:00 AM [place] QU[place] 1 TO < 5 V [facility] Jan 07, 2019 12:51 PM VA-TOBACCO FORMER USER [facility] Jan 07, 2019 12:51 PM VA-TOBACCO QUIT < 1 YEAR V [facility] Jul 02, 2018 08:32 AM CURRENT TOBACCO USER [facility] Apr 21, 2017 08:06 AM CURRENT TOBACCO USER [facility] Oct 20, 2016 10:36 AM CURRENT TOBACCO USER [facility] Apr 20, 2016 09:46 AM CURRENT TOBACCO USER [facility] Oct 19, 2015 11:24 AM CURRENT TOBACCO USER [facility] Mar 27, 2015 07:56 AM CURRENT TOBACCO USER [facility] Sep 23, 2014 07:54 AM CURRENT TOBACCO USER [facility] Mar 21, 2014 07:48 AM CURRENT TOBACCO USER [facility] Jun 25, 2013 08:37 AM CURRENT TOBACCO USER [facility] November 19, 2012 11:40 AM CURRENT TOBACCO USER [facility] Apr 02, 2012 08:47 AM CURRENT TOBACCO USER [facility] Sep 20, 2011 02:42 PM CURRENT TOBACCO USER [facility] Oct 08, 2010 10:34 AM CURRENT TOBACCO USER [facility] Dec 24, 2009 11:02 AM CURRENT TOBACCO USER [facility] Dec 24, 2009 11:02 AM TOBACCO OFFERRED [facility] Jul 28, 2009 03:51 PM CURRENT TOBACCO USER [facility] Jul 31, 2008 03:40 PM CURRENT TOBACCO USER [facility] Jul 31, 2008 03:06 PM CURRENT TOBACCO USER [facility] Jul 31, 2008 03:06 PM TOBACCO OFFERRED [facility] Jan 29, 2008 01:30 PM CURRENT TOBACCO USER [facility] Jan 29, 2008 01:30 PM TOBACCO OFFERRED PT MEDS V A [facility] Jan 29, 2008 01:30 PM TOBACCO OFFERRED [facility] Jan 29, 2008 01:13 PM CURRENT TOBACCO USER [facility] Jan 29, 2008 01:13 PM TOBACCO OFFERRED [facility] Jul 31, 2007 09:48 AM CURRENT TOBACCO USER [facility] Jul 31, 2007 09:48 AM TOBACCO OFFERRED PT MEDS V A [facility] Jul 31, 2007 09:48 AM TOBACCO OFFERRED [facility] Jul 31, 2007 09:14 AM CURRENT TOBACCO USER [facility] Jul 31, 2007 09:14 AM TOBACCO OFFERRED [facility] November 28, 2006 04:03 PM CURRENT TOBACCO USER [facility] November 28, 2006 04:03 PM TOBACCO OFFERRED PT MEDS V A [facility] November 28, 2006 04:03 PM TOBACCO OFFERRED [facility] November 28, 2006 03:37 PM CURRENT TOBACCO USER [facility] smokes 1 pk/day CARE SYS May 31, 2006 03:53 PM TOBACCO [facility]SEL[facility]OVID[facility] May 31, 2006 03:32 PM [place]BAC[place] [facility] USE/COUNSELING-ANCILLARY CARE SY S Feb 13, 2006 01:07 PM [place]BACCO [place] [facility] [place] [facility] USE/COUNSELING-ANCILLARY CARE SY S Apr 15, 2003 09:33 AM TOBACCO COUNSELING 3 [facility] Apr 15, 2003 08:38 AM TOBACCO COUNSELING 2 [facility] Oct 14, 2002 08:46 AM TOBACCO COUNSELING 1 [facility] Oct 14, 2002 08:46 AM TOBACCO COUNSELING 2 [facility] Oct 14, 2002 08:46 AM TOBACCO COUNSELING 3 [facility] Apr 17, 2002 09:52 AM TOBACCO COUNSELING 2 [facility] Apr 17, 2002 09:52 AM TOBACCO COUNSELING 3 [facility] Oct 19, 2001 09:25 AM TOBACCO COUNSELING 1 [facility] Oct 19, 2001 09:25 AM TOBACCO COUNSELING 2 [facility] Oct 19, 2001 09:25 AM TOBACCO COUNSELING 3 [facility] Apr 13, 2001 01:36 PM TOBACCO COUNSELING 2 [facility] Apr 13, 2001 01:36 PM TOBACCO COUNSELING 3 [facility] November 15, 2000 02:10 PM TOBACCO COUNSELING 1 [facility] Encounter Notes: All associated encounter notes This section contains the clinical notes associated to the Encounter. Date/Time Encounter Note(s) Provider Source Feb 09, 2022 07:08 AM ENDOCRINOLOGY SECURE MESSAGING: KANCHAN ALAS [facility] TITLE: ENDOCRINOLOGY SECURE MESSAGING [facility] STANDARD TITLE: ENDOCRINOLOGY SECURE MESSAGING DATE OF NOTE: FEB 09, 2022@07:08 ENTRY DATE: FEB 09, 2022@08:08:03 AUTHOR: DAISY ALAS EXP COSIGNER: URGENCY: STATUS: COMPLETED ------Original Message Sent: 02/09/2022 05:44 AM ET From: SANTINO MEEHAN To: Endocrinology [facility]@ Subject: General:Mercedes Hernandez Attachments: BLOOD SUGAR [email or web address].xlsx (61.14 KB) Latest Blood Pressure update chart ------Original Message Sent: 02/09/2022 08:07 AM ET From: DAISY ALAS To: SANTINO MEEHAN Subject: General:Mercedes Hernandez thanks - we'll review today. Daisy Alas DNP, CRNP Endocrinology and Diabetes Nurse Practitioner // DAISY ALAS DNP, CRNP ENDOCRINE AND DIABETES NURSE PRACTITIONER Signed: 02/09/2022 08:08
--- OUTSIDE RECORDS SUMMARY | 2022-06-09 12:07 | XMS_ITS ---
:1960 Author Care Team Providers Name Role Phone [employer] Primary Care Provider [phone] Allergies Code Code System Name Reaction Severity Status Onset Pseudoephedrine Hcl ? ? Active ? RxNorm Sudafed Angioedema ? Active ? Medications Name Status Start Date Stop Date ? ? ammonium lactate 12 % lotion Active ? Not available atorvastatin 80 mg tablet Active ? Not av ailable bisacodyl 5 mg tablet,delayed release Active ? Not available cholecalciferol (vitamin D3) 25 mcg (1,000 unit) tablet Active ? Not available Contrave 8 mg-90 mg tablet,extended release Active ? Not available Fluarix Quad (PF) 60 mcg (15 mcg x 4)/0.5 mL IM syring e Active ? Not available TO BE GIVEN BY PHARMACIST PER STANDING ORDER glucose 4 gram chewable tablet Active ? N ot available griseofulvin ultramicrosize 250 mg tablet Active ? Not available Take 1 tablet twice a day by oral route around the clock for 42 days. Humalog U-100 Insulin 100 unit/mL subcutaneous solution Active ? Not available 10 units by sub-q route. hydrochlorothiazide 25 mg tablet Completed ? 06/23/2021 IV Prep Wipes medicated Completed ? 06/23/20 21 Jardiance 25 mg tablet Active ? Not avail able Lantus Solostar U-100 Insulin 100 unit/mL (3 mL) subcutaneous pe n Active ? Not available 30 units by sub-q route. lisinopril 40 mg tablet Active ? Not avai lable metformin 1,000 mg tablet Active ? Not av ailable metformin 500 mg tablet Completed ? 06/23/20 21 Take 500 mg twice a day by oral route. tamsulosin 0.4 mg capsule Active ? Not av ailable Problems Name Status Onset Date Source ? Pain in Lower Limb Active 10/19/2009 External Arthropathy Active 10/20/2009 External Type 2 Diabetes Mellitus without Complication Active External Mixed Hyperlipidemia Active 10/30/2018 External Obesity Active 10/30/2018 External Essential Hypertension Active 10/30/2018 ? Knee Pain Active 10/30/2018 External Patient Encounter Status Active 10/30/2018 Externa l Tobacco Use and Exposure - Finding Active 10/30/2018 External Type 2 Diabetes Mellitus Active 12/18/2018 ? 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 Results Lab Results None recorded. Past Encounters 06/23/2021 Foot Callus; Onychomycosis; Type 2 Diabe kannan Mellitus without Complication Timoteo Alvarez DPM: [address] [place] [phone], Ph. 03/24/2021 Foot Callus; Onychomycosis; Type 2 Diabe kannan Mellitus without Complication Timoteo Alvarez DPM: [id number] [place] [phone], Ph. Social History Tobacco Smoking Status Former Smoker Vaccine List Vaccine Type COVID-19 (SARS-COV-2) vaccine, unspecifi ed 07/28/2020 influenza, injectable, quadrivalent 04/16/2019 influenza, seasonal, injectable 04/08/2009?0.5 mL pneumococcal polysaccharide PPV23 01/29/2019?0.5 mL Tdap 01/29/2019?0.5 mL Plan of Care Reminders Provider Appointments None recorded. ? ? Lab None recorded. ? ? Referral None recorded. ? ? Procedures None recorded. ? ? Surgeries None recorded. ? ? Imaging None recorded. ? ? Vitals 06/23/2021 04:45PM DM Foot Care 15 Height Weight BMI Blood Pressure 6 ft 240 lbs 32.5 kg/m2 126/84 mm[Hg] 11/11/2020 02:30PM DM Foot Care 15 Height 6 ft 08/12/2020 02:15PM Est Pt 15 Height Weight BMI 6 ft 240 lbs 32.5 kg/m2 03/25/2020 03:00PM DM Foot Care 15 Height 6 ft 12/20/2019 02:30PM DM Foot Care 15 Height 6 ft 08/30/2019 01:00PM DM Foot Care 15 Height Weight BMI Blood Pressure 6 ft 245 lbs 33.2 kg/m2 146/83 mm[Hg] 05/29/2019 02:30PM DM Foot Care 15 Height 6 ft 12/18/2018 03:00PM New Pt 15 Height Weight BMI Blood Pressure 6 ft 245 lbs 33.2 kg/m2 149/76 mm[Hg]
--- OUTSIDE RECORDS SUMMARY | 2022-06-09 12:07 | XMS_ITS | Encounter Summary ---
:1960 Author Organization [facility] rs Address [address] [place] [address] Support Name Relationship Address Phone ARABELLAMAIDA Mo Unavailable [address] [place] [phone] ARABELLAMAIDA Mo Unavailable [address] [place] [phone] Insurance Providers: All historical and current Section Date Range: From patient's date of to the date document was created.This section includes the names of all active insurance providers for the patient. Insurance Type of Plan Start of End of Group Member [facility] Provider Coverage Name Policy Policy Number ID Provider's Figueroa's Relationship Coverage Coverage Telephone Name to Policy Number Figueroa [facility] Jul 17, [facility] [id number] Balbir MEEHAN, [facility] 2018 DIRECT 15 [phone] [place] [address] Jul 17, [facility] [id number] ZORAN [facility] 2010 21 [phone] [place] Selected Encounter This section includes the information on record at DC for the Encounter. Date/Time Encounter Type Encounter Reason Provider Source Description Jun 04, 2022 IMMUNIZATION GENERAL INTERNAL ICD-10-CM Z23 BECKY SHERMAN 08:27 AM ADMIN MEDICINE Encounter for J immunization with Provider Comments: Immunization Encounter IHE Encounter Template Text not used by DC Assessments - Encounter Diagnoses This section includes the primary and secondary diagnoses documented for the Encounter. Date/Time Primary/Secondary Diagnosis Name Provider Source Diagnosis Jun 04, 2022 PRIMARY Encounter for BECKY SHERMAN Aydee [facility] 08:28 AM immunization HEALTH CARE SYS Plan of Treatment: Future Appointments (+ 6 months) and Future Tests (+/- 45 days) The Plan of Treatment section includes future care activities for the patient from all [place] treatmentfacilities. This section includes future appointments and future orders which are active, pending orscheduled.Active, Pending, and Scheduled Orders This section includes a listing of several types of active, pending, and scheduled orders, including clinic medications orders, diagnostic test orders, procedure orders and consult orders; where the start date of the order is 45 days before the date of the Encounter or 45 days after the date of the Encounter. The data comes from all [place] treatment facilities. Test Date/Time Test Type Test Details Facility Name May 09, 2022 12:00 AM Laboratory - Chemistry GLYCOSOLATED HGB PA RON [facility] Order - BALT/PP BLOOD LAV B CARE SYS SP Lab Results: +/- 30 days of the [...] Result - Unit Interpretation Reference Range Comment May 11, 2022 [facility] GLYCOSOLATED HGB PANEL Speci men Type: BLOOD 08:27 AM CARE SYS - BALT/PP No comment enter ed. Ordering Provid er: AMBER ALAS Report Released Date/Time: Feb 09, 2022 08:29 AM Reporting Lab: [facility] [address] [facility] Performing Lab: [facility] [address] [facility] HEMOGLOBIN A1C 5.4 4.3-5.7 May 11, 2022 08:27 [facility] VIT D, 25-OH, TOTAL Speci men Type: SERUM AM CARE SYS Comment: Hemoly sis Present. Affected Tests are canceled Ordering Provid er: AMBER ALAS Report Released Date/Time: Feb 09, 2022 08:29 AM Reporting Lab: [facility] [address] [facility] Performing Lab: [facility] [address] [facility] VIT D, 25-OH, TOTAL 37 30-100 May 11, 2022 08:27 [facility] MICROALBUMIN PANEL Specim en Type: URINE, SPOT AM CARE SYS No comment enter ed. Ordering Provid er: AMBER ALAS Report Released Date/Time: Feb 09, 2022 08:29 AM Reporting Lab: [facility] [address] [facility] Performing Lab: [facility] [address] [facility] CREATININE (C0NC) 130.42 20-320 RATIO MICROALB/CREAT <9.2 0-30 MICROALBUMIN (mg/dL) <1.2 0-1.9 May 11, 2022 08:27 AM [facility] LIPID PANEL S pecimen Type: SERUM SYS Comment: Hemoly sis Present. Affected Tests are canceled Ordering Provid er: AMBER ALAS Report Released Date/Time: Feb 09, 2022 08:29 AM Reporting Lab: [facility] [address] [facility] Performing Lab: [facility] [address] [facility] CHOLESTEROL 141 0-240 TRIGLYCERIDES 93 0-150 HDL CHOLESTEROL 49.0 40-60 CALC LDL-CHOLESTEROL 73 0-100 ICTERUS INDEX 1 HEMOLYSIS INDEX 90 LIPEMIA INDEX 5 May 11, 2022 08:27 [facility] BASIC METABOLIC PANEL Spe cimen Type: SERUM AM CARE SYS Comment: Hemoly sis Present. Affected Tests are canceled Ordering Provid er: AMBER ALAS Report Released Date/Time: Feb 09, 2022 08:29 AM Reporting Lab: [facility] [address] [facility] Performing Lab: [facility] [address] [facility] CREATININE 1.00 .9-1.3 UREA NITROGEN 15 6-20 GLUCOSE 90 70-105 SODIUM 141 133-145 POTASSIUM Comment 3.3-5.1 CHLORIDE 106 98-107 HCO3- 23 22-32 CALCIUM 9.5 8.4-10.2 CALC ANION GAP 12 6-15 eGFR CKD-EPI 85 >60 ICTERUS INDEX 1 HEMOLYSIS INDEX 90 LIPEMIA INDEX 5 Immunizations: All administered on the encounter date This section contains immunizations associated to the Encounter. Immunization Series Date Issued Reaction Comments COVID-19 (PFIZER), MRNA, LNP-S, 1 Jun 04, 2022 PFR; [id number]; 02/13/2023 BIVALENT BOOSTER, PF, 30 MCG/0.3 ML DOSE Social History: Smoking Status (Most current) and [...] 03, 2020 09:00 AM VA-TOBACCO FORMER USER [facility] Tobacco Use History This section includes a history of the smoking, or tobacco- related health factors, that were collected on or before the date of the Encounter. The data comes from the [place] facility where the Encounter took place. Date/Time Smoking Status/Tobacco Use Comment Facil it Nov 03, 2020 09:00 AM VA-TOBACCO QUIT 1 TO < 5 V [facility] Jan 07, 2019 12:51 PM VA-TOBACCO FORMER USER [facility] Jan 07, 2019 12:51 PM VA-TOBACCO QUIT < 1 YEAR V [facility] Jul 02, 2018 08:32 AM CURRENT TOBACCO USER [facility] Apr 21, 2017 08:06 AM CURRENT TOBACCO USER [facility] Oct 20, 2016 10:36 AM CURRENT TOBACCO USER [facility] Apr 20, 2016 09:46 AM CURRENT TOBACCO USER [facility] Oct 19, 2015 11:24 AM CURRENT TOBACCO USER [facility] Mar 27, 2015 07:56 AM CURRENT TOBACCO USER [facility] Sep 23, 2014 07:54 AM CURRENT TOBACCO USER [facility] Mar 21, 2014 07:48 AM CURRENT TOBACCO USER [facility] Jun 25, 2013 08:37 AM CURRENT TOBACCO USER [facility] November 19, 2012 11:40 AM CURRENT TOBACCO USER [facility] Apr 02, 2012 08:47 AM CURRENT TOBACCO USER [facility] Sep 20, 2011 02:42 PM CURRENT TOBACCO USER [facility] Oct 08, 2010 10:34 AM CURRENT TOBACCO USER [facility] Dec 24, 2009 11:02 AM CURRENT TOBACCO USER [facility] Dec 24, 2009 11:02 AM TOBACCO OFFERRED STOP [facility] SMOKING CLINIC CARE SYS Jul 28, 2009 03:51 PM CURRENT TOBACCO USER [facility] Jul 31, 2008 03:40 PM CURRENT TOBACCO USER [facility] Jul 31, 2008 03:06 PM CURRENT TOBACCO USER [facility] Jul 31, 2008 03:06 PM TOBACCO OFFERRED STOP [facility] S[facility] CARE SYS Jan 29, 2008 01:30 PM CURRENT TOBACCO USER [facility] Jan 29, 2008 01:30 PM TOBACCO OFFERRED PT MEDS V A [facility] (PROVID[facility] CARE SYS Jan 29, 2008 01:30 PM TOBACCO OFFERRED STOP [facility] S[facility]KING [facility] CARE SYS Jan 29, 2008 01:13 PM CURRENT TOBACCO USER [facility] Jan 29, 2008 01:13 PM TOBACCO OFFERRED STOP [facility] CARE SYS Jul 31, 2007 09:48 AM CURRENT TOBACCO USER [facility] Jul 31, 2007 09:48 AM TOBACCO OFFERRED PT MEDS V A [facility] ([facility] CARE SYS Jul 31, 2007 09:48 AM TOBACCO OFFERRED STOP [facility] S[facility] CARE SYS Jul 31, 2007 09:14 AM CURRENT TOBACCO USER [facility] Jul 31, 2007 09:14 AM TOBACCO OFFERRED STOP [facility] S[facility]KING [facility]IN[facility] CARE SYS November 28, 2006 04:03 PM CURRENT TOBACCO USER [facility] November 28, 2006 04:03 PM TOBACCO OFFERRED PT MEDS V A [facility] ([facility] CARE SYS November 28, 2006 04:03 PM TOBACCO OFFERRED STOP [facility] SMOKING CLINIC CARE SYS November 28, 2006 03:37 PM CURRENT TOBACCO USER [facility] smokes 1 pk/day CARE SYS May 31, 2006 03:53 PM [facility]OVID[facility] CARE SYS May 31, 2006 03:32 PM TOBACCO [facility] HEALTH USE/COUNSELING-ANCILLARY CARE SY S Feb 13, 2006 01:07 PM TOBACCO [facility] D HEALTH USE/COUNSELING-ANCILLARY CARE SY S Apr 15, 2003 09:33 AM TOBACCO COUNSELING 3 [facility] Apr 15, 2003 08:38 AM TOBACCO COUNSELING 2 [facility] Oct 14, 2002 08:46 AM TOBACCO COUNSELING 1 [facility] Oct 14, 2002 08:46 AM TOBACCO COUNSELING 2 [facility] Oct 14, 2002 08:46 AM TOBACCO COUNSELING 3 [facility] Apr 17, 2002 09:52 AM TOBACCO COUNSELING 2 [facility] Apr 17, 2002 09:52 AM TOBACCO COUNSELING 3 [facility] Oct 19, 2001 09:25 AM TOBACCO COUNSELING 1 [facility] Oct 19, 2001 09:25 AM TOBACCO COUNSELING 2 [facility] Oct 19, 2001 09:25 AM TOBACCO COUNSELING 3 [facility] Apr 13, 2001 01:36 PM TOBACCO COUNSELING 2 [facility] Apr 13, 2001 01:36 PM TOBACCO COUNSELING 3 [facility] November 15, 2000 02:10 PM TOBACCO COUNSELING 1 [facility] Encounter Notes: All associated encounter notes This section contains the clinical notes associated to the Encounter. Date/Time Encounter Note(s) Provider Source Jun 04, 2022 08:27 AM INFECTIOUS DISEASE NOTE: BECKY SHERMAN [facility] TITLE: COVID-19 OUTPT VACCINATION NOTE [facility] ST[facility] TITLE: INFECTIOUS DISEASE NOTE DATE OF NOTE: JUN 04, 2022@08:27 ENTRY DATE: JUN 04, 2022@08:27:32 AUTHOR: BECKY SHERMAN EXP COSIGNER: URGENCY: STATUS: COMPLETED Pfizer Bivalent The patient (surrogate decision maker) was given the EUA Fact Sheet for this vaccine which lists the benefits and side effect s of the vaccine and which reviews the risks of the vaccine. The fa ct sheet was reviewed with the patient (surrogate decision maker) and they were given a n opportunity to ask questions. The patient (surrogate decision maker) denied an y prior severe reaction to this vaccine or its components or a severe al lergic reaction such as anaphylaxis to any vaccine or to any injectable therapy. The louis churchill (surrogate decision maker) gave verbal consent to receive the vaccin e. Vaccine administered by policy/protocol: [facility] COVID-19 Protocol 2021 The patient received Pfizer COVID-19 Vaccine, Bi valent 0.3ml IM. [facility][NOTE 2]# [id number] MVX (Manuf); Lot#; Exp Date: PFR; [id number]; 02/13 Administration Anatomic site: Right Deltoid Vaccine administered without complications. The patient (surrogate decision maker) was advised to remain in the facility for 15 minutes post vaccination.The patient (surrogate decision make r) was given a completed COVID-19 vaccination record card, a copy of the VA Side Effects and Adverse Events Reporting Fact Sheet and instructed on ho w to report any adverse reactions. Vaccine administered by someone other than the a uthor: [place] RN /maira/ BECKY SHERMAN LPN Signed: 06/04/2022 08:28
--- OUTSIDE RECORDS SUMMARY | 2022-06-09 12:07 | XMS_ITS | Encounter Summary ---
:1960 Author Organization Department [facility] rs Address [address] [place] [id number] Support Name Relationship Address Phone ARABELLAMAIDA Mo Unavailable [address] [place] [phone] ELIMAIDA GRACIA Unavailable [address] [place] [phone] Insurance Providers: All historical and current Section Date Range: From patient's date of to the date document was created.This section includes the names of all active insurance providers for the patient. Insurance Type of Plan Start of End of Group Member Insurance Policy P [facility]'s Provider Coverage Name Policy Policy Number ID Provider's Figueroa's Relationship Coverage Coverage Telephone Name to Policy Number Figueroa [facility] Jul 17, [facility] [id number] Balbir MEEHAN, [facility] 2018 DIRECT 15 [phone] [place] [address] [facility] Jul 17, [facility] [id number] Henok MEEHAN [facility] 2010 21 [phone] [place] Selected Encounter This section includes the information on record at [place] for the Encounter. Date/Time Encounter Type Encounter Reason Provider Source Description May 31, 2022 IIV3 VACC NO PRIMARY ICD-10-CM Z23 ADRIAN 01:58 PM PRSV 0.5 ML IM CARE/MEDICINE Encounter for POULOSE,MINI immunization with Provider Comments: Immunization Encounter IHE Encounter Template Text not used by [place] Assessments - Encounter Diagnoses This section includes the primary and secondary diagnoses documented for the Encounter. Date/Time Primary/Secondary Diagnosis Name Provider Source Diagnosis May 31, 2022 PRIMARY Encounter for ADRIAN [facility] 02:00 PM immunization P[place]LOSE,MINI [facility] C[facility] SYS Plan of Treatment: Future [...] data comes from all [place] treatment facilities. Test Date/Time Test Type Test Details Facility Name May 09, 2022 12:00 AM Laboratory - Chemistry GLYCOSOLATED HGB PA RON [facility] Order - BALT/PP BLOOD LAV B CARE [...] Interpretation Reference Range Comment May 11, 2022 [facility] GLYCOSOLATED HGB PANEL Speci men Type: BLOOD 08:27 AM CARE SYS - BALT/PP No comment enter ed. Ordering Provid er: AMBER ALAS Report Released Date/Time: Feb 09, 2022 08:29 AM Reporting Lab: [facility] [address] [facility] [id number] Performing Lab: [facility] [address] [facility] [id number] HEMOGLOBIN A1C 5.4 4.3-5.7 May 11, 2022 08:27 [facility] VIT D, 25-OH, TOTAL Speci men Type: SERUM AM CARE SYS Comment: Hemoly sis Present. Affected Tests are canceled Ordering Provid er: AMBER ALAS Report Released Date/Time: Feb 09, 2022 08:29 AM Reporting Lab: [facility] [address] [facility] [id number] Performing Lab: [facility] [address] [facility] [phone] VIT D, 25-OH, TOTAL 37 30-100 May 11, 2022 08:27 AM [facility] LIPID PANEL S pecimen Type: SERUM SYS Comment: Hemoly sis Present. Affected Tests are canceled Ordering Provid er: AMBER ALAS Report Released Date/Time: Feb 09, 2022 08:29 AM Reporting Lab: [facility] [address] [facility] Performing Lab: [facility] [address] [facility] CHOLESTEROL 141 0-240 TRIGLYCERIDES 93 0-150 HDL CHOLESTEROL 49.0 40-60 CALC LDL-CHOLESTEROL 73 0-100 ICTERUS INDEX 1 HEMOLYSIS INDEX 90 LIPEMIA INDEX 5 May 11, 2022 08:27 [facility] MICROALBUMIN PANEL Specim en Type: URINE, SPOT AM CARE SYS No comment enter ed. Ordering Provid er: AMBER ALAS Report Released Date/Time: Feb 09, 2022 08:29 AM Reporting Lab: [facility] [address] [facility] Performing Lab: [facility] [address] [facility] CREATININE (C0NC) 130.42 20-320 RATIO MICROALB/CREAT <9.2 0-30 MICROALBUMIN (mg/dL) <1.2 0-1.9 May 11, 2022 08:27 [facility] BASIC METABOLIC PANEL Spe cimen Type: SERUM AM CARE SYS Comment: Hemoly sis Present. Affected Tests are canceled Ordering Provid er: AMBER ALAS Report Released Date/Time: Feb 09, 2022 08:29 AM Reporting Lab: [facility] CARE SYS [address] [facility] Performing Lab: [facility] [address] [facility] CREATININE 1.00 .9-1.3 UREA NITROGEN 15 6-20 [...] Encounter. Immunization Series Date Issued Reaction Comments INFLUENZA, INJECTABLE, QUADRIVALENT, May 31, 2022 PRESERVATIVE FREE Social History: Smoking Status (Most current) and [...] took place. Date/Time Smoking Status/Tobacco Use Comment [facility] Nov 03, 2020 09:00 AM VA-TOBACCO QUIT 1 TO < 5 V [facility] Jan 07, 2019 12:51 PM VA-TOBACCO FORMER USER [facility] Jan 07, 2019 12:51 PM VA-TOBACCO QUIT < 1 YEAR V [facility] Jul 02, 2018 08:32 AM CURRENT TOBACCO USER [facility] Apr 21, 2017 08:06 AM CURRENT TOBACCO USER [facility] Oct 20, 2016 10:36 AM CURRENT TOBACCO USER [facility] Apr 20, 2016 09:46 AM CURRENT TOBACCO USER [facility] Oct 19, 2015 11:24 AM CURRENT TOBACCO USER [facility] Mar 27, 2015 07:56 AM CURRENT TOBACCO USER [facility] Sep 23, 2014 07:54 AM CURRENT TOBACCO USER [facility] Mar 21, 2014 07:48 AM CURRENT TOBACCO USER [facility] Jun 25, 2013 08:37 AM CURRENT TOBACCO USER [facility] November 19, 2012 11:40 AM CURRENT TOBACCO USER [facility] Apr 02, 2012 08:47 AM CURRENT TOBACCO USER [facility] Sep 20, 2011 02:42 PM CURRENT TOBACCO USER [facility] Oct 08, 2010 10:34 AM CURRENT TOBACCO USER [facility] Dec 24, 2009 11:02 AM CURRENT TOBACCO USER [facility] Dec 24, 2009 11:02 AM TOBACCO OFFERRED STOP [facility] SMOKING CLINIC CARE SYS Jul 28, 2009 03:51 PM CURRENT TOBACCO USER [facility] S[facility] Jul 31, 2008 03:40 PM CURRENT TOBACCO USER [facility] Jul 31, 2008 03:06 PM CURRENT TOBACCO USER [facility] S[facility] Jul 31, 2008 03:06 PM TOBACCO OFFERRED STOP [facility] S[facility] CARE SYS Jan 29, 2008 01:30 PM CURRENT TOBACCO USER [facility] S[facility] Jan 29, 2008 01:30 PM TOBACCO OFFERRED PT MEDS V A [facility] (PROVIDER) [facility] SYS Jan 29, 2008 01:30 PM TOBACCO OFFERRED STOP [facility] SMOKING [facility]IN[facility] CARE SYS Jan 29, 2008 01:13 PM CURRENT TOBACCO USER [facility] Jan 29, 2008 01:13 PM TOBACCO OFFERRED STOP [facility] CARE SYS Jul 31, 2007 09:48 AM CURRENT TOBACCO USER [facility] S[facility] Jul 31, 2007 09:48 AM TOBACCO OFFERRED PT MEDS V A [facility] (PROVID[facility]) [facility] S[facility] Jul 31, 2007 09:48 AM TOBACCO OFFERRED STOP [facility] CARE SYS Jul 31, 2007 09:14 AM CURRENT TOBACCO USER [facility] Jul 31, 2007 09:14 AM TOBACCO OFFERRED STOP [facility] CARE SYS November 28, 2006 04:03 PM CURRENT TOBACCO USER [facility] S[facility] November 28, 2006 04:03 PM TOBACCO OFFERRED PT MEDS V A [facility] ([facility]) CARE SYS November 28, 2006 04:03 PM TOBACCO OFFERRED STOP [facility] S[facility]IN[facility] CARE SYS November 28, 2006 03:37 PM CURRENT TOBACCO USER [facility] smoke 1 pk/day CARE SYS May 31, 2006 03:53 PM TOBACCO [facility] HEALTH USE/COUNSELING-PROVIDER CARE SYS May 31, 2006 03:32 PM TOBACCO [facility] HEALTH USE/COUNSELING-ANCILLARY CARE SY S Feb 13, 2006 01:07 PM TOBACCO [facility] HEALTH USE/COUNSELING-ANCILLARY CARE SY S Apr 15, 2003 09:33 AM TOBACCO COUNSELING 3 [facility] SYS Apr 15, 2003 08:38 AM TOBACCO COUNSELING 2 [facility] Oct 14, 2002 08:46 AM TOBACCO COUNSELING 1 [facility] Oct 14, 2002 08:46 AM TOBACCO COUNSELING 2 [facility] Oct 14, 2002 08:46 AM TOBACCO COUNSELING 3 [facility] Apr 17, 2002 09:52 AM TOBACCO COUNSELING 2 [facility] Apr 17, 2002 09:52 AM TOBACCO COUNSELING 3 [facility] Oct 19, 2001 09:25 AM TOBACCO COUNSELING 1 [facility] Oct 19, 2001 09:25 AM TOBACCO COUNSELING 2 [facility] Oct 19, 2001 09:25 AM TOBACCO COUNSELING 3 [facility] Apr 13, 2001 01:36 PM TOBACCO COUNSELING 2 [facility] Apr 13, 2001 01:36 PM TOBACCO COUNSELING 3 [facility] November 15, 2000 02:10 PM TOBACCO COUNSELING 1 [facility] Encounter Notes: All associated encounter notes This section contains the clinical notes associated to the Encounter. Date/Time Encounter Note(s) Provider Source May 31, 2022 01:58 PM IMMUNIZATION NOTE: ADRIAN [facility] TITLE: FLU VACCINATION NOTE [facility] STAND[facility] TITLE: IMMUNIZATION NOTE DATE OF NOTE: MAY 31, 2022@13:58 ENTRY DATE: MAY 31, 2022@13:58:54 AUTHOR: SEUN WINKLER COSIGNER: URGENCY: STATUS: COMPLETED Clinical Reminder Activity: Influenza Immunization: The patient (surrogate decision maker) was give n the influenza VIS which lists the benefits and side effects of the vacc ine and which reviews the risks ofnot receiving the flu vaccine. The VIS was reviewed with the patient and they were given an opportunity to a sk questions. The patient (surrogate decision maker) was provided educati on on how to decrease the risk of influenza infection including social di stancing and use ofgood hand hygiene. The patient (surrogate decision maker) denied any prior severe reaction to the flu vaccine or its components. The patient (surrogate decision maker) gave verbal consent to receive the vaccine. The seasonal influenza vaccine VIS given to the patient: VIS version date Feb. The patient received seasonal influenza vaccine today - Influenza, Quadrivalent preservative free (Afluria) 0.5 ml IM today in Left Deltoid. Gave Influenza Vaccine 0.5mls IM per protocol. Signature blocks from wet signature on [facility] INFLUENZA VACCINE PROTOCOL Dated 04/06/2022 on file in [facility]. 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 DATE: 01/13/2023 / [facility]# [id number] Administered by protocol/policy [facility] Influenz a Protocol Complications: None /es/ HALEY HERNANDEZ RN,MSN Signed: 05/31/2022 14:00
--- OUTSIDE RECORDS SUMMARY | 2022-06-09 12:07 | XMS_ITS | Encounter Summary ---
:1960 Author Organization [facility] Address [address] [place] [address] Support Name Relationship Address Phone MAIDA MEEHAN Unavailable 1988 [place] [address] MAIDA MEEHAN Unavailable [phone] [place] [place] [phone] Insurance Providers: All historical and current Section Date Range: From patient's date of to the date document was created.This section includes the names of all active insurance providers for the patient. Insurance Type of Plan Start of End of Group Member Insurance Policy P [facility]'s Provider Coverage Name Policy Policy Number ID Provider's Figueroa's Relationship Coverage Coverage Telephone Name to Policy Number Figueroa [facility] Jul 17, [facility] [id number] [place], [facility] 2018 DIRECT 15 [phone] SANTINO PLAN [facility] Jul 17, [facility] [id number] [place] [facility] [phone] SANTINO PLAN Selected Encounter This section includes the information on record at [place] for the Encounter. Date/Time Encounter Type Encounter Description Reason Provider Source May 25, 2022 Outpatient ENDOCRINOLOGY DAISY ALAS 03:51 PM Encounter C IHE Encounter Template Text not used by [place] Plan of Treatment: Future Appointments (+ 6 [...] the Encounter. The data comes from all [place] treatment facilities. Test Date/Time Test Type Test Details Facility Name May 09, 2022 12:00 AM Laboratory - Chemistry GLYCOSOLATED HGB PA RON [facility] Order - BALT/PP BLOOD LAV B CARE SYS SP Lab Results: +/- 30 days of the encounter This section includes the Chemistry and Hematology Lab Results on record with [place] for the patient. Radiology Reports and Pathology Reports are provided separately, in subsequent sections.Lab Results This section contains the Chemistry/Hematology Results that were resulted 30 days before or 30 daysafter the date of the Encounter. Date/Time Source Result Type Result - Unit Interpretation Reference Range Comment May 11, 2022 [facility] GLYCOSOLATED HGB PANEL Speci men Type: BLOOD 08:27 AM CARE SYS - BALT/PP No comment enter ed. Ordering Provid er: DAISY ALAS Report Released Date/Time: Feb 09, 2022 08:29 AM Reporting Lab: [facility] SYS [address] [facility] Performing Lab: [facility] [address] [facility] HEMOGLOBIN A1C 5.4 4.3-5.7 May 11, 2022 08:27 [facility] VIT D, 25-OH, TOTAL Speci men Type: SERUM AM CARE SYS Comment: Hemoly sis Present. Affected Tests are canceled Ordering Provid er: DAISY ALAS Report Released Date/Time: Feb 09, 2022 08:29 AM Reporting Lab: [facility] CARE SYS [address] [facility] Performing Lab: [facility] SYS [address] [facility] VIT D, 25-OH, TOTAL 37 30-100 May 11, 2022 08:27 AM [facility] LIPID PANEL S pecimen Type: SERUM SYS Comment: Hemoly sis Present. Affected Tests are canceled Ordering Provid er: DAISY ALAS Report Released Date/Time: Feb 09, 2022 08:29 AM Reporting Lab: [facility] [address] [facility] Performing Lab: [facility] [address] E[address] SYLVIA MD CHOLESTEROL 141 0-240 TRIGLYCERIDES 93 0-150 HDL CHOLESTEROL 49.0 40-60 CALC LDL-CHOLESTEROL 73 0-100 ICTERUS INDEX 1 HEMOLYSIS INDEX 90 LIPEMIA INDEX 5 May 11, 2022 08:27 [facility] MICROALBUMIN PANEL Specim en Type: URINE, SPOT AM CARE SYS No comment enter ed. Ordering Provid er: DAISY ALAS Report Released Date/Time: Feb 09, 2022 08:29 AM Reporting Lab: [facility] [address] [facility] Performing Lab: [facility] [address] [facility] CREATININE (C0NC) 130.42 20-320 RATIO MICROALB/CREAT <9.2 0-30 MICROALBUMIN (mg/dL) <1.2 0-1.9 May 11, 2022 08:27 [facility] BASIC METABOLIC PANEL Spe cimen Type: SERUM AM CARE SYS Comment: Hemoly sis Present. Affected Tests are canceled Ordering Provid er: DAISY ALAS Report Released Date/Time: Feb 09, 2022 08:29 AM Reporting Lab: [facility] [address] [facility] Performing Lab: [facility] [address] [facility] CREATININE 1.00 .9-1.3 UREA NITROGEN 15 6-20 GLUCOSE 90 70-105 SODIUM 141 133-145 POTASSIUM Comment 3.3-5.1 CHLORIDE 106 98-107 HCO3- 23 22-32 CALCIUM 9.5 8.4-10.2 CALC ANION GAP 12 6-15 eGFR CKD-EPI 85 >60 ICTERUS INDEX 1 HEMOLYSIS INDEX 90 LIPEMIA INDEX 5 Social History: Smoking Status (Most current) and Tobacco Use (All prior to encounter date) This section includes the most current, and the historical, smoking and tobacco-related health factors from the [place] facility where the Encounter took place.Current Smoking Status This section includes the most current smoking, or tobacco-related health factor, from the [place] facility where the Encounter took place. Date/Time Current Smoking Status Comment Facility Nov 03, 2020 09:00 AM MI-TOBACCO QUIT 1 TO < 5 V A [facility] YRS Tobacco Use History This section includes a history of the smoking, or tobacco- related health factors, that were collected on or before the date of the Encounter. The data comes from the [place] facility where the Encounter took place. Date/Time Smoking Status/Tobacco Use Comment Facil ity Nov 03, 2020 09:00 AM VA-TOBACCO QUIT 1 TO < 5 V [facility] S[facility] Jan 07, 2019 12:51 PM VA-TOBACCO FORMER USER [facility] Jan 07, 2019 12:51 PM VA-TOBACCO QUIT < 1 YEAR V [facility] Jul 02, 2018 08:32 AM CURRENT TOBACCO USER [facility] Apr 21, 2017 08:06 AM CURRENT TOBACCO USER [facility] S[facility] Oct 20, 2016 10:36 AM CURRENT TOBACCO USER [facility] Apr 20, 2016 09:46 AM CURRENT TOBACCO USER [facility] Oct 19, 2015 11:24 AM CURRENT TOBACCO USER [facility] Mar 27, 2015 07:56 AM CURRENT TOBACCO USER [facility] Sep 23, 2014 07:54 AM CURRENT TOBACCO USER [facility] Mar 21, 2014 07:48 AM CURRENT TOBACCO USER [facility] Jun 25, 2013 08:37 AM CURRENT TOBACCO USER [facility] November 19, 2012 11:40 AM CURRENT TOBACCO USER [facility] Apr 02, 2012 08:47 AM CURRENT TOBACCO USER [facility] Sep 20, 2011 02:42 PM CURRENT TOBACCO USER [facility] Oct 08, 2010 10:34 AM CURRENT TOBACCO USER [facility] Dec 24, 2009 11:02 AM CURRENT TOBACCO USER [facility] Dec 24, 2009 11:02 AM TOBACCO OFFERRED STOP [facility] CARE SYS Jul 28, 2009 03:51 PM CURRENT TOBACCO USER [facility] Jul 31, 2008 03:40 PM CURRENT TOBACCO USER [facility] Jul 31, 2008 03:06 PM CURRENT TOBACCO USER [facility] Jul 31, 2008 03:06 PM TOBACCO OFFERRED STOP [facility] CARE SYS Jan 29, 2008 01:30 PM CURRENT TOBACCO USER [facility] Jan 29, 2008 01:30 PM TOBACCO OFFERRED PT MEDS V A [facility] CARE SYS Jan 29, 2008 01:30 PM TOBACCO OFFERRED STOP [facility] S[facility] CARE SYS Jan 29, 2008 01:13 PM CURRENT TOBACCO USER [facility] Jan 29, 2008 01:13 PM TOBACCO OFFERRED STOP [facility] SMOKING [facility] CARE SYS Jul 31, 2007 09:48 AM CURRENT TOBACCO USER [facility] Jul 31, 2007 09:48 AM TOBACCO OFFERRED PT MEDS V A [facility] CARE SYS Jul 31, 2007 09:48 AM TOBACCO OFFERRED STOP [facility] SMOKING [facility]INIC CARE SYS Jul 31, 2007 09:14 AM CURRENT TOBACCO USER [facility] Jul 31, 2007 09:14 AM TOBACCO OFFERRED STOP [facility] SMOKING [facility]IC CARE SYS November 28, 2006 04:03 PM CURRENT TOBACCO USER [facility] November 28, 2006 04:03 PM TOBACCO OFFERRED PT MEDS V [facility] CARE SYS November 28, 2006 04:03 PM TOBACCO OFFERRED STOP [facility] SMOKING CLINIC CARE SYS November 28, 2006 03:37 PM CURRENT TOBACCO USER [facility] 1 pk/day CARE SYS May 31, 2006 03:53 PM TOBACCO [facility] HE[facility] USE/COUNSELING-PROVIDER CARE SYS May 31, 2006 03:32 PM TOBACCO [facility] HEALTH USE/COUNSELING-ANCILLARY CARE SY S Feb 13, 2006 01:07 PM TOBACCO [facility] HEALTH USE/COUNSELING-ANCILLARY CARE SY S Apr 15, 2003 09:33 AM TOBACCO COUNSELING 3 [facility] Apr 15, 2003 08:38 AM TOBACCO COUNSELING 2 [facility] Oct 14, 2002 08:46 AM TOBACCO COUNSELING 1 [facility] Oct 14, 2002 08:46 AM TOBACCO COUNSELING 2 [facility] Oct 14, 2002 08:46 AM TOBACCO COUNSELING 3 [facility] S[facility] Apr 17, 2002 09:52 AM TOBACCO COUNSELING 2 [facility] S[facility] Apr 17, 2002 09:52 AM TOBACCO COUNSELING 3 [facility] S[facility] Oct 19, 2001 09:25 AM TOBACCO COUNSELING 1 [facility] S[facility] Oct 19, 2001 09:25 AM TOBACCO COUNSELING 2 [facility] S[facility] Oct 19, 2001 09:25 AM TOBACCO COUNSELING 3 [facility] Apr 13, 2001 01:36 PM TOBACCO COUNSELING 2 [facility] Apr 13, 2001 01:36 PM TOBACCO COUNSELING 3 [facility] S[facility] November 15, 2000 02:10 PM TOBACCO COUNSELING 1 [facility] Encounter Notes: All associated encounter notes This section contains the clinical notes associated to the Encounter. Date/Time Encounter Note(s) Provider Source May 25, 2022 03:51 PM ENDOCRINOLOGY SECURE MESSAGING: KANCHAN ALAS [facility] TITLE: ENDOCRINOLOGY SECURE MESSAGING [facility] STANDARD TITLE: ENDOCRINOLOGY SECURE MESSAGING DATE OF NOTE: MAY 25, 2022@15:51 ENTRY DATE: MAY 25, 2022@15:51:48 AUTHOR: DAISY ALAS EXP COSIGNER: URGENCY: STATUS: COMPLETED ------Original Message Sent: 05/25/2022 05:23 AM ET From: SANTINO MEEHAN To: Endocrinology [facility]@ Subject: General:Dr. Daisy Alas Attachments: BLOOD SUGAR UPDATED.xlsx (61.98 KB) Here is the latest blood pressure chart ------Original Message Sent: 05/25/2022 03:51 PM ET From: DAISY ALAS To: SANTINO MEEHAN Subject: General:Dr. Daisy Alas Hi there, Thanks for sending the sprea dsheet - it made me realize the appt we had planned to have didn't appear to have been scheduled. So rry for that! I will have our schedulers reach out to get you a visit with the first available. That said...your labs look fantastic! Really gre at job! I renewed your Wegovy. Take care and again, I'm sorry about the schedul ing mishap! Daisy Report Released Date/Time: May 11, 2022@16:56 Provider: DAISY ALAS Specimen: URINE, SPOT. [facility] [id number] Specimen Collection Date: May 11, 2022@08:27 Test name Result units Ref. range Site Code MICROALBUMIN (mg/dL) <1.2 mg/dL 0 - 1.9 [512] CREATININE (C0NC) 130.42 mg/dL 20 - 320 [512] RATIO MICROALB/CREAT <9.2 mcg/mgCRE 0 - 30 [512] Eval: Reference ranges: Normal 0 - 30 mcg/mg Cr eat Eval: Microalbuminuria 30 - 300 mcg/mg Creat Eval: Nephropathy 300 mcg/mg -> Report Released Date/Time: May 12, 2022@10:48 Provider: DAISY ALAS Specimen: BLOOD. [facility] [id number] Specimen Collection Date: May 11, 2022@08:27 Test name Result units Ref. range Site Code HEMOGLOBIN A1C 5.4 % 4.3 - 5.7 [512] Eval: Values obtained from A1C measurements can vary. Eval: For typical A1C assays, a reported value of 7.0 Eval: could actually be between 6.72 and 7.28 i f measured Eval: by a reference method. A reported value o f 9.0 Eval: could actually be between 8.73 and 9.27. Eval: Ref: http://www.ngsp.org/CAPdata.asp Report Released Date/Time: May 11, 2022@09:44 Provider: DAISY ALAS Specimen: SERUM. [facility] [id number] Specimen Collection Date: May 11, 2022@08:27 Test name Result units Ref. range Site Code GLUCOSE 90 MG/DL 70 - 105 [512] UREA NITROGEN 15 MG/DL 6 - 20 [512] SODIUM 141 MEQ/L 133 - 145 [512] POTASSIUM Comment MEQ/L 3.3 - 5.1 [512] CHLORIDE 106 MEQ/L 98 - 107 [512] HCO3- 23 MEQ/L 22 - 32 [512] CALC ANION GAP 12 mEq/L 6 - 15 [512] CALCIUM 9.5 MG/DL 8.4 - 10.2 [512] CREATININE 1.00 MG/DL .9 - 1.3 [512] eGFR CKD-EPI 85 mL/min/SA Ref: >=60 [512] Eval: Estimated Glomerular Filtration Rate (eGF R) calculated using Eval: the 2020 Chronic Kidney Disease-Epidemiol ogy (CKD-EPI) Eval: Collaboration creatinine equation; units of measure are Eval: mL/min/1.73 m2. Results are only valid fo r adults (=18 years) Eval: whose serum creatinine is in a steady sta te. eGFR calculations Eval: are not valid for patients with acute kid leigha injury and for Eval: patients on dialysis. Creatinine-based es timates of kidney Eval: function may also be inaccurate in patien ts with reduced Eval: creatinine generation due to decreased mu scle mass Eval: (e.g., malnutrition, severe hypoalbuminem ia, sarcopenia, Eval: chronic neuromuscular disease, amputation s, severe heart Eval: failure or liver disease) and in patients with increased Eval: creatinine generation due to increased mu scle mass (e.g., Eval: muscle builders, anabolic steroids) or in creased dietary Eval: intake. As drug clearance is proportional to total GFR and Eval: not GFR indexed to body surface area (BSA ), in individuals Eval: with a BSA substantially different than 1 .73 m2, drug dosing Eval: should be based the reported eGFR value d e-indexed from BSA Eval: by multiplying by the individual's BSA an d dividing by 1.73. Eval: CKD is diagnosed based on abnormalities o f kidney structure or Eval: function, present for >3 months, with imp lications for health Eval: and disease. CKD is classified and staged based on cause, eGFR Eval: and albuminuria (quantified as urine albu min to creatinine ratio). Eval: An eGFR >60 mL/min/1.73 m2 in the absence of increased urine Eval: albumin excretion or structural abnormali ties does not represent CKD. Eval: Eval: eGFR CKD stage Interpretation Eval: >=90 G1 -Normal Eval: 60-89 G2 -Mild decrease Eval: 45-59 G3A -Mild to moderate decrease Eval: 30-44 G3B -Moderate to severe decrease Eval: 15-29 G4 -Severe decrease Eval: <15 G5 -Kidney failure TRIGLYCERIDES 93 mg/dL 0 - 150 [512] HDL CHOLESTEROL 49.0 MG/DL 40 - 60 [512] CALC LDL-CHOLESTEROL 73 mg/dL 0 - 100 [512] CHOLESTEROL 141 mg/dL 0 - 240 [512] VIT D, 25-OH, TOTAL 37 ng/mL 30 - 100 [512] Eval: Am J Clin Nutr. 2001 Aug;73(2):288-94 Eval: The data show that for every 4000 IU/D of vitamin D intake, Eval: circulating 25(OH)D increases by 22ng/mL over 5 month on Eval: a given regimen. A steady state appears t o be achieved Eval: after 90days. HEMOLYSIS INDEX 90 unit [512] ICTERUS INDEX 1 unit [512] LIPEMIA INDEX 5 unit [512] Comment: Hemolysis Present. Affected Tests are c anceled /maira/ Daisy Alas DNP, M[facility], [facility] NURSE PRACTITIONER Signed: 05/25/2022 15:51
--- OUTSIDE RECORDS SUMMARY | 2022-06-09 12:07 | XMS_ITS | Encounter Summary ---
:1960 Author Organization [facility] rs Address [address] [place] [address] Support Name Relationship Address Phone ARABELLALASHAWN Mo Unavailable [address] [place] [id number] ELILASHAWN GRACIA Unavailable [address] [place] [phone] Insurance Providers: All historical and current Section Date Range: From patient's date of to the date document was created.This section includes the names of all active insurance providers for the patient. Insurance Type of Plan Start of End of Group Member Insurance Policy P [facility] Provider Coverage Name Policy Policy Number ID Provider's Figueroa's Relationship Coverage Coverage Telephone Name to Policy Number Figueroa [facility] Jul 17, [facility] [id number] Balbir POWELL, [facility] 2018 DIRECT 15 [phone] [facility] Jul 17, [facility] [id number] [address] POWELL [facility] 2010 21 [phone] [employer] [employer] Selected Encounter This section includes the information on [place] at [place] for the Encounter. Date/Time Encounter Type Encounter Reason Provider Source Description Mar 25, 2022 OFFICE O/P EST ENDOCRINOLOGY ICD-10-CM E66.9 ANANDA CHRISTIAN 08:30 AM HI 40-54 MIN Obesity, AN F unspecified with Provider Comments: Obesity ([facility] [id number]) IHE Encounter Template Text not used by [place] Assessments - Encounter Diagnoses This section includes the primary and secondary diagnoses documented for the Encounter. Date/Time Primary/Secondary Diagnosis Name Provider Source Diagnosis Mar 25, 2022 PRIMARY Obesity, FLORIN CHRISTIAN [facility] 03:56 PM unspecified [facility] Plan [...] the Encounter. The data comes from all [place] treatment facilities. Test Date/Time Test Type Test Details Facility Name May 09, 2022 12:00 AM Laboratory - Chemistry GLYCOSOLATED HGB PA [facility] Order - BALT/PP BLOOD LAV [facility] SP Vital Signs: All taken on the encounter date This section contains inpatient and outpatient Vital Signs collected on the date of the Encounter. Date/Time Temperature Pulse Blood Respiratory SP02 Pain Height Weight John dy Source Pressure Rate Mass Index Sep , 219 lb 30 [place] 2021 02:00 MARYLAN PM [facility] Social History: Smoking Status (Most current) and [...] 03, 2020 09:00 AM VA-TOBACCO FORMER USER [facility] Tobacco Use History This section includes a history of the smoking, or tobacco- related health factors, that were collected on or before the date of the Encounter. The data comes from the [place] facility where the Encounter took place. Date/Time Smoking Status/Tobacco Use Comment [facility] Nov 03, 2020 09:00 AM [place] 1 TO < 5 V [facility] Jan 07, 2019 12:51 PM VA-TOBACCO FORMER USER [facility] Jan 07, 2019 12:51 PM [place] QUIT < 1 YEAR V [facility]MERLY [facility] Jul 02, 2018 08:32 AM CURRENT [facility]BACCO USER [facility] Apr 21, 2017 08:06 AM CURRENT TOBACCO USER [facility] Oct 20, 2016 10:36 AM CURRENT TOBACCO USER [facility] Apr 20, 2016 09:46 AM CURRENT TOBACCO USER [facility] Oct 19, 2015 11:24 AM CURRENT TOBACCO USER [facility] Mar 27, 2015 07:56 AM CURRENT TOBACCO USER [facility] Sep 23, 2014 07:54 AM CURRENT TOBACCO USER [facility] Mar 21, 2014 07:48 AM CURRENT TOBACCO USER [facility] Jun 25, 2013 08:37 AM CURRENT TOBACCO USER [facility] November 19, 2012 11:40 AM CURRENT TOBACCO USER [facility] Apr 02, 2012 08:47 AM CURRENT TOBACCO USER [facility] Sep 20, 2011 02:42 PM CURRENT TOBACCO USER [facility] Oct 08, 2010 10:34 AM CURRENT TOBACCO USER [facility] Dec 24, 2009 11:02 AM CURRENT TOBACCO USER [facility] Dec 24, 2009 11:02 AM TOBACCO OFFERRED STOP [facility] S[facility] Jul 28, 2009 03:51 PM CURRENT TOBACCO USER [facility] Jul 31, 2008 03:40 PM CURRENT TOBACCO USER [facility] Jul 31, 2008 03:06 PM CURRENT TOBACCO USER [facility] Jul 31, 2008 03:06 PM TOBACCO OFFERRED STOP [facility] Jan 29, 2008 01:30 PM CURRENT TOBACCO USER [facility] Jan 29, 2008 01:30 PM TOBACCO OFFERRED PT [facility]S V [facility] Jan 29, 2008 01:30 PM TOBACCO OFFERRED STOP [facility] SMOKING [facility]INIC CARE [facility] Jan 29, 2008 01:13 PM CURRENT TOBACCO USER [facility] Jan 29, 2008 01:13 PM TOBACCO OFFERRED STOP [facility] S[facility] Jul 31, 2007 09:48 AM CURRENT TOBACCO USER [facility] Jul 31, 2007 09:48 AM TOBACCO OFFERRED PT MEDS V [facility] Jul 31, 2007 09:48 AM TOBACCO OFFERRED STOP [facility] SMOKING CLINIC CARE SYS Jul 31, 2007 09:14 AM CURRENT TOBACCO USER [facility] Jul 31, 2007 09:14 AM TOBACCO OFFERRED STOP [facility] SMOKING CLINIC CARE SYS November 28, 2006 04:03 PM CURRENT TOBACCO USER [facility] November 28, 2006 04:03 PM TOBACCO OFFERRED PT MEDS V [facility] CARE [facility] November 28, 2006 04:03 PM TOBACCO OFFERRED STOP [facility] SMOKING CLINIC CARE SYS November 28, 2006 03:37 PM CURRENT TOBACCO USER [facility] smoke 1 pk/day CARE SYS May 31, 2006 03:53 PM TOBACCO [facility] HEALTH USE/COUNSELING-PROVIDER CARE SYS May 31, 2006 03:32 PM TOBACCO [facility] HEALTH USE/COUNSELING-ANCILLARY CARE SY S Feb 13, 2006 01:07 PM TOBACCO [facility] HEALTH USE/COUNSELING-ANCILLARY CARE SY S Apr 15, 2003 09:33 AM TOBACCO COUNSELING 3 [facility] Apr 15, 2003 08:38 AM TOBACCO COUNSELING 2 [facility] Oct 14, 2002 08:46 AM TOBACCO COUNSELING 1 [facility] Oct 14, 2002 08:46 AM TOBACCO COUNSELING 2 [facility] Oct 14, 2002 08:46 AM TOBACCO COUNSELING 3 [facility] Apr 17, 2002 09:52 AM TOBACCO COUNSELING 2 [facility] Apr 17, 2002 09:52 AM TOBACCO COUNSELING 3 [facility] Oct 19, 2001 09:25 AM TOBACCO COUNSELING 1 [facility] Oct 19, 2001 09:25 AM TOBACCO COUNSELING 2 [facility] Oct 19, 2001 09:25 AM TOBACCO COUNSELING 3 [facility] Apr 13, 2001 01:36 PM TOBACCO COUNSELING 2 [facility] Apr 13, 2001 01:36 PM TOBACCO COUNSELING 3 [facility] November 15, 2000 02:10 PM TOBACCO COUNSELING 1 [facility] Encounter Notes: All associated encounter notes This section contains the clinical notes associated to the Encounter. Date/Time Encounter Note(s) Provider Source Mar 25, 2022 08:21 AM DIABETOLOGY EDUCATION NOTE: FLORIN CHRISTIAN [facility] TITLE: DIABETES EDUCATION NOTE CARE SYS STANDARD TITLE: DIABETOLOGY EDUCATION NOTE DATE OF NOTE: MAR 25, 2022@08:21 ENTRY DATE: MAR 25, 2022@08:21:58 AUTHOR: MERCEDES CHRISTIAN EXP COSIGNER: URGENCY: STATUS: [facility]PLE[facility]ED [facility] Unless otherwise noted, the following informatio n will remain unchanged for subsequent visits. 1. Patient has given verbal consent to use teleh ealth for this encounter: Yes 2. Verify Emergency contact: Lashawn Powell - a. Home: 3. Identify any privacy concerns - Ensure patien t is in a private place for the visit: Yes If NO , request that the patient move to [facility] location. 4. Confirm that audiovisual equipment is functio niharika: Yes a. Resend link to alternative device (e.g. tabl et, laptop): n/a 5. If patient appears to be suicidal or homicida l, use best clinical judgement to refer patient to appropriate resou rce (e.g. [place] crisis line) 6. Reason for visit: endocrine 7. Urgency of the appointment: Routine Contact time: 45 min Mr. Piña is a 61 y/o BLACK OR JACQUE N MALE with PMH T2DM (dx'd October 2018), HTN, HLD, seen for education/nutrit ion f/u visit. Nutrition: Reports appetite varies for on-site vs telework days. 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 Over the past few weeks he has been focusing on increasing salad/non- starchy vegetable intake, reducing starch portio ns. Typical evening meals at home are lean turkey or stea k + mixed vegetables (peas, carrots, green beans) or other vegetables. Beverages - coffee w/ cream/sp lenda, water, crystal light, rarely diet soda. Feels he was doing better with goal to eat dinner earlier until this past week, when work stress increased . Physical activity: reports increased act ivity level at work, more walking, but has not been successful in increasing walking on telework days. When he is on site he has more walking browning lt into his day but has also been consciously taking 10-15 min walk breaks multip le times per day for stress relief. Minimal activity on non work days aside from yardwork when needed . DM regimen: not currently on DM medications Pertinent labs: 08/17/21 a1c 5.7% SMBG: checks fasting BG ~2x/week 89, 100, 91, 95, 89, 106, 102, 87 Anthropometrics: Ht: 72 in [182.9 cm] (05/18/2021 09:34) Wt: 219 lb [99.34 kg] (03/25/2022 14:00) BMI: 29.8 Weight is similar to last appt with this author (2# decrease); per pt he had reached goal of 215#, then increased to 225# and has now trending down again. Education/goal-setting: Reviewed progress towards we ight and behavioral (nutrition/exercise) goals, and discussed how to handle weight plateaus. Also en couraged to acknowledge/celebrate that i mprovements in BG and BP that he has sustained with lifestyle modification. Goals: Plans to continue with lucy saravia. He is satisfied with activity level on on-site wo rk days and plans to focus on telework days and days off. Wants to start using resistance bands/seate d exercises while watching TV/football. Discussed healthy methods of coping with stress. Education Assessment: CONTENT: Nutrition TEACHING METHOD: Dialogue/Interactive EVALUATION OF LEARNING: Communicates Understandi ng INDIVIDUAL WHO WAS TRAINED: Patient DISCIPLINE PROVIDING EDUCATION: LASHONDA/DINAH Plan: - Education provided as above - Contact # provided /maira/ Mercedes Christian MS, TITA, DINAH [employer] Executive Signed: 03/25/2022 15:56
[2022-06-09] MEDS: dexAMETHasone sod phosphate 4 MG/ML VIAL 8 MG IVPUSH (12:38)
[2022-06-09] MEDS: Famotidine/PF 20 MG/2 ML VIAL IVPUSH (12:38)
[2022-06-09] MEDS: diphenhydrAMINE HCL 50 MG/ML VIAL IVPUSH (12:39)
[2022-06-09 12:44] VITALS: BP 135/77; PULSE 79; RESP 16; TEMP 37.7; O2SAT 97
== END 2022-06-09 13:44 | disposition home or self-care (01) ==
PROVIDERS: Emergency Provider Emergency Medicine
DX: T78.3XXA Angioneurotic edema, initial encounter (principal); T46.4X5A Adverse effect of angiotensin-converting-enzyme inhibitors, initial encounter; Y92.013 Bedroom of single-family (private) house as the place of occurrence of the external cause; E11.9 Type 2 diabetes mellitus without complications; I10 Essential (primary) hypertension; Z79.899 Other long term (current) drug therapy
CPT/HCPCS: 96374; 96375; 99284; J1100; J1200